=== PATIENT | female | born 1950 | race Caucasian/White ===

== ENCOUNTER → 2017-12-05 11:58 | Outpatient (REF) | payer MEDICARE, SELFPAY ==
[2017-12-05 14:14] LABS: Alanine Aminotransferase 30 U/L (12-78); Albumin Level 3.9 gm/dL (3.4-5.0); Albumin/Globulin Ratio 1.1 (1.1-1.8); Alkaline Phosphatase 100 U/L (46-116); Anion Gap 12.5 mEq/L (5-15); Aspartate Amino Transferase 14 U/L (15-37); Bilirubin,Total 0.4 mg/dL (0.2-1.0); Blood Urea Nitrogen 16 mg/dL (7-18); Calcium 9.3 mg/dL (8.5-10.1); Carbon Dioxide 31 mmol/L (21.0-32.0); Chloride 98 mmol/L (98-107); Chol/HDL Ratio 5.7 (1-3.5); Cholesterol 199 mg/dL (140-200); Creatinine,Serum 0.59 mg/dL (0.55-1.02); Estimated Glomerular Filt Rate 102 ml/min (>60); GFR (African American) 123 ML/MIN (>60); Globulin 3.6 gm/dl (1.3-3.2); Glucose 107 mg/dL (74-106); HDL Cholesterol 35 mg/dL (29-89); LDL Cholesterol 117 mg/dL (0-130); Potassium 3.5 mmoL/L (3.5-5.1); Sodium 138 mmol/L (136-145); T4 (Thyroxine) 9.9 ug/dl (4.7-13.3); Thyroid Stimulating Hormone 2.96 uIU/ml (0.358-3.740); Total Protein,Serum 7.5 gm/dL (6.4-8.2); Triglycerides 236 mg/dL (30-200); VLDL Cholesterol 47 mg/dL (0-40)
[2017-12-05 15:43] LABS: Hematocrit 45.9 % (37.0-47.0); Hemoglobin 15.2 g/dL (12.2-16.2); Lymphocytes % 15.6 K/mm3 (10-50); Mean Corpuscular HGB Conc 33.1 g/dL (31.8-35.4); Mean Corpuscular Hemoglobin 30.6 pg (27.0-31.2); Mean Corpuscular Volume 92.3 fl (81-99); Mean Platelet Volume 9.1 fl (7.4-10.4); Neutrophils % 73.6 % (37.0-80.0); Platelet Count 230 K/mm3 (142-424); Red Blood Count 4.97 M/mm3 (4.20-5.40); Red Cell Distribution Width 12.8 % (11.5-17.5); White Blood Count 6.3 K/mm3 (4.8-10.8)
[2017-12-05 15:44] LABS: Basophils # 0.1 K/mm3 (0-0.2); Basophils % 0.9 % (0.1-2.0); Eosinophils # 0.2 K/mm3 (0.0-0.4); Eosinophils % 2.4 % (0.1-12.0); Lymphocytes # 0.8 K/mm3 (0.7-4.5); Monocytes # 0.5 K/mm3 (0.1-1.0); Monocytes % 7.5 % (1.7-9.3); Neutrophils # 4.6 K/mm3 (1.8-7.8)
== END ==
LOC: LAB 11:58
PROVIDERS: Visit Provider Physician Assistant
DX: I25.10 Atherosclerotic heart disease of native coronary artery without angina pectoris (principal); E78.5 Hyperlipidemia, unspecified; M25.511 Pain in right shoulder; I10 Essential (primary) hypertension
CPT/HCPCS: 80053; 80061; 84436; 84443; 85025

== ENCOUNTER → 2017-12-24 08:27 | Outpatient (CLI) | payer MEDICARE, SELFPAY ==
--- NOTE | 2017-12-24 08:30 | XR_ITS ---
XR shoulder RT min 2V HISTORY: ITS.REASON: right shoulder pain ORDERING PHYSICIAN: PASCUAL Richardson PATIENT AGE: 67 years COMPARISON: None FINDINGS: No fracture or dislocation. No lytic or blastic change. There is normal mineralization. Osteoarthritic changes are present at the acromioclavicular joint with spurring along the inferior aspect of the AC joint. Is may result in impingement symptomatology upon the rotator cuff may be better evaluated with MRI clinically warranted. The glenohumeral joint has an unremarkable appearance. IMPRESSION: Acromioclavicular arthropathy with spurring along the acromioclavicular joint otherwise negative
--- NOTE | 2017-12-24 08:30 | MM_ITS ---
MM Dig screening mamm BI w/CAD CAD Screening ORDERING PHYSICIAN : PASCUAL Richardson PATIENT AGE: 67 years GENDER: Female INDICATION: Routine screening no hormones no new complaints Family history. Sister with breast cancer age 32 COMPARISON: Previous mammograms: March 2014 TECHNIQUE: Standard CC and MLO images were obtained. Additional nipple profile cc & MLO views performed today which are indicative helpful in this dense nodular breast. R2 CAD reviewed. FINDINGS: Somewhat Difficult to evaluate breast radiographically due to the dense fibroglandular most evident at at superior breast. Dense breast tissue limits mammography. Also Ductal prominence pattern most evident retroareolar region. Latter as well as other features yield somewhat nodular character pattern which is a again seen bilaterally.... Scattered areas of dense breast tissue with scattered areas of benign calcification. No suspicious dominant mass. No discrete architecture distortion but I would encourage annual follow-up in this difficult to image breast. The multiple images provided they are helpful RIGHT BREAST:When compared to previous studies right breast appears overall stable with no significant new findings Areas of slight asymmetric density appear stable since prior study. Scattered benign-appearing calcifications are similar to prior study as well. Areas Minimal nodularity appears similar overall views are reviewed No new areas of significant concern. Follow-up in one year would be recommended and should be encouraged. LEFT BREAST: Areas of dense fibroglandular tissue such as the superior left breast seem to dissipate between the 2 MLO & cc views. It would be encouraged close follow-up with annual mammography. Provider as well as self breast examination be encouraged if any palpable areas developing ultrasound would be useful compliment to mammography in these areas of dense appearing breasts. IMPRESSION: 1. No definitive new areas of concern. Encourage close follow-up & ongoing breast examination; & encourage annual breast exam . If Palpable area develops, ultrasound would be useful compliment to mammography in breast of this character 2. Areas of dense breast tissue bilaterally, particularly evident at superior right & left breast, along with ductal prominence retroareolar regions, decreased sensitivity mammography. However these areas of density on one view seem to dissipate on another view with today's multiple views particularly helpful. Overall findings appear similar to previous study from 2013. 3. Follow-up in in one year/ not over one year recommended and should be emphasized, encouraged BI-RADS Category: 2 Benign Finding(s) RECOMMENDED FOLLOW-UP: 1YR - 1 YEAR FOLLOW-UP (A letter has been sent to the patient regarding results of the study.)
== END ==
LOC: RAD 08:27
PROVIDERS: Family Provider Emergency Medicine; PCP Physician Assistant; Visit Provider Physician Assistant
DX: M25.511 Pain in right shoulder (principal); Z12.31 Encounter for screening mammogram for malignant neoplasm of breast; I10 Essential (primary) hypertension
CPT/HCPCS: 73030; 77067

== ENCOUNTER → 2018-06-04 10:32 | Outpatient (REF) | payer MEDICARE, SELFPAY ==
[2018-06-04 13:55] LABS: Basophils # 0.1 K/mm3 (0-0.2); Basophils % 0.7 % (0.1-2.0); Eosinophils # 0.2 K/mm3 (0.0-0.4); Eosinophils % 3.1 % (0.1-12.0); Hemoglobin 15.7 g/dL (12.2-16.2); Lymphocytes # 1.1 K/mm3 (0.7-4.5); Lymphocytes % 16.9 K/mm3 (10-50); Mean Corpuscular HGB Conc 34.2 g/dL (31.8-35.4); Mean Corpuscular Hemoglobin 30.7 pg (27.0-31.2); Mean Corpuscular Volume 89.8 fl (81-99); Mean Platelet Volume 7.6 fl (7.4-10.4); Monocytes # 0.4 K/mm3 (0.1-1.0); Neutrophils # 4.6 K/mm3 (1.8-7.8); Neutrophils % 72.4 % (37.0-80.0); Platelet Count 295 K/mm3 (142-424); Red Blood Count 5.12 M/mm3 (4.20-5.40); Red Cell Distribution Width 13.4 % (11.5-17.5); White Blood Count 6.3 K/mm3 (4.8-10.8)
[2018-06-04 16:24] LABS: Alanine Aminotransferase 25 U/L (12-78); Albumin/Globulin Ratio 1.1 (1.1-1.8); Alkaline Phosphatase 127 U/L (46-116); Anion Gap 15.3 mEq/L (5-15); Aspartate Amino Transferase 12 U/L (15-37); Bilirubin,Total 0.4 mg/dL (0.2-1.0); Blood Urea Nitrogen 18 mg/dL (7-18); Calcium 9.5 mg/dL (8.5-10.1); Carbon Dioxide 29 mmol/L (21.0-32.0); Chloride 98 mmol/L (98-107); Chol/HDL Ratio 3.7 (1-3.5); Cholesterol 130 mg/dL (140-200); Creatinine,Serum 0.65 mg/dL (0.55-1.02); Estimated Glomerular Filt Rate 91 ml/min (>60); GFR (African American) 110 ML/MIN (>60); Globulin 3.6 gm/dl (1.3-3.2); Glucose 94 mg/dL (74-106); HDL Cholesterol 35 mg/dL (29-89); LDL Cholesterol 58 mg/dL (0-130); Potassium 3.3 mmoL/L (3.5-5.1); Sodium 139 mmol/L (136-145); T4 (Thyroxine) 10.2 ug/dl (4.7-13.3); Thyroid Stimulating Hormone 3.85 uIU/ml (0.358-3.740); Total Protein,Serum 7.6 gm/dL (6.4-8.2); Triglycerides 186 mg/dL (30-200); VLDL Cholesterol 37 mg/dL (0-40)
[2018-06-05 10:14] LABS: Vitamin D 25 Hydroxy 31.6 ng/mL (30.0-100.0)
[2018-06-06 09:09] LABS: Vitamin B12 453 pg/mL (232-1245)
== END ==
LOC: LAB 10:32
PROVIDERS: Visit Provider Physician Assistant
DX: R53.83 Other fatigue (principal); I25.10 Atherosclerotic heart disease of native coronary artery without angina pectoris; E55.9 Vitamin D deficiency, unspecified
CPT/HCPCS: 80053; 80061; 82607; 82652; 84436; 84443; 85025

== ENCOUNTER → 2018-09-03 13:12 | Outpatient (CLI) | payer MEDICARE, SELFPAY ==
[2018-09-03 13:40] LABS: Basophils # 0.1 K/mm3 (0-0.2); Basophils % 0.9 % (0.1-2.0); Eosinophils # 0.2 K/mm3 (0.0-0.4); Eosinophils % 3.4 % (0.1-12.0); Hematocrit 44.4 % (37.0-47.0); Hemoglobin 14.5 g/dL (12.2-16.2); Lymphocytes # 1.3 K/mm3 (0.7-4.5); Lymphocytes % 21.3 % (10-50); Mean Corpuscular HGB Conc 32.6 g/dL (31.8-35.4); Mean Corpuscular Hemoglobin 30.3 pg (27.0-31.2); Mean Corpuscular Volume 93.2 fl (81-99); Mean Platelet Volume 7.9 fl (7.4-10.4); Monocytes # 0.4 K/mm3 (0.1-1.0); Monocytes % 7.1 % (1.7-9.3); Neutrophils % 67.3 % (37.0-80.0); Platelet Count 277 K/mm3 (142-424); Red Blood Count 4.77 M/mm3 (4.20-5.40); Red Cell Distribution Width 13.6 % (11.5-17.5); White Blood Count 5.9 K/mm3 (4.8-10.8)
[2018-09-03 13:57] LABS: Alanine Aminotransferase 21 U/L (12-78); Albumin Level 3.6 gm/dL (3.4-5.0); Albumin/Globulin Ratio 0.9 (1.1-1.8); Alkaline Phosphatase 108 U/L (46-116); Anion Gap -3.4 mEq/L (5-15); Aspartate Amino Transferase 10 U/L (15-37); Bilirubin,Total 0.4 mg/dL (0.2-1.0); Blood Urea Nitrogen 16 mg/dL (7-18); Calcium 9.3 mg/dL (8.5-10.1); Carbon Dioxide 33 mmol/L (21.0-32.0); Chloride 104 mmol/L (98-107); Cholesterol 179 mg/dL (140-200); Creatinine,Serum 0.49 mg/dL (0.55-1.02); Estimated Glomerular Filt Rate 126 ml/min (>60); GFR (African American) 152 ML/MIN (>60); Globulin 3.8 gm/dl (1.3-3.2); Glucose 90 mg/dL (74-106); HDL Cholesterol 36 mg/dL (29-89); LDL Cholesterol 115 mg/dL (0-130); Potassium 3.6 mmoL/L (3.5-5.1); Sodium 130 mmol/L (136-145); T4 (Thyroxine) 10.6 ug/dl (4.7-13.3); Thyroid Stimulating Hormone 4.06 uIU/ml (0.358-3.740); Total Protein,Serum 7.4 gm/dL (6.4-8.2); Triglycerides 138 mg/dL (30-200); VLDL Cholesterol 28 mg/dL (0-40)
[2018-09-05 07:05] LABS: Vitamin D 25 Hydroxy 29.2 ng/mL (30.0-100.0)
== END ==
PROVIDERS: PCP Physician Assistant; Visit Provider Physician Assistant
DX: E78.5 Hyperlipidemia, unspecified (principal); R53.83 Other fatigue; I25.10 Atherosclerotic heart disease of native coronary artery without angina pectoris
CPT/HCPCS: 80053; 80061; 82652; 84436; 84443; 85025

== ENCOUNTER → 2019-02-24 14:05 | Outpatient (CLI) | payer MEDICARE, SELFPAY ==
[2019-02-24 14:44] LABS: Alanine Aminotransferase 24 U/L (12-78); Albumin Level 3.9 gm/dL (3.4-5.0); Alkaline Phosphatase 122 U/L (46-116); Anion Gap 11.5 mEq/L (5-15); Aspartate Amino Transferase 11 U/L (15-37); Bilirubin,Total 0.4 mg/dL (0.2-1.0); Blood Urea Nitrogen 17 mg/dL (7-18); Calcium 9.2 mg/dL (8.5-10.1); Carbon Dioxide 30 mmol/L (21.0-32.0); Chloride 98 mmol/L (98-107); Chol/HDL Ratio 4.8 (1-3.5); Cholesterol 173 mg/dL (140-200); Creatinine,Serum 0.47 mg/dL (0.55-1.02); Estimated Glomerular Filt Rate 132 ml/min (>60); GFR (African American) 160 ML/MIN (>60); Globulin 3.9 gm/dl (1.3-3.2); Glucose 99 mg/dL (74-106); HDL Cholesterol 36 mg/dL (29-89); LDL Cholesterol 113 mg/dL (0-130); Potassium 3.5 mmoL/L (3.5-5.1); Sodium 136 mmol/L (136-145); T4 (Thyroxine) 9.9 ug/dl (4.7-13.3); Thyroid Stimulating Hormone 3.65 uIU/ml (0.358-3.740); Total Protein,Serum 7.8 gm/dL (6.4-8.2); Triglycerides 119 mg/dL (30-200); VLDL Cholesterol 24 mg/dL (0-40)
[2019-02-25 13:56] LABS: Vitamin D 25 Hydroxy 24.8 ng/mL (30.0-100.0)
== END ==
PROVIDERS: Visit Provider Physician Assistant
DX: E03.9 Hypothyroidism, unspecified (principal); E78.5 Hyperlipidemia, unspecified; E55.9 Vitamin D deficiency, unspecified
CPT/HCPCS: 80053; 80061; 82652; 84436; 84443

== ENCOUNTER → 2019-06-29 08:50 | Outpatient (POV) | payer MEDICARE, SELFPAY | LOC: SC 08:51 | PROVIDERS: Visit Provider Specialist | DX: R20.0 Anesthesia of skin (principal); G56.00 Carpal tunnel syndrome, unspecified upper limb | CPT/HCPCS: 95886; 95908 ==

== ENCOUNTER → 2019-07-30 08:34 | Outpatient (CLI) | payer MEDICARE, SELFPAY ==
--- NOTE | 2019-07-30 08:42 | XR_ITS ---
PROCEDURE: XR WRIST LT MIN 3V CLINICAL INDICATION: left wrist pain/ CTS COMPARISON: No exams were available for comparison FINDINGS: Minimal osteoarthritic change at the 1st metacarpal-carpal joint and scapho trapezium joint. No fracture, dislocation, lytic change or blastic change evident IMPRESSION: Mild osteoarthritis Dictated by: Brayan Hummel MD 07/30/2019 10:16 Electronically signed by Brayan Hummel MD in [place] 08/07/2019 12:12
== END ==
LOC: RAD 08:36
PROVIDERS: PCP Emergency Medicine; Visit Provider Orthopaedic Surgery
DX: M25.532 Pain in left wrist (principal)
CPT/HCPCS: 73110

== ENCOUNTER → 2019-07-31 08:56 | Outpatient (CLI) | payer MEDICARE, SELFPAY ==
--- NOTE | 2019-07-31 09:00 | XR_ITS ---
PROCEDURE: XR CHEST 2V CLINICAL HISTORY: HTN, SMOKER, PREOP COMPARISON: CXR CHEST(2 VIEWS-NOT PORTABLE) from 05/26/2014 FINDINGS: The cardiomediastinal silhouette and pulmonary vascularity are within normal limits. The lungs are clear without infiltrates, suspicious nodules, or pleural effusions. There is minimal blunting right costophrenic angle however there is was noted previously and this is stable and likely due to scarring. There minor multilevel degenerate changes of the thoracic spine. No acute bony abnormalities. IMPRESSION: No acute findings. Dictated by: Dr. Barron Lawrence MD 07/31/2019 09:[address] Barron Lawrence MD in [facility] 07/31/2019 09:32
--- NOTE | 2019-07-31 09:28 | ECG_ITS ---
APPROVED REPORT Exam: Resting ECG HR:74 bpm ECG Measurements Heart Rate 74 AXES WA 180 P 65 QRSd 90 QRS 40 QT 432 T 52 QTc 479 <Conclusion> Normal sinus rhythm with sinus arrhythmia Normal ECG Electronically signed by : Marcelino Ramos, 07/31/2019 18:14:50
[2019-07-31 10:14] LABS: Basophils % 0.5 % (0.1-2.0); Eosinophils # 0.2 K/mm3 (0.0-0.4); Eosinophils % 3.3 % (0.1-12.0); Hematocrit 47.1 % (37.0-47.0); Hemoglobin 13.9 g/dL (12.2-16.2); Lymphocytes # 0.9 K/mm3 (0.7-4.5); Lymphocytes % 15.6 % (10-50); Mean Corpuscular HGB Conc 29.6 g/dL (31.8-35.4); Mean Corpuscular Volume 94.6 fl (81-99); Mean Platelet Volume 7.6 fl (7.4-10.4); Monocytes # 0.5 K/mm3 (0.1-1.0); Monocytes % 7.6 % (1.7-9.3); Neutrophils # 4.4 K/mm3 (1.8-7.8); Platelet Count 320 K/mm3 (142-424); Red Blood Count 4.98 M/mm3 (4.20-5.40); Red Cell Distribution Width 14.4 % (11.5-17.5)
[2019-07-31 10:31] LABS: Anion Gap 12.2 mEq/L (5-15); Blood Urea Nitrogen 16 mg/dL (7-18); Calcium 9.1 mg/dL (8.5-10.1); Carbon Dioxide 31 mmol/L (21.0-32.0); Chloride 98 mmol/L (98-107); Estimated Glomerular Filt Rate 159 ml/min (>60); GFR (African American) 192 ML/MIN (>60); Glucose 107 mg/dL (74-106); Potassium 3.2 mmoL/L (3.5-5.1); Sodium 138 mmol/L (136-145)
== END ==
LOC: RT 08:57
PROVIDERS: PCP Physician Assistant; Visit Provider Orthopaedic Surgery
DX: Z01.818 Encounter for other preprocedural examination (principal); G56.02 Carpal tunnel syndrome, left upper limb
CPT/HCPCS: 36415; 71046; 80048; 85025; 93005

== ENCOUNTER → 2020-05-16 17:04 | Outpatient (CLI) | payer MEDICARE, SELFPAY | PROVIDERS: Visit Provider Physician Assistant | DX: R30.0 Dysuria (principal) | CPT/HCPCS: 87086; 87088; 87186 ==

== ENCOUNTER → 2020-08-15 15:24 | Outpatient (CLI) | payer MEDICARE, SELFPAY ==
[2020-08-15 16:45] LABS: Basophils # 0.1 K/mm3 (0-0.2); Eosinophils # 0.2 K/mm3 (0.0-0.4); Eosinophils % 2.9 % (0.1-12.0); Hematocrit 44.7 % (37.0-47.0); Hemoglobin 15.8 g/dL (12.2-16.2); Lymphocytes # 1.1 K/mm3 (0.7-4.5); Lymphocytes % 17.3 % (10-50); Mean Corpuscular HGB Conc 35.4 g/dL (31.8-35.4); Mean Corpuscular Hemoglobin 31.4 pg (27.0-31.2); Mean Corpuscular Volume 88.7 fl (81-99); Mean Platelet Volume 8.4 fl (7.4-10.4); Monocytes # 0.5 K/mm3 (0.1-1.0); Monocytes % 8.1 % (1.7-9.3); Neutrophils # 4.3 K/mm3 (1.8-7.8); Neutrophils % 70.7 % (37.0-80.0); Platelet Count 251 K/mm3 (142-424); Red Blood Count 5.04 M/mm3 (4.20-5.40); Red Cell Distribution Width 13.3 % (11.5-17.5); White Blood Count 6.1 K/mm3 (4.8-10.8)
[2020-08-15 17:02] LABS: Alanine Aminotransferase 18 U/L (12-78); Albumin Level 4.2 g/dl (3.5-5.0); Albumin/Globulin Ratio 1.3 (1.1-1.8); Alkaline Phosphatase 120 U/L (38-126); Anion Gap 12.1 mEq/L (5-15); Aspartate Amino Transferase 23 U/L (14-36); Bilirubin,Total 0.6 mg/dl (0.2-1.3); Blood Urea Nitrogen 22 mg/dl (7-17); Calcium 9.4 mg/dl (8.4-10.2); Carbon Dioxide 32 mmol/L (22.0-30.0); Chloride 96 mmol/L (98-107); Chol/HDL Ratio 6.1 (1-3.5); Cholesterol 214 mg/dl (140-200); Estimated Glomerular Filt Rate 122 ml/min (>60); GFR (African American) 148 ML/MIN (>60); Globulin 3.2 g/dL (1.3-3.2); Glucose 99 mg/dl (74-100); HDL Cholesterol 35 mg/dl (40-60); Potassium 3.1 mmoL/L (3.5-5.1); Sodium 137 mmol/L (136-145); Total Protein,Serum 7.4 g/dl (6.3-8.2); Triglycerides 235 mg/dl (30-150); VLDL Cholesterol 47 mg/dL (0-40)
[2020-08-15 17:20] LABS: 25-OH Vitamin D, Total 20.6 ng/mL (30-100)
[2020-08-15 17:33] LABS: Thyroid Stimulating Hormone 3.28 uIU/mL (0.465-4.68)
== END ==
PROVIDERS: Visit Provider Physician Assistant
DX: E03.9 Hypothyroidism, unspecified (principal); E55.9 Vitamin D deficiency, unspecified; M54.32 Sciatica, left side; R53.83 Other fatigue; R20.0 Anesthesia of skin
CPT/HCPCS: 80053; 80061; 82306; 84443; 85025

== ENCOUNTER → 2020-12-20 08:55 | Outpatient (CLI) | payer MEDICARE, SELFPAY ==
--- NOTE | 2020-12-20 09:00 | XR_ITS ---
PROCEDURE: XR HAND LT MIN 3V CLINICAL INDICATION: left hand pain/ trigger finger COMPARISON: No exams were available for comparison FINDINGS: No fracture or dislocation. No lytic or blastic change. There is normal mineralization. There are mild osteoarthritic changes at the 1st carpal metacarpal junction and 1st metacarpophalangeal junction. Other findings:None. IMPRESSION: No acute findings. Dictated by: Brayan Hummel MD 12/20/2020 17:22 Brayan Hummel MD in [place] 12/20/2020 17:22
== END ==
LOC: RAD 08:57
PROVIDERS: PCP Physician Assistant; Visit Provider Orthopaedic Surgery
DX: M65.30 Trigger finger, unspecified finger (principal)
CPT/HCPCS: 73130

== ENCOUNTER 2020-12-20 10:30 | Outpatient (RCR) | payer MEDICARE, SELFPAY | END 2020-12-20 11:20 | disposition home or self-care (01) | LOC: OT 10:30 | PROVIDERS: Visit Provider Orthopaedic Surgery | DX: G56.02 Carpal tunnel syndrome, left upper limb (principal) | CPT/HCPCS: 97763 ==

== ENCOUNTER → 2020-12-30 07:45 | Outpatient (CLI) | payer MEDICARE, SELFPAY ==
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
== END ==
LOC: RAD 07:46
PROVIDERS: PCP Physician Assistant; Visit Provider Physician Assistant
DX: M54.5 Low back pain (principal)
CPT/HCPCS: 72110

== ENCOUNTER 2021-01-17 11:00 | Outpatient (RCR) | payer MEDICARE, SELFPAY | END 2021-05-03 14:53 | disposition home or self-care (01) | LOC: PT 11:00 | PROVIDERS: Visit Provider Physician Assistant | DX: M54.5 Low back pain (principal) | CPT/HCPCS: 97163 ==

== ENCOUNTER → 2021-05-01 10:05 | Outpatient (CLI) | payer MEDICARE, SELFPAY | PROVIDERS: Visit Provider Ophthalmology | DX: Z20.822 Contact with and (suspected) exposure to COVID-19 (principal) | CPT/HCPCS: U0003 ==

== ENCOUNTER 2021-05-02 08:43 | Day surgery (SDC) | payer MEDICARE, SELFPAY ==
[2021-04-26 08:23] VITALS: BMI 63.6
[2021-05-02] VITALS (7 sets, daily range): BP systolic 122–163; BP diastolic 55–71; PULSE 65–81; RESP 18–20; TEMP 36.4–36.7; O2SAT 94–100
== END 2021-05-02 11:02 | disposition home or self-care (01) ==
LOC: OR 08:44
PROVIDERS: PCP Physician Assistant; Visit Provider Ophthalmology
DX: H25.812 Combined forms of age-related cataract, left eye (principal); H25.89 Other age-related cataract; Z79.899 Other long term (current) drug therapy
CPT/HCPCS: 66982; V2632

== ENCOUNTER → 2021-08-09 11:39 | Outpatient (CLI) | payer MEDICARE, SELFPAY ==
[2021-08-09 12:06] LABS: Chloride 101 mmol/L (98-107)
[2021-08-09 12:07] LABS: Potassium 4.1 mmoL/L (3.5-5.1); Sodium 139 mmol/L (136-145)
[2021-08-09 12:09] LABS: Blood Urea Nitrogen 25 mg/dl (7-17); Estimated Glomerular Filt Rate 158 ml/min (>60); GFR (African American) 191 ML/MIN (>60)
[2021-08-09 12:10] LABS: Anion Gap 12.1 mEq/L (5-15); Calcium 9.1 mg/dl (8.4-10.2); Carbon Dioxide 30 mmol/L (22.0-30.0); Glucose 98 mg/dl (74-100)
== END ==
PROVIDERS: Visit Provider Physician Assistant
DX: Z01.818 Encounter for other preprocedural examination (principal)
CPT/HCPCS: 36415; 80048

== ENCOUNTER → 2021-08-11 08:45 | Outpatient (CLI) | payer MEDICARE, SELFPAY ==
--- NOTE | 2021-08-11 08:46 | CA_ITS ---
APPROVED REPORT Mercerizing Range Controller: Michelle Sauceda RVT Laterality: Bilateral Study Quality: Good Indications: dizziness Risk Factors Hypertension: Smoking Doppler Spectral Velocity Analysis ECA (R) 117.60/9.60 cm/s ECA (L) 144.40/8.60 cm/s dICA (R) 133.70/34.20 cm/s dICA (L) 116.60/25.70 cm/s Yeyo (R) 96.20/24.60 cm/s Yeyo (L) 88.80/25.70 cm/s pICA (R) 88.80/24.60 cm/s pICA (L) 93.00/25.70 cm/s dCCA (R) 62.00/10.70 cm/s dCCA (L) 88.80/20.30 cm/s pCCA (R) 63.10/12.80 cm/s pCCA (L) 95.20/15.00 cm/s Vert (R) 118.70/33.10 cm/s Vert (L) 43.80/7.50 cm/s ICA/CCA 2.16 ICA/CCA 1.31 Findings Study suggests less than 20% stenosis of the right internal cartoid artery. Study suggests less than 20% stenosis of the left internal cartoid artery. Antegrade flow seen bilateral vertebral arteries. Conclusion Study suggests less than 20% stenosis of the right internal cartoid artery. Study suggests less than 20% stenosis of the left internal cartoid artery. Antegrade flow seen bilateral vertebral arteries. Non occluding plaque in right and left CCA and bulb Electronically signed by : Brayan Hummel MD 08/11/2021 15:43:05
--- NOTE | 2021-08-11 09:09 | CT_ITS ---
Procedure: CT ANGIO HEAD CLINICAL HISTORY: dizziness, off balance, Headache, dizziness, off balance COMPARISON: No exams were available for comparison TECHNIQUE: IV Contrast: 100ml Isovue 370 Axial images obtained with sagittal and coronal reformats. All CT scans at the facility use one or more dose reduction, viz: automated exposure control, ma/kV adjustment per patient size (including targeted exams where dose is matched to indication, i.e. head), or iterative reconstruction technique. FINDINGS: Calcific plaque is present involving the cavernous portions of the ICAs. There is 50 percent stenosis involving the suprasellar portion of the right ICA by calcific plaque. 40 percent stenosis involves the suprasellar portion of the left ICA by calcific plaque. No obvious aneurysm, AVM, or dissection. The vertebral basilar system has an unremarkable appearance. No enhancing lesions, midline shift, or mass effect.. No dural venous thrombosis. IMPRESSION: 1. Intracranial atherosclerotic changes of the internal carotid arteries with 50 percent right and 40 percent left ICA stenosis in the suprasellar region. 2. No aneurysm, AVM or major intracranial occlusive process. Dictated by: Brayan Hummel MD 08/12/2021 09:37 Brayan Hummel MD in [place] 08/12/2021 09:37
== END ==
LOC: RT 08:46
PROVIDERS: PCP Physician Assistant; Visit Provider Physician Assistant
DX: I25.10 Atherosclerotic heart disease of native coronary artery without angina pectoris (principal); R20.0 Anesthesia of skin; R26.89 Other abnormalities of gait and mobility; R42 Dizziness and giddiness
CPT/HCPCS: 70496; 93880; Q9967

== ENCOUNTER → 2021-08-21 10:09 | Outpatient (CLI) | payer MEDICARE, SELFPAY ==
--- NOTE | 2021-08-21 10:10 | MR_ITS ---
PROCEDURE: MR CERVICAL SPINE WO CON CLINICAL INDICATION: dizziness/ neck pain COMPARISON: CR CS5 CERVICAL SPINE 4 OR 5 VIEWS from 03/16/2014 TECHNIQUE: Standard multiplanar multiecho sequences are performed without contrast. 3-D MIP and myelographic images are also rendered and reviewed FINDINGS: There is normal alignment. Generalized motion artifact is present. This does obscure fine detail. C2-C3: Mild bilateral left-sided foraminal narrowing from facet hypertrophic change. C3-C4: Degenerative disc disease with mild bulging disc. Left-sided foraminal narrowing from facet hypertrophic change. C4-C5: Minimal central disc protrusion. Mild left-sided foraminal narrowing. C5-C6: Degenerative disc disease with bulging disc and small posterior endplate osteophytes. There is a small right paracentral disc protrusion versus disc osteophyte complex causing right-sided foraminal narrowing. There is bilateral foraminal narrowing and canal stenosis. There is bilateral foraminal narrowing. C6-C7: Degenerative disc disease with minimal bulging disc. C7-T1 mild degenerative disc disease. T1-T2 unremarkable. Spinal cord signal is markedly obscured from the C4 level to the T2 level secondary to motion artifact. IMPRESSION: 1. Considerable motion artifact obscuring fine detail. Spinal cord is obscured from C4-T2. 2. C3-C4: Degenerative disc disease with mild bulging disc. Left-sided foraminal narrowing from facet hypertrophic change. 3. C4-C5: Minimal central disc protrusion. Mild left-sided foraminal narrowing. 4. C5-C6: Degenerative disc disease with bulging disc and small posterior endplate osteophytes. There is a small right paracentral disc protrusion versus disc osteophyte complex causing right-sided foraminal narrowing. There is bilateral foraminal narrowing and canal stenosis. There is bilateral foraminal narrowing. 5. C6-C7: Degenerative disc disease with minimal bulging disc Dictated by: Brayan Hummel MD 08/22/2021 16:19 Brayan Hummel MD in [place] 08/22/2021 16:19
== END ==
LOC: RAD 10:10
PROVIDERS: PCP Physician Assistant; Visit Provider Physician Assistant
DX: M54.2 Cervicalgia (principal); R26.89 Other abnormalities of gait and mobility; R42 Dizziness and giddiness
CPT/HCPCS: 72141; 76376

== ENCOUNTER → 2021-09-19 09:23 | Outpatient (POV) | payer MEDICARE, SELFPAY ==
[2021-09-19 09:38] VITALS: BP 138/80; PULSE 93; RESP 20; TEMP 36.8; O2SAT 97; BMI 27.9
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
== END ==
PROVIDERS: Visit Provider Clinical Nurse Specialist Family Health
DX: M47.896 Other spondylosis, lumbar region (principal); M54.16 Radiculopathy, lumbar region
CPT/HCPCS: 99202; G0463

== ENCOUNTER → 2021-10-02 09:23 | Outpatient (CLI) | payer MEDICARE, SELFPAY ==
--- NOTE | 2021-10-02 09:26 | MR_ITS ---
PROCEDURE: MR LUMBAR SPINE WO CON CLINICAL INDICATION: BACK PAIN COMPARISON: MR HAIRSPRING STAKER/O MRI-L-SPINE W/O from 04/01/2015 MR MR CERVICAL SPINE WO CON from 08/21/2021 TECHNIQUE: Standard multiplanar multiecho sequences are performed without contrast. 3-D MIP and myelographic images are also rendered and reviewed FINDINGS: Normal alignment. Spinal cord ends at the L1-L2 level. T11-T12: Degenerative disc disease with minimal circumferential bulging disc slightly eccentric toward the right. Small anterior osteophytes T12-L1: Unremarkable. L1-L2: Unremarkable. L2-L3: Mild facet and ligamentum hypertrophic change. L3-L4: 2 mm anterolisthesis of L3. Circumferential bulging disc with moderate facet and ligamentum hypertrophy as well as moderate bilateral lateral recess narrowing slightly greater on the right compared to the left with canal stenosis. These findings have slightly progressed since the previous exam. There is moderate bilateral foraminal narrowing. Mild degenerative disc disease. L4-5: 3 mm anterolisthesis of L4 with bulging disc along with severe facet hypertrophic changes. An oval area of increased T2 signal is present in the right lateral recess measuring 1 cm cephalad caudad, 0.8 cm transverse, and 0.6 cm AP. This is isointense on T1 and hyperintense on T2. This is contiguous with the posterior aspect of the disc and is causing severe right lateral recess narrowing and compression the right L5 nerve root as well as compression of the thecal sac toward the left. There is severe canal stenosis at this level due to the facet and ligamentum hypertrophic changes. The canal measures approximately 7 mm. These findings have developed since the previous exam. There is a small amount of fluid within the facet joint. The abnormality in the right lateral recess could be related to a synovial cyst or an edematous disc herniation. There is moderate bilateral foraminal narrowing L5-S1: 3 mm anterolisthesis of L5 with bulging disc eccentric toward the left and moderate to severe facet hypertrophic changes with moderate right and severe left foraminal narrowing. These findings are not significantly changed. IMPRESSION: 1. T11-T12: Degenerative disc disease with minimal circumferential bulging disc slightly eccentric toward the right. Small anterior osteophytes 2. L3-L4: 2 mm anterolisthesis of L3. Circumferential bulging disc with moderate facet and ligamentum hypertrophy as well as moderate bilateral lateral recess narrowing slightly greater on the right compared to the left with canal stenosis. These findings have slightly progressed since the previous exam. There is moderate bilateral foraminal narrowing. Mild degenerative disc disease. 3. L4-5: 3 mm anterolisthesis of L4 with bulging disc along with severe facet hypertrophic changes. An oval area of increased T2 signal is present in the right lateral recess measuring 1 cm cephalad caudad, 0.8 cm transverse, and 0.6 cm AP. This is isointense on T1 and hyperintense on T2. This is contiguous with the posterior aspect of the disc and is causing severe right lateral recess narrowing and compression the right L5 nerve root as well as compression of the thecal sac toward the left. There is severe canal stenosis at this level due to the facet and ligamentum hypertrophic changes. The canal measures approximately 7 mm. These findings have developed since the previous exam. There is a small amount of fluid within the facet joints. The abnormality in the right lateral recess could be related to a synovial cyst or an edematous disc herniation. There is moderate bilateral foraminal narrowing 4. L5-S1: 3 mm anterolisthesis of L5 with bulging disc eccentric toward the left and moderate to se
== END ==
LOC: RAD 09:23
PROVIDERS: PCP Physician Assistant; Visit Provider Clinical Nurse Specialist Family Health
DX: M54.50 Low back pain, unspecified (principal)
CPT/HCPCS: 72148; 76376

== ENCOUNTER → 2021-10-09 09:20 | Outpatient (POV) | payer MEDICARE, SELFPAY ==
[2021-10-09 09:47] VITALS: BP 165/63; PULSE 80; RESP 18; O2SAT 99; BMI 27.4
--- NOTE | 2021-10-09 09:59 | HMH.PAINSOAP ---
[facility] Pain Management SOAP Note Subjective:: Patient is a pleasant 71-year-old female who comes in here today for follow-up after an MRI. Patient is currently being treated for worsening low back pain that radiates to bilateral lower extremities. When we last saw this patient, we gave her a course prednisone for one week. She says this helped her so much and disappointed that she can't get more of it. Patient says that her pain is worse with activity. She says that she would like some relief before she works. She currently works at [employer] 12 hour shifts at night. Patient denies any loss of bowel and bladder functions. Patient says that she takes about 6 tylenols a day that is not helping her at all. She has previously tried gabapentin 300mg TID which did not help her. Patient has tried and failed conservative therapy such as oral medication and at home exercises for greater than 6 weeks. She rates her pain today as 10 out of 10. She is currently not on any scheduled medications. Her Pratik is [phone] with an active morphine equivalent of 0. Drug screens have been appropriate. Review of Systems General: No recent weight changes, no fever, no sleep disturbances Respiratory: No cough, no shortness of air, no recurring pulmonary infections Cardiovascular/peripheral vascular: No chest pain, no palpitations, no edema, no shortness of breath Gastrointestinal: No new onset incontinence, normal bowel movements reported Genitourinary: No new onset incontinence Musculoskeletal: [low back pain] Psychiatric: [Normal mood/affect] Neurological: [Denies weakness in extremities], [denies balance issues] Objective:: Physical exam General: Alert and oriented x3, no acute distress, pleasant and cooperative Lungs: Respirations even and unlabored, symmetrical chest expansion Eyes: PERRL Musculoskeletal: Flexion and extension of lumbar [spine] somewhat guarded secondary to pain; positive lama's test Neurological: Speech clear, no gross sensory deficit Assessment:: Degenerative disc disease of the lumbar spine with lumbar radiculopathy Spondylosis Facet arthropathy Plan:: Ordering Physician: Cristin Camp APRN Date of Service: 10/02/21 Procedure(s): MR lumbar spine wo con Accession Number(s): [id number] cc: Brayan Hummel MD; Marianela Glaser~ PROCEDURE: MR LUMBAR SPINE WO CON CLINICAL INDICATION: BACK PAIN COMPARISON: MR HIP HOP DANCER/O MRI-L-SPINE W/O from 04/01/2015 MR MR CERVICAL SPINE WO CON from 08/21/2021 TECHNIQUE: Standard multiplanar multiecho sequences are performed without contrast. 3-D MIP and myelographic images are also rendered and reviewed FINDINGS: Normal alignment. Spinal cord ends at the L1-L2 level. T11-T12: Degenerative disc disease with minimal circumferential bulging disc slightly eccentric toward the right. Small anterior osteophytes T12-L1: Unremarkable. L1-L2: Unremarkable. L2-L3: Mild facet and ligamentum hypertrophic change. L3-L4: 2 mm anterolisthesis of L3. Circumferential bulging disc with moderate facet and ligamentum hypertrophy as well as moderate bilateral lateral recess narrowing slightly greater on the right compared to the left with canal stenosis. These findings have slightly progressed since the previous exam. There is moderate bilateral foraminal narrowing. Mild degenerative disc disease. L4-5: 3 mm anterolisthesis of L4 with bulging disc along with severe facet hypertrophic changes. An oval area of increased T2 signal is present in the right lateral recess measuring 1 cm cephalad caudad, 0.8 cm transverse, and 0.6 cm AP. This is isointense on T1 and hyperintense on T2. This is contiguous with the posterior aspect of the disc and is causing severe right lateral recess narrowing and compression the right L5 nerve root as well as compression of the thecal sac toward the left. There is severe canal stenosis at this level due to the facet and ligamentum h
== END ==
PROVIDERS: Visit Provider Clinical Nurse Specialist Family Health
DX: M54.59 Other low back pain (principal); M54.16 Radiculopathy, lumbar region
CPT/HCPCS: 99212; G0463

== ENCOUNTER → 2021-11-27 16:00 | Outpatient (CLI) | payer MEDICARE, SELFPAY ==
[2021-11-27 14:06] LABS: Basophils # 0.1 K/mm3 (0-0.2); Basophils % 1.9 % (0.1-2.0); Eosinophils # 0.1 K/mm3 (0.0-0.4); Eosinophils % 2.7 % (0.1-12.0); Hematocrit 48.4 % (37.0-47.0); Hemoglobin 15.7 g/dL (12.2-16.2); Lymphocytes % 20.4 % (10-50); Mean Corpuscular HGB Conc 32.5 g/dL (31.8-35.4); Mean Corpuscular Hemoglobin 30.2 pg (27.0-31.2); Mean Corpuscular Volume 92.9 fl (81-99); Mean Platelet Volume 8.6 fl (7.4-10.4); Monocytes # 0.5 K/mm3 (0.1-1.0); Monocytes % 9.3 % (1.7-9.3); Neutrophils # 3.3 K/mm3 (1.8-7.8); Neutrophils % 65.7 % (37.0-80.0); Platelet Count 310 K/mm3 (142-424); Red Blood Count 5.21 M/mm3 (4.20-5.40); Red Cell Distribution Width 14.1 % (11.5-17.5)
[2021-11-27 14:12] LABS: Alanine Aminotransferase 16 U/L (12-78); Albumin Level 4.3 g/dl (3.5-5.0); Albumin/Globulin Ratio 1.5 (1.1-1.8); Alkaline Phosphatase 107 U/L (38-126); Anion Gap 11.9 mEq/L (5-15); Aspartate Amino Transferase 23 U/L (14-36); Bilirubin,Total 0.7 mg/dl (0.2-1.3); Blood Urea Nitrogen 16 mg/dl (7-17); Calcium 9.7 mg/dl (8.4-10.2); Carbon Dioxide 29 mmol/L (22.0-30.0); Chloride 97 mmol/L (98-107); Chol/HDL Ratio 5.9 (1-3.5); Cholesterol 178 mg/dl (140-200); Estimated Glomerular Filt Rate 158 ml/min (>60); GFR (African American) 191 ML/MIN (>60); Globulin 2.9 g/dL (1.3-3.2); Glucose 107 mg/dl (74-100); HDL Cholesterol 30 mg/dl (40-60); Potassium 3.9 mmoL/L (3.5-5.1); Sodium 134 mmol/L (136-145); Total Protein,Serum 7.2 g/dl (6.3-8.2); Triglycerides 237 mg/dl (30-150); VLDL Cholesterol 47 mg/dL (0-40)
[2021-11-27 14:23] LABS: Direct LDL Cholesterol 95.35 mg/dL (100-129)
[2021-11-27 14:29] LABS: 25-OH Vitamin D, Total 28.8 ng/mL (30-100)
[2021-11-27 14:43] LABS: Thyroid Stimulating Hormone 4.33 uIU/mL (0.465-4.68)
== END ==
PROVIDERS: Visit Provider Physician Assistant
DX: E78.5 Hyperlipidemia, unspecified (principal); R20.0 Anesthesia of skin; M47.816 Spondylosis without myelopathy or radiculopathy, lumbar region; E55.9 Vitamin D deficiency, unspecified; E03.9 Hypothyroidism, unspecified
CPT/HCPCS: 80053; 80061; 82306; 84443; 85025

== ENCOUNTER → 2022-01-08 10:05 | Outpatient (POV) | payer MEDICARE, SELFPAY ==
[2022-01-08 11:31] VITALS: BP 133/64; PULSE 103; RESP 18; TEMP 37.2; O2SAT 92; BMI 28.1
--- NOTE | 2022-01-08 14:29 | P.CONS_ITS ---
[facility] Pain Management SOAP Note Subjective:: Patient is a pleasant 71-year-old female who presents today for follow-up. Patient is currently being treated for sacroiliitis. Patient states that she has been having worsening right SI/hip pain. Her primary care Beiter ordered some steroids for her that helped 4 weeks. She says that she has been having issues with any prolonged activity such as sitting, standing, walking. He has been having issues working at her [employer] job. She denies any loss of bowel and bladder functions. She rates her pain today as 5 out of 10. General: No recent weight changes, no fever, no sleep disturbances Respiratory: No cough, no shortness of air, no recurring pulmonary infections Cardiovascular/peripheral vascular: No chest pain, no palpitations, no edema, no shortness of breath Gastrointestinal: No new onset incontinence, normal bowel movements reported Genitourinary: No new onset incontinence Musculoskeletal: Right hip pain Psychiatric: [Normal mood/affect] Neurological: [Denies weakness in extremities], [denies balance issues] Objective:: General: Alert and oriented x3, no acute distress, pleasant and cooperative, [on room air] Lungs: Respirations even and unlabored, symmetrical chest expansion Eyes: PERRL Musculoskeletal: Flexion and extension of [lumbar] [spine] somewhat guarded secondary to pain, [antalgic gait noted]; right hip/SI is positive for RAMANA, Gavin's, compression, and distraction. 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 She has positive Ramana, Gavin's, compression, and distraction. Patient's presentation is most consistent with sacroiliitis. I will schedule the patient for a right SI in jection. Risks and benefits of the procedure have been explained to the patient. Patient would like to proceed with the procedure. Additionally, I will order the patient some compounding cream to help with some of the tenderness around her right SI. Patient has been instructed to contact the clinic with any concerns before the next appointment. Dr. Bautista has reviewed this note and agrees with this plan of care. This note was dictated using voice recognition software and make contain errors or omissions. [facility] History Medical History: Reports:: Anxiety, Chronic Obstructive Pulmonary Disease (COPD), Coronary Artery Disease, Cerebrovascular Accident, Depression, Hiatal Hernia, Hyperlipidemia, Hypertension, Myocardial Infarction, Renal Insufficiency Denies:: Cancer, Diabetes Mellitus Type 1, Diabetes Mellitus Type 2, Internal Pacemaker, Lung Disease, MRSA, Seizures *Have you ever received a pneumonia vaccine?: No *Have you received a flu vaccine this season?: Yes Other Medical History: Reports: Arthritis, Hypothyroidism Laterality Cases: Bilateral: Tonsillectomy Other Surgeries: Yes: Cardiac Catheterization, Cardiac Surgery, Cholecystectomy, Coronary Stent, , Other. No: Pacemaker Amputation: No Fractures: No - *Social History Smoking Status: Current every day smoker Tobacco Type: cigarettes # Packs/Day (cigarettes): 1 #Yrs smoked (if former smoker): 51 Alcohol Intake: never Substance Use Type: denies use *Occupational Status:: other Housing: house Household Members: family *Travel in the last 8 weeks: None - Psychiatric History Pschychiatric History:: Reports:: Anxiety, Depression Family Hx:: Heart Attack
== END ==
PROVIDERS: Visit Provider Student in an Organized Health Care Education/Training Program
DX: M51.16 Intervertebral disc disorders with radiculopathy, lumbar region (principal); M46.1 Sacroiliitis, not elsewhere classified
CPT/HCPCS: 99212; G0463

== ENCOUNTER 2022-01-19 10:37 | Day surgery (SDC) | payer MEDICARE, SELFPAY ==
[2022-01-19 11:31] VITALS: BP 157/67; BP 174/72; PULSE 78; PULSE 83; RESP 18; RESP 20; TEMP 36.8; O2SAT 94; O2SAT 96; BMI 27.8
[2022-01-19 12:06] VITALS: BP 181/76; PULSE 72; RESP 18; O2SAT 94
[2022-01-19 12:08] VITALS: BP 176/80; PULSE 72; RESP 18; O2SAT 94
--- NOTE | 2022-01-19 13:48 | P.PCN_ITS ---
- Procedure Date: 01/19/22 Time: 13:48 Anesthesiologist:: Elder Bautista MD Complications:: None Pre-procedure Diagnosis:: Sacroiliitis Post-procedure Diagnosis:: Same Indications for Procedure:: This patient is a pleasant 71-year-old white female who we are treating for right-sided hip pain. She is tender over the right SI joint. She has a positive Ramana's test on the right side. She has a positive Radha test on the right side. She has positive SI joint compression test on the right side. She presents for right SI joint injection under fluoroscopy today to help with pain symptoms. Procedure Details:: Right SI joint injection under fluoroscopy Informed consent was obtained and the risks and benefits of the procedure was going to the patient. Patient was taken to the procedure room. Patient was placed prone on the procedure table. The right hip was prepped using ChloraPrep. The skin and subcutaneous tissues were anesthetized using lidocaine . I placed a 22-gauge spinal needle into the inferior aspect of the right SI joint. Needle placement was confirmed with dye. After this we injected 5 mL bupivacaine 0.25% and Depo-Medrol 40 mg into the right SI joint. The patient tolerated the procedure well with no complication. Plan and Disposition:: We will follow-up with her in 2 weeks. Will reevaluate symptoms at that time.
== END 2022-01-19 12:20 | disposition home or self-care (01) ==
LOC: SC.PAINP 10:37
PROVIDERS: PCP Physician Assistant; Visit Provider Anesthesiology
DX: M46.1 Sacroiliitis, not elsewhere classified (principal); F41.9 Anxiety disorder, unspecified; J44.9 Chronic obstructive pulmonary disease, unspecified; I25.10 Atherosclerotic heart disease of native coronary artery without angina pectoris; F32.A Depression, unspecified; E78.5 Hyperlipidemia, unspecified; I10 Essential (primary) hypertension; I25.2 Old myocardial infarction; M19.90 Unspecified osteoarthritis, unspecified site; E03.9 Hypothyroidism, unspecified; Z86.73 Personal history of transient ischemic attack (TIA), and cerebral infarction without residual deficits; Z72.0 Tobacco use
CPT/HCPCS: 27096; G0260; J1040; Q9966

== ENCOUNTER → 2022-03-01 09:46 | Outpatient (POV) | payer MEDICARE, SELFPAY ==
[2022-03-01 10:01] VITALS: BP 141/87; PULSE 77; RESP 18; TEMP 37.2; O2SAT 95; BMI 28.1
--- NOTE | 2022-03-01 11:09 | HMH.PAINSOAP ---
[facility] Pain Management SOAP Note Subjective:: Patient is a pleasant 71-year-old female who presents today for follow-up. Patient is currently being treated for right-sided sacroiliitis. We have been managing this patient with injective therapy. When we last saw her, she had a right SI injection that provided 100% relief that lasted for 4 days. She says that she was able to increase her activity during that time period. However, when she went back to work on Saturday she started to have some pain again. She does work at [employer] where she is on her feet all day. She wants to know if she can get a repeat injection. Rates her pain today as 9 out of 10. She does takes care of her grandkids that is why she continues to work. Review of Systems: General: No recent weight changes, no fever, no sleep disturbances Respiratory: No cough, no shortness of air, no recurring pulmonary infections Cardiovascular/peripheral vascular: No chest pain, no palpitations, no edema, no shortness of breath Gastrointestinal: No new onset incontinence, normal bowel movements reported Genitourinary: No new onset incontinence Musculoskeletal: Right hip pain Psychiatric: [Normal mood/affect] Neurological: [Denies weakness in extremities], [denies balance issues] Objective:: Physical Exam: General: Alert and oriented x3, no acute distress, pleasant and cooperative Lungs: Respirations even and unlabored, symmetrical chest expansion Eyes: PERRL Musculoskeletal: Right SI is positive for AMBROSIO, Gavin's, [place]'s, Gaenslen's, compression, and distraction. Neurological: Speech clear, no gross sensory deficit Assessment:: Right-sided sacroiliitis Plan:: Patient had significant relief after the right SI injection that lasted for 4 days. Patient has tried and failed conservative therapy such as oral medication, physical therapy, and at home exercises for greater than 6 weeks. We will schedule the patient for a right SI injection. Risk and benefits of this procedure have been discussed with the patient. Patient would like to proceed with the procedure. If the patient gets significant but temporary relief after this injection, we will consider moving forward with a sacroiliac stabilization procedure. Patient has been instructed to contact the clinic with any concerns before the next appointment. Dr. Bautista has reviewed this note and agrees with this plan of care. This note was dictated using voice recognition software and make contain errors or omissions. [facility] History Medical History: Reports:: Anxiety, Chronic Obstructive Pulmonary Disease (COPD), Coronary Artery Disease, Cerebrovascular Accident, Depression, Hiatal Hernia, Hyperlipidemia, Hypertension, Myocardial Infarction, Renal Insufficiency Denies:: Cancer, Diabetes Mellitus Type 1, Diabetes Mellitus Type 2, Internal Pacemaker, Lung Disease, MRSA, Seizures *Have you ever received a pneumonia vaccine?: No *Have you received a flu vaccine this season?: Yes Other Medical History: Reports: Arthritis, Hypothyroidism Laterality Cases: Bilateral: Tonsillectomy Other Surgeries: Yes: Cardiac Catheterization, Cardiac Surgery, Cholecystectomy, Coronary Stent, , Other. No: Pacemaker Amputation: No Fractures: No - *Social History Smoking Status: Current every day smoker Tobacco Type: cigarettes # Packs/Day (cigarettes): 1 #Yrs smoked (if former smoker): 51 Alcohol Intake: never Substance Use Type: denies use *Occupational Status:: employed Housing: house Household Members: family *Travel in the last 8 weeks: None - Psychiatric History Pschychiatric History:: Reports:: Anxiety, Depression Family Hx:: No significant family history
== END ==
PROVIDERS: Visit Provider Student in an Organized Health Care Education/Training Program
DX: M46.1 Sacroiliitis, not elsewhere classified (principal)
CPT/HCPCS: 99212; G0463

== ENCOUNTER → 2022-03-06 07:47 | Outpatient (CLI) | payer MEDICARE, SELFPAY ==
[2022-03-06 08:25] VITALS: PULSE 83; PULSE 86
--- NOTE | 2022-03-06 09:05 | CT_ITS ---
FINAL REPORT CLINICAL HISTORY: . 1ppd x 51 years FINDINGS: Low-Dose Chest CT CTDI vol (mGy): 2.90 DLP (mGy-cm): 98.21 Axial images were obtained from the lung apex to the mid abdomen by computed tomography. Low-dose protocol was utilized. FINDINGS: CHEST: There is no axillary adenopathy. There is no hilar or mediastinal adenopathy. There is severe coronary artery calcification. The heart is proper size. There is no pericardial or pleural effusion. Limited images of the upper abdomen are unremarkable. Lung window images demonstrate no suspicious infiltrate or nodule. A calcified granuloma is seen in the left lower lobe. There is mild scarring. IMPRESSION: S-modifier: Severe coronary artery calcification. Lung RADS category 1S. Recommend 12 month follow-up low-dose chest CT. Reviewed, Interpreted and Dictated by Misael Rothman III, MD Transcribed by King Vidal Authenticated by Misael Rothman III, MD on 03/06/2022 12:33:04 PM [facility]
== END ==
LOC: RT 07:48
PROVIDERS: PCP Physician Assistant; Visit Provider Physician Assistant
DX: Z87.891 Personal history of nicotine dependence (principal); Z12.2 Encounter for screening for malignant neoplasm of respiratory organs
CPT/HCPCS: 71271; 94060; 94618; 94640; 94727; 94729

== ENCOUNTER 2022-03-09 08:34 | Day surgery (SDC) | payer MEDICARE, SELFPAY ==
[2022-03-09 08:47] VITALS: BP 133/55; PULSE 96; RESP 18; TEMP 37; O2SAT 93; BMI 28.1
[2022-03-09 09:22] VITALS: BP 139/56; PULSE 89; RESP 18; O2SAT 92
[2022-03-09 09:23] VITALS: BP 130/70; PULSE 82; RESP 18; O2SAT 92
--- NOTE | 2022-03-09 09:36 | HMH.PMPROC ---
- Procedure Date: 03/09/22 Time: 09:36 Anesthesiologist:: Viktor Chavez CRNA Complications:: None Pre-procedure Diagnosis:: Right sacroiliitis Post-procedure Diagnosis:: Same Indications for Procedure:: Very pleasant 71-year-old white female that comes to our clinic today for right SI joint injection. Patient has had this injection in the past with significant improvement terms of her right posterior hip pain. She has extreme point tenderness over the right SI joint area. She rates the pain 7/10. Procedure Details:: Procedure: Right sacroliliac joint injection under fluoroscopy Informed consent was obtained and the risk and benefits of the procedure were explained to the patient.~ The patient was taken to the procedure room and noninvasive monitors were placed including noninvasive blood pressure cuff and pulse oximeter.~ The patient was placed prone on the procedure table.~ The~ right hip was cleansed using Betadine as a cleansing solution.~ C-arm fluorosocpy was used to view the right SI joint.~ The skin and subcutaneous tissues were anesthetized using Lidocaine 1.5% and a 25-gauge needle.~ After this, a 22-gauge spinal needle was inserted under fluoroscopic guidance into the inferior aspect of the right SI joint.~ Omnipaque dye was injected and a good spread was seen throughout the joint.~ After this, approximately 5 mL of bupivacaine 0.25% and Depo-Medrol 40 mg was incrementally injected into the sacroiliac joint.~ The patient tolerated the procedure well with no complications.~ The patient was observed in the Pain Clinic, then discharged home neurologically intact.~ Plan and Disposition:: Patient was discharged without incident
[2022-03-09 09:46] VITALS: BP 134/64; PULSE 71; RESP 20; O2SAT 96
== END 2022-03-09 09:47 | disposition home or self-care (01) ==
LOC: SC.PAINP 08:36
PROVIDERS: PCP Physician Assistant; Visit Provider Nurse Anesthetist, Certified Registered
DX: M46.1 Sacroiliitis, not elsewhere classified (principal); F41.9 Anxiety disorder, unspecified; J44.9 Chronic obstructive pulmonary disease, unspecified; I25.10 Atherosclerotic heart disease of native coronary artery without angina pectoris; I10 Essential (primary) hypertension; F32.A Depression, unspecified; E78.5 Hyperlipidemia, unspecified; I25.2 Old myocardial infarction; N28.9 Disorder of kidney and ureter, unspecified; M19.90 Unspecified osteoarthritis, unspecified site; E03.9 Hypothyroidism, unspecified; Z72.0 Tobacco use
CPT/HCPCS: 27096; G0260; J1040

== ENCOUNTER → 2022-04-02 09:22 | Outpatient (POV) | payer MEDICARE, SELFPAY ==
[2022-04-02 11:19] VITALS: BP 132/58; PULSE 75; RESP 18; TEMP 36.6; O2SAT 92; BMI 28.8
--- NOTE | 2022-04-02 11:33 | HMH.PAINSOAP ---
[facility] Pain Management SOAP Note Subjective:: Patient is a pleasant 71-year-old female who presents today for follow-up after a right SI injection on March 09, 2022. Patient is currently being treated for right-sided sacroiliitis. After her procedure, she had significant relief of 80 to 90% that lasted for a few days. Her SI pain came back as soon as she started working. She states that the injections do help a lot. She has retired from working at [employer] and her pain has become more tolerable. Today, she feels like her right SI pain is back to baseline. She does take [id number] medication for pain. She rates her pain today as 4 out of 10. She is also prescribed Lyrica 75 mg twice a day. She is wanting refills on this medication. She also takes [place] 5 mg as needed that is prescribed by Dr. Souza. She states that the [place] helps her pain significantly. Pratik [id number] with an active morphine equivalent of 15. Review of Systems: General: No recent weight changes, no fever, no sleep disturbances Respiratory: No cough, no shortness of air, no recurring pulmonary infections Cardiovascular/peripheral vascular: No chest pain, no palpitations, no edema, no shortness of breath Gastrointestinal: No new onset incontinence, normal bowel movements reported Genitourinary: No new onset incontinence Musculoskeletal: Right hip pain Psychiatric: [Normal mood/affect] Neurological: [Denies weakness in extremities], [denies balance issues] Objective:: Physical Exam: General: Alert and oriented x3, no acute distress, pleasant and cooperative Lungs: Respirations even and unlabored, symmetrical chest expansion Eyes: PERRL Musculoskeletal: Right SI is positive for AMBROSIO, Gavin's, [place]'s, Gaenslen's, compression, and distraction. Neurological: Speech clear, no gross sensory deficit Assessment:: Right-sided sacroiliitis Plan:: Patient presents today with right SI pain. She has had SI injections in the past that provided significant relief of 80 to 90%. Her pain does come back as soon as she starts working. She states that she has retired from [employer]. She now takes care of her four grand babies. I discussed with her that she has three options in moving forward. She can proceed with SI Joint stabilization procedure but she will be down for at least 6 weeks. Or, she can try for a right SI ablation or she can try another injection. She states that since she is taking care of her 4 grand babies, she does not want to proceed with any surgical intervention. She wants to try the right SI RFA since it should provide longer term relief. If her insurance does not want to cover her right SI RFA, we can reschedule the pt for a right SI Injection. She tried physical therapy in September 2021 that aggravated her symptoms. She does continue her home exercises. We will schedule the patient for a right SI RFA. We will continue the patient's Lyrica 75 mg twice a day. We will provide the patient with 1 month worth of refill. Follow-up after her right SI RFA. Patient has been instructed to contact the clinic with any concerns before the next appointment. Dr. Bautista has reviewed this note and agrees with this plan of care. This note was dictated using voice recognition software and make contain errors or omissions. [facility] History Medical History: Reports:: Anxiety, Chronic Obstructive Pulmonary Disease (COPD), Coronary Artery Disease, Cerebrovascular Accident, Depression, Hiatal Hernia, Hyperlipidemia, Hypertension, Myocardial Infarction, Renal Insufficiency Denies:: Cancer, Diabetes Mellitus Type 1, Diabetes Mellitus Type 2, Internal Pacemaker, Lung Disease, MRSA, Seizures *Have you ever received a pneumonia vaccine?: No *Have you received a flu vaccine this season?: Yes Other Medical History: Reports: Arthritis, Hypothyroidism Laterality Cases: Bilateral: Tonsillectomy Other Surgeries: Yes: Cardiac Catheterization, Cardiac Surgery, Cholecystectomy, Coronary Stent, , Othe
== END ==
PROVIDERS: Visit Provider Student in an Organized Health Care Education/Training Program
DX: M46.1 Sacroiliitis, not elsewhere classified (principal)
CPT/HCPCS: 99212; G0463

== ENCOUNTER 2022-04-27 09:50 | Day surgery (SDC) | payer MEDICARE, SELFPAY ==
[2022-04-27 10:08] VITALS: BP 140/64; PULSE 64; RESP 18; TEMP 36.7; O2SAT 96; BMI 28.1
[2022-04-27 10:31] VITALS: BP 173/68; PULSE 75; RESP 20
--- NOTE | 2022-04-27 10:40 | HMH.PMPROC ---
- Procedure Date: 04/27/22 Time: 10:41 Anesthesiologist:: Viktor Chavez CRNA Complications:: None Pre-procedure Diagnosis:: Right sacroiliitis Post-procedure Diagnosis:: Same Indications for Procedure:: This patient very pleasant 71-year-old female who presents today for right SI joint radiofrequency ablation. Patient had significant improvement with right SI joint injection. However, not lasting. Procedure Details:: Details of the procedure were explained to the patient. The patient was taken to the procedure room placed in the prone position. The area on the right SI joint was cleansed using chlorhexidine as a cleansing solution. Using fluoroscopy guidance 2 markers were placed over the lower one third of the right SI joint 0.5 cm medial off the joint line. 22-gauge radiofrequency ablation needles were placed 2 cm apart in the lower one third of the SI joint. After negative sensory and motor stimulation. Each needle was injected with 3 cc of 1% lidocaine and 20 mg of Depo-Medrol. At this time both needles were stimulated at 80 ?C for 120 seconds. Patient tolerated the procedure without difficulty. [place] were removed. Band-Aid applied. Plan and Disposition:: Patient was discharged without incident.
[2022-04-27 10:47] VITALS: BP 156/75; PULSE 74; RESP 20; O2SAT 96
== END 2022-04-27 10:48 | disposition home or self-care (01) ==
LOC: SC.PAINP 09:52
PROVIDERS: PCP Physician Assistant; Visit Provider Nurse Anesthetist, Certified Registered
DX: M46.1 Sacroiliitis, not elsewhere classified (principal); M53.3 Sacrococcygeal disorders, not elsewhere classified
CPT/HCPCS: 64625; J1040

== ENCOUNTER → 2022-06-11 10:50 | Outpatient (POV) | payer MEDICARE, SELFPAY ==
[2022-06-11 11:06] VITALS: BP 128/75; PULSE 81; RESP 18; TEMP 36.8; O2SAT 95; BMI 30.5
--- NOTE | 2022-06-11 12:34 | HMH.PAINSOAP ---
[facility] Pain Management SOAP Note Subjective:: Patient is a pleasant 72-year-old female that presents today for follow-up. We are currently treating the patient for right-sided sacroiliitis. Patient previously had a right SI joint radiofrequency ablation on 04/27/2022. Patient states that she has had significant improvement of her symptoms on her right side. Today the patient rates her pain a 7 out of 10. She states her pain is on her left SI as well as low back pain. Patient denies any new trauma or injury to the site. She states this pain is a aching, throbbing sensation that is worse with increased activity. She says this pain has increased over the last month. Patient states she has tried Tylenol however it does not seem to help as well as topical rubs such as icy hot and Biofreeze. Patient states she was given a [place] prescription by her primary care doctor however stated that she got no improvement of her symptoms with this. We are currently managing the patient with Lyrica 75 mg twice a day. She is requesting a refill at today's visit. patient denies any side effects from this medication. She states this medication is adequately helping manage her pain. She is also prescribed a compounding cream however she states that she no longer has any additional refills on this medication. Patient has seen physical therapy in September 2021 however she states that this did not help her pain. Her Pratik is [id number]. Its been reviewed and appropriate. Review of Systems: General: No recent weight changes, no fever, no sleep disturbances Respiratory: No cough, no shortness of air, no recurring pulmonary infections Cardiovascular/peripheral vascular: No chest pain, no palpitations, no edema, no shortness of breath Gastrointestinal: No new onset incontinence, normal bowel movements reported Genitourinary: No new onset incontinence Musculoskeletal: Low back pain Psychiatric: [Normal mood/affect] Neurological: [Denies weakness in extremities], [denies balance issues] Objective:: Physical Exam: General: Alert and oriented x3, no acute distress, pleasant and cooperative Lungs: Respirations even and unlabored, symmetrical chest expansion Eyes: PERRL Musculoskeletal: Flexion and extension of lumbar [spine] somewhat guarded secondary to pain, [antalgic gait noted]. Extreme point tenderness along left SI and positive left Ramana's, Gavin's, Gaenslen's, compression and distraction exam Neurological: Speech clear, no gross sensory deficit Assessment:: Bilateral sacroiliitis Plan:: Patient is having significant worsening in her left SI area. She had extreme point tenderness along her left SI and a positive left Ramana's, Gavin's, Gaenslen's, compression and distraction test during today's exam. I have discussed with the patient regarding doing a left SI injection. Risk and benefits were discussed with the patient. She would like to proceed forward with this injection. I will also do a refill on her Lyrica 75 mg twice a day with a 1 month supply and compounding cream. We will schedule the patient for a left SI injection. Patient has been instructed to contact the clinic with any concerns before the next appointment. Dr. Bautista has reviewed this note and agrees with this plan of care. This note was dictated using voice recognition software and make contain errors or omissions. [facility] History I have reviewed the patient's past medical history: Yes Medical History: Reports:: Anxiety, Chronic Obstructive Pulmonary Disease (COPD), Coronary Artery Disease, Cerebrovascular Accident, Depression, Hiatal Hernia, Hyperlipidemia, Hypertension, Myocardial Infarction, Renal Insufficiency Denies:: Cancer, Diabetes Mellitus Type 1, Diabetes Mellitus Type 2, Internal Pacemaker, Lung Disease, MRSA, Seizures *Have you ever received a pneumonia vaccine?: No *Have you received a flu vaccine this season?: Yes Other Medical History: Reports: Arthritis, Hypothyroidism Laterality Cases:
== END ==
PROVIDERS: PCP Physician Assistant; Visit Provider Nurse Practitioner Family
DX: M46.1 Sacroiliitis, not elsewhere classified (principal)
CPT/HCPCS: 99212; G0463

== ENCOUNTER 2022-07-10 09:32 | Day surgery (SDC) | payer MEDICARE, SELFPAY ==
[2022-07-10 09:46] VITALS: BP 159/72; PULSE 89; RESP 18; TEMP 36.9; O2SAT 95; BMI 29.2
[2022-07-10 09:54] VITALS: BP 164/70; PULSE 85; RESP 18; O2SAT 94
[2022-07-10 09:55] VITALS: BP 164/70; PULSE 78; RESP 18; O2SAT 95
--- NOTE | 2022-07-10 09:58 | EXP.PAIN.PRO ---
Procedure Date: 07/10/22 Time: 09:58 Anesthesiologist:: Viktor Chavez CRNA Complications:: None Pre-procedure Diagnosis:: Bilateral sacroiliitis Post-procedure Diagnosis:: Same Indications for Procedure:: Patient is a pleasant 72-year-old female who presents today for left SI injection. We are currently treating the patient for bilateral sacroiliitis. Today the patient states she is still having left-sided pain that radiates into her left lower extremity. Patient denies any new trauma or injury. She describes this as an aching, throbbing sensation that is worse with increased activity. Patient does use [id number] Tylenol as needed and topical creams. She is currently managed with Lyrica 75 mg twice a day. Patient denies any side effects from this medication. She states this medication does adequately help manage her pain. She is also prescribed compounding cream. Physical exam: General: Alert and oriented x3, no acute distress, pleasant and cooperative Lungs: Respirations even and unlabored, symmetrical chest expansion Eyes: PERRL Musculoskeletal: Flexion and extension of lumbar spine somewhat guarded secondary to pain, antalgic gait noted Neurological: Speech clear, no gross sensory deficit Procedure Details:: Informed consent was obtained and the risk and benefits of the procedure were explained to the patient. The patient was taken to the procedure room where noninvasive monitors were placed including a noninvasive blood pressure cuff and pulse oximeter. The patient was placed on prone on the procedure table. The lower back/buttocks was cleansed using chlorhexidine as a cleansing solution. The C arm fluoroscopy was used to view the left SI joint. The skin and subcutaneous tissue were accessed using a 22-gauge needle under fluoroscopic guidance into the inferior aspect of the left SI joint approximately 5 mL of bupivacaine 0.25% and Depo-Medrol 40 mg were incrementally injected into the left SI joint. Patient tolerated the procedure well with no complications. Plan and Disposition:: The patient was observed in clinic for period of time and was then discharged home neurologically intact. Patient has been instructed to contact the clinic with any concerns before the next appointment. Dr. Bautista is reviewed this note and agrees with this plan of care. This note was dictated using voice recognition software and may contain errors or omissions.
[2022-07-10 10:01] VITALS: BP 163/85; PULSE 88; RESP 18; O2SAT 95
== END 2022-07-10 10:01 | disposition home or self-care (01) ==
LOC: SC.PAINP 09:33
PROVIDERS: PCP Physician Assistant; Visit Provider Nurse Anesthetist, Certified Registered
DX: M46.1 Sacroiliitis, not elsewhere classified (principal); M19.90 Unspecified osteoarthritis, unspecified site; Z72.0 Tobacco use
CPT/HCPCS: 27096; G0260; J1040

== ENCOUNTER → 2022-07-30 08:38 | Outpatient (POV) | payer MEDICARE, SELFPAY ==
[2022-07-30 08:52] VITALS: BP 134/65; PULSE 90; RESP 18; TEMP 36.8; O2SAT 94; BMI 27.8
--- NOTE | 2022-07-30 09:29 | EXP.PAIN.SOA ---
[facility] Pain Management SOAP Note Subjective:: Patient is a pleasant 72-year-old female who presents today for follow-up after a left SI injection on 07/10/2022. Patient is current being treated for chronic low back pain, bilateral sacroiliitis, bilateral trochanteric bursitis. After her injection, patient had significant relief of 80 to 90% for about a week. She states that she was able to increase her activity during that time and was able to sleep better. Today, she feels like she is back to baseline. She has had SI injections in the past that provided significant but temporary relief as well. She cannot tolerate any prolonged activity such as sitting, standing, and walking. 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 This has started to become taxing on her. For pain, she takes Maysel 5 mg 3 times a day as needed that is prescribed by Dr. Terrence Almendarez. We are also prescribing this patient pregabalin 75 mg twice a day. She denies any side effects from this medication. She is needing refills on this medication. [facility] [phone] with an active morphine equivalent of 0. Drug screens appropriate. Review of Systems: General: No recent weight changes, no fever, no sleep disturbances Respiratory: No cough, no shortness of air, no recurring pulmonary infections Cardiovascular/peripheral vascular: No chest pain, no palpitations, no edema, no shortness of breath Gastrointestinal: No new onset incontinence, normal bowel movements reported Genitourinary: No new onset incontinence Musculoskeletal: Low back pain, bilateral hip pain Psychiatric: [Normal mood/affect] Neurological: [Denies weakness in extremities], [denies balance issues] Objective:: Physical Exam: General: Alert and oriented x3, no acute distress, pleasant and cooperative Lungs: Respirations even and unlabored, symmetrical chest expansion Eyes: PERRL Musculoskeletal: Flexion and extension of lumbar [spine] somewhat guarded secondary to pain, [antalgic gait noted]; bilateral SI are positive for AMBROSIO, Gavin's, Hazleton's, Gaenslen's, compression, and distraction. Tender to palpation to bilateral greater trochanteric bursa Neurological: Speech clear, no gross sensory deficit Assessment:: Degenerative disc disease of the lumbar spine with lumbar radiculopathy symptoms, bilateral sacroiliitis, bilateral greater trochanter bursitis Plan:: Patient has had as injections in the past that provided significant but temporary relief. I discussed with the patient that she is a good candidate for sacroiliac joint stabilization procedure. Today, patient is noted to palpation to bilateral SI joints and bilateral greater trochanteric bursae. Her left side is worse on the right side. I will schedule this patient for a left SI injection and left greater trochanteric bursa injections with Dr. Bautista. At her injection appt, Dr. Bautista will evaluate to see if the patient is a better candidate for the Cornerloc system or the omnia system. Will cont patient's Lyrica 75mg BID and will provide 1 month of refill. Patient has been instructed to contact the clinic with any concerns before the next appointment. Dr. Bautista has reviewed this note and agrees with this plan of care. This note was dictated using voice recognition software and make contain errors or omissions. [facility] Medical History Anxiety CAD (coronary artery disease) Depression DJD (degenerative joint disease), lumbar Edema Gastroesophageal reflux disease HTN (hypertension) Hyperlipidemia Hypertension Left sided sciatica Leg cramps Numbness of right hand Shoulder pain, right Social History Smoking Status: Current every day smoker tobacco type: cigarettes packs per day: 1 second hand exposure: No alcohol intake: never substance use type: denies use current occupational status: retired Travel in the last 8 wee
== END | disposition home or self-care (01) ==
PROVIDERS: Visit Provider Nurse Practitioner Family
DX: M51.16 Intervertebral disc disorders with radiculopathy, lumbar region (principal); M46.1 Sacroiliitis, not elsewhere classified; M70.61 Trochanteric bursitis, right hip; M70.62 Trochanteric bursitis, left hip; Z72.0 Tobacco use
CPT/HCPCS: 99212; G0463

== ENCOUNTER → 2022-08-20 14:51 | Outpatient (CLI) | payer MEDICARE, SELFPAY ==
[2022-08-20 14:32] LABS: Basophils # 0.1 K/mm3 (0-0.2); Eosinophils # 0.1 K/mm3 (0.0-0.4); Eosinophils % 1.2 % (0.1-12.0); Lymphocytes # 1.4 K/mm3 (0.7-4.5); Lymphocytes % 14.9 % (10-50); Mean Corpuscular HGB Conc 33.3 g/dL (31.8-35.4); Mean Corpuscular Hemoglobin 29.1 pg (27.0-31.2); Mean Corpuscular Volume 87.5 fl (81-99); Mean Platelet Volume 8.7 fl (7.4-10.4); Monocytes # 0.8 K/mm3 (0.1-1.0); Monocytes % 7.8 % (1.7-9.3); Neutrophils # 7.2 K/mm3 (1.8-7.8); Neutrophils % 75.1 % (37.0-80.0); Platelet Count 548 K/mm3 (142-424); Red Blood Count 5.14 M/mm3 (4.20-5.40); Red Cell Distribution Width 13.6 % (11.5-17.5); White Blood Count 9.6 K/mm3 (4.8-10.8)
[2022-08-20 14:33] LABS: Alanine Aminotransferase 18 U/L (12-78); Albumin Level 3.7 g/dl (3.5-5.0); Albumin/Globulin Ratio 1.1 (1.1-1.8); Alkaline Phosphatase 179 U/L (38-126); Anion Gap 18.3 mEq/L (5-15); Aspartate Amino Transferase 22 U/L (14-36); Bilirubin,Total 0.4 mg/dl (0.2-1.3); Blood Urea Nitrogen 19 mg/dl (7-17); Calcium 9.2 mg/dl (8.4-10.2); Carbon Dioxide 31 mmol/L (22.0-30.0); Chloride 91 mmol/L (98-107); Chol/HDL Ratio 5.4 (1-3.5); Cholesterol 177 mg/dl (140-200); Estimated Glomerular Filt Rate 157 ml/min (>60); GFR (African American) 190 ML/MIN (>60); Globulin 3.3 g/dL (1.3-3.2); Glucose 103 mg/dl (74-100); HDL Cholesterol 33 mg/dl (40-60); Potassium 3.3 mmoL/L (3.5-5.1); Sodium 137 mmol/L (136-145); Triglycerides 154 mg/dl (30-150); VLDL Cholesterol 31 mg/dL (0-40)
[2022-08-20 14:50] LABS: Direct LDL Cholesterol 110.23 mg/dL (100-129)
[2022-08-20 14:51] LABS: 25-OH Vitamin D, Total 23.6 ng/mL (30-100)
[2022-08-20 15:36] LABS: Vitamin B12 > 1000 pg/mL (239-931)
== END ==
PROVIDERS: PCP Physician Assistant; Visit Provider Physician Assistant
DX: E03.9 Hypothyroidism, unspecified (principal); E55.9 Vitamin D deficiency, unspecified; R53.83 Other fatigue
CPT/HCPCS: 80053; 80061; 82306; 82607; 84443; 85025

== ENCOUNTER → 2022-08-23 11:50 | Outpatient (CLI) | payer MEDICARE, SELFPAY ==
[2022-08-29 14:46] LABS: Chloride 96 mmol/L (98-107); Potassium 4.3 mmoL/L (3.5-5.1); Sodium 138 mmol/L (136-145)
[2022-08-29 14:49] LABS: Anion Gap 18.3 mEq/L (5-15); Blood Urea Nitrogen 19 mg/dl (7-17); Calcium 9.5 mg/dl (8.4-10.2); Carbon Dioxide 28 mmol/L (22.0-30.0); Estimated Glomerular Filt Rate 122 ml/min (>60); GFR (African American) 147 ML/MIN (>60); Glucose 106 mg/dl (74-100)
== END ==
PROVIDERS: PCP Physician Assistant; Visit Provider Physician Assistant
DX: E87.6 Hypokalemia (principal)
CPT/HCPCS: 80048

== ENCOUNTER 2022-08-28 08:07 | Day surgery (SDC) | payer MEDICARE, SELFPAY ==
[2022-08-28 08:19] VITALS: BP 147/75; PULSE 97; RESP 18; TEMP 36.6; O2SAT 95; BMI 28.1
[2022-08-28 08:50] VITALS: BP 158/66; PULSE 81; RESP 18; O2SAT 95
[2022-08-28 08:51] VITALS: BP 163/65; PULSE 78; RESP 18; O2SAT 95
[2022-08-28 08:59] VITALS: BP 147/64; PULSE 83; RESP 18; O2SAT 95
--- NOTE | 2022-08-28 09:15 | P.PCN_ITS ---
Procedure Date: 08/28/22 Time: 09:00 Anesthesiologist:: Viktor Chavez CRNA Complications:: None Pre-procedure Diagnosis:: Chronic left sacroiliitis. Left trochanteric bursitis Post-procedure Diagnosis:: Same. Indications for Procedure:: Patient is a very pleasant 72-year female who comes our clinic today for left SI joint injection as well as left trochanteric bursa injection. Patient has responded well to these particular injections on the right side. Procedure Details:: Procedure: Left sacroiliac injection under fluoroscopy Informed consent was obtained and the risk and benefits of the procedure were explained to the patient.~ The patient was taken to the procedure room and noninvasive monitors were placed including noninvasive blood pressure cuff and pulse oximeter.~ The patient was placed prone on the procedure table.~ The~ left hip was cleansed using Betadine as a cleansing solution.~ C-arm fluorosocpy was used to view the left SI joint.~ The skin and subcutaneous tissues were anesthetized using Lidocaine 1.5% and a 25-gauge needle.~ After this, a 22-gauge spinal needle was inserted under fluoroscopic guidance into the inferior aspect of the left SI joint.~ Omnipaque dye was injected and a good spread was seen throughout the joint.~ After this, approximately 5 mL of bupivacaine 0.25% and Depo-Medrol 40 mg was incrementally injected into the sacroiliac joint.~ The patient tolerated the procedure well with no complications.~ The patient was observed in the Pain Clinic for a period of 30-45 minutes, then discharged home neurologically intact.~ Procedure:Left trochanteric bursa injection under fluoroscopy We then moved to the left trochanteric bursa.~ C-arm fluoroscopy was used to view the left greater trochanter.~ The skin and subcutaneous tissues overlying the left greater trochanter were anesthetized using lidocaine, 1.5% and a 25- gauge needle.~ After this, a 22-gauge spinal needle was inserted and advanced until it contacted the left greater trochanter.~ Dye was injected and good spread was seen throughout the left trochanteric bursa. After this, approximately 5 mL of bupivacaine, 0.25% and Depo-Medrol, 40 mg was incrementally injected into the left trochanteric bursa.~ The patient tolerated the procedure well with no complications. Plan and Disposition:: Patient was discharged without incident
== END 2022-08-28 08:59 | disposition home or self-care (01) ==
PROVIDERS: PCP Physician Assistant; Visit Provider Nurse Anesthetist, Certified Registered
DX: M46.1 Sacroiliitis, not elsewhere classified (principal); M70.62 Trochanteric bursitis, left hip; Z72.0 Tobacco use
CPT/HCPCS: 20610; 27096; 77002; G0260; J1030

== ENCOUNTER → 2022-09-11 10:00 | Outpatient (POV) | payer MEDICARE, SELFPAY ==
[2022-09-11 10:24] VITALS: BP 141/77; PULSE 86; RESP 18; O2SAT 97; BMI 29.0
--- NOTE | 2022-09-11 11:28 | EXP.PAIN.SOA ---
[facility] Pain Management SOAP Note Subjective:: Patient is a pleasant 72-year-old female who presents today for follow-up of left SI and left bursa injection on 08/28/2022. We are currently treating the patient for chronic low back pain, bilateral sacroiliitis, bilateral trochanteric bursitis. Patient states she had 100% relief following this injections and feels like they worked well however patient did have a fall on Saturday. Patient states she was sitting at her kitchen table drinking coffee and then the next thing she knew she had fell to the side and onto the floor. Patient states she is unsure exactly what happened but she did have a significant left forearm skin tear, facial tenderness from the fall and muscle strain along the left side of her neck. Today she rates her pain a 10 out of 10. Patient is complaining more of her pain along her neck that radiates into her left shoulder. Patient describes this as a achy, throbbing sensation that is worse with increased activity. Patient states she has limited range of motion due to the pain and it is significantly interfering with her activities of daily life including raising foster kids. Patient is prescribed V[place] 5 mg 3 times a day by Dr. Almendarez's office. Patient denies any side effects from this medication. She states this medication does seem to help with her pain symptoms. Patient is also prescribed pregabalin 75 mg twice a day from our office. Patient denies any side effects with this medication. She states it does provide additional relief. Patient states she does not take this all the time. She is also prescribed compounding cream that she states does provide some additional improvement. Her Pratik is [id number]. It is been reviewed and appropriate. Review of Systems: General: No recent weight changes, no fever, no sleep disturbances Respiratory: No cough, no shortness of air, no recurring pulmonary infections Cardiovascular/peripheral vascular: No chest pain, no palpitations, no edema, no shortness of breath Gastrointestinal: No new onset incontinence, normal bowel movements reported Genitourinary: No new onset incontinence Musculoskeletal: Left neck pain, left shoulder pain Psychiatric: [Normal mood/affect] Neurological: [Denies weakness in extremities], [denies balance issues] Objective:: Physical Exam: General: Alert and oriented x3, no acute distress, pleasant and cooperative Lungs: Respirations even and unlabored, symmetrical chest expansion Eyes: PERRL Musculoskeletal: Flexion and extension of cervical [spine] somewhat guarded secondary to pain, [antalgic gait noted] extreme point tenderness along left cervical paraspinous and left trapezius muscles Neurological: Speech clear, no gross sensory deficit Assessment:: Chronic low back pain, bilateral sacroiliitis, bilateral trochanteric bursitis, myofascial pain left cervical paraspinous and left trapezius Plan:: Patient is experiencing significant pain along her neck at the left side that radiates into her left shoulder. Patient did have limited range of motion of her cervical spine and extreme point tenderness at her left cervical paraspinous and left trapezius muscles. I have recommended to the patient that she may benefit from trigger point injections at the sites. Risk and benefits were discussed with the patient. She would like to proceed forward with this plan of care. We will schedule her for TPI left cervical paraspinous and left trapezius. Patient has been instructed to contact the clinic with any concerns before the next appointment. Dr. Bautista has reviewed this note and agrees with this plan of care. This note was dictated using voice recognition software and make contain errors or omissions. [facility] Medical History Anxiety CAD (coronary artery disease) Depression DJD (degenerative joint disease), lumbar Edema Gastroesophageal reflux disease HTN (hypertension) Hyperlipidemia H
== END | disposition home or self-care (01) ==
PROVIDERS: PCP Physician Assistant; Visit Provider Nurse Practitioner Family
DX: M46.1 Sacroiliitis, not elsewhere classified (principal); M70.61 Trochanteric bursitis, right hip; M70.62 Trochanteric bursitis, left hip; M54.50 Low back pain, unspecified; G89.29 Other chronic pain; M79.18 Myalgia, other site
CPT/HCPCS: 99212; G0463

== ENCOUNTER → 2022-09-19 15:01 | Outpatient (CLI) | payer MEDICARE, SELFPAY ==
[2022-09-19 16:32] LABS: Chloride 101 mmol/L (98-107); Sodium 137 mmol/L (136-145)
[2022-09-19 16:34] LABS: Basophils # 0.2 K/mm3 (0-0.2); Basophils % 3.2 % (0.1-2.0); Eosinophils # 0.2 K/mm3 (0.0-0.4); Eosinophils % 4.1 % (0.1-12.0); Hematocrit 50.2 % (37.0-47.0); Hemoglobin 15.6 g/dL (12.2-16.2); Lymphocytes # 1.3 K/mm3 (0.7-4.5); Lymphocytes % 21.9 % (10-50); Mean Corpuscular Volume 93.7 fl (81-99); Mean Platelet Volume 9.7 fl (7.4-10.4); Monocytes # 0.5 K/mm3 (0.1-1.0); Monocytes % 9.5 % (1.7-9.3); Neutrophils # 3.5 K/mm3 (1.8-7.8); Neutrophils % 61.3 % (37.0-80.0); Platelet Count 311 K/mm3 (142-424); Red Blood Count 5.36 M/mm3 (4.20-5.40); Red Cell Distribution Width 14.9 % (11.5-17.5); White Blood Count 5.8 K/mm3 (4.8-10.8)
[2022-09-19 16:35] LABS: Alanine Aminotransferase 19 U/L (12-78); Alkaline Phosphatase 137 U/L (38-126); Aspartate Amino Transferase 27 U/L (14-36); Bilirubin,Total 0.4 mg/dl (0.2-1.3); Blood Urea Nitrogen 17 mg/dl (7-17); Estimated Glomerular Filt Rate 157 ml/min (>60); GFR (African American) 190 ML/MIN (>60)
[2022-09-19 16:36] LABS: Albumin Level 4.1 g/dl (3.5-5.0); Albumin/Globulin Ratio 1.5 (1.1-1.8); Calcium 9.3 mg/dl (8.4-10.2); Carbon Dioxide 29 mmol/L (22.0-30.0); Globulin 2.8 g/dL (1.3-3.2); Glucose 81 mg/dl (74-100); Total Protein,Serum 6.9 g/dl (6.3-8.2)
== END ==
PROVIDERS: PCP Physician Assistant; Visit Provider Physician Assistant
DX: W19.XXXA Unspecified fall, initial encounter (principal); T22.112A Burn of first degree of left forearm, initial encounter; T23.072A Burn of unspecified degree of left wrist, initial encounter
CPT/HCPCS: 80053; 85025

== ENCOUNTER → 2022-09-26 08:10 | Outpatient (CLI) | payer MEDICARE, SELFPAY ==
[2022-09-26 10:23] LABS: Intact Parathyroid Hormone 57.7 pg/mL (7.5-53.5)
[2022-09-27 17:09] LABS: Calcium, Ionized 5.4 mg/dL (4.5-5.6)
== END ==
PROVIDERS: PCP Physician Assistant; Visit Provider Physician Assistant
DX: E21.3 Hyperparathyroidism, unspecified (principal)
CPT/HCPCS: 36415; 82330; 83970

== ENCOUNTER → 2022-10-05 08:44 | Outpatient (CLI) | payer MEDICARE, SELFPAY ==
--- NOTE | 2022-10-05 08:44 | XR_ITS ---
FINAL REPORT TECHNIQUE: Bone densitometry calculations of the lumbar spine and right hip were obtained. CLINICAL HISTORY: . post menopausa FINDINGS: DEXA BONE DENSITY AXIAL SKELETON Using L1-4, the bone mineral density of the spine is 0.984 g/cm2, corresponding to T-score of -0.6. No these values are likely falsely elevated secondary to hypertrophic change. Using the right hip, the bone mineral density of the femoral neck is 0.632 g/cm2, corresponding to a T-score of -2.0. NOTE: T-score: Standard deviation compared with peak bone mass of young adult mean. *Following the recommendations of the International Society of Bone densitometry, classification of hip BMD is based on the lower of two T-scores; total hip or femoral neck. IMPRESSION: Diminished bone mineral density of the lumbar spine and right hip consistent with osteopenia. Reviewed, Interpreted and Dictated by Misael Rothman III, MD Transcribed by Helen Dewitt Authenticated and [facility]
== END ==
PROVIDERS: PCP Physician Assistant; Visit Provider Physician Assistant
DX: Z78.0 Asymptomatic menopausal state (principal); M85.89 Other specified disorders of bone density and structure, multiple sites
CPT/HCPCS: 77080

== ENCOUNTER → 2022-11-20 11:50 | Outpatient (CLI) | payer MEDICARE, SELFPAY ==
[2022-11-20 11:57] LABS: Microscopic, Urine URINE MICROSCOPIC (MICROSCOPIC)
[2022-11-20 12:14] LABS: Basophils % 0.2 % (0.1-2.0); Eosinophils # 0.1 K/mm3 (0.0-0.4); Eosinophils % 0.6 % (0.1-12.0); Hematocrit 47.5 % (37.0-47.0); Hemoglobin 15.7 g/dL (12.2-16.2); Lymphocytes # 0.7 K/mm3 (0.7-4.5); Lymphocytes % 5.5 % (10-50); Mean Corpuscular Hemoglobin 29.4 pg (27.0-31.2); Mean Corpuscular Volume 89.2 fl (81-99); Mean Platelet Volume 7.6 fl (7.4-10.4); Monocytes # 0.4 K/mm3 (0.1-1.0); Monocytes % 3.1 % (1.7-9.3); Neutrophils # 11.4 K/mm3 (1.8-7.8); Neutrophils % 90.6 % (37.0-80.0); Platelet Count 393 K/mm3 (142-424); Red Blood Count 5.33 M/mm3 (4.20-5.40); Red Cell Distribution Width 14.9 % (11.5-17.5); White Blood Count 12.6 K/mm3 (4.8-10.8)
[2022-11-20 12:15] LABS: MANUAL DIFFERENTIAL MANUAL DIFFERENTIAL (MANUAL DIFF)
[2022-11-20 12:24] LABS: Appearance,Urine CLEAR (Clear); Bilirubin,Urine Negative (Negative); Blood, Urine Negative (Negative); Color,Urine YELLOW (Yellow); Glucose,Urine (UA) Negative (Negative); Ketones,Urine Negative (Negative); Leukocyte Esterase,Urine 1+ (Negative); Nitrate,Urine Negative (Negative); Protein,Urine Negative (Negative); Urobilinogen,Urine 0.2 EU/dl (0.2)
[2022-11-20 12:52] LABS: RBC,Urine Occasional #/hpf (0-3)
[2022-11-20 12:53] LABS: Bacteria,Urine Trace /lpf
[2022-11-20 12:58] LABS: Lymphocytes % 4 % (10-50); Monocytes % 4 % (2-9); Neutrophils % 92 % (42-76); Platelet Estimate Normal; RBC Morphology Normal; Total Cells Counted 100
[2022-11-20 15:11] LABS: Chloride 97 mmol/L (98-107); Sodium 135 mmol/L (136-145)
[2022-11-20 15:12] LABS: Potassium 4.9 mmoL/L (3.5-5.1)
[2022-11-20 15:15] LABS: Anion Gap 14.9 mEq/L (5-15); Calcium 9.4 mg/dl (8.4-10.2); Carbon Dioxide 28 mmol/L (22.0-30.0); Glucose 125 mg/dl (74-100)
[2022-11-20 15:20] LABS: Blood Urea Nitrogen 19 mg/dl (7-17); Estimated Glomerular Filt Rate 122 ml/min (>60); GFR (African American) 147 ML/MIN (>60)
== END ==
PROVIDERS: PCP Physician Assistant; Visit Provider Surgery
DX: F32.0 Major depressive disorder, single episode, mild (principal); K43.9 Ventral hernia without obstruction or gangrene; B96.29 Other Escherichia coli [E. coli] as the cause of diseases classified elsewhere; R82.90 Unspecified abnormal findings in urine
CPT/HCPCS: 36415; 80048; 81001; 85007; 85025; 87086; 87088; 87186

== ENCOUNTER → 2022-11-28 12:31 | Outpatient (CLI) | payer MEDICARE, SELFPAY ==
--- NOTE | 2022-11-28 12:31 | MR_ITS ---
FINAL REPORT CLINICAL HISTORY: neck pain COMPARISON: None FINDINGS: Multi planar MR imaging was obtained of the cervical spine. There is abnormal decreased signal throughout the cervical discs. Moderate disc space narrowing at C5-6 and C6-7. There is no malalignment. The cervical cord demonstrates normal signal and configuration. C2-C3: There is no evidence of significant disc bulge or protrusion. There is no significant facet hypertrophy. C3-C4: Mild broad-based midline disc protrusion. Mild spinal canal compromise. C4-C5: There is no evidence of significant disc bulge or protrusion. There is no significant facet hypertrophy. C5-C6: Moderate diffuse disc bulge. Endplate hypertrophy. Moderate bilateral neural foraminal narrowing. C6-C7: Moderate diffuse disc bulge. Endplate hypertrophy. Moderate bilateral neural foraminal narrowing. C7-T1: There is no evidence of significant disc bulge or protrusion. There is no significant facet hypertrophy. IMPRESSION: Disc bulges with endplate hypertrophy at C5-6 and C6-7 and bilateral neural foraminal narrowing. Reviewed, Interpreted and Dictated by Robb Gutierrez MD Transcribed by Laurie Rodriguez Authenticated and [facility]
--- NOTE | 2022-11-28 12:31 | MR_ITS ---
FINAL REPORT CLINICAL HISTORY: lumbar canal stenosis COMPARISON: 10/02/2021 FINDINGS: Multiplanar MR imaging of the lumbar spine was performed without contrast. On the sagittal T2-weighted images, there is abnormal decreased signal throughout the lumbar discs. The vertebrae are of normal height. The vertebral alignment is normal. L1-2: There is no significant canal stenosis or neural foraminal narrowing. L2-3: There is no significant canal stenosis or neural foraminal narrowing. L3-4: Moderate diffuse disc bulge. Mild broad-based midline disc protrusion. Moderate spinal and bilateral neural foraminal narrowing. L4-5: Moderate diffuse disc bulge. Bilateral facet hypertrophy, greater on the left. Moderate spinal and bilateral neural foraminal narrowing. L5-S1: Moderate diffuse disc bulge. Bilateral facet hypertrophy. High-grade left and moderate right neural foraminal narrowing. IMPRESSION: Disc bulges at L3-4, L4-5, and L5-S1 with bilateral neural foraminal narrowing most evident on the left at L5-S1. Reviewed, Interpreted and Dictated by Robb Gutierrez MD Transcribed by Laurie Rodriguez Authenticated and [facility]
== END ==
LOC: RAD 12:31
PROVIDERS: PCP Physician Assistant; Visit Provider Physician Assistant
DX: M99.53 Intervertebral disc stenosis of neural canal of lumbar region (principal); M25.78 Osteophyte, vertebrae; M54.2 Cervicalgia
CPT/HCPCS: 72141; 72148; 76376

== ENCOUNTER → 2022-11-29 10:00 | Outpatient (CLI) | payer MEDICARE, SELFPAY ==
--- NOTE | 2022-11-29 10:00 | CA_ITS ---
APPROVED REPORT EXAM: Comprehensive 2D, Doppler, and color-flow Echocardiogram Manager Quantitative: Carol Leonard CRT Ht: 5 ft 2 in Wt: 153lbs BSA: 1.71 BP: 000/00 mmHg Indications: Chest Pain, Shortness of Breath, Fatigue, Peripheral Edema, CAD, Hyperlipidemia, Hypertension/HDD, CAD, Stents, old MA, pre op 2D Dimensions LVOT 1.47 cm (M/F) 1.5-2.5 LA Volume 29.90 mL LA Volume Index 17.10 mL/m2 (M/F) 16-34 M-Mode Dimensions RVDd 2.72 cm (0.9-2.6) LA Diam 3.72 cm (1.9-4.0) LVDd 3.99 cm (3.5-5.7) Ao Diam 3.22 cm (2.0-3.7) LVDs 2.88 cm (3.5-5.7) IVSd 1.58 cm (0.6-1.1) PWd 0.77 cm (0.6-1.1) EF (Teich) 54.50% FS 27.80% EDV (Teich) 69.60 mL TAPSE 1.58 (<1.7) ESV (Teich) 31.70 mL LV Diastology E Decel Time 343.00 (160-240 msec) E/A Ratio 0.43 MED E' 5.20 (< 7 cm/sec) MED A' 11.40 cm/s E'/MED E' Ratio 12.79 (>14) LAT E' 5.40 (<10 cm/sec) LAT A' 15.80 cm/s E/LAT E' Ratio 12.31 (>14) Aortic Valve LVOT Max 152.00 (70-110 cm/s) LVOT VTI 34.20 cm AoV Peak Cisco. 168.00 (50-130 cm/s) AO Peak GR. 11.30 mmHg AO Mean GR. 5.00 (<5 mmHg) AO VTI 30.82 (18-25 cm) PASHA (VTI) 1.88 (2.5-4.5 cm2) Mitral Valve MV A Velocity 154.00 (40-130 cm/s) E/A Ratio 0.43 MV Decel. Time 343.00 (160-240 ms) Pulmonary Valve PV Peak Velocity 139.00 (50-150 cm/s) Tricuspid Valve TR P. Velocity 186.00 cm/s RAP Estimate 10.00 mmHg RVSP 23.90 mmHg Left Ventricle Left atrium is mildly enlarged, left ventricle is normal size mild concentric left ventricular hypertrophy, estimated ejection fraction of 55% with no regional wall motion abnormality, grade 1 diastolic dysfunction seen without tissue Doppler evidence of range left atrial pressure. Right Ventricle Right atrium and right ventricular normal size and contractility. Aortic Valve Aortic valve is thickened and calcified without Doppler evidence of aortic stenosis or aortic insufficiency. Mitral Valve Mitral valve has mitral annular calcification, there is no mitral stenosis, there is mild mitral regurgitation. Tricuspid Valve Tricuspid valve is grossly normal, there is mild tricuspid regurgitation, tricuspid regurgitation jet plasty is inadequate for calculation of the right ventricular systolic pressure. Pulmonic Valve Pulmonic valve is poorly visualized. Great Vessels Aortic root is normal size. Inferior vena cava is poorly visualized. Pericardium No significant pericardial effusion noted. Conclusion 1. Mildly enlarged left atrium, normal left ventricular size, mild concentric left ventricular hypertrophy, estimated ejection fraction 55% with no regional wall motion abnormality, grade 1 diastolic dysfunction seen without tissue Doppler evidence of increased left atrial pressure. 2. Thickened and calcified aortic valve without aortic stenosis aortic insufficiency. 3. Mild mitral and tricuspid regurgitation. 4. No significant pericardial effusion. 5. Inferior vena cava is poorly visualized. Electronically signed by : Dann King MD 11/30/2022 17:54:48
--- NOTE | 2022-11-29 10:00 | CA_ITS ---
FINAL REPORT TECHNIQUE: Color Doppler, duplex Doppler and lancaster scale sonography of the bilateral neck arterial vasculature was performed. Velocities were measured in the carotid arteries. Stenosis evaluation based on the validated velocity criteria. CLINICAL HISTORY: DIZZINESS,HTN,CAD,HLD FINDINGS: The peak systolic velocity of the right common carotid artery is 73 cm/s. The peak systolic velocity of the right internal carotid artery is 123 cm/s and end diastolic velocity 23 cm/s. The ICA/CCA ratio is 1.7. A [id number] amount of plaque is present. The right external carotid artery is patent. The right vertebral artery is patent with antegrade flow. The peak systolic velocity of the left common carotid artery is 116 cm/s. The peak systolic velocity of the left internal carotid artery is 129 cm/s and end diastolic velocity 27 cm/s. The ICA/CCA ratio is 1.1. A mild to moderate amount of plaque is present. The left external carotid artery is patent.The left vertebral artery is patent with antegrade flow. IMPRESSION: Less than 50% bilateral carotid stenosis. Bilateral patent vertebral arteries with antegrade flow. If indicated, CTA or MRA could further evaluate. Reviewed, Interpreted and Dictated by Robb Gutierrez MD Transcribed by Helen Dewitt Authenticated and [facility]
--- NOTE | 2022-11-29 10:52 | NM_ITS ---
APPROVED REPORT Exam: Nuclear Stress Test Indication: Chest pain, SOB, Syncope, Fatigue, Pre op, CAD, Hx of MA, HTN, High cholesterol, Tobacco use, Family history Patient Location: Outpatient Stress Tech: Nelly Blackmon [place] Tech:Tamera Larkin, ARRT, RT (R)(N) Ht: 5 ft 3 in Wt: 153 lbs Bra Size: 42B HR: 71 bpm BP: 142/50 mmHg BSA: 1.73 m2 TID: 1.34 BMI: 27.0 History: Chest pain, SOB, Syncope, Fatigue, Pre op, CAD, Hx of MA, HTN, High cholesterol, Tobacco use, Family history Procedure: Patient received 0.4 mg of intravenous Lexiscan, resting heart rate 71 bpm, resting blood pressure 142/50 mmHg, with Lexiscan maximum heart rate achieved was 111 bpm which is Less than 85 % of the maximum predicted heart rate and blood pressure was 149/47 mmHg. With Lexiscan, patient denied any complaint of chest pain. Electrocardiogram Resting electrocardiogram shows sinus rhythm, with Lexiscan there is less than 1.[address] segment depression noted from the baseline EKG. The EKG portion of the Lexiscan is nondiagnostic. Cardiac Stress and Resting SPECT Images: Cardiac Stress and Resting SPECT images were obtained using technetium 99m Myoview 29.6 mCi stress and 10.20 mCi at rest. Gated SPECT analysis of segmental wall motion and calculation of the ejection fraction also done. Prone images were also obtained. Cardiac prone images show uniform myocardial activity without segmental perfusion abnormality, computer derived ejection fraction is 61% with no regional wall motion abnormality, right ventricle is normal size and contractility. Conclusion: 1. The EKG portion of the Lexiscan is nondiagnostic. 2. No scintigraphic evidence of reversible ischemia seen, computer derived ejection fraction is 61% with no regional wall motion abnormality, right ventricle is normal size and contractility. 3. Normal Lexiscan Myoview study. Electronically signed by : Dann King MD 11/30/2022 10:07:16
--- NOTE | 2022-11-29 13:40 | CA_ITS ---
APPROVED REPORT Exam: Pharmacologic Technologist: Nelly Beckett, Ht: 5 ft 2 in Wt: 153 lbs BSA: 1.71 m2 HR: 77 bpm BP: 142/50 mmHg Medical History Medications: Amlodipine,,,,, Omeprazole,,,,, Aspirin,,,,, Buspirone,,,,, PERCOCET,,,,, Montelukast,,,,, Zanaflex,,,,, CloPIdogrel,,,,, Prednisone,,,,, Vitamin D2,,,,, Levocetirizine,,,,, Hydroxyzine,,,,, Stress Test Details Test: LEXISCAN Reason for pharmacologic stress test: physical limitation. HR Resting HR: 71 bpm Max Heart Rate (APMHR): 149.690207 bpm Max HR Achieved: 111 bpm Target HR (85% APMHR): 126.578999 bpm % of APMHR: 74.50 Recovery HR: 97 bpm BP Resting BP: 142.0/50.0 mmHg Max BP: 149.0/47.0 mmHg Recovery BP: 126.0/48.0 mmHg ECG Resting ECG: SR Clinical Exercise duration: 04:00 min Highest Stage Achieved: Exercise capacity: 1.0 METs Stress ECG Conclusion Symptoms: SOA with Lexiscan. No chest pain. ST-T Changes: <1.5mm ST segment depression Test Summary REST . . . . . . . Resting REST 08:44 . . 71 . 142/ 50 . . Stage 1 01:00 . . 80 . . . . Stage 2 01:00 . . 102 . . . . Stage 3 01:00 . . 96 . 146/ 44 . . Stage 4 01:00 . . 78 . 149/ 47 . Stop exercise at 04:00 RECOVERY 01:00 . . 85 . 116/ 49 . . RECOVERY 01:50 . . 96 . 126/ 48 . . Electronically signed by : Dann King MD 11/30/2022 10:04:19
== END ==
LOC: RT 10:00
PROVIDERS: PCP Physician Assistant; Visit Provider Nurse Practitioner
DX: E78.5 Hyperlipidemia, unspecified (principal); I10 Essential (primary) hypertension; I25.10 Atherosclerotic heart disease of native coronary artery without angina pectoris; R06.00 Dyspnea, unspecified; R07.9 Chest pain, unspecified; R42 Dizziness and giddiness; Z01.810 Encounter for preprocedural cardiovascular examination
CPT/HCPCS: 78452; 93017; 93306; 93880; A9502; J2785

== ENCOUNTER → 2022-12-13 08:21 | Outpatient (POV) | payer MEDICARE, SELFPAY ==
[2022-12-13 08:59] VITALS: BP 117/48; PULSE 88; RESP 18; O2SAT 97; BMI 27.1
--- NOTE | 2022-12-13 09:38 | EXP.PAIN.SOA ---
[facility] Pain Management SOAP Note Subjective:: Patient is a pleasant 72-year-old female who presents today for follow-up. We are currently treating the patient for degenerative disc disease of lumbar spine with lumbar radiculopathy symptoms, chronic low back and neck pain, bilateral sacroiliitis, bilateral trochanteric bursitis. today she rates her pain a 9 out of 10. Patient denies any new trauma or injury. Patient denies any change location or type of pain she experiences. Patient does states she has low back pain that is a achy, throbbing sensation that is worse with increased activity. Patient states that this is constant however when sitting it is more of a dull ache. Patient states she is unable to do simple activities such as mopping and sweeping without increased pain symptoms. Patient states she frequently has to sit down and take breaks. Patient also states that with increased range of motion she does have a catching, grabbing sensation that is worse. Patient does currently have a hernia that is being treated by Dr. Marcano. Patient states she is going to him later today to see about what day they will perform surgery for this. Patient states that she previously was scheduled however it had to be postponed due to colitis. Patient is currently prescribed [place] 5 mg 3 times a day by Dr. Almendarez's office. Patient is also on pregabalin 75 mg twice a day from our office. Patient denies any side effects from these medications. She is still using her compounding cream as needed. Patient did just have updated imaging of her cervical and lumbar spine done. Her Pratik is [id number]. Its been reviewed and appropriate. Review of Systems: General: No recent weight changes, no fever, no sleep disturbances Respiratory: No cough, no shortness of air, no recurring pulmonary infections Cardiovascular/peripheral vascular: No chest pain, no palpitations, no edema, no shortness of breath Gastrointestinal: No new onset incontinence, normal bowel movements reported Genitourinary: No new onset incontinence Musculoskeletal: Low back pain, bilateral leg pain Psychiatric: [Normal mood/affect] Neurological: [Denies weakness in extremities], [denies balance issues] Objective:: Physical Exam: General: Alert and oriented x3, no acute distress, pleasant and cooperative Lungs: Respirations even and unlabored, symmetrical chest expansion Eyes: PERRL Musculoskeletal: Flexion and extension of lumbar [spine] somewhat guarded secondary to pain, [antalgic gait noted] Neurological: Speech clear, no gross sensory deficit ORT score updated with low risk FINAL REPORT CLINICAL HISTORY: neck pain COMPARISON: None FINDINGS: Multi planar MR imaging was obtained of the cervical spine. There is abnormal decreased signal throughout the cervical discs.? Moderate disc space narrowing at C5-6 and C6-7.? There is no malalignment. The cervical cord demonstrates normal signal and configuration.? C2-C3: There is no evidence of significant disc bulge or protrusion.? There is no significant facet hypertrophy.? C3-C4:? Mild broad-based midline disc protrusion. Mild spinal canal compromise.? C4-C5: There is no evidence of significant disc bulge or protrusion.? There is no significant facet hypertrophy.? C5-C6:? Moderate diffuse disc bulge. Endplate hypertrophy.? Moderate bilateral neural foraminal narrowing.? C6-C7:? Moderate diffuse disc bulge.? Endplate hypertrophy.? Moderate bilateral neural foraminal narrowing. C7-T1: There is no evidence of significant disc bulge or protrusion.? There is no significant facet hypertrophy. IMPRESSION: Disc bulges with endplate hypertrophy at C5-6 and C6-7 and bilateral neural foraminal narrowing. Reviewed, Interpreted and Dictated by Robb Gutierrez MD Transcribed by Laurie Rodriguez Authenticated and [facility] FINAL REPORT CLINICAL HISTORY: lumbar canal stenosis COMPARISO
== END | disposition home or self-care (01) ==
PROVIDERS: PCP Physician Assistant; Visit Provider Nurse Practitioner Family
DX: M51.16 Intervertebral disc disorders with radiculopathy, lumbar region (principal); M70.61 Trochanteric bursitis, right hip; M70.62 Trochanteric bursitis, left hip; M46.1 Sacroiliitis, not elsewhere classified; G89.29 Other chronic pain; F17.210 Nicotine dependence, cigarettes, uncomplicated
CPT/HCPCS: 99212; G0463

== ENCOUNTER 2022-12-16 12:48 | Emergency (ER) | payer MEDICARE, SELFPAY ==
[2022-12-16 13:00] VITALS: BP 121/56; PULSE 89; RESP 20; TEMP 36.6; O2SAT 97; BMI 25.3
--- NOTE | 2022-12-16 13:42 | EXP.UTC ---
Discharge Plan Disposition Patient Disposition: Home, Self-Care Condition: Good Prescriptions Prescriptions: New ondansetron 4 mg tablet,disintegrating 4 mg PO Q8H PRN (Reason: nausea and vomiting) Qty: 10 0RF No Action aspirin 81 mg tablet,delayed release (DR/EC) 81 mg PO DAILY Qty: 90 3RF atorvastatin 80 mg tablet 80 mg PO HS Qty: 90 3RF clopidogrel 75 mg tablet 75 mg PO DAILY Qty: 90 3RF furosemide 20 mg tablet 20 mg PO DAILY Qty: 90 3RF omeprazole 40 mg capsule,delayed release(DR/EC) 40 mg PO DAILY Qty: 90 3RF Rx Instructions: TAKE ONE CAPSULE BY MOUTH ONCE A DAY ondansetron 8 mg tablet,disintegrating 8 mg PO Q8H PRN (Reason: nausea and vomiting) Qty: 20 0RF amlodipine 10 mg tablet 10 mg PO DAILY Qty: 90 3RF hydroxyzine pamoate 50 mg capsule See Rx Instructions .Route .COMPLEX 90 Days Qty: 270 0RF Rx Instructions: TAKE ONE CAPSULE BY MOUTH 3 TIMES A DAY NEEDED FOR ANXIETY potassium chloride 20 mEq tablet extended release 20 meq PO DAILY Qty: 90 0RF Rx Instructions: Take 1 tablet daily by mouth daily cyclobenzaprine 10 mg tablet 10 mg PO Q8H PRN (Reason: muscle spasms) Qty: 90 5RF hydrocodone-acetaminophen 5-325 mg tablet 1 tab PO Q8H PRN (Reason: pain) Qty: 30 0RF buspirone 5 mg tablet 5 mg PO BID Qty: 180 3RF montelukast 10 MG tablet 10 mg PO QDAY triamterene-hydrochlorothiazid 1 EACH tablet See Rx Instructions .Route .COMPLEX Rx Instructions: TAKE ONE TABLET BY MOUTH EVERY MORNING FOR FLUID RETENTION ergocalciferol (vitamin D2) 1,250 mcg (50,000 unit) capsule 1,250 mcg PO WEEKLY fluticasone furoate-vilanterol [Breo Ellipta] 200-25 mcg/dose blister with device See Rx Instructions .ROUTE .COMPLEX Rx Instructions: INHALE 1 PUFF BY MOUTH EVERY 24 HOURS, AFTER INHALATION RINSE MOUTH WITH WATER AND SPIT OUT tizanidine [Zanaflex] 4 mg tablet 4 mg PO TID alendronate [Fosamax] 70 mg tablet 70 mg PO WEEKLY calcium carbonate 600 mg calcium (1,500 mg) tablet 600 mg PO DAILY mupirocin 2 % ointment 1 applic topical BID albuterol sulfate 90 mcg/actuation HFA aerosol inhaler See Rx Instructions .ROUTE .COMPLEX Rx Instructions: INHALE 2 PUFFS BY MOUTH EVERY 6 HOURS NEEDED FOR SHORTNESS OF BREATH OR WHEEZING levocetirizine 5 mg tablet See Rx Instructions .ROUTE .COMPLEX Rx Instructions: TAKE ONE TABLET BY MOUTH ONCE A DAY diclofenac sodium [Voltaren Arthritis Pain] 1 % gel 2 g topical QID Rx Instructions: apply to single elbow, wrist or hand; for hand includes palm/fingers/back of hand pregabalin 75 MG capsule 75 mg PO BID Qty: 60 0RF Referrals Follow up/Referrals: Rex Souza MD [Primary Care Provider] - See instructions Activity Restrictions/Add. Instructions Additional Instructions/Restrictions: Drink extra fluids with and between meals. If you have difficulty drinking, try very small amounts of water or suck on ice chips. ? Avoid fruit juices, as these do not replace minerals and can actually increase diarrhea. ? Children and adults can use sports drinks to replenish electrolytes. you can also use oral rehydration solutions like Pedialyte to help rehydrate. ? Eat food in small amounts and let your stomach recover. ? Get lots of rest. You may feel tired or weak. ? No greasy or fried foods for the next 24-48 hours BRAT diet Bananas Rice Apples and [place] ? Make sure to drink plenty of liquids ? Return if needed ? Straight to ER if any life threatening symptoms ? Zofran as prescribed ? You was given an outpatient order for diarrhea panel, please collect specimen and bring back to outpatient lab then call back to the [facility] or follow up with family doctor for results ? Follow up with family doctor in the next 48-72 hours if no improve
[2022-12-16 14:45] VITALS: BP 121/56; PULSE 89; RESP 20; TEMP 36.6; O2SAT 97
== END 2022-12-16 14:45 | disposition home or self-care (01) ==
PROVIDERS: Emergency Provider Nurse Practitioner; PCP Emergency Medicine
DX: R11.2 Nausea with vomiting, unspecified (principal); R19.7 Diarrhea, unspecified
CPT/HCPCS: 99212; 99213; G0463

== ENCOUNTER 2022-12-19 11:49 | Observation (INO) | payer MEDICARE, SELFPAY ==
[2022-12-19] VITALS (11 sets, daily range): BP systolic 118–170; BP diastolic 56–145; PULSE 70–124; RESP 15–21; TEMP 36.4–37.2; O2SAT 89–99; BMI 21.2; BMI 24.8
--- NOTE | 2022-12-19 11:52 | ECG_ITS ---
APPROVED REPORT Exam: Resting ECG HR:97 bpm ECG Measurements Heart Rate [address] 185 P 61 QRSd 97 QRS 30 QT 361 T 61 QTc 415 Conclusion SINUS RHYTHM WITH OCCASIONAL VENTRICULAR PREMATURE COMPLEXES BORDERLINE ECG UNCONFIRMED REPORT Electronically signed by : Terrence Keane MD 12/20/2022 17:07:43
--- NOTE | 2022-12-19 11:54 | HMH.EDGENADL ---
Discharge Plan Disposition Patient Disposition: Admitted as Observation Condition: Fair Clinical Impressions Clinical Impression: Nausea vomiting and diarrhea, Pneumonia, Acute hypokalemia, Abdominal pain Discharge ED Provider: Amando Webber General Adult HPI General Chief complaint: Nausea/Vomiting/Diarrhea Stated complaint: Abd/Chest pain Time Seen by Provider: 12/19/22 12:00 History of Present Illness HPI narrative: History obtained from patient and [id number]. Patient complains of abdominal pain, vomiting, diarrhea. Unable to hold anything down since last Saturday. This has been an ongoing recurrent problem for years, this episode started last Saturday. She says that she has 13 abdominal hernias and is supposed to have them operated on by Dr. Bain. Hernia scheduled for 01/03/2023. She recently went to the urgent treatment center here and obtain a prescription for Zofran, but it is not helping. She has not had fever. No blood has been noted in the diarrhea. [id number] is concerned that the hernias have busted . Related Data Home Medications Medication Instructions Recorded Confirmed montelukast 10 mg tablet 10 mg PO QDAY ALLERGIES 03/01/22 12/16/22 triamterene 75 See Rx Instructions .Route 04/02/22 12/16/22 mg-hydrochlorothiazide 50 mg tablet .COMPLEX Fluid fluticasone furoate 200 See Rx Instructions .Route 08/28/22 12/16/22 mcg-vilanterol 25 mcg/dose .COMPLEX COPD inhalation powder (Breo Ellipta) albuterol sulfate 90 mcg/actuation See Rx Instructions .Route 12/13/22 12/16/22 aerosol inhaler .COMPLEX Breathing problems alendronate 70 mg tablet (Fosamax) 70 mg PO WEEKLY BLADDER 12/13/22 12/16/22 calcium carbonate 600 mg calcium 600 mg PO DAILY SUPPLIMENT 12/13/22 12/16/22 (1,500 mg) tablet diclofenac sodium 1 % topical gel 2 g topical QID Pain 12/13/22 12/16/22 (Voltaren Arthritis Pain) levocetirizine 5 mg tablet See Rx Instructions .Route 12/13/22 12/16/22 .COMPLEX ALLERGIES mupirocin 2 % topical ointment 1 applic topical BID Skin condition 12/13/22 12/13/22 tizanidine 4 mg tablet (Zanaflex) 4 mg PO TID MUSCLES 12/13/22 12/16/22 ergocalciferol (vitamin D2) 1,250 1,250 mcg PO WEEKLY . 12/16/22 12/16/22 mcg (50,000 unit) capsule Previous Rx's Medication Instructions Recorded aspirin 81 mg tablet,delayed 81 mg PO DAILY heart health #90 11/27/21 release tabs atorvastatin 80 mg tablet 80 mg PO HS Cholesterol #90 tabs 11/27/21 clopidogrel 75 mg tablet 75 mg PO DAILY Blood thinner #90 11/27/21 tabs furosemide 20 mg tablet 20 mg PO DAILY Edema #90 tabs 11/27/21 omeprazole 40 mg capsule,delayed 40 mg PO DAILY GERD #90 caps 11/27/21 release ondansetron 8 mg disintegrating 8 mg PO Q8H PRN nausea and 02/19/22 tablet vomiting #20 tabs hydroxyzine pamoate 50 mg capsule See Rx Instructions .Route 07/30/22 .COMPLEX Anxiety 90 days #270 caps potassium chloride 20 mEq 20 meq PO DAILY Supplement #90 tabs 08/30/22 tablet,extended release cyclobenzaprine 10 mg tablet 10 mg PO Q8H PRN muscle spasms #90 11/07/22 tabs hydrocodone 5 mg-acetaminophen 325 1 tab PO Q8H PRN pain #30 tabs 11/19/22 mg tablet buspirone 5 mg tablet 5 mg PO BID mood #180 tabs 11/20/22 amlodipine 10 mg tablet 10 mg PO DAILY High blood pressure 12/05/22 #90 tabs pregabalin 75 mg capsule 75 mg PO BID Pain #60 caps 12/13/22 ondansetron 4 mg disintegrating 4 mg PO Q8H PRN nausea and 12/16/22 tablet vomiting #10 tabs Allergies Allergy/AdvReac Type Severity Reaction Status Date / Time Sulfa (Sulfonamide Allergy Nausea Verified 12/19/22 12:09 Antibiotics) [facility] Disclaimer: The information contained in this section may have been updated after the patient was seen, as this information can be updated by other users. Medical History Anxiety CAD (coronary artery disease) Chest pain Depression Dizziness DJD (degenerative joint disease), lumbar D
--- NOTE | 2022-12-19 11:56 | PC.NURSE ---
Family at BS
--- NOTE | 2022-12-19 12:01 | PC.NURSE ---
ULYSSES PARTIDA at for pt raudelal
--- NOTE | 2022-12-19 12:01 | PC.NURSE ---
er at bedside
--- NOTE | 2022-12-19 12:05 | XR_ITS ---
FINAL REPORT CLINICAL HISTORY: vomiting COMPARISON: 07/31/2019 FINDINGS: A single PA view of the chest was obtained. There is no prior exam for comparison. The cardiac and mediastinal silhouettes are within normal limits. There are increased interstitial markings at the, right greater than left, lung bases which could represent mild edema or interstitial pneumonia. There is no effusion or pneumothorax. No acute osseous abnormality is identified. IMPRESSION: Increased interstitial markings at the lung bases could represent mild edema or interstitial pneumonia. Reviewed, Interpreted and Dictated by Marisabel Lopez MD Transcribed by Helen Dewitt Authenticated and [facility]
--- NOTE | 2022-12-19 12:05 | PC.NURSE ---
pt given pillow for back pain that was relieved with intervention. Family at bs
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
--- NOTE | 2022-12-19 12:09 | PC.NURSE ---
checked on pt she states no complaints i did give her another warm blanket family at bedside
[2022-12-19 12:14] LABS: Basophils # 0.1 K/mm3 (0-0.2); Basophils % 1.2 % (0.1-2.0); Eosinophils # 0.2 K/mm3 (0.0-0.4); Eosinophils % 1.6 % (0.1-12.0); Hematocrit 44.6 % (37.0-47.0); Hemoglobin 15.2 g/dL (12.2-16.2); Lymphocytes # 1.8 K/mm3 (0.7-4.5); Lymphocytes % 19.2 % (10-50); Mean Corpuscular Hemoglobin 29.9 pg (27.0-31.2); Mean Platelet Volume 7.9 fl (7.4-10.4); Monocytes # 0.7 K/mm3 (0.1-1.0); Monocytes % 7.5 % (1.7-9.3); Neutrophils # 6.7 K/mm3 (1.8-7.8); Neutrophils % 70.6 % (37.0-80.0); Platelet Count 625 K/mm3 (142-424); Red Blood Count 5.07 M/mm3 (4.20-5.40); Red Cell Distribution Width 13.2 % (11.5-17.5); White Blood Count 9.5 K/mm3 (4.8-10.8)
[2022-12-19 12:19] LABS: Alanine Aminotransferase 20 U/L (12-78); Albumin Level 4.1 g/dl (3.5-5.0); Albumin/Globulin Ratio 1.1 (1.1-1.8); Alkaline Phosphatase 143 U/L (38-126); Anion Gap 11.7 mEq/L (5-15); Aspartate Amino Transferase 24 U/L (14-36); Bilirubin,Total 0.4 mg/dl (0.2-1.3); Blood Urea Nitrogen 14 mg/dl (7-17); Carbon Dioxide 33 mmol/L (22.0-30.0); Chloride 93 mmol/L (98-107); Creatinine Clearance Estimated 52 mL/min (50-200); Estimated Glomerular Filt Rate 99 ml/min (>60); GFR (African American) 119 ML/MIN (>60); Globulin 3.7 g/dL (1.3-3.2); Glucose 140 mg/dl (74-100); Lipase 39 U/L (23-300); Sodium 135 mmol/L (136-145); Total Protein,Serum 7.8 g/dl (6.3-8.2)
[2022-12-19 12:24] LABS: Potassium 2.7 mmoL/L (3.5-5.1)
[2022-12-19 12:31] LABS: Microscopic, Urine URINE MICROSCOPIC (MICROSCOPIC)
[2022-12-19 12:32] LABS: Appearance,Urine CLEAR (Clear); Bilirubin,Urine Negative (Negative); Blood, Urine Negative (Negative); Color,Urine YELLOW (Yellow); Glucose,Urine (UA) Negative (Negative); Ketones,Urine Negative (Negative); Leukocyte Esterase,Urine 1+ (Negative); Nitrate,Urine Negative (Negative); Protein,Urine Negative (Negative); Urobilinogen,Urine 0.2 EU/dl (0.2)
[2022-12-19 12:33] LABS: Troponin I < 0.01 ng/ml (0.00-0.034)
--- NOTE | 2022-12-19 12:38 | PC.NURSE ---
placed 2L NC on pt, pt was asleep, O2 dropped to 86%
--- NOTE | 2022-12-19 12:41 | PC.NURSE ---
Provider informed of hypokalemia lab result 2.7
[2022-12-19 12:45] LABS: Bacteria,Urine Trace /lpf
--- NOTE | 2022-12-19 12:50 | PC.NURSE ---
pt going to ct via stretcher
--- NOTE | 2022-12-19 13:34 | PC.NURSE ---
rounded on pt no complaints at this time
--- NOTE | 2022-12-19 13:45 | PC.NURSE ---
er md spoke to pt about admitting to the floor
--- NOTE | 2022-12-19 13:48 | PC.NURSE ---
Dr. Bain paged for ER MD
--- NOTE | 2022-12-19 13:53 | PC.NURSE ---
ULYSSES PARTIDA speaking with Dr. Bain at this time
--- NOTE | 2022-12-19 14:00 | PC.NURSE ---
Dr Bain at BS
--- NOTE | 2022-12-19 14:02 | PC.NURSE ---
dr lazo at bedside
[2022-12-19 14:05] LABS: Coronavirus 19, PCR Not Detected (NotDetected); Influenza A, PCR Not Detected (NotDetected); Influenza B, PCR Not Detected (NotDetected)
--- NOTE | 2022-12-19 14:06 | PC.NURSE ---
er speaking to hospitalist dr paez about possible admission
--- NOTE | 2022-12-19 14:12 | PC.NURSE ---
RN calling care management for bed assignment
--- NOTE | 2022-12-19 14:12 | EXP.SURG.CON ---
History of Present Illness *Admission Date: 12/19/22 *Reason for visit:: Abdominal pain; diarrhea; nausea/vomiting *History of present illness: This is a 72-year-old female who presented to the emergency department with a 1 week history of increased nausea/vomiting/diarrhea. No fevers. No hematemesis or melena. Please see HPI forwarded for emergency department evaluation below. She has a known history of complex abdominal wall hernias and was scheduled to undergo laparoscopic intervention January 03. Forwarded from emergency department evaluation: General Chief complaint: Nausea/Vomiting/Diarrhea Stated complaint: Abd/Chest pain Time Seen by Provider: 12/19/22 12:00 History of Present Illness HPI narrative: History obtained from patient and [id number].? Patient complains of abdominal pain, vomiting, diarrhea.? Unable to hold anything down since last Saturday.? This has been an ongoing recurrent problem for years, this episode started last Saturday.? She says that she has 13 abdominal hernias and is supposed to have them operated on by Dr. Bain.? Hernia scheduled for 01/03/2023.? She recently went to the urgent treatment center here and obtain a prescription for Zofran, but it is not helping.? She has not had fever.? No blood has been noted in the diarrhea.? [id number] is concerned that the hernias have busted . Impression from CT scan performed earlier today: Mildly dilated small bowel loops with both proximal and distal decompressed loops. A closed loop ?partial? obstruction is not excluded.? Right middle lobe pneumonia.? Abdominal aortic aneurysm. PFSH PFSH Disclaimer: The information contained in this section may have been updated after the patient was seen, as this information can be updated by other users. Medical History Anxiety CAD (coronary artery disease) Chest pain Depression Dizziness DJD (degenerative joint disease), lumbar Dyspnea Edema Encounter for pre-operative cardiovascular clearance Gastroesophageal reflux disease HTN (hypertension) Hyperlipidemia Hypertension Left sided sciatica Leg cramps Numbness of right hand Shoulder pain, right Family History Other No significant family history Social History Smoking Status: Current every day smoker tobacco type: cigarettes packs per day: 1 second hand exposure: No alcohol intake: never substance use type: denies use current occupational status: retired Travel in the last 8 weeks: None household members: family housing: house current occupation: [employer] caffeine: Yes Review of Systems Constitutional Constitutional: Denies headache(s) and Denies weakness ENT Ears, Nose, Mouth, and Throat: Denies headache(s) *Musculoskeletal Musculoskeletal: Denies numbness *Neurologic Neurologic: Denies headache(s), Denies numbness and Denies weakness Meds Home Medications and Allergies Home Medications Medication Instructions Recorded Confirmed Type aspirin 81 mg tablet,delayed 81 mg PO DAILY heart health #90 11/27/21 12/13/22 Rx release tabs atorvastatin 80 mg tablet 80 mg PO HS Cholesterol #90 tabs 11/27/21 12/16/22 Rx clopidogrel 75 mg tablet 75 mg PO DAILY Blood thinner #90 11/27/21 12/16/22 Rx tabs furosemide 20 mg tablet 20 mg PO DAILY Edema #90 tabs 11/27/21 12/16/22 Rx omeprazole 40 mg capsule,delayed 40 mg PO DAILY GERD #90 caps 11/27/21 12/16/22 Rx release ondansetron 8 mg disintegrating 8 mg PO Q8H PRN nausea and 02/19/22 12/13/22 Rx tablet vomiting #20 tabs montelukast 10 mg tablet 10 mg PO QDAY ALLERGIES 03/01/22 12/16/22 History radha
--- NOTE | 2022-12-19 14:16 | PC.NURSE ---
bed assignment requested, room 214 all staff notified
[2022-12-19 14:19] LABS: Lactic Acid 0.8 mmol/L (0.7-2.1)
--- NOTE | 2022-12-19 14:31 | PC.NURSE ---
Charmaine will call back for report
--- NOTE | 2022-12-19 14:36 | PC.NURSE ---
Rounded on patient; patient was told what her room assignment was with family at BS. Call light within reach. no other needs at this time
--- NOTE | 2022-12-19 14:39 | PC.NURSE ---
2nd floor RN called down to confirm that Gen Surgeon Dr. Marcano has consulted for pt's care
--- NOTE | 2022-12-19 14:42 | PC.NURSE ---
report called to Shea HUMPHREY
--- NOTE | 2022-12-19 14:46 | PC.NURSE ---
olegario eli is taking pt to room 214 on [facility]
--- NOTE | 2022-12-19 14:51 | PC.NURSE ---
arrived by w/c from ED
--- NOTE | 2022-12-19 14:52 | PC.NURSE ---
pt to 2nd floor via WC with KAM Zamora
[2022-12-19 15:08] LABS: Magnesium 1.7 mg/dl (1.6-2.3)
--- NOTE | 2022-12-19 15:29 | EXP.HP ---
History of Present Illness *Admission Date: 12/19/22 *Reason for visit:: Chief complaint: Nausea vomiting diarrhea *History of present illness: This is a 72-year-old that presents to [facility] emergency department with concerns of nausea vomiting diarrhea since last Saturday with some abdominal pain today. She is accompanied by her granddaughter that assists with the history. Her past medical history significant for ventral hernias, coronary artery disease status post [place], COPD with ongoing tobacco dependence and no home O2, diverticulosis. She identifies no sick contacts and last Saturday she started experiencing nausea vomiting and diarrhea. She reports intermittent episodes with no ability to keep nutrition or fluids down. She denies associated fever, chills or jaundice. She reports no associated hematemesis, melena or hematochezia. On Saturday her symptomatology resolved. Yesterday she tried to eat and her symptomatology returned. She went to an urgent treatment center and they prescribed an antiemetic with no resolution of her symptomatology. She describes crampy abdominal pain that is associated with defecation. She denies crescendo abdominal pain, dysuria or confusion. She reports a cough that is nonproductive. In the ED she was evaluated with heart rate of 73, respiratory rate of 18 and no fever. She maintained appropriate oxygen saturations on room air. Her CBC identified no leukocytosis but did identify thrombocytosis. Her electrolytes identified a potassium of 2.7 and elevated bicarb. Her anion gap was normal. Her LFTs were normal. Her troponin was negative. Her lipase was normal. Her lactic acid was normal. A chest x-ray identified concerns with pulmonary edema. A CTA of the abdomen pelvis identified right middle lobe pneumonia with left nonobstructing renal stone, ventral hernias and partial small bowel obstruction. [facility] Disclaimer: The information contained in this section may have been updated after the patient was seen, as this information can be updated by other users. Medical History (Updated 12/19/22 @ 15:42 by Freddie Tinsley MD) Abdominal wall hernia Anxiety CAD (coronary artery disease) Depression Diverticulosis DJD (degenerative joint disease), lumbar Gastroesophageal reflux disease HTN (hypertension) Hyperlipidemia Lumbar radiculopathy Osteoarthritis Tobacco dependence Surgical History (Updated 12/19/22 @ 15:36 by Freddie Tinsley MD) Hx of cholecystectomy Family History (Updated 12/19/22 @ 15:37 by Freddie Tinsley MD) Mother No significant family history Father Heart attack Social History Smoking Status: Current every day smoker tobacco type: cigarettes packs per day: 1 second hand exposure: No alcohol intake: never substance use type: denies use current occupational status: retired Travel in the last 8 weeks: None household members: family housing: house current occupation: [employer] caffeine: Yes Review of Systems Review of Systems Review of systems:: pertinent systems reviewed and negative unless documented below Constitutional Constitutional: Denies headache(s) and Denies weakness ENT Ears, Nose, Mouth, and Throat: Denies headache(s) *Cardiovascular Cardiovascular: Denies chest pain, Denies chest pain at rest, Denies chest pain with activity, Denies dyspnea and Denies rapid heart rate *Respiratory Respiratory: Reports cough and Denies dyspnea *Gastrointestinal Gastrointestinal: Denies hematemesis, Denies hematochezia, Reports loose stools, Denies melena, Reports nausea and Reports vomiting *Musculoskeletal Musculoskeletal: Denies numbness *Neurologic Neurologic: Denies headache(s), Denies numbness and Denies weakness Meds Home Medications and Allergies Home Medications Medication Instructions Recorded Confirmed Type aspirin 81 mg tablet,delayed 81 mg PO DAILY heart health #9
--- NOTE | 2022-12-19 15:58 | HMH.PHAINT1 ---
Pharmacy Intervention Comments: Medication reconciliation completed using external fill history
[2022-12-20] VITALS (11 sets, daily range): BP systolic 134–154; BP diastolic 54–73; PULSE 59–87; RESP 16–18; TEMP 36.7–37; O2SAT 90–97; BMI 25.7
--- NOTE | 2022-12-20 02:54 | PC.NURSE ---
RESTING IN BED. NO COMPLAINTS OF PAIN VOICED. 02 AT 2LNC. PERFORMS 1000 ML ON INCENTIVE SPIROMETER. REMAINS NPO EXCEPT ICE CHIPS AND PO MEDS.
--- NOTE | 2022-12-20 06:00 | XR_ITS ---
PROCEDURE INFORMATION: Exam: XR Complete Acute Abdomen Series Including Chest Exam date and time: 12/20/2022 5:25 AM Age: 72 years old Clinical indication: Condition or disease; Other: Enteritis/ileus versus small bowel obstruction TECHNIQUE: Imaging protocol: Radiologic exam. Complete acute abdomen series, including 2 or more views of the abdomen and a single view chest. COMPARISON: CR XR CHEST PORTABLE 12/19/2022 1:12 PM FINDINGS: Lungs: No focal consolidation. Pleural spaces: There is blunting of the right costophrenic angle, which may represent scarring or a small pleural effusion, unchanged. No pneumothorax. Heart/Mediastinum: Normal. No cardiomegaly. Gastrointestinal tract: Normal. No bowel dilation. Intraperitoneal space: Postop changes cholecystectomy. Metallic fragments along the right L3 vertebral body. No free air. Vasculature: The aorta and branch vessels demonstrate atherosclerotic calcification. Bones/joints: Degenerative changes of the spine. Soft tissues: Normal. IMPRESSION: No acute findings.
[2022-12-20 06:58] LABS: Basophils # 0.1 K/mm3 (0-0.2); Eosinophils # 0.1 K/mm3 (0.0-0.4); Neutrophils % 71.2 % (37.0-80.0)
[2022-12-20 07:05] LABS: Anion Gap 8.8 mEq/L (5-15); Blood Urea Nitrogen 8 mg/dl (7-17); Calcium 8.5 mg/dl (8.4-10.2); Carbon Dioxide 31 mmol/L (22.0-30.0); Chloride 97 mmol/L (98-107); Creatinine Clearance Estimated 54 mL/min (50-200); Estimated Glomerular Filt Rate 122 ml/min (>60); GFR (African American) 147 ML/MIN (>60); Glucose 85 mg/dl (74-100); Magnesium 1.8 mg/dl (1.6-2.3); Sodium 134 mmol/L (136-145)
--- NOTE | 2022-12-20 07:05 | P.PN_ITS ---
Subjective Patient reports: feels better and bowel movement Narrative: She states that she feels much better . She desires to go home. She states that she did have a bowel movement this morning that was thicker . Exam Data for Last 24 hours Vital signs and Labs for Last 24 Hours: Temp Pulse Resp BP Pulse Ox 98.0 F 63 18 145/59 H 90 L 12/20/22 04:00 12/20/22 06:15 12/20/22 04:00 12/20/22 04:00 12/20/22 06:15 Laboratory Results - last 24 hr 12/19/22 11:50: WBC 9.5, RBC 5.07, Hgb 15.2, Hct 44.6, MCV 88.0, MCH 29.9, MCHC 34.0, RDW 13.2, Plt Count 625 H, MPV 7.9, Neut % (Auto) 70.6, Lymph % (Auto) 19.2, [place] % (Auto) 7.5, Eos % (Auto) 1.6, Baso % (Auto) 1.2, Neut # (Auto) 6.7, Lymph # (Auto) 1.8, [place] # (Auto) 0.7, Eos # (Auto) 0.2, Baso # (Auto) 0.1 12/19/22 11:50: Sodium 135 L, Potassium 2.7 L*, Chloride 93 L, Carbon Dioxide 33 H, Anion Gap 11.7, BUN 14, Creatinine 0.60, Estimated Creat Clear 52, Estimated GFR 99, Est GFR ( Amer) 119, Glucose 140 H, Calcium 9.0, Total Bilirubin 0.4, AST 24, ALT 20, Alkaline Phosphatase 143 H, Troponin I < 0.01, Total Protein 7.8, Albumin 4.1, Globulin 3.7 H, Albumin/Globulin Ratio 1.1, Lipase 39 12/19/22 11:50: Magnesium 1.7 12/19/22 12:26: Urine Color Yellow, Urine Appearance Clear, Urine pH 7.0, Ur Specific [place] 1.010, Urine Protein Negative, Urine Glucose (UA) Negative, Urine Ketones Negative, Urine Blood Negative, Urine Nitrate Negative, Urine Bilirubin Negative, Urine Urobilinogen 0.2, Ur Leukocyte Esterase 1+ A, Urine RBC None, Urine WBC 3-5, Ur Squamous Epith Cells 3-5, Urine Bacteria Trace 12/19/22 13:52: Lactate 0.8 12/19/22 13:59: SARS-CoV-2 (PCR) Not detected, Influenza A Untype (PCR) Not detected, Influenza Type B (PCR) Not detected I & O for Last 24 hours: Intake & Output 12/17/22 12/18/22 12/19/22 12/20/22 11:59 11:59 11:59 11:59 Intake Total 1460 / 1460 Output Total 0 / 0 Balance 1460 / 1460 Weight 145 lb 7.99 oz Constitutional Constitutional: no acute distress *Routine Respiratory Exam Respiratory: Absent respiratory distress *Routine Cardiovascular Exam Cardiovascular: Absent tachycardia *Routine Abdominal Exam Abdominal: Present soft Comments: Much less tenderness Progress Note: A&P Assessment and plan (1) Right middle lobe pneumonia: Status: Acute Assessment and plan: Management as per primary service (2) Partial small bowel obstruction: Status: Acute Assessment and plan: Radiographic findings more likely secondary to gastroenteritis/ileus. She continues to have bowel function. Clear liquid diet ordered Discharge with outpatient follow-up when deemed appropriate per primary service If she does remain hospitalized...she will be made NPO after midnight to undergo a small bowel follow-through tomorrow (this can be deferred to the outpatient setting) (3) Gastroenteritis: Status: Acute Assessment and plan: Management as per primary service (4) Coronary artery disease: Status: Acute (5) Tobacco dependence: Status: Acute
[2022-12-20 07:12] LABS: Basophils % 1.3 % (0.1-2.0); Eosinophils % 2.1 % (0.1-12.0); Lymphocytes % 18.3 % (10-50); Mean Corpuscular HGB Conc 32.2 g/dL (31.8-35.4); Mean Corpuscular Hemoglobin 29.2 pg (27.0-31.2); Mean Corpuscular Volume 90.7 fl (81-99); Mean Platelet Volume 8.4 fl (7.4-10.4); Monocytes # 0.4 K/mm3 (0.1-1.0); Monocytes % 7.1 % (1.7-9.3); Neutrophils # 4.1 K/mm3 (1.8-7.8); Platelet Count 497 K/mm3 (142-424); Red Blood Count 4.63 M/mm3 (4.20-5.40); Red Cell Distribution Width 13.2 % (11.5-17.5); White Blood Count 5.7 K/mm3 (4.8-10.8)
[2022-12-20 07:24] LABS: Potassium 2.8 mmoL/L (3.5-5.1)
[2022-12-20 08:09] LABS: Hemoglobin 13.5 g/dL (12.2-16.2)
--- NOTE | 2022-12-20 17:39 | EXP.PN ---
Subjective *Date: 12/20/22 *Time: 17:39 Interval history: Date of service December 20, 2022 The patient reports no further nausea, vomiting or diarrhea. She had a bowel movement that is characterized as soft. She reports improved abdominal discomfort. Nursing staff report that she remains afebrile with stable heart rates and blood pressures and saturating appropriately on 2 L of oxygen via nasal cannula. We have reviewed and discussed her morning laboratory results and I have personally interpreted her laboratory results as follows: CBC with a normal white blood cell count 5.7, hemoglobin stable at 13.5, hematocrit 42 and platelet count 497. Her chemistry panel identifies sodium 134, potassium 2.8 which is being replaced, chloride 97 and bicarb 31. Her BUN is 8 and her creatinine 0.5. Her magnesium level is 1.8. Exam Data for Last 24 hours Vital signs and Labs for Last 24 Hours: Temp Pulse Resp BP Pulse Ox 98.6 F 75 17 146/58 H 95 12/20/22 15:01 12/20/22 15:01 12/20/22 15:01 12/20/22 15:01 12/20/22 15:01 Laboratory Results - last 24 hr 12/20/22 05:55: WBC 5.7 D, RBC 4.63, Hgb 13.5 D, Hct 42.0, MCV 90.7, MCH 29.2, MCHC 32.2, RDW 13.2, Plt Count 497 H, MPV 8.4, Neut % (Auto) 71.2, Lymph % (Auto) 18.3, [place] % (Auto) 7.1, Eos % (Auto) 2.1, Baso % (Auto) 1.3, Neut # (Auto) 4.1, Lymph # (Auto) 1.0, [place] # (Auto) 0.4, Eos # (Auto) 0.1, Baso # (Auto) 0.1 12/20/22 05:55: Sodium 134 L, Potassium 2.8 L*, Chloride 97 L, Carbon Dioxide 31 H, Anion Gap 8.8, BUN 8 D, Creatinine 0.50 L, Estimated Creat Clear 54, Estimated GFR 122, Est GFR ( Amer) 147 D, Glucose 85 D, Calcium 8.5, Magnesium 1.8 I & O for Last 24 hours: Intake & Output 02/27/12/18/22 12/19/22 12/20/22 23:59 23:59 23:59 23:59 Intake Total 0 / 0 3080 / 3080 Output Total 0 / 0 0 / 0 Balance 0 / 0 3080 / 3080 Weight 63.73 kg 65.997 kg Microbiology Reports for the Last 24 Hours: Microbiology 12/19/22 12:26 Urine,Clean Catch Urine Culture - Preliminary Constitutional Constitutional: no acute distress, average body habitus and cooperative *Routine HEENT Exam Head: Present normocephalic Eye: Present EOMI and PERRL ENT: Present mucous membranes moist *Routine Neck Exam Neck: Present supple; Absent full ROM or lymphadenopathy *Routine Respiratory Exam Respiratory: Present rhonchi, normal respiratory effort and symmetric chest movement *Routine Cardiovascular Exam Cardiovascular: Present RRR; Absent murmur *Routine Abdominal Exam Abdominal: Present soft and normoactive bowel sounds; Absent tenderness *Routine Extremities Exam Extremities: Present full ROM, pulses intact and normal capillary refill; Absent cyanosis, clubbing or edema *Routine Skin Exam Skin: Present warm; Absent rash *Routine Neurological Exam Neurological: Present alert, oriented X3, moving all extremities, vision grossly intact, hearing grossly intact and normal speech; Absent sensory deficit or motor deficit Routine Psychiatric Exam Psychiatric: Present normal affect, normal thought process, cooperative, good insight and good judgment Assessment and Plan *Assessment and plan (1) Right middle lobe pneumonia: Status: Acute Category: Medical Code(s): J18.9 - Pneumonia, unspecified organism (2) Partial small bowel obstruction: Status: Acute Category: Medical Code(s): K56.600 - Partial intestinal obstruction, unspecified as to cause (3) Gastroenteritis: Status: Acute Category: Medical Code(s): K52.9 - Noninfective gastroenteritis and colitis, unspecified (4) Coronary artery disease: Status: Acute Category: Medical Code(s): I25.10 - Atherosclerotic heart disease of [place] coronary artery without angina pectoris (5) Tobacco dependence: Status: Acute Category: Medical Code(s): F17.200 - Nicotine dependence, unspecified, uncomplicated Plan Patient is a 72-year-old fem
--- NOTE | 2022-12-20 18:22 | PC.NURSE ---
No c/o pain stated. No n/v. Is tolerating diet. She is currently on full liquids. Pt is passing gas. Has had multiple stools today. Ambulates to BR with standby assist. Call light within reach. Family at bedside.
[2022-12-21] VITALS: BP 138/57; PULSE 70; RESP 18; TEMP 37; O2SAT 94
--- NOTE | 2022-12-21 03:02 | PC.NURSE ---
PATIENT USES INCENTIVE SPIROMETER DIRECTED AND INDEPENDENTLY. PERFORMS 2000 ML. LUNGS SOUND CLEAR. HAS BEEN NPO SINCE [place]. SMALL BOWEL FOLLOW THROUGH POSSIBLY THIS AM. PATIENT REPORTS LOOSE STOOLS. DENIES PAIN, NAUSEA OR VOMITING. 94% 02 SAT ON ROOM AIR. PATIENT IS INDEPENDENT. REQUIRES SBA WITH IV POLE.
[2022-12-21 04:00] VITALS: BP 147/57; PULSE 68; RESP 18; TEMP 36.9; O2SAT 95; BMI 26.4
[2022-12-21 06:17] VITALS: PULSE 67; PULSE 71
[2022-12-21 06:22] LABS: Blood Urea Nitrogen 3 mg/dl (7-17); Carbon Dioxide 27 mmol/L (22.0-30.0); Chloride 104 mmol/L (98-107); Creatinine Clearance Estimated 55 mL/min (50-200); Estimated Glomerular Filt Rate 157 ml/min (>60); GFR (African American) 190 ML/MIN (>60); Glucose 88 mg/dl (74-100); Sodium 137 mmol/L (136-145)
--- NOTE | 2022-12-21 06:44 | PC.NURSE ---
CRITICAL LAB CALLED TO Francisco CHAUDHARY N.P. POTASSIUM 3.0
--- NOTE | 2022-12-21 07:00 | FL_ITS ---
FINAL REPORT CLINICAL HISTORY: obstruction..pt drank thin and gastro .44 fluoro time FINDINGS: SMALL BOWEL FOLLOW THROUGH HISTORY: . Acute generalized abdominal pain. Abnormal CT. PROCEDURE: The patient ingested Gastrografin and thin barium. Spot and overhead films were obtained. FINDINGS: The loading machine tool setter film is unremarkable. The transit time to the colon is normal. The mucosal fold pattern is normal. Spot images of the terminal ileum are unremarkable. FLUOROSCOPY TIME: 0.44 minutes. 8 radiographs were obtained. IMPRESSION: Normal small bowel follow-through. Films reviewed , interpreted and dictated by Dr. Marisabel Lopez. Transcribed by Kyle Webber PA-C. Reviewed, Interpreted and Dictated by Marisabel Lopez MD Transcribed by PASCUAL Duran Authenticated and [facility]
[2022-12-21 07:20] LABS: Phosphorous 3.4 mg/dl (2.5-4.5)
[2022-12-21 08:00] VITALS: BP 152/62; PULSE 69; RESP 16; TEMP 36.7; O2SAT 96
--- NOTE | 2022-12-21 09:52 | EXP.SURG.PN ---
Subjective Patient reports: no new complaints, feels better and bowel movement Exam Data for Last 24 hours Vital signs and Labs for Last 24 Hours: Temp Pulse Resp BP Pulse Ox 98.0 F 69 16 152/62 H 96 12/21/22 08:00 12/21/22 08:00 12/21/22 08:00 12/21/22 08:00 12/21/22 08:00 Laboratory Results - last 24 hr 12/19/22 12:26: Urine Color Yellow, Urine Appearance Clear, Urine pH 7.0, Ur Specific [place] 1.010, Urine Protein Negative, Urine Glucose (UA) Negative, Urine Ketones Negative, Urine Blood Negative, Urine Nitrate Negative, Urine Bilirubin Negative, Urine Urobilinogen 0.2, Ur Leukocyte Esterase 1+ A, Urine RBC None, Urine WBC 3-5, Ur Squamous Epith Cells 3-5, Urine Bacteria Trace 12/21/22 05:48: Sodium 137, Potassium 3.0 L, Chloride 104, Carbon Dioxide 27, Anion Gap 9.0, BUN 3 L D, Creatinine 0.40 L, Estimated Creat Clear 55, Estimated GFR 157, Est GFR ( Amer) 190 D, Glucose 88, Calcium 8.0 L 12/21/22 05:48: Phosphorus 3.4 I & O for Last 24 hours: Intake & Output 12/18/22 12/19/22 12/20/22 12/21/22 11:59 11:59 11:59 11:59 Intake Total 1999 3747 / 3747 Output Total 0 / 0 0 / 0 Balance 1999 3747 / 3747 Weight 145 lb 7.99 oz 149 lb 7 oz Microbiology Reports for the Last 24 Hours: Microbiology 12/19/22 12:26 Urine,Clean Catch Urine Culture - Preliminary Gram Negative Rods Constitutional Constitutional: no acute distress *Routine Respiratory Exam Respiratory: Absent respiratory distress *Routine Cardiovascular Exam Cardiovascular: Absent tachycardia *Routine Abdominal Exam Abdominal: Present soft Progress Note: A&P Assessment and plan (1) Right middle lobe pneumonia: Status: Acute (2) Partial small bowel obstruction: Status: Acute Assessment and plan: The patient continues to have bowel function and does not have a complete obstruction; however, a partial/intermittent obstruction remains a possibility. She has symptomatically improved and will likely be discharged later today. A small bowel follow-through will be completed prior to discharge to better evaluate her small bowel (specifically in light of her planned hernia repair). (3) Gastroenteritis: Status: Acute (4) Coronary artery disease: Status: Acute (5) Tobacco dependence: Status: Acute
--- NOTE | 2022-12-21 10:44 | EXP.DC.SUM ---
General Admission date:: 12/19/22 Discharge date: 12/21/22 HPI HPI HPI: This is a 72-year-old that presents to [facility] emergency department with concerns of nausea vomiting diarrhea since last Saturday with some abdominal pain today. She is accompanied by her granddaughter that assists with the history. Her past medical history significant for ventral hernias, coronary artery disease status post [place], COPD with ongoing tobacco dependence and no home O2, diverticulosis. She identifies no sick contacts and last Saturday she started experiencing nausea vomiting and diarrhea. She reports intermittent episodes with no ability to keep nutrition or fluids down. She denies associated fever, chills or jaundice. She reports no associated hematemesis, melena or hematochezia. On Saturday her symptomatology resolved. Yesterday she tried to eat and her symptomatology returned. She went to an urgent treatment center and they prescribed an antiemetic with no resolution of her symptomatology. She describes crampy abdominal pain that is associated with defecation. She denies crescendo abdominal pain, dysuria or confusion. She reports a cough that is nonproductive. In the ED she was evaluated with heart rate of 73, respiratory rate of 18 and no fever. She maintained appropriate oxygen saturations on room air. Her CBC identified no leukocytosis but did identify thrombocytosis. Her electrolytes identified a potassium of 2.7 and elevated bicarb. Her anion gap was normal. Her LFTs were normal. Her troponin was negative. Her lipase was normal. Her lactic acid was normal. A chest x-ray identified concerns with pulmonary edema. A CTA of the abdomen pelvis identified right middle lobe pneumonia with left nonobstructing renal stone, ventral hernias and partial small bowel obstruction. Hospital Course Hospital Course Hospital Course: The patient was admitted to the medical unit with routine pulse oximetry monitoring. General surgery evaluated the patient. She tolerated her IV fluid resuscitation and her abdominal pain improved. She identified no further nausea vomiting or diarrhea. She tolerated her IV antibiotic therapy. Her blood cultures identify no growth to date. Her urine culture identified gram-negative rods with colony count less than 20,000. Her stool studies are pending. Her laboratory studies and inflammatory markers were trended and identified improvement. She tolerated p.o. intake and her diet was advanced with good tolerance. She identified effective flatus and bowel elimination. Her oxygen requirements diminished and she saturated appropriately on room air. She was able to ambulate with no difficulty. She identified improvement and inquired about discharge home. Tobacco cessation was discussed and the patient understands the importance of complete cigarette smoking cessation. General surgery recommended a small bowel follow-through in anticipation for future surgical needs with her chronic ventral hernias. She plans to follow-up with her general surgeon as scheduled and I have recommended her to see her PCP next week. I spent 35 minutes in [id number] time with the patient and nursing staff concerning the discharge process. We discussed the admitting diagnoses and hospital course. We discussed identified improvement and the patient's desire to be discharged. We reviewed inpatient studies and imaging. The patient voiced understanding on the importance of follow-up with her primary care provider and specialist(s). The patient plans to be compliant with the medication regimen prescribed and follow-up appointments. She understands that she can return to the emergency department with any sudden changes or concerns. Exam Data for Last 24 hours Vital signs and Labs for Last 24 Hours: Temp Pulse Resp BP Pulse Ox 98.0 F 69 16 152/62 H 96 12/21/22 08:00 12/21/22 08:00 12/21/22 08:00 12/21/22 08:00 12/21/22 08:00 Fani
--- NOTE | 2022-12-21 11:14 | HMH.PHAINT1 ---
Pharmacy Intervention Comments: DISCHARGE MEDICATION COUNSELING PROVIDED. DISCUSSED SHORT-COURSE DOXYCYCLINE (ANTIBIOTIC, TWICE DAILY, TAKE WITH FOOD, N/V/D POSSIBLE, RASH RARE, INCREASED RISK OF VULVOVAGINAL CANDIDIASIS). PATIENT VERBALIZED NO QUESTIONS AT THIS TIME.
[2022-12-21 12:30] LABS: Anion Gap 6.5 mEq/L (5-15); Blood Urea Nitrogen 2 mg/dl (7-17); Calcium 8.6 mg/dl (8.4-10.2); Carbon Dioxide 32 mmol/L (22.0-30.0); Chloride 103 mmol/L (98-107); Creatinine Clearance Estimated 55 mL/min (50-200); Estimated Glomerular Filt Rate 157 ml/min (>60); GFR (African American) 190 ML/MIN (>60); Glucose 106 mg/dl (74-100); Potassium 3.5 mmoL/L (3.5-5.1); Sodium 138 mmol/L (136-145)
--- NOTE | 2022-12-24 14:00 | CARE MANAGER ---
Contacted patient's son related to hospital discharge. Left message on patient's phone. Son states she is doing better and picked up medication. They are aware of follow up appointment and deny any questions or concerns. KAM Mtz
== END 2022-12-21 12:26 | disposition home or self-care (01) ==
LOC: ER 14:13 → 2ND 14:21
PROVIDERS: Nurse Practitioner Acute Care; Admitting Provider Family Medicine; Emergency Provider Emergency Medicine; PCP Emergency Medicine; Visit Provider Family Medicine
DX: R11.2 Nausea with vomiting, unspecified (principal); F17.210 Nicotine dependence, cigarettes, uncomplicated; I25.10 Atherosclerotic heart disease of native coronary artery without angina pectoris; Z79.01 Long term (current) use of anticoagulants; K52.9 Noninfective gastroenteritis and colitis, unspecified; I10 Essential (primary) hypertension; E78.5 Hyperlipidemia, unspecified; Z79.899 Other long term (current) drug therapy; K56.600 Partial intestinal obstruction, unspecified as to cause; Z20.822 Contact with and (suspected) exposure to COVID-19
CPT/HCPCS: G0378; 36415; 71045; 74021; 74177; 74250; 80048; 80053; 81001; 83605; 83690; 83735; 84100; 84484; 85025; 87040; 87045; 87086; 87088; 87186; 93005; 94640; 99285; C9803; J0456; J0696; J1956; J2405; Q9967; U0003; U0005

== ENCOUNTER 2022-12-25 09:22 | Day surgery (SDC) | payer MEDICARE, SELFPAY ==
[2022-12-25 09:44] VITALS: BP 132/63; PULSE 79; RESP 18; TEMP 36.5; O2SAT 95; BMI 26.2
[2022-12-25 09:58] VITALS: BP 144/58; PULSE 81; RESP 18; O2SAT 96
[2022-12-25 09:59] VITALS: BP 144/58; PULSE 81; RESP 18; O2SAT 96
[2022-12-25 10:04] VITALS: BP 115/54; PULSE 83; RESP 18; O2SAT 95
--- NOTE | 2022-12-25 10:04 | EXP.PAIN.PRO ---
Procedure Date: 12/25/22 Time: 10:04 Anesthesiologist:: Viktor Chavez CRNA Complications:: None Pre-procedure Diagnosis:: Degenerative disc disease lumbar spine multilevels. Lumbar radiculopathy. Multilevel lumbar spondylosis. Post-procedure Diagnosis:: Same. Indications for Procedure:: Very pleasant 72-year-old female who presents to our clinic today for L3-4 lumbar epidural steroid injection. She complains of low back pain as well as bilateral hip and leg pain. However, her main complaint is low lumbar pain that spreads bilaterally into the hip area. She rates her pain 7 Procedure Details:: Procedure: Lumbar epidural steroid injection under fluoroscopy Informed consent was obtained and the risks and benefits of the procedure were explained to the patient. The patient was taken to the procedure room and noninvasive monitors placed, including noninvasive blood pressure cuff and pulse oximeter. The back was viewed using C-arm Fluoroscopy and prepped using Chloraprep as a cleansing solution and the L4-L5 interspace was palpated. Skin and subcutaneous tissues were anesthetized using lidocaine 1.5% and a 25-gauge needle. After this, an 18-gauge Touhy epidural needle was placed into the L4-L5 interspace and advanced using fluoroscopic guidance and loss of resistance to air until the epidural space was encountered. After confirmation of needle placement in the epidural space, with dye, a solution containing normal saline, 3 mL and Depo-Medrol 80 mg were incrementally injected into the lumbar epidural space. The patient tolerated the procedure well with no complications. The patient was observed in the Pain Clinic and then discharged home neurologically intact. Plan and Disposition:: Patient was discharged without incident.
== END 2022-12-25 10:04 | disposition home or self-care (01) ==
PROVIDERS: PCP Emergency Medicine; Visit Provider Nurse Anesthetist, Certified Registered
DX: M51.16 Intervertebral disc disorders with radiculopathy, lumbar region (principal); M47.26 Other spondylosis with radiculopathy, lumbar region
CPT/HCPCS: 62323; J1040

== ENCOUNTER → 2023-01-02 21:19 | Outpatient (CLI) | payer MEDICARE, SELFPAY ==
[2023-01-02 15:18] LABS: Chloride 101 mmol/L (98-107); Potassium 4.3 mmoL/L (3.5-5.1); Sodium 136 mmol/L (136-145)
[2023-01-02 15:21] LABS: Anion Gap 12.3 mEq/L (5-15); Blood Urea Nitrogen 20 mg/dl (7-17); Carbon Dioxide 27 mmol/L (22.0-30.0); Estimated Glomerular Filt Rate 157 ml/min (>60); GFR (African American) 190 ML/MIN (>60)
[2023-01-02 15:22] LABS: Calcium 8.5 mg/dl (8.4-10.2); Glucose 68 mg/dl (74-100)
== END ==
PROVIDERS: PCP Physician Assistant; Visit Provider Physician Assistant
DX: E78.5 Hyperlipidemia, unspecified (principal)
CPT/HCPCS: 80048

== ENCOUNTER → 2023-02-11 11:00 | Outpatient (CLI) | payer MEDICARE, SELFPAY ==
[2023-02-11 16:26] LABS: Intact Parathyroid Hormone 65.7 pg/mL (7.5-53.5)
== END ==
PROVIDERS: PCP Physician Assistant; Visit Provider Physician Assistant
DX: Z00.00 Encounter for general adult medical examination without abnormal findings (principal)
CPT/HCPCS: 83970

== ENCOUNTER → 2023-02-11 14:09 | Outpatient (CLI) | payer MEDICARE, SELFPAY ==
[2023-02-11 14:20] LABS: Basophils # 0.1 K/mm3 (0-0.2); Basophils % 1.2 % (0.1-2.0); Eosinophils # 0.1 K/mm3 (0.0-0.4); Hematocrit 47.7 % (37.0-47.0); Hemoglobin 15.6 g/dL (12.2-16.2); Lymphocytes # 1.4 K/mm3 (0.7-4.5); Lymphocytes % 23.4 % (10-50); Mean Corpuscular HGB Conc 32.6 g/dL (31.8-35.4); Mean Corpuscular Hemoglobin 30.1 pg (27.0-31.2); Mean Corpuscular Volume 92.2 fl (81-99); Mean Platelet Volume 9.1 fl (7.4-10.4); Monocytes # 0.5 K/mm3 (0.1-1.0); Monocytes % 8.6 % (1.7-9.3); Neutrophils # 3.8 K/mm3 (1.8-7.8); Neutrophils % 64.8 % (37.0-80.0); Platelet Count 304 K/mm3 (142-424); Red Blood Count 5.18 M/mm3 (4.20-5.40); Red Cell Distribution Width 15.2 % (11.5-17.5); White Blood Count 5.9 K/mm3 (4.8-10.8)
[2023-02-11 14:26] LABS: Alanine Aminotransferase 21 U/L (12-78); Albumin Level 4.3 g/dl (3.5-5.0); Albumin/Globulin Ratio 1.4 (1.1-1.8); Alkaline Phosphatase 141 U/L (38-126); Anion Gap 11.3 mEq/L (5-15); Aspartate Amino Transferase 28 U/L (14-36); Bilirubin,Total 0.4 mg/dl (0.2-1.3); Blood Urea Nitrogen 16 mg/dl (7-17); Carbon Dioxide 30 mmol/L (22.0-30.0); Chloride 101 mmol/L (98-107); Chol/HDL Ratio 6.1 (1-3.5); Cholesterol 182 mg/dl (140-200); Estimated Glomerular Filt Rate 157 ml/min (>60); GFR (African American) 190 ML/MIN (>60); Glucose 84 mg/dl (74-100); HDL Cholesterol 30 mg/dl (40-60); Potassium 4.3 mmoL/L (3.5-5.1); Sodium 138 mmol/L (136-145); Total Protein,Serum 7.3 g/dl (6.3-8.2); Triglycerides 251 mg/dl (30-150); VLDL Cholesterol 50 mg/dL (0-40)
[2023-02-11 14:38] LABS: Direct LDL Cholesterol 99.38 mg/dL (100-129)
[2023-02-11 14:43] LABS: 25-OH Vitamin D, Total 33.5 ng/mL (30-100)
[2023-02-11 14:57] LABS: Thyroid Stimulating Hormone 2.67 uIU/mL (0.465-4.68)
== END ==
PROVIDERS: PCP Physician Assistant; Visit Provider Physician Assistant
DX: E03.9 Hypothyroidism, unspecified (principal); Z00.00 Encounter for general adult medical examination without abnormal findings; E55.9 Vitamin D deficiency, unspecified
CPT/HCPCS: 80053; 80061; 82306; 84443; 85025

== ENCOUNTER → 2023-03-14 09:50 | Outpatient (CLI) | payer MEDICARE, SELFPAY ==
--- NOTE | 2023-03-14 09:50 | NM_ITS ---
FINAL REPORT CLINICAL HISTORY: PARATHYROIDISM COMPARISON: None FINDINGS: 20.9 mCi Technetium Sestamibi was administered. Planar imaging was performed early and two-hour delayed of the neck and upper thorax. Early imaging shows physiologic uptake within the upper neck involving the salivary glands and lower neck involving the thyroid gland. On delayed imaging there is no abnormal retained activity in the lower neck or mediastinum to localize parathyroid adenoma. IMPRESSION: No scintigraphic evidence of parathyroid adenoma. Reviewed, Interpreted and Dictated by Misael Rothman III, MD Transcribed by Laurie Rodriguez Authenticated and [facility]
== END ==
LOC: RAD 09:50
PROVIDERS: PCP Physician Assistant; Visit Provider Emergency Medicine
DX: E05.90 Thyrotoxicosis, unspecified without thyrotoxic crisis or storm (principal)
CPT/HCPCS: 78070; A9500

== ENCOUNTER → 2023-06-13 09:17 | Outpatient (CLI) | payer MEDICARE, SELFPAY ==
--- NOTE | 2023-06-13 10:02 | XR_ITS ---
FINAL REPORT CLINICAL HISTORY: right shoulder pain felt pop last night COMPARISON: 12/24/2017 FINDINGS: RIGHT SHOULDER Three views demonstrate no acute fracture or dislocation. There are minimal hypertrophic changes of the AC joint. The visualized joint spaces are normally aligned. The soft tissues are unremarkable. IMPRESSION: Minimal degenerative changes without acute process Reviewed, Interpreted and Dictated by Robb Gutierrez MD Transcribed by Laurie Rodriguez Authenticated and [facility]
[2023-06-13 10:24] LABS: Basophils # 0.1 K/mm3 (0-0.2); Basophils % 0.9 % (0.1-2.0); Eosinophils # 0.1 K/mm3 (0.0-0.4); Hematocrit 48.9 % (37.0-47.0); Hemoglobin 15.8 g/dL (12.2-16.2); Lymphocytes # 1.5 K/mm3 (0.7-4.5); Lymphocytes % 23.1 % (10-50); Mean Corpuscular HGB Conc 32.2 g/dL (31.8-35.4); Mean Corpuscular Hemoglobin 29.3 pg (27.0-31.2); Mean Corpuscular Volume 91.1 fl (81-99); Mean Platelet Volume 8.1 fl (7.4-10.4); Monocytes # 0.6 K/mm3 (0.1-1.0); Neutrophils # 4.1 K/mm3 (1.8-7.8); Platelet Count 354 K/mm3 (142-424); Red Blood Count 5.38 M/mm3 (4.20-5.40); White Blood Count 6.3 K/mm3 (4.8-10.8)
[2023-06-13 10:49] LABS: Alanine Aminotransferase 23 U/L (12-78); Albumin Level 4.4 g/dl (3.5-5.0); Albumin/Globulin Ratio 1.5 (1.1-1.8); Alkaline Phosphatase 126 U/L (38-126); Amylase 38 U/L (30-110); Anion Gap 13.3 mEq/L (5-15); Aspartate Amino Transferase 26 U/L (14-36); Bilirubin,Total 0.4 mg/dl (0.2-1.3); Blood Urea Nitrogen 17 mg/dl (7-17); Calcium 9.2 mg/dl (8.4-10.2); Carbon Dioxide 33 mmol/L (22.0-30.0); Chloride 96 mmol/L (98-107); Chol/HDL Ratio 5.7 (1-3.5); Cholesterol 206 mg/dl (140-200); Estimated Glomerular Filt Rate 121 ml/min (>60); GFR (African American) 147 ML/MIN (>60); Globulin 2.9 g/dL (1.3-3.2); Glucose 96 mg/dl (74-100); HDL Cholesterol 36 mg/dl (40-60); Lipase 33 U/L (23-300); Potassium 3.3 mmoL/L (3.5-5.1); Sodium 139 mmol/L (136-145); Total Protein,Serum 7.3 g/dl (6.3-8.2); Triglycerides 273 mg/dl (30-150); VLDL Cholesterol 55 mg/dL (0-40)
[2023-06-13 11:00] LABS: Direct LDL Cholesterol 114.75 mg/dL (100-129)
[2023-06-13 11:13] LABS: 25-OH Vitamin D, Total 35.2 ng/mL (30-100)
[2023-06-13 12:27] LABS: Thyroid Stimulating Hormone 2.72 uIU/mL (0.465-4.68)
[2023-06-14 20:38] LABS: H. pylori Breath Test Negative (Negative)
== END ==
LOC: LAB 09:18
PROVIDERS: PCP Physician Assistant; Visit Provider Physician Assistant
DX: M25.511 Pain in right shoulder (principal); R10.13 Epigastric pain; F32.0 Major depressive disorder, single episode, mild; E55.9 Vitamin D deficiency, unspecified; E03.9 Hypothyroidism, unspecified
CPT/HCPCS: 36415; 73030; 80053; 80061; 82150; 82306; 83013; 83690; 84443; 85025

== ENCOUNTER → 2023-07-17 07:26 | Outpatient (CLI) | payer MEDICARE, SELFPAY ==
--- NOTE | 2023-07-17 07:26 | CT_ITS ---
FINAL REPORT TECHNIQUE: Thin section axial images were obtained from the lung bases to the pubic symphysis without IV contrast. Coronal reconstruction images were obtained from the axial data. Exam was performed using dose reduction technique. CLINICAL HISTORY: epigastric pain, weight loss COMPARISON: December 19, 2022 FINDINGS: There is a nonobstructing right renal stone. There is renal vascular calcification on the left. There is no hydronephrosis. There is no perinephric stranding. The gallbladder is present. The remaining unenhanced solid abdominal organs are unremarkable. There is no evidence of small bowel obstruction. The appendix is normal. GI tract is without acute abnormality. There is colonic diverticulosis. There is no lymphadenopathy or ascites. The uterus is present. No acute osseous abnormality is identified. A 3.5 cm abdominal aortic aneurysm is unchanged. There is atherosclerotic disease. There is a right periumbilical hernia containing fat only. IMPRESSION: Nonobstructing right renal stone. Stable abdominal aortic aneurysm. Reviewed, Interpreted and Dictated by Marisabel Lopez MD Transcribed by King Vidal Authenticated and [facility]
== END ==
LOC: RAD 07:26
PROVIDERS: PCP Physician Assistant; Visit Provider Physician Assistant
DX: R10.13 Epigastric pain (principal); R63.4 Abnormal weight loss
CPT/HCPCS: 74176

== ENCOUNTER 2023-07-17 08:00 | Outpatient (RCR) | payer MEDICARE, SELFPAY ==
--- NOTE | 2023-07-05 09:04 | HMH.OTOPEV ---
OT Inpatient Evaluation Rehab OT Outpatient Eval Start: 07/05/23 08:47 Freq: Status: Active Protocol: Document 07/05/23 08:47 CATHERINE (Rec: 07/05/23 09:02 CATHERINE [id number]) E-signed By Doreen Gutierrez, OT Outpatient Therapy Subjective History Subjective History 73 year old female referred to skilled OP OT services for R shld pain. Patient stated that she has had pain for the past year with no relief. She stated that the pain got worse when she attempted to lift up a grandchild and felt a 'pop' in the right shoulder. Patient is unable to lift any weights such as pots and pans to prepare meals. New diagnosis of cancer in past 12 No months? Chief Complaint Pain,Weakness Symptom Type Ache Symptoms Relieved By Nothing,Elevation Prior Functional Limitations None Current Functional Limitations Reaching,Lifting,Recreation Activity Symptom Description Constant and Continuous Level of pain today (0-10) 8 Pain scale - at its best (0-10) 8 Pain scale - at its worst (0-10) 9 Shoulder/Elbow Eval Shoulder Objective Measurements Shoulder ROM Right Shoulder Abduction Active Range of 30 Motion (degrees) Shoulder Abduction Passive Range of 90 Motion (degrees) Shoulder Flexion Active Range of Motion 30 (degrees) Query Text: Shoulder Flexion Passive Range of Motion 100 (degrees) Shoulder External Rotation Active Range 0 of Motion (degrees) Shoulder Internal Rotation Active Range 0 of Motion (degrees) pain with active ROM shoulder exam right standard Shoulder MMT Shoulder Abduction Strength Grade 3- Fair- Shoulder Extension Strength Grade 3- Fair- Shoulder Flexion Strength Grade 3- Fair- Shoulder Horizontal Abduction Strength 3- Fair- Grade Shoulder Horizontal Adduction Strength 3- Fair- Grade Infraspinatus/Teres Minor Strength Grade 3- Fair- Shoulder External Rotation Strength 3- Fair- Grade Shoulder Internal Rotation Strength 3- Fair- Grade Elbow Objective Measurements QuickDASH Activities Please rate your ability to do the following activities in the last week by selecting the number below the appropriate response. 1. Open a tight or new jar. Unable 2. Do heavy personnel adviser (e.g., wash Se
== END 2023-07-17 08:05 | disposition home or self-care (01) ==
LOC: OT 08:00
PROVIDERS: PCP Physician Assistant; Visit Provider Physician Assistant
DX: M25.511 Pain in right shoulder (principal)
CPT/HCPCS: 97010; 97014; 97110; 97140; 97165; G0283

== ENCOUNTER → 2023-07-22 09:53 | Outpatient (CLI) | payer MEDICARE, SELFPAY ==
--- NOTE | 2023-07-22 09:53 | CT_ITS ---
FINAL REPORT CLINICAL HISTORY: lung cancer screening 1 ppd x 68 years copd, CAD COMPARISON: 03/06/2022 FINDINGS: CT CHEST LOW DOSE SCREENING HISTORY: Screening exam for lung cancer. Current smoker, 67 pack year smoking history DOSE: CTDIvol: 2.9 mGy, DLP: 103.16 mGy*cm COMPARISON: 03/06/2022. TECHNIQUE: Axial CT without IV contrast administration using low dose protocol FINDINGS: No acute lung disease is present . There are multiple bilateral small mediastinal nodes, stable since the prior CT examination. Dense coronary calcifications are once again identified. There is mild scarring and mild changes of emphysema are present. There is a 2 mm right upper lobe lateral nodule, which is stable since the prior exam. A calcified granuloma is present in the left lower lobe. The patient has undergone a prior cholecystectomy. No pleural or pericardial effusion is seen . IMPRESSION: Stable exam when compared to the prior CT of 03/06/2022. The S categorization is given for the severe coronary artery calcifications. LUNG RADS CATEGORY 2S RECOMMENDATION: 12 month LDCT follow up Reviewed, Interpreted and Dictated by Misael Rothman III, MD Transcribed by Alondra Haider Authenticated and . [facility]
== END ==
PROVIDERS: PCP Physician Assistant; Visit Provider Physician Assistant
DX: Z87.891 Personal history of nicotine dependence (principal)
CPT/HCPCS: 71271

== ENCOUNTER 2024-06-25 08:28 | Outpatient (CLI) | payer MEDICARE, SELFPAY ==
--- NOTE | 2024-06-25 08:33 | MM_ITS ---
PROCEDURE INFORMATION: Exam: MG Bilateral Screening 3D Mammography Exam date and time: 06/25/2024 8:20 AM Age: 74 years old Clinical indication: Screening mammogram TECHNIQUE: Imaging protocol: Bilateral Screening tomosynthesis and 2D mammography including computer-aided detection (CAD) when performed. COMPARISON: 1. MG SCBI MM Dig screening mamm BI w/CAD 12/24/2017 8:36 AM 2. MG DMSB DIG MAMM-SCREEN OMARI 03/30/2014 9:01 AM FINDINGS: MAMMOGRAPHY: Breast composition: The breast is heterogeneously dense, which may obscure small masses. Mass: None. Architectural distortion: No new or suspicious architectural distortion. Calcifications: Stable benign-appearing calcifications are present. No new or suspicious cluster of microcalcifications have developed. Asymmetric density: No new or suspicious asymmetric density is present Skin thickening: None. Axillary adenopathy: None. IMPRESSION: No mammographic evidence of malignancy. Recommend annual screening mammography unless otherwise clinically indicated. ASSESSMENT: BI-RADS category 2: Benign.
== END 2024-06-25 23:59 | disposition home or self-care (01) ==
LOC: RAD 08:28
PROVIDERS: PCP Nurse Practitioner; Visit Provider Nurse Practitioner
DX: Z12.31 Encounter for screening mammogram for malignant neoplasm of breast (principal)
CPT/HCPCS: 77063; 77067

== ENCOUNTER 2024-08-10 12:15 | Outpatient (CLI) | payer MEDICARE, SELFPAY ==
--- NOTE | 2024-08-10 12:22 | XR_ITS ---
PROCEDURE INFORMATION: Exam: XR Left Wrist Exam date and time: 08/10/2024 12:25 PM Age: 74 years old Clinical indication: Pain; Wrist; Left TECHNIQUE: Imaging protocol: Radiologic exam of the left wrist. Views: 3 or more views. COMPARISON: CR XR WRIST LT MIN 3V 07/30/2019 8:44 AM FINDINGS: Bones/joints: Osteopenia is present. No acute fracture or malalignment. Minimally increased prominence of mild widening of the scapholunate interval with advanced collapse of the capitate and hamate bones, with moderate intercarpal degenerative change. Minimal dorsal rotation of the lunate. Moderate degenerative change at the 1st CMC joint, and scattered mild-moderate in the remainder of carpus. No cortical erosion or periosteal reaction. Soft tissues: Mild soft tissue swelling of the wrist. IMPRESSION: 1. No acute fracture or malalignment. 2. Mild widening of the scapholunate interval, suggestive of (chronic) ligamentous injury, with associated advanced collapse of the capitate and hamate bones. 3. Possible mild dorsal intercalated segment instability, related to SLAC wrist. 4. Moderate intercarpal degenerative change. Scattered mild-moderate degenerative change in the remainder wrist.
== END 2024-08-10 23:59 | disposition home or self-care (01) ==
LOC: RAD 12:17
PROVIDERS: PCP Nurse Practitioner; Visit Provider Nurse Practitioner
DX: M25.532 Pain in left wrist (principal); G62.9 Polyneuropathy, unspecified
CPT/HCPCS: 73110

== ENCOUNTER 2024-08-25 09:21 | Outpatient (CLI) | payer MEDICARE, SELFPAY ==
--- NOTE | 2024-08-25 09:24 | MR_ITS ---
PROCEDURE INFORMATION: Exam: MR Left Upper Extremity Joint Without Contrast; Wrist Exam date and time: 08/25/2024 9:34 AM Age: 74 years old Clinical indication: Pain; Wrist; Left; Additional info: Left wrist pain. Radial sided wrist pain. Pain when bending TECHNIQUE: Imaging protocol: Magnetic resonance imaging of the left upper extremity without contrast. Exam focused on the wrist. COMPARISON: CR XR WRIST LT MIN 3V 08/10/2024 12:25 PM FINDINGS: Bones/joints: Severe degenerative change 1st carpometacarpal articulation and mild degenerative change elsewhere. Limited subchondral cystic change in the carpus and probable degenerative edema in the trapezium without linear fracture. Scapholunate ligament: Torn scapholunate ligament with mild diastasis. Lunotriquetral ligament: Unremarkable. No tear. Triangular fibrocartilage complex: Unremarkable. No tear. Flexor compartment tendons: Unremarkable. No tear. Extensor compartment tendons: Unremarkable. No tear. Soft tissues: Small multiloculated ganglion cysts adjacent to volar aspect of the distal radius extending for a 1.5 cm length. IMPRESSION: 1. Torn scapholunate ligament with mild diastasis. 2. Severe degenerative change 1st carpometacarpal articulation and mild degenerative change elsewhere. Limited subchondral cystic change in the carpus and probable degenerative edema in the trapezium without linear fracture. 3. Small multiloculated ganglion cysts adjacent to volar aspect of the distal radius extending for a 1.5 cm length.
== END 2024-08-25 23:59 | disposition home or self-care (01) ==
LOC: RAD 09:22
PROVIDERS: PCP Family Medicine; Visit Provider Nurse Practitioner
DX: M25.532 Pain in left wrist (principal)
CPT/HCPCS: 73221

== ENCOUNTER 2025-03-16 07:12 | Outpatient (CLI) | payer MEDICARE, SELFPAY ==
--- NOTE | 2025-03-16 07:18 | MR_ITS ---
FINAL REPORT CLINICAL HISTORY: HEADACHE AROUND EYES. constant headache [id number]. dizziness COMPARISON: None FINDINGS: Multiplanar MR imaging of the brain was performed without and with contrast. There are mild to moderate foci of increased T2 signal in the deep white matter, not involving the subcortical region. There is no evidence of intracranial hemorrhage or mass. No abnormal extra-axial fluid collection is seen. The ventricular size is within normal limits. There is no evidence of shift of the midline structures. The posterior fossa and brainstem have an unremarkable appearance. No area of abnormal restricted diffusion is identified. No abnormal contrast enhancement is seen. Normal major vessel vascular flow voids are noted. There is mild left maxillary sinus mucoperiosteal thickening. There is a fluid signal focus in the posterior nasopharynx, slightly paracentral and to the right, that may represent a small mucous cyst. IMPRESSION: No acute intracranial abnormality identified. Small foci of nonenhancing increased signal in the deep white matter, in this age group most likely mild to moderate change of ischemic microvascular disease. Reviewed, Interpreted and Dictated by Robb Gutierrez MD Transcribed by Alondra Haider Authenticated and [facility]
[2025-03-16 07:44] LABS: Blood Urea Nitrogen 18 mg/dl (7-17); Estimated Glomerular Filt Rate 121 ml/min (>60); GFR (African American) 146 ML/MIN (>60)
[2025-03-16] MEDS: GADOTERIDOL INJ 20ML SYRINGE 15 ML IV (08:19)
[2025-03-16] MEDS: SODIUM CHLORIDE 0.9% 10ML SYR (RAD ONLY) 10 ML IV (08:19)
== END 2025-03-16 23:59 | disposition home or self-care (01) ==
LOC: RAD 07:13
PROVIDERS: PCP Family Medicine; Visit Provider Nurse Practitioner
DX: R90.82 White matter disease, unspecified (principal); R51.9 Headache, unspecified
CPT/HCPCS: 36415; 70553; 82565; 84520; A9576

== ENCOUNTER 2025-04-28 10:57 | Observation (INO) | payer MEDICARE, SELFPAY ==
[2025-04-28] VITALS (15 sets, daily range): BP systolic 156–220; BP diastolic 74–159; PULSE 69–95; RESP 14–20; TEMP 36.6–36.9; O2SAT 89–100; BMI 30.9; BMI 27.4
--- OUTSIDE RECORDS SUMMARY | 2025-04-28 11:09 | XMS_ITS | Encounter Summary ---
Author Organization Healthcare Address [address] [place] [address] Care Team Providers Care Lead Software Developer Name Role Phone Rex Souza MD Primary Care Provider [phone] Encounter Details Date Type Department Care Team (Late st Contact Info) Description 05/06/2015 Orders Only External Location [address] [place] [address] Provider, External Social History Tobacco Use Types Packs/Day Years Used Date Smoking Tobacco: Never Assessed Comments Unknown Sex and Gender Information Value Date Recorded Sex Assigned at Not on file Legal Sex Female 7:34 PM EDT Gender Identity Not on file Sexual Orientation Not on file documented as of this encounter Plan of Treatment Not on file documented as of this encounter Procedures Procedure Name Priority Date/Time Associated Diagnosis Comments CT OUTSIDE IMAGES 05/06/2015 2:20 PM EDT documented in this encounter Results * CT OUTSIDE IMAGES (05/06/2015 2:20 PM EDT) Anatomical Region Laterality Modality Computed Tomogra phy 05/06/2015 2:20 PM EDT us External Provider IMG CT PROCEDURES Final Result documented in this encounter Visit Diagnoses Not on filedocumented in this encounter Care Teams Lead Software Developer Relationship Specialty Start Date End Date Rex Souza MD [address] [place] [address] PCP - General 03/03/21 documented as of this encounter
--- OUTSIDE RECORDS SUMMARY | 2025-04-28 11:09 | XMS_ITS | Referral Summary ---
Author Organization [employer] ([place], [place], [place], [place]) Address [address] [place] [address] Care Team Providers Care Resort Keeper Name Role Phone Gabino Myrick MD Primary Care Provider [phone] Bruce Shepherd MD Unavailable [phone] Teresa Grigsby DO Unavailable Allergies Active Allergy Reactions Criticality Noted Date Comments Sulfa (Sulfonamide Antibiotics) Nausea Only Medications cyclobenzaprine (FLEXERIL) 10 MG tablet Take 1 tablet (10 mg total) by mouth 3 (three) times daily as needed for Muscle spasms. 3 Active clopidogreL (PLAVIX) 75 mg tablet Take 1 tablet (75 mg total) by mouth daily. 3 Active busPIRone (BUSPAR) 5 MG tablet Take 2 tablets (10 mg total) by mouth 2 (two) times daily. 3 Active aspirin 81 MG EC tablet Take 1 tablet (81 mg total) by mouth daily. 3 Active alendronate (FOSAMAX) 70 MG tablet Take 1 tablet (70 mg total) by mouth once a week. 3 Active ergocalciferol (ERGOCALCIFEROL) 1,250 mcg (50,000 unit) capsule Take 1 capsule (50,000 Units total) by mouth once a week Take on Saturday. 3 Active albuterol HFA (VENTOLIN HFA) 90 mcg/actuation inhaler Inhale 1 puff by mouth via inhaler 6 (six) times daily. Active amLODIPine (NORVASC) 10 MG tablet Take 1 tablet (10 mg total) by mouth daily. 3 Active famotidine (PEPCID) 40 MG tablet Take 1 tablet (40 mg total) by mouth daily. 3 Active furosemide (LASIX) 20 MG tablet Take 1 tablet (20 mg total) by mouth daily. 3 Active levocetirizine (XYZAL) 5 MG tablet Take 1 tablet (5 mg total) by mouth daily. 3 Active montelukast (SINGULAIR) 10 mg tablet Take 1 tablet (10 mg total) by mouth daily. 3 Active ondansetron (ZOFRAN-ODT) 8 MG disintegrating tablet Take 1 tablet (8 mg total) by mouth 3 (three) times daily as needed. 3 Active pantoprazole (PROTONIX) 40 MG tablet Take 1 tablet (40 mg total) by mouth 2 (two) times daily. 3 Active potassium chloride SA (K-DUR,KLOR-CON-M) 20 MEQ tablet Take 1 tablet (20 mEq total) by mouth 2 (two) times daily. 3 Active atorvastatin (LIPITOR) 80 MG tablet Take 1 tablet (80 mg total) by mouth nightly. 3 Active Breo Ellipta 200-25 mcg/dose DsDv 3 Active Active Problems Problem Noted Date Diagnosed Date Abdominal wall hernia 12/13/2023 12/13/2023 Lumbar radiculopathy 12/13/2023 12/13/[address] of the abdomen 12/13/202312/13 Acute hypokalemia 12/13/2023 12/13/2023 Anxiety 12/13/2023 12/13/2023 Burn 12/13/2023 12/13/2023 Sprain 12/13/2023 12/13/2023 Cervical osteophyte 12/13/2023 12/13/2023 Abdominal pain 12/13/2023 12/13/2023 Chest pain 12/13/2023 12/13/2023 Degenerative joint disease (DJD) of lumbar spine 12/13/2023 12/13/2023 Depression 12/13/2023 12/13/2023 Dizziness 12/13/2023 12/13/2023 Dyspnea 12/13/2023 12/13/2023 Edema 12/13/2023 12/13/2023 Encounter for pre-operative cardiovascular clear ance 12/13/2023 12/13/2023 Encounter for general adult medical examination without abnormal findings 12/13/2023 12/13/2023 Fatigue 12/13/2023 12/13/2023 Gastroenteritis 12/13/2023 12/13/2023 Gastroesophageal reflux disease 12/13/2023 12/13/2023 History of nicotine dependence 12/13/2023 0 12/13/2023 Hypothyroidism 12/13/2023 12/13/2023 Left sided sciatica 12/13/2023 12/13/2023 Leg cramps 12/13/2023 12/13/2023 Low back pain of over 3 months duration 12/13/1912/13/2023 Nausea vomiting and diarrhea 12/13/2023 Numbness of right hand 12/13/2023 Osteoarthritis 12/13/2023 12/13/2023 Partial small bowel obstruction 12/13/2023 12/13/2023 Pneumonia 12/13/2023 12/13/2023 Right middle lobe pneumonia 12/13/202311/22 Right shoulder pain 12/13/2023 12/13/2023 Vitamin D deficiency 12/13/2023 12/13/2023 Tobacco dependence 12/13/2023 12/13/2023 Arteriosclerosis of coronary artery 12/13/2023 12/13/2023 Hyperlipidemia 12/13/2023 12/13/2023 Primary hypertension 12/13/2023 12/13/2023 Hypertension 12/13/2023 12/13/2023 Primary hypertension 09/19/2023 Mixed hyperlipidemia 09/19/2023 Coronary artery disease invo lving [place] coronary artery of [place] heart without angina pectoris 09/19/2023 Cigarette nicotine dependenc e with nicotine-induced disorder 09/19/2023 Chronic obstructive pulmonar y disease, unspecified COPD type 09/19/2023 Chronic mesenteric ischemia 08/21/2023 Abdominal aortic aneurysm (A AA), unspecified part, unspecified whether ruptured 08/14/2023 Epigastric pain 08/14/2023 Weight loss 08/14/2023 Social History Tobacco Use Types Packs/Day Years Used Date Smoking Tobacco: Every Day Cigarettes 1 60 Smokeless Tobacco: Never Tobacco Cessation:Ready to Q uit: Not Asked; Counseling Given: Not Answered Alcohol Use Standard Drinks/Week Comments Never 0 (1 standard drink = 0.6 oz pur e alcohol) PRAPARE - Transportation Answer Date Re corded In the past 12 months, has l ack of transportation kept you from medical appointments or from getting medications? No 08/22/2023 Lack of Transportation (Non-Medical) Not on file 08/22/2023 Food Insecurity Answer Date Recorded Food run out past 12 months Not on file 10/21 Food did not last past 12 months Not on file 11/01/2023 Employment Answer Date Recorded Help finding and keeping a job Not on file 0 11/01/2023 Family and Community Support Answer Robert e Recorded Help with Day to Day Activities Not on file 11/01/2023 Feeling Lonely or Isolated Not on file 11/01 Educational Attainment Answer Date Gordy rded Speak language other than [place] at home Not on file 11/01/2023 Want help with school or training Not on file 11/01/2023 Substance Use Answer Date Recorded Used prescription meds for non-medical reasons N ot on file 11/01/2023 Used illegal drugs past 12 months Not on file 11/01/2023 Comments Unknown Sex and Gender Information Value Date Recorded Sex Assigned at Not on file Legal Sex Female 4:40 PM CDT Gender Identity Not on file Sexual Orientation Not on file Last Filed Vital Signs Vital Sign Reading Time Taken Comments Blood Pressure 148/50 02/05/2024 9:30 AM EDT Pulse 70 02/05/2024 9:30 AM EDT Temperature 36.6 C (97.9 F) 09/02/2023 7:07 AM EST Respiratory Rate 24 09/02/2023 1:10 PM EST Oxygen Saturation 99% 02/05/2024 9:30 AM EDT Inhaled Oxygen Concentration - - Weight 62.7 kg (138 lb 3.2 oz) 02/05/2024 9:30 A M EDT Height 162.6 cm (5' 4 ) 02/05/2024 9:30 AM EDT Body Mass Index 23.72 02/05/2024 9:30 AM EDT Plan of Treatment Not on file Insurance [employer] MEDICARE HMO Advance Directives For more information, please contact: [phone] * Full Code (Latest Code Status on File) Date Activated Date Inactivated Comments 09/02/2023 5:26 AM 09/03/2023 4:27 AM * Full Code Date Activated Date Inactivated Comments 08/21/2023 1:50 PM 08/23/2023 6:38 PM Care Teams Resort Keeper Relationship Specialty Start Date End Date Gabino Myrick MD [address] [place] [place] [address] PCP - General Family Medicine 08/08/23 Bruce Shepherd MD [address] [place] [address] Surgeon Cardiothoracic Surgery 08/21/23 Teresa Grigsby DO [address] [place] [address] Interventional Cardiology 02/05/24
--- OUTSIDE RECORDS SUMMARY | 2025-04-28 11:09 | XMS_ITS | Encounter Summary ---
Author Organization Healthcare Address [address] [place] [address] Care Team Providers Care Data Warehouse Administrator Name Role Phone Rex Souza MD Primary Care Provider [phone] Encounter Details Date Type Department Care Team (Late st Contact Info) Description 07/17/2023 Orders Only External Location [address] [place] [address] Provider, External Social History Tobacco Use Types Packs/Day Years Used Date Smoking Tobacco: Every Day Comments Unknown Sex and Gender Information Value Date Recorded Sex Assigned at Not on file Legal Sex Female 7:34 PM EDT Gender Identity Not on file Sexual Orientation Not on file documented as of this encounter Plan of Treatment Not on file documented as of this encounter Procedures Procedure Name Priority Date/Time Associated Diagnosis Comments CT OUTSIDE IMAGES 07/17/2023 7:28 AM EDT documented in this encounter Results * CT OUTSIDE IMAGES (07/17/2023 7:28 AM EDT) Anatomical Region Laterality Modality Computed Tomogra phy 07/17/2023 7:28 AM EDT us External Provider IMG CT PROCEDURES Final Result documented in this encounter Visit Diagnoses Not on filedocumented in this encounter Care Teams Data Warehouse Administrator Relationship Specialty Start Date End Date Rex Souza MD [address] [place] [address] PCP - General 03/03/21 documented as of this encounter
--- OUTSIDE RECORDS SUMMARY | 2025-04-28 11:09 | XMS_ITS | Clinical Summary ---
Author Organization [employer] ([place], [place], [place], [place]) Address [address] [place] [address] Care Team Providers Care Turn Supervisor Name Role Phone Gabino Myrick MD Primary Care Provider [phone] Bruce Shepherd MD Unavailable [phone] Teresa Grigsby DO Unavailable Allergies Active Allergy [...] hyperlipidemia 09/19/2023 Coronary artery disease invo lving lime coronary artery of lime heart without angina pectoris 09/19/2023 Cigarette nicotine dependenc e with nicotine-induced disorder 09/19/2023 Chronic obstructive pulmonar y disease, unspecified COPD type 09/19/2023 Chronic mesenteric ischemia 08/21/2023 Abdominal aortic aneurysm (A AA), unspecified part, unspecified whether ruptured 08/14/2023 Epigastric pain 08/14/2023 Weight loss 08/14/2023 Family History Medical History Relation Name Comments Heart attack Father Relation Name Status Comments Father Mother Social History Tobacco Use Types Packs/Day Years [...] Date Gordy rded Speak language other than [place]ian at home Not on file 11/01/2023 Want [...] 02/05/2024 9:30 AM EDT Plan of Treatment Health Maintenance Due Date Last Done Comments CT Colonography 1951 Colonoscopy 1950 Colorectal Cancer Screening 1950 DXA SCAN 1950 FOBT/FIT 1951 Fit-DNA (Cologuard) 1950 Sigmoidoscopy 1950 Hepatitis C Screening 1969 DTAP/TDAP/TD VACCINES (1 - Tdap) 1970 Breast Cancer Screening 1991 Shingles Vaccine (Zoster) (1 of 2) 2001 Respiratory Syncytial Virus (RSV) Adult or (1 - Risk 60-74 years 1-dose series) 2011 Pneumococcal 50+ years (2 of 2 - PPSV23) 01/30/2018 12/05/2017 Medicare Initial AWV [id number] 12/21/2023 COVID-19 VACCINE (3 - season) 06/21/202407/2021, 08/09/2021 Tobacco Cessation Counseling and Screening (12+) 09/19/2024 09/19/2023 Falls Risk Screening 10/21/2024 Influenza Vaccine (#1) 2025 08/15/2020 Insurance [employer] MEDICARE HMO Advance Directives For more information, please contact: [phone] * Full Code (Latest Code Status on File) Date Activated Date Inactivated Comments 09/02/2023 5:26 AM 09/03/2023 4:27 AM * Full Code Date Activated Date Inactivated Comments 08/21/2023 1:50 PM 08/23/2023 6:38 PM Care Teams Turn Supervisor Relationship Specialty Start Date End Date Gabino Myrick MD [address] [place] [address] PCP - General Family Medicine 08/08/23 Bruce Shepherd MD [address] [facility] [address] [place] [id number] Surgeon Cardiothoracic Surgery 08/21/23 Teresa Grigsby DO [address] [place] [id number] Interventional Cardiology 02/05/24
--- OUTSIDE RECORDS SUMMARY | 2025-04-28 11:09 | XMS_ITS | Encounter Summary ---
Author Organization Healthcare Address [address] [place] [address] Care Team Providers Care Energy Crop Farmer Name Role Phone Rex Souza MD Primary Care Provider + [phone] Encounter Details Date Type Department Care Team (Late st Contact Info) Description 08/22/2023 Orders Only External Location [address] [place] [address] Provider, External Social History Tobacco Use Types Packs/Day Years Used Date Smoking Tobacco: Every Day Cigarettes 1 65 Passive Smoke Exposure: Current Smokeless Tobacco: Never Alcohol Use Standard Drinks/Week Comments Never 0 (1 standard drink = 0.6 oz pur e alcohol) Comments Unknown Sex and Gender Information Value Date Recorded Sex Assigned at Not on file Legal Sex Female 7:34 PM EDT Gender Identity Not on file Sexual Orientation Not on file documented as of this encounter Plan of Treatment Not on file documented as of this encounter Procedures Procedure Name Priority Date/Time Associated Diagnosis Comments CT OUTSIDE IMAGES 08/22/2023 10:40 AM EDT documented in this encounter Results * CT OUTSIDE IMAGES (08/22/2023 10:40 AM EDT) Anatomical Region Laterality Modality Computed Tomogra phy 08/22/2023 10:4 0 AM EDT us External Provider IMG CT PROCEDURES Final Result documented in this encounter Visit Diagnoses Not on filedocumented in this encounter Additional Health Concerns Assessment Noted Time A fall risk assessment has been complete d for the patient 08/08/2023 9:16 AM EDT documented as of this encounter Care Teams Energy Crop Farmer Relationship Specialty Start Date End Date Rex Souza MD [address] [place] [id number] PCP - General 03/03/21 documented as of this encounter
--- OUTSIDE RECORDS SUMMARY | 2025-04-28 11:09 | XMS_ITS | Clinical Summary ---
Author Organization Healthcare Address [address] [place] [address] Care Team Providers Care Rn On Site Name Role Phone Rex Suoza MD Primary Care Provider + [phone] Allergies Active Allergy Reactions Criticality Noted Date Comments Sulfa Drugs Nausea Low 07/23/2023 Medications busPIRone (Buspar) 10 MG tablet Take 1 tablet (10 mg) by mouth 2 (two) times a day. 3 Active cyclobenzaprine (Flexeril) 10 MG tablet Take 1 tablet (10 mg) by mouth every 8 (eight) hours if needed for muscle spasms. 3 Active famotidine (Pepcid) 40 MG tablet Take 1 tablet (40 mg) by mouth 1 (one) time each day. 3 Active pantoprazole (Protonix) 40 MG EC tablet Take 1 tablet (40 mg) by mouth 2 (two) times a day. 3 Active pregabalin (Lyrica) 75 MG capsule Take 1 capsule (75 mg) by mouth 2 (two) times a day. 3 Active atorvastatin (Lipitor) 40 MG tablet Take 1 tablet (40 mg) by mouth 1 (one) time each day. 30 tablet 11 3 Active amLODIPine (Norvasc) 10 MG tablet Take 1 tablet (10 mg) by mouth 1 (one) time each day. 3 Active clopidogrel (Plavix) 75 MG tablet Take 1 tablet (75 mg) by mouth 1 (one) time each day. Ok to hold per cardiology for 5 days 04/18/201 6 Active ergocalciferol 1.25 MG (47563 UT) capsule Take 1 capsule (50,000 Units) by mouth 1 (one) time per week. Saturday 4 Active Fluticasone Furoate-Vilante rol 200-25 MCG/ACT aerosol powder Inhale 1 puff 1 (one) time each day at the same time. 3 Active furosemide (Lasix) 20 MG tablet Take 1 tablet (20 mg) by mouth 1 (one) time each day. 3 Active potassium chloride CR (Klor-Con M20) 20 MEQ ER tablet Take 1 tablet (20 mEq) by mouth 1 (one) time each day. 3 Active levocetirizine (Xyzal) 5 MG tablet Take 1 tablet (5 mg) by mouth 1 (one) time each day in the evening. Active omeprazole (PriLOSEC) [address] capsule 4 Active triamterene-hyd rochlorothiazid e (Maxzide) 75-50 MG tablet 4 Active Active Problems Problem Noted Date Diagnosed Date Occlusive mesenteric ischemia 04/14/2024 Mesenteric ischemia, chronic 02/12/2024 PAD (peripheral artery disease) 02/12/2024 Family History Medical History Relation Name Comments Cardiac disorder Other 1 COPD Other 2 Anesthesia problems Neg Hx Malig Hyperthermia Neg Hx Relation Name Status Comments Other 1 Other 2 Social History Tobacco Use Types Packs/Day Years Used Date Smoking Tobacco: Every Day Cigarettes 1 66 Passive Smoke Exposure: Current Smokeless Tobacco: Never Tobacco Cessation:Ready to Q uit: Not Asked; Counseling Given: Not Answered Alcohol Use Standard Drinks/Week Comments Never 0 (1 standard drink = 0.6 oz pur e alcohol) PHQ-2 Answer Date Recorded Patient Health Questionnaire-2 Score 0 02/12/2024 Comments No Sex and Gender Information Value Date Recorded Sex Assigned at Not on file Legal Sex Female 7:34 PM EDT Gender Identity Not on file Sexual Orientation Not on file Last Filed Vital Signs Vital Sign Reading Time Taken Comments Blood Pressure 160/77 06/10/2024 11:01 AM EDT Pulse 80 06/10/2024 11:01 AM EDT Temperature 36.2 C (97.1 F) 06/10/2024 10:59 AM EDT Respiratory Rate 18 04/14/2024 3:30 PM EDT Oxygen Saturation 93% 04/14/2024 3:30 PM EDT Inhaled Oxygen Concentration - - Weight 67.3 kg (148 lb 5.9 oz) 06/10/2024 10:59 AM EDT Height 162.6 cm (5' 4.02 ) 05/21/2024 1:53 PM ED T Body Mass Index 25.45 05/21/2024 1:53 PM EDT Plan of Treatment Health Maintenance Due Date Last Done Comments [facility]-Bone Density Scan 1950 [facility]-Hepatitis C Screening 1950 [facility]-Medicare Annual Wellness (AWV) 1950 [facility]-/Child/Adol SDOH Screenings 1950 [facility]- SDOH Screenings 1969 [facility]-Adult SDOH Screenings 1969 [facility]-DTaP,Tdap,and Td Vaccine s (1 - Tdap) 1970 CT Colonography 1996 Colonoscopy 1996 FIT-DNA 1996 FIT 1996 FOBT 1996 Sigmoidoscopy 1996 [facility]-Colorectal Cancer Screening 1996 [facility]-Breast Cancer Screening 2001 [facility]-Lung Cancer Screening 2001 [facility]-Zoster Vaccines (1 of 2) 2001 [facility]-Pneumococcal Vaccine: 50 + Years (2 of 2 - PPSV23) 01/30/2018 12/05/2017 [id number] Vaccine (3 - 2023- season) 2024 08/30/2021, 08/09/2021 [facility]-Depression Screening 02/11/2025 02/12/2024 [facility]-Influenza Vaccine (#1) 06/21/202508/13, 08/15/2020 [facility]-RSV Vaccine: 60+ Years o r (1 - 1-dose 75+ series) 2026 [facility]-Obesity Intervention Completed 024, 05/21/2024, 02/12/2024 HPV Vaccines Aged Out No longer eligi ble based on patient's age to complete this topic [facility]-HIB Vaccines Aged Out No longer e ligible based on patient's age to complete this topic [facility]-Hepatitis A Vaccines Aged Out No longer eligible based on patient's age to complete this topic [facility]-IPV Vaccines Aged Out No longer e ligible based on patient's age to complete this topic [facility]-Rotavirus Vaccines Aged Out No lo nger eligible based on patient's age to complete this topic Medical Devices Implanted Type Area Stapler Coil Unit Device Identifier Shelf Expiration Date Model / Serial / Lot Stent Self-Expanding Innova 8mm X 20mm X 130cm - [id number] Implanted:Qty: 1 on 04/14/2024 by Reynaldo Sanchez MD at [facility] [id number] 08/04/2028 [id number] / / [id number] Stent Atrium Icast Covered 7mm X 22mm X 80cm - [id number] Implanted:Qty: 1 on 04/14/2024 by Reynaldo Sanchez MD at [facility] [id number] 09/04/2026 [id number] / [id number] Closure Device Vip Angioseal 8 Fr - [id number] Implanted:Qty: 1 on 04/14/2024 by Reynaldo Sanchez MD at [facility] [employer]-[id number] 11/12/2024 [id number] / / [id number] Stent Graft Iliac [id number] - [id number] - [id number] Implanted:Qty: 1 on 04/14/2024 by Reynaldo Sanchez MD at [facility] [employer]-[id number] 12/03/2026 [id number] / [id number] / Insurance [facility] MEDICARE Care Teams Rn On Site Relationship Specialty Start Date End Date Rex Souza MD [address] [place] [address] PCP - General 03/03/21
--- NOTE | 2025-04-28 11:17 | ED_ITS ---
Discharge Plan Disposition Patient Disposition: Admitted Condition: Fair Clinical Impressions Clinical Impression: Acute encephalopathy, Acute hyponatremia, Acute hypokalemia, Hypomagnesemia, Elevated brain natriuretic peptide (BNP) level, Malignant hypertension Discharge ED Provider: William Casas General Adult HPI <PASCUAL Love - Last Filed: 04/28/25 14:45> General Chief complaint: Nausea/Vomiting/Diarrhea Stated complaint: vomiting, confusion Time Seen by Provider: 04/28/25 11:17 History of Present Illness HPI narrative: Patient presents with family members for altered mental status. Patient last known well was approximately 9 to 10 PM last night. Patient's grandson gives the history as patient is currently confused. He states that she has been having vomiting for the last 3 days. She has had no diarrhea however. Today she was making nonsensical statements and had significant confusion so he brought her to the emergency department for evaluation. There is no report that she had complaints of chest pain fever chills hemoptysis hematochezia melena. She was camping over the weekend with family members and appeared normal and normal on Saturday as well. Related Data Home Medications ?Medication ?Instructions ?Recorded ?Confirmed albuterol sulfate 90 mcg/actuation See Rx Instructions .Route 12/13/22 03/02/24 aerosol inhaler .COMPLEX Breathing problems mupirocin 2 % topical ointment 1 applic topical BID Sk in condition 12/13/22 03/02/24 tizanidine 4 mg tablet (Zanaflex) 4 mg PO TID MUSCLES 12/13/22 03/02/24 Previous Rx's ?Medication ?Instructions ?Recorded aspirin 81 mg tablet,delayed 81 mg PO DAILY heart heal th #90 11/27/21 release tabs atorvastatin 80 mg tablet 80 mg PO HS Cholesterol #90 tabs 01/01/23 diclofenac sodium 1 % topical gel See Rx Instructions .Route 06/11/23 .COMPLEX #100 grams montelukast 10 mg tablet See Rx Instructions .Route 0 06/11/23 .COMPLEX #30 tabs potassium chloride 20 mEq 20 meq PO BID Supplement 90 days 06/13/23 tablet,extended release #180 tabs pregabalin 75 mg capsule 75 mg PO BID Pain #60 caps 0 06/13/23 calcium carbonate See Rx Instructions .Route 0 07/05/23 .COMPLEX #90 tabs furosemide 20 mg tablet See Rx Instructions .Route 1 .COMPLEX #90 tabs triamterene 75 See Rx Instructions .Route 1 mg-hydrochlorothiazide 50 mg tablet .COMPLEX #90 tabs cyclobenzaprine 10 mg tablet 10 mg PO Q8H PRN muscle s pasms #90 11/11/23 tabs buspirone 5 mg tablet See Rx Instructions .Route 0 12/20/23 .COMPLEX #60 tabs amlodipine 10 mg tablet See Rx Instructions .Route 0 02/27/24 .COMPLEX #90 tabs famotidine 40 mg tablet See Rx Instructions .Route 0 04/09/24 .COMPLEX #30 tabs fluticasone furoate 200 See Rx Instructions .Route 0 04/09/24 mcg-vilanterol 25 mcg/dose .COMPLEX #60 blisters inhalation powder (Breo Ellipta) levocetirizine 5 mg tablet See Rx Instructions .Route 04/09/24 .COMPLEX #30 tabs pantoprazole 40 mg tablet,delayed See Rx Instructions .Route 04/09/24 release .COMPLEX #60 tabs clopidogrel 75 mg tablet See Rx Instructions .Route 0 07/16/24 .COMPLEX #30 tabs ergocalciferol (vitamin D2) 1,250 See Rx Instructions .Route 07/16/24 mcg (50,000 unit) capsule .COMPLEX #4 caps Allergies Allergy/AdvReac Type Severity Reaction Status Date / Time Sulfa (Sulfonamide Allergy Nausea Verified 03/02/24 10:41 Antibiotics) [facility] <PASCUAL Love - Last Filed: 04/28/25 14:45> [facility] Disclaimer: The information contained in this section may have been updated after the patient was seen, as this information can be updated by other users. Medical History (Updated 04/28/25 @ 13:29 by PASCUAL Love) At risk for cardiac dysfunction during anesthesia Tobacco dependence Diverticulosis Osteoarthritis Abdominal wall hernia DJD (degenerative joint disease), lumbar Lumbar radiculopathy HTN (hypertension) Gastroesophageal reflux disease Anxiety CAD (coronary artery disease) Hyperlipidemia Depression Surgical History Hx of cholecystectomy Family History Mother No significant family history Father Heart attack Social History Smoking Status: Unknown if ever smoked second hand exposure: No alcohol intake: never substance use type: denies use current occupational status: retired Travel in the last 8 weeks?: None household members: family housing: house current occupation: [employer] caffeine: Yes Have you lived/traveled outside [place] in past 30 days?: No Contact w/someone who lives/traveled outside US past 30 days?: No Exposure to someone with infectious disease in past 14 days?: No Do you have a fever (greater than 100.4 F or 38 C)?: No Have you tested positive for COVID-19?: No Exposed to someone with COVID-19 in past 14 days?: No Do you have a sore throat?: No Do you have a cough?: No Do you have any weakness?: No Do you have any diarrhea?: No Are you experiencing any unusual bleeding?: No Do you have any muscle aches/pain?: No Do you have any abdominal pain?: No Are you experiencing loss of taste or smell?: No Other Medical History Have you received the Flu Vaccine for this season: No Have you received the Pneumonia Vaccine: Yes <PASCUAL Love - Last Filed: 04/28/25 14:45> ROS Obtained: Yes Systems reviewed as appropriate & no additional complaints except as documented Physical Exam <PASCUAL Love - Last Filed: 04/28/25 14:45> General General appearance: alert and in no apparent distress Respiratory Respiratory exam: Present normal lung sounds bilaterally Cardiovascular Cardiovascular exam: Present regular rate Neurological Exam Neurological exam: Present alert and oriented X3 Medical Decision Making <PASCUAL Love - Last Filed: 04/28/25 14:45> Medical Records Medical records reviewed: Yes I reviewed the patient's medical records. Screening: Per USPSTF and CDC recommendations, given the prevalence of disease in our region, it is our hospital?s policy to screen for HIV and viral Hepatitis for all patients aged 18 and over and those with ongoing risk factors. Pratik Inquiry Pt receiving controlled substance: No Vital Signs: 04/28/25 11:05 04/28/25 11:21 04/28/25 11:21 Temperature 98.4 F Temperature Source Oral Pulse Rate 85 91 H Pulse Rate [Right Brachial] 83 Respiratory Rate 17 Blood Pressure 220/115 H 170/86 H Blood Pressure [Right Arm] 220/115 H Blood Pressure Mean 129 114 Blood Pressure Mean [Right Arm] 150 Blood Pressure Source [Right Arm] Automatic Cuff Blood Pressure Position [Right Arm] Supine 02 Sat by Pulse Oximetry 95 95 93 L Oxygen Delivery Method Room Air 04/28/25 11:42 04/28/25 12:01 04/28/25 12:45 Temperature Temperature Source Pulse Rate 84 95 H 89 Pulse Rate [Right Brachial] Respiratory Rate 18 Blood Pressure 165/109 H 188/93 H 184/79 H Blood Pressure [Right Arm] Blood Pressure Mean 127 124 114 Blood Pressure Mean [Right Arm] Blood Pressure Source [Right Arm] Blood Pressure Position [Right Arm] 02 Sat by Pulse Oximetry 93 L 95 98 Oxygen Delivery Method 04/28/25 13:16 04/28/25 13:41 04/28/25 14:00 Temperature Temperature Source Pulse Rate 87 81 Pulse Rate [Right Brachial] Respiratory Rate 20 15 Blood Pressure 187/106 H 196/93 H 196/159 H Blood Pressure [Right Arm] Blood Pressure Mean 139 139 169 Blood Pressure Mean [Right Arm] Blood Pressure Source [Right Arm] Blood Pressure Position [Right Arm] 02 Sat by Pulse Oximetry 99 Oxygen Delivery Method 04/28/25 14:15 04/28/25 14:46 Temperature Temperature Source Pulse Rate 85 82 Pulse Rate [Right Brachial] Respiratory Rate 16 16 Blood Pressure 178/86 H 193/87 H Blood Pressure [Right Arm] Blood Pressure Mean 123 122 Blood Pressure Mean [Right Arm] Blood Pressure Source [Right Arm] Blood Pressure Position [Right Arm] 02 Sat by Pulse Oximetry 98 89 L Oxygen Delivery Method Lab Data Lab results reviewed: Yes I reviewed the patient's lab results. Lab Results 04/28/25 11:20: WBC 6.8, RBC 5.44 H, Hgb 15.9, Hct 45.6, MCV 83.8, MCH 29.2, MCHC 34.9, RDW 13.7, Plt Count 395, MPV 9.4, Neut % (Auto) 76.3, Lymph % (Auto) 12.2, Loving % (Auto) 10.1 H, Eos % (Auto) 0.3, Baso % (Auto) 0.7, Neut # (Auto) 5.2, Lymph # (Auto) 0.8, Loving # (Auto) 0.7, Eos # (Auto) 0.0, Baso # (Auto) 0.1, PT 11.2, INR 1.01, APTT 28.8, Sodium 130 L, Potassium 2.3 L*, Chloride 80 L, C arbon Dioxide 40 H, Anion Gap 12.3, BUN 15, Creatinine 0.80, Estimated Creat Clear 65, Estimated GFR 70, Est GFR ( Amer) 85, Glucose 127 H, Calcium 8.9, Magnesium 1.2 L, Total Bilirubin 0.8, AST 41 H, ALT 21, Alkaline Phosphatase 107, Troponin I 0.03, C-Reactive Protein 0.6, NT-Pro-B Natriuret Pep 2080 H, Total Protein 7.6, Albumin 4.0, Globulin 3.6 H, Albumin/Globulin Ratio 1.1, Triglycerides 322 H, Cholesterol 245 H, LDL Cholesterol Direct 127.92, VLDL Cholesterol 64 H, HDL Cholesterol 33 L, Cholesterol/HDL Ratio 7.4 H, Lipase 55, Procalcitonin 0.042, TSH 5.67 H, Free T4 Index 3.9 L, Thyroxine (T4) 11.9 H, T3 Uptake 33, Plasma/Serum Alcohol < 10, HCV Ab JERSON w/Rflx PCR Qn Negative, HIV Ag/Ab Combo Qual Negative 04/28/25 11:33: VBG pH 7.46 H, VBG pCO2 50.5, VBG pO2 39.1, VBG HCO3 35.3 H, VBG Total CO2 36.8 H, VBG O2 Saturation 75.4 H, VBG Base Excess 11.5 H, VBG Lactic Acid 1.7 04/28/25 11:55: Ammonia < 9 L 04/28/25 12:41: Urine Color Yellow, Urine Appearance Clear, Urine pH 7.0, Ur Specific [place] 1.010, Urine Protein 3+ A, Urine Glucose (UA) Negative, Urine Ketones Negative, Urine Blood Trace-i, Urine Nitrate Negative, Urine Bilirubin Negative, Urine Urobilinogen 0.2, Ur Leukocyte Esterase Negative, Urine RBC Occasional, Urine WBC Occasional, Ur Squamous Epith Cells Occasional, Urine Bacteria None, Urine Opiates Screen Negative, Urine Methadone Screen Negative, Ur Barbituates Screen Negative, Ur Phencyclidine Scrn Negative, Ur Amphetamines Screen Negative, U Benzodiazepines Scrn Negative, Urine Cocaine Screen Negative, U Marijuana (THC) Screen Negative 04/28/25 11:20 04/28/25 11:20 Orders (Tests/Meds): ED MEDICATIONS Generic Name Dose Route Start Last Admin Trade Name Freq PRN Reason Stop Dose Admin Potassium Chloride/Water 100 mls @ 50 mls/hr 04/28/25 11:54 04/28/25 12:14 Potassium Chloride 20meq/100ml Ivpb IV 04/28/25 17:53 50 mls/hr Q2H JULIANO Administration Sodium Chloride 10 ml 04/28/25 11:29 Sodium Chloride 0.9% 10ml Flush Syringe IV 05/28/25 11:28 NEEDED PRN Maintain IV Site Sodium Chloride 8 ml 04/28/25 12:00 Sodium Chloride 0.9% 10ml Vial IV 05/28/25 11:59 NEEDED PRN dilute pepcid Discontinued Medications Generic Name Dose Route Start Last Admin Trade Name Freq PRN Reason Stop Dose Admin Famotidine 20 mg 04/28/25 12:00 04/28/25 12:14 Famotidine 20mg/2ml Vial IV 04/28/25 12:01 20 mg ONCE ONE Administration Magnesium Sulfate 2 gm in 50 mls @ 50 mls/hr 04/28/25 11:52 04/28/25 12:14 Magnesium Sulfate 2gm/50ml Premix IV 04/28/25 12:51 50 mls/hr ONCE ONE Administration Lactated Ringer's 1,000 mls @ 999 mls/hr 04/28/25 12:01 04/28/25 12:15 Lactated Ringer's 1000 Ml Bag IV 04/28/25 13:01 999 mls/hr .Q1H1M ONE Administration Iopamidol 150 ml 04/28/25 12:19 04/28/25 12:20 Iopamidol-370 (76%);100ml Bottle IV 04/28/25 12:20 150 ml ONCE ONE Administration Ondansetron HCl 4 mg 04/28/25 11:29 04/28/25 11:47 Ondansetron 4mg/2ml Vial IV 04/28/25 11:30 4 mg ONCE ONE Administration Promethazine HCl 12.5 mg 04/28/25 12:00 04/28/25 12:14 Promethazine Hcl 25mg/Ml 1ml Vial IV 04/28/25 12:01 12.5 mg ONCE ONE Administration Sodium Chloride 25 ml 04/28/25 12:00 04/28/25 12:15 Sodium Chloride 0.9% 25ml Bag IV 04/28/25 12:01 25 ml ONCE ONE Administration Sodium Chloride 100 ml 04/28/25 12:19 04/28/25 12:20 0.9 % Sodium Chloride 50 Ml Vial IV 04/28/25 12:20 100 ml ONCE ONE Administration Sodium Chloride 10 ml 04/28/25 12:19 04/28/25 12:20 Sodium Chloride 0.9% 10ml Syr (Rad Only) IV 04/28/25 12:20 10 ml ONCE ONE Administration ORDERS Category Date Time Status CT abdomen pelvis w con Stat Cat Scan 04/28/25 11:[address] angio chest PE protocol Stat Cat Scan 04/28/25 11:[address] angio head Stat Cat Scan 04/28/25 11:[address] angio neck Stat Cat Scan 04/28/25 11:[address] head/brain wo con Stat Cat Scan 04/28/25 11:29 Completed Activated Partial Thrombo Time Stat Lab 04/28/25 11:20 Completed Ammonia Stat Lab 04/28/25 11:55 Completed BNP [NT Pro Brain Natriuretic Pep.] Stat Lab 04/28/25 11:20 Completed CRP [C-Reactive Protein] Stat Lab 04/28/25 11:20 Completed Complete Blood Count Auto Diff Stat Lab 04/28/25 11:20 Completed Comprehensive Metabolic Panel Stat Lab 04/28/25 11:20 Completed Diarrhea 23 Panel, PCR Stat Lab 04/28/25 11:32 Ordered Drug Screen,Urine Stat Lab 04/28/25 12:41 Completed Ethyl Alcohol Stat Lab 04/28/25 11:20 Completed Full Resp Panel w/COVID ([facility]) Routine Lab 04/28/25 11:53 Received HIV Combo Stat Lab 04/28/25 11:20 Completed Hepatitis C Ab Qual. W/ RFX Stat Lab 04/28/25 11:20 Completed Lipase Stat Lab 04/28/25 11:20 Completed Lipid Panel Stat Lab 04/28/25 11:20 Completed Magnesium Stat Lab 04/28/25 11:20 Completed Procalcitonin Stat Lab 04/28/25 11:20 Completed Prothrombin Time INR Stat Lab 04/28/25 11:20 Completed Thyroid Panel Stat Lab 04/28/25 11:20 Completed Troponin I Q3H Lab 04/28/25 14:49 Completed Troponin I Q3H Lab 04/28/25 17:30 Ordered Troponin I Stat Lab 04/28/25 11:20 Completed Urinalysis and Microscopic Stat Lab 04/28/25 12:41 Completed Blood Culture Stat Micro 04/28/25 14:25 Received VBG [Venous Blood Gas] Stat RT 04/28/25 11:33 Completed HEART Score History (anamnesis): Slightly suspicious ECG: Non-specific disturbance Age: >65 years Risk factors: Atherosclerosis history Troponin: </= normal limit HEART Score: 5 Medical Decision Narrative: In summary patient is a 74-year-old female who presents to the emergency department for evaluation of vomiting and acute confusion. Patient is initially significantly hypertensive on arrival to blood pressure 220/115 pulse of 85 sinus rhythm on the bedside monitor breathing 17 times minute satting at 95% on room air upon arrival, afebrile at 98.4. Physical exam is remarkable for a 74-year-old female who does not appear to be in acute distress. Patient is awake and following commands however she is only answering me in one-word sentences. She does seem to comprehend but cannot have an interactive conversation. She does not know why she is here she denies any significant complaints. She is able to tell me that she is in [place]. Patient moves all 4 extremities has no focal neurologic deficits has no nuchal rigidity pupils equal round reactive to light cranial nerves II through XII are intact grossly to exam. GCS is 13.. Differential diagnosis includes malignant hypertension versus stroke versus PRES versus toxic metabolic encephalopathy etc. Initial workup will be conducted with hematologic labs ED stroke workup CT scan chest abdomen pelvis urinalysis VBG. Initial interventions include crystalloid bolus for now and will allow permissive hypertension until diagnosis is more clear. Initial workup reviewed by me and her hematologic labs significant for a white count of 6.8 normal H&H no neutrophilic shift, VBG shows a pH of 7.46 with a pCO2 of 50.5, sodium is 130 potassium is 2.3 chlorides 80 CO2 is 40 gap is 12 glucose is 127 magnesium is 1.2 ammonia is less than 9 troponin is 0.03 CRP is 0.6 NT proBNP is 2080 lipids are elevated lipase is 55 procalcitonin is 0.042 TSH is 5.67 urinalysis is bland urine drug screen is negative alcohol levels undetectable in my informal interpretation of her imaging shows no stroke or intracranial abnormality large vessel occlusion pneumonia or under thoracic abnormality and no acute abnormalities in her abdomen all prior to radiology read. Please see final read for formal interpretation.. Upon repeat evaluation patient is still disoriented/encephalopathic and still hypertensive. Patient given a fluid bolus potassium repletion was initiated along with magnesium repletion both IV. Given this I had an interactive discussion with hospital medicine regarding patient ALMANZAR presentation and management and she will be admitted for further evaluation and care <William Casas MD - Last Filed: 04/28/25 15:29> Vital Signs: 04/28/25 11:05 04/28/25 11:21 04/28/25 11:21 Temperature 98.4 F Temperature Source Oral Pulse Rate 85 91 H Pulse Rate [Right Brachial] 83 Respiratory Rate 17 Blood Pressure 220/115 H 170/86 H Blood Pressure [Right Arm] 220/115 H Blood Pressure Mean 129 114 Blood Pressure Mean [Right Arm] 150 Blood Pressure Source [Right Arm] Automatic Cuff Blood Pressure Position [Right Arm] Supine 02 Sat by Pulse Oximetry 95 95 93 L Oxygen Delivery Method Room Air 04/28/25 11:42 04/28/25 12:01 04/28/25 12:45 Temperature Temperature Source Pulse Rate 84 95 H 89 Pulse Rate [Right Brachial] Respiratory Rate 18 Blood Pressure 165/109 H 188/93 H 184/79 H Blood Pressure [Right Arm] Blood Pressure Mean 127 124 114 Blood Pressure Mean [Right Arm] Blood Pressure Source [Right Arm] Blood Pressure Position [Right Arm] 02 Sat by Pulse Oximetry 93 L 95 98 Oxygen Delivery Method 04/28/25 13:16 04/28/25 13:41 04/28/25 14:00 Temperature Temperature Source Pulse Rate 87 81 Pulse Rate [Right Brachial] Respiratory Rate 20 15 Blood Pressure 187/106 H 196/93 H 196/159 H Blood Pressure [Right Arm] Blood Pressure Mean 139 139 169 Blood Pressure Mean [Right Arm] Blood Pressure Source [Right Arm] Blood Pressure Position [Right Arm] 02 Sat by Pulse Oximetry 99 Oxygen Delivery Method 04/28/25 14:15 04/28/25 14:46 Temperature Temperature Source Pulse Rate 85 82 Pulse Rate [Right Brachial] Respiratory Rate 16 16 Blood Pressure 178/86 H 193/87 H Blood Pressure [Right Arm] Blood Pressure Mean 123 122 Blood Pressure Mean [Right Arm] Blood Pressure Source [Right Arm] Blood Pressure Position [Right Arm] 02 Sat by Pulse Oximetry 98 89 L Oxygen Delivery Method Lab Data Lab Results 04/28/25 11:20: WBC 6.8, RBC 5.44 H, Hgb 15.9, Hct 45.6, MCV 83.8, MCH 29.2, MCHC 34.9, RDW 13.7, Plt Count 395, MPV 9.4, Neut % (Auto) 76.3, Lymph % (Auto) 12.2, Loving % (Auto) 10.1 H, Eos % (Auto) 0.3, Baso % (Auto) 0.7, Neut # (Auto) 5.2, Lymph # (Auto) 0.8, Loving # (Auto) 0.7, Eos # (Auto) 0.0, Baso # (Auto) 0.1, PT 11.2, INR 1.01, APTT 28.8, Sodium 130 L, Potassium 2.3 L*, Chloride 80 L, C arbon Dioxide 40 H, Anion Gap 12.3, BUN 15, Creatinine 0.80, Estimated Creat Clear 65, Estimated GFR 70, Est GFR ( Amer) 85, Glucose 127 H, Calcium 8.9, Magnesium 1.2 L, Total Bilirubin 0.8, AST 41 H, ALT 21, Alkaline Phosphatase 107, Troponin I 0.03, C-Reactive Protein 0.6, NT-Pro-B Natriuret Pep 2080 H, Total Protein 7.6, Albumin 4.0, Globulin 3.6 H, Albumin/Globulin Ratio 1.1, Triglycerides 322 H, Cholesterol 245 H, LDL Cholesterol Direct 127.92, VLDL Cholesterol 64 H, HDL Cholesterol 33 L, Cholesterol/HDL Ratio 7.4 H, Lipase 55, Procalcitonin 0.042, TSH 5.67 H, Free T4 Index 3.9 L, Thyroxine (T4) 11.9 H, T3 Uptake 33, Plasma/Serum Alcohol < 10, HCV Ab JERSON w/Rflx PCR Qn Negative, HIV Ag/Ab Combo Qual Negative 04/28/25 11:33: VBG pH 7.46 H, VBG pCO2 50.5, VBG pO2 39.1, VBG HCO3 35.3 H, VBG Total CO2 36.8 H, VBG O2 Saturation 75.4 H, VBG Base Excess 11.5 H, VBG Lactic Acid 1.7 04/28/25 11:55: Ammonia < 9 L 04/28/25 12:41: Urine Color Yellow, Urine Appearance Clear, Urine pH 7.0, Ur Specific [place] 1.010, Urine Protein 3+ A, Urine Glucose (UA) Negative, Urine Ketones Negative, Urine Blood Trace-i, Urine Nitrate Negative, Urine Bilirubin Negative, Urine Urobilinogen 0.2, Ur Leukocyte Esterase Negative, Urine RBC Occasional, Urine WBC Occasional, Ur Squamous Epith Cells Occasional, Urine Bacteria None, Urine Opiates Screen Negative, Urine Methadone Screen Negative, Ur Barbituates Screen Negative, Ur Phencyclidine Scrn Negative, Ur Amphetamines Screen Negative, U Benzodiazepines Scrn Negative, Urine Cocaine Screen Negative, U Marijuana (THC) Screen Negative Orders (Tests/Meds): ED MEDICATIONS Generic Name Dose Route Start Last Admin Trade Name Freq PRN Reason Stop Dose Admin Potassium Chloride/Water 100 mls @ 50 mls/hr 04/28/25 11:54 04/28/25 12:14 Potassium Chloride 20meq/100ml Ivpb IV 04/28/25 17:53 50 mls/hr Q2H JULIANO Administration Sodium Chloride 10 ml 04/28/25 11:29 Sodium Chloride 0.9% 10ml Flush Syringe IV 05/28/25 11:28 NEEDED PRN Maintain IV Site Sodium Chloride 8 ml 04/28/25 12:00 Sodium Chloride 0.9% 10ml Vial IV 05/28/25 11:59 NEEDED PRN dilute pepcid Discontinued Medications Generic Name Dose Route Start Last Admin Trade Name Freq PRN Reason Stop Dose Admin Famotidine 20 mg 04/28/25 12:00 04/28/25 12:14 Famotidine 20mg/2ml Vial IV 04/28/25 12:01 20 mg ONCE ONE Administration Magnesium Sulfate 2 gm in 50 mls @ 50 mls/hr 04/28/25 11:52 04/28/25 12:14 Magnesium Sulfate 2gm/50ml Premix IV 04/28/25 12:51 50 mls/hr ONCE ONE Administration Lactated Ringer's 1,000 mls @ 999 mls/hr 04/28/25 12:01 04/28/25 12:15 Lactated Ringer's 1000 Ml Bag IV 04/28/25 13:01 999 mls/hr .Q1H1M ONE Administration Iopamidol 150 ml 04/28/25 12:19 04/28/25 12:20 Iopamidol-370 (76%);100ml Bottle IV 04/28/25 12:20 150 ml ONCE ONE Administration Ondansetron HCl 4 mg 04/28/25 11:29 04/28/25 11:47 Ondansetron 4mg/2ml Vial IV 04/28/25 11:30 4 mg ONCE ONE Administration Promethazine HCl 12.5 mg 04/28/25 12:00 04/28/25 12:14 Promethazine Hcl 25mg/Ml 1ml Vial IV 04/28/25 12:01 12.5 mg ONCE ONE Administration Sodium Chloride 25 ml 04/28/25 12:00 04/28/25 12:15 Sodium Chloride 0.9% 25ml Bag IV 04/28/25 12:01 25 ml ONCE ONE Administration Sodium Chloride 100 ml 04/28/25 12:19 04/28/25 12:20 0.9 % Sodium Chloride 50 Ml Vial IV 04/28/25 12:20 100 ml ONCE ONE Administration Sodium Chloride 10 ml 04/28/25 12:19 04/28/25 12:20 Sodium Chloride 0.9% 10ml Syr (Rad Only) IV 04/28/25 12:20 10 ml ONCE ONE Administration ORDERS Category Date Time Status CT abdomen pelvis w con Stat Cat Scan 04/28/25 11:[address] angio chest PE protocol Stat Cat Scan 04/28/25 11:[address] angio head Stat Cat Scan 04/28/25 11:[address] angio neck Stat Cat Scan 04/28/25 11:[address] head/brain wo con Stat Cat Scan 04/28/25 11:29 Completed Activated Partial Thrombo Time Stat Lab 04/28/25 11:20 Completed Ammonia Stat Lab 04/28/25 11:55 Completed BNP [NT Pro Brain Natriuretic Pep.] Stat Lab 04/28/25 11:20 Completed CRP [C-Reactive Protein] Stat Lab 04/28/25 11:20 Completed Complete Blood Count Auto Diff Stat Lab 04/28/25 11:20 Completed Comprehensive Metabolic Panel Stat Lab 04/28/25 11:20 Completed Diarrhea 23 Panel, PCR Stat Lab 04/28/25 11:32 Ordered Drug Screen,Urine Stat Lab 04/28/25 12:41 Completed Ethyl Alcohol Stat Lab 04/28/25 11:20 Completed Full Resp Panel w/COVID ([facility]) Routine Lab 04/28/25 11:53 Received HIV Combo Stat Lab 04/28/25 11:20 Completed Hepatitis C Ab Qual. W/ RFX Stat Lab 04/28/25 11:20 Completed Lipase Stat Lab 04/28/25 11:20 Completed Lipid Panel Stat Lab 04/28/25 11:20 Completed Magnesium Stat Lab 04/28/25 11:20 Completed Procalcitonin Stat Lab 04/28/25 11:20 Completed Prothrombin Time INR Stat Lab 04/28/25 11:20 Completed Thyroid Panel Stat Lab 04/28/25 11:20 Completed Troponin I Q3H Lab 04/28/25 14:49 Completed Troponin I Q3H Lab 04/28/25 17:30 Ordered Troponin I Stat Lab 04/28/25 11:20 Completed Urinalysis and Microscopic Stat Lab 04/28/25 12:41 Completed Blood Culture Stat Micro 04/28/25 14:25 Received VBG [Venous Blood Gas] Stat RT 04/28/25 11:33 Completed ECG Data Tracing #1: Independently interpreted by me rate is 83, rhythm is regular, axis is normal, no ST elevation in anatomical contiguous leads, QTc 480 HEART Score HEART Score: 5 Medical Decision Narrative: In summary patient is a 74-year-old female who presents to the emergency department for evaluation of vomiting and acute confusion. Patient is initially significantly hypertensive on arrival to blood pressure 220/115 pulse of 85 sinus rhythm on the bedside monitor breathing 17 times minute satting at 95% on room air upon arrival, afebrile at 98.4. Physical exam is remarkable for a 74-year-old female who does not appear to be in acute distress. Patient is awake and following commands however she is only answering me in one-word sentences. She does seem to comprehend but cannot have an interactive conversation. She does not know why she is here she denies any significant complaints. She is able to tell me that she is in [place]. Patient moves all 4 extremities has no focal neurologic deficits has no nuchal rigidity pupils equal round reactive to light cranial nerves II through XII are intact grossly to exam. GCS is 13.. Differential diagnosis includes malignant hypertension versus stroke versus PRES versus toxic metabolic encephalopathy etc. Initial workup will be conducted with hematologic labs ED stroke workup CT scan chest abdomen pelvis urinalysis VBG. Initial interventions include crystalloid bolus for now and will allow permissive hypertension until diagnosis is more clear. Initial workup reviewed by me and her hematologic labs significant for a white count of 6.8 normal H&H no neutrophilic shift, VBG shows a pH of 7.46 with a pCO2 of 50.5, sodium is 130 potassium is 2.3 chlorides 80 CO2 is 40 gap is 12 glucose is 127 magnesium is 1.2 ammonia is less than 9 troponin is 0.03 CRP is 0.6 NT proBNP is 2080 lipids are elevated lipase is 55 procalcitonin is 0.042 TSH is 5.67 urinalysis is bland urine drug screen is negative alcohol levels undetectable in my informal interpretation of her imaging shows no stroke or intracranial abnormality large vessel occlusion pneumonia or under thoracic abnormality and no acute abnormalities in her abdomen all prior to radiology read. Please see final read for formal interpretation.. Upon repeat evaluation patient is still disoriented/encephalopathic and still hypertensive. Patient given a fluid bolus potassium repletion was initiated along with magnesium repletion both IV. Given this I had an interactive discussion with hospital medicine regarding patient ALMANZAR presentation and management and she will be admitted for further evaluation and care I was consulted by the TERA, and we discussed the complexity of the problems being addressed. I approved the treatment and management plan for this patient's care in the emergency department, thus performing a substantive portion of the medical decision making. William Casas MD Critical Care <PASCUAL oLve - Last Filed: 04/28/25 14:45> Critical Care Time Critical Care Time: Yes Attestation: On 04/28/25, the high probability of a clinically significant, sudden or life threatening deterioration of the following system(s) required my full and direct attention, intervention and personal management. The time I documented below is in addition to time spent performing reported procedures but includes the following listed in this critical care notation. Total Time Total Critical Care Time: 30
--- NOTE | 2025-04-28 11:29 | CT_ITS ---
FINAL REPORT TECHNIQUE: thin section axial CT with and without IV contrast supplemented with multiplanar 3-D reconstruction of the head. This study was performed with techniques to keep radiation doses as low as reasonably achievable, (ALARA)individualized dose reduction techniques using automated exposure control or adjustment of mA and/or kV according to the patient's size were employed. CLINICAL HISTORY: possible stroke COMPARISON: 08/11/2021 FINDINGS: Intracranial images are off axis. The cranial circulation is unremarkable. There is no significant segmental stenosis, aneurysm, or occlusion. IMPRESSION: No acute process. Reviewed, Interpreted and Dictated by Robb Gutierrez MD Transcribed by Laurie Rodriguez Authenticated and [facility]
--- NOTE | 2025-04-28 11:29 | CT_ITS ---
FINAL REPORT TECHNIQUE: Axial CT images were performed through the head. Coronal reformatted images were submitted. This study was performed with techniques to keep radiation doses as low as reasonably achievable (ALARA). Individualized dose reduction techniques using automated exposure control or adjustment of mA and/or kV according to the patient's size were employed. CLINICAL HISTORY: possible stroke COMPARISON: None FINDINGS: The head is asymmetrically positioned in the gantry. There is [id number] atrophy. Confluent decreased attenuation is noted in the deep white matter. There is no evidence of hemorrhage. There is no mass or edema identified. There is no abnormal extra-axial fluid seen. There is a lobular mucoperiosteal thickening in the left maxillary sinus. Mastoid air cells are well aerated. IMPRESSION: No acute intracranial process. Reviewed, Interpreted and Dictated by Robb Gutierrez MD Transcribed by Laurie Rodriguez Authenticated and [facility]
--- NOTE | 2025-04-28 11:29 | CT_ITS ---
FINAL REPORT TECHNIQUE: NASCET technique utilized for stenosis evaluation. CLINICAL HISTORY: possible stroke, AMS, patient unable to stay still COMPARISON: None FINDINGS: There are dense vascular calcifications in the aortic arch. Small cysts or adenomas are seen in the thyroid measuring 5 mm or less. RIGHT CAROTID: Moderate vascular calcification without significant stenosis. LEFT CAROTID: Moderate vascular calcification greater than on the right with no significant stenosis. VERTEBRALS: The vertebrals are patent. No significant stenosis is present. IMPRESSION: Significant calcification of the carotid bifurcations, [id number], without underlying significant stenosis. Reviewed, Interpreted and Dictated by Robb Gutierrez MD Transcribed by Laurie Rodriguez Authenticated and [facility]
--- NOTE | 2025-04-28 11:32 | CT_ITS ---
FINAL REPORT TECHNIQUE: After the administration of intravenous contrast, axial images were obtained through the abdomen and pelvis by computed tomography. The study was performed with techniques to keep radiation dose as low as reasonably achievable, (ALARA). Individual dose reduction techniques using automated exposure control or adjustment of mA and/or kV according to the patient's size were employed. CLINICAL HISTORY: Vomiting, acute confusion, AMS, patient unable to stay still COMPARISON: 07/17/2023 FINDINGS: Abdomen: The liver is homogeneous. The gallbladder is absent. The spleen, pancreas, and adrenal glands are unremarkable. The left kidney is asymmetrically larger than the right. There is excretion from the left kidney but no excretion seen on the right. A fat containing anterior abdominal wall hernia is present with the defect measuring 1.6 cm and well seen on image 60 of series 4. Abdominal aortic aneurysm resides immediately infrarenal segment measuring 3.8 cm in diameter. There are dense vascular calcifications involving the origins of the renal arteries. Previously noted vascular stents are seen in the proximal celiac axis and SMA. Pelvis: The appendix is not identified. There is moderate sigmoid diverticulosis. The urinary bladder is decompressed. Uterus is present. There is no free fluid or adenopathy. IMPRESSION: 3.8 cm infrarenal abdominal aortic aneurysm. Extensive vascular calcifications. Small fat containing abdominal wall hernia. Relatively atrophic right kidney with asymmetric diminished contrast excretion. Reviewed, Interpreted and Dictated by Robb Gutierrez MD Transcribed by Laurie Rodriguez Authenticated and [facility]
--- NOTE | 2025-04-28 11:32 | CT_ITS ---
FINAL REPORT TECHNIQUE: The patient was injected with IV contrast. Axial images were obtained through the chest in a PE protocol. 3-D reconstruction images were also performed. Individualized dose reduction techniques using automated exposure control or adjustment of the MA and/or KV according to patient's size were employed. CLINICAL HISTORY: Vomiting, acute confusion COMPARISON: CT low-dose 07/22/2023 FINDINGS: Mediastinal vasculature is adequately opacified. No pulmonary artery filling defects are identified to suggest PE. There is no aortic dissection. There is no axillary adenopathy. There is no hilar or mediastinal adenopathy. The heart size is normal. There is moderate mural thrombus throughout the descending thoracic aorta. There is no pericardial or pleural effusion. Scarring is noted at the lung apices. No suspicious infiltrate or nodule is identified. IMPRESSION: No pulmonary embolus or dissection. Reviewed, Interpreted and Dictated by Robb Gutierrez MD Transcribed by Laurie Rodriguez Authenticated and [facility]
--- NOTE | 2025-04-28 11:38 | PC.NURSE ---
respiratory notified of VBG
[2025-04-28 11:41] LABS: Hematocrit 45.6 % (37.0-47.0); Hemoglobin 15.9 g/dL (12.2-16.2); Immature Granulocytes % 0.4 %; Mean Corpuscular HGB Conc 34.9 g/dL (31.8-35.4); Mean Corpuscular Hemoglobin 29.2 pg (27.0-31.2); Mean Corpuscular Volume 83.8 fl (81-99); Nucleated Red Blood Cells % 0 %; Platelet Count 395 K/mm3 (142-424); Red Blood Count 5.44 M/mm3 (4.20-5.40); Red Cell Distribution Width-SD 42.2 fL; White Blood Count 6.8 K/mm3 (4.8-10.8)
--- NOTE | 2025-04-28 11:42 | ECG_ITS ---
APPROVED REPORT Exam: Resting ECG HR:83 bpm ECG Measurements Heart Rate 83 AXES MA 159 P 6 QRSd 99 QRS 36 QT 440 T 60 QTc 480 Conclusion SINUS RHYTHM POSSIBLE LEFT ATRIAL ENLARGEMENT [-0.1mV P-WAVE IN V1/V2] MODERATE ST DEPRESSION [0.05+ mV ST DEPRESSION] PROLONGED QT INTERVAL ABNORMAL ECG Electronically signed by : YESICA DE LEON, 04/28/2025 15:57:44
[2025-04-28 11:46] LABS: Lactate Venous 1.7 mmol/L (0.4-2.0); VBG HCO3 35.3 mmol/L (23-30); VBG PH 7.46 mmol/L (7.31-7.41); VBG PO2 39.1 mmol/L (28-40)
[2025-04-28] MEDS: ONDANSETRON 4MG/2ML VIAL 4 MG IV (11:47)
[2025-04-28 11:49] LABS: Alanine Aminotransferase 21 U/L (12-78); Albumin Level 4.0 g/dl (3.5-5.0); Albumin/Globulin Ratio 1.1 (1.1-1.8); Alkaline Phosphatase 107 U/L (38-126); Anion Gap 12.3 mEq/L (5-15); Aspartate Amino Transferase 41 U/L (14-36); Bilirubin,Total 0.8 mg/dl (0.2-1.3); Blood Urea Nitrogen 15 mg/dl (7-17); Calcium 8.9 mg/dl (8.4-10.2); Carbon Dioxide 40 mmol/L (22.0-30.0); Chloride 80 mmol/L (98-107); Cholesterol 245 mg/dl (140-200); Creatinine Clearance Estimated 65 mL/min (50-200); Creatinine,Serum 0.80 mg/dl (0.52-1.04); Estimated Glomerular Filt Rate 70 ml/min (>60); GFR (African American) 85 ML/MIN (>60); Globulin 3.6 g/dL (1.3-3.2); Glucose 127 mg/dl (74-100); HDL Cholesterol 33 mg/dl (40-60); Sodium 130 mmol/L (136-145); Total Protein,Serum 7.6 g/dl (6.3-8.2); Triglycerides 322 mg/dl (30-150)
[2025-04-28 11:49] LABS: VBG PCO2 50.5 mmol/L (35-51)
[2025-04-28 11:50] LABS: Activated Partial Thrombo Time 28.8 seconds (22.8-30.6); INR 1.01 (0.9-1.1); Magnesium 1.2 mg/dl (1.6-2.3); Prothrombin Time 11.2 seconds (10.1-12.5)
[2025-04-28 11:53] LABS: Potassium 2.3 mmoL/L (3.5-5.1)
[2025-04-28 11:57] LABS: Chlamydophila Pneumoniae, PCR Not Detected (NotDetected); Coronavirus 19, PCR Not Detected (NotDetected); Influenza A, PCR Not Detected (NotDetected); Influenza AH1, 2009 Not Detected (NotDetected); Influenza AH1, PCR Not Detected (NotDetected); Influenza AH3,PCR Not Detected (NotDetected); Influenza B, PCR Not Detected (NotDetected); Mycoplasma Pneumoniae, PCR Not Detected (NotDetected); Parainfluenza 1, PCR Not Detected (NotDetected); Parainfluenza 2, PCR Not Detected (NotDetected); Parainfluenza 3, PCR Not Detected (NotDetected); Parainfluenza 4, PCR Not Detected (NotDetected)
[2025-04-28 11:59] LABS: Adenovirus,PCR Not Detected (NotDetected); Coronovirus HKU1,PCR Not Detected (NotDetected)
[2025-04-28 12:03] LABS: Troponin I 0.03 ng/ml (0.00-0.034)
[2025-04-28 12:09] LABS: NT Pro Brain Natriuretic Pep. 2080 pg/mL (0-125)
--- NOTE | 2025-04-28 12:10 | PC.NURSE ---
Patient was lying supine in bed when she began coughing and produced a yellow bile substance. Patient was assisted by Dr. Casas and PASCUAL Shultz back up into the bed. RAD then came and took the patient for CT.
[2025-04-28] MEDS: MAGNESIUM SULFATE IN WATER 2 GM/50 ML PIGGYBACK IV (12:14)
[2025-04-28] MEDS: FAMOTIDINE 20MG/2ML VIAL 20 MG IV (12:14)
[2025-04-28] MEDS: PROMETHAZINE HCL 25MG/ML 1ML VIAL 12.5 MG IV (12:14)
[2025-04-28] MEDS: LACTATED RINGERS 1000ML 1,000 ML 999 ML IV (12:15)
[2025-04-28] MEDS: SODIUM CHLORIDE 0.9% 25ML BAG 25 ML IV (12:15)
[2025-04-28 12:16] LABS: Procalcitonin 0.042 ng/mL (0.0-2.0)
[2025-04-28] MEDS: SODIUM CHLORIDE 0.9% 10ML SYR (RAD ONLY) 10 ML IV (12:20)
[2025-04-28] MEDS: IOPAMIDOL-370 (76%);100ML BOTTLE 150 ML IV (12:20)
[2025-04-28] MEDS: 0.9 % SODIUM CHLORIDE 50 ML VIAL 100 ML IV (12:20)
[2025-04-28 12:36] LABS: Lipase 55 U/L (23-300)
[2025-04-28 12:37] LABS: Ammonia < 9 umol/L (9-30)
--- NOTE | 2025-04-28 12:37 | PC.NURSE ---
1235hrs- Patient returned from CT, all medications administered at bedside with verification via bracelet, allergies verified as well. patient place on ECG monitoring.
[2025-04-28 12:47] LABS: Microscopic, Urine URINE MICROSCOPIC (MICROSCOPIC)
--- NOTE | 2025-04-28 12:48 | PC.NURSE ---
Per PASCUAL Shultz pt was put on 2 liters via Nasal Cannula
--- NOTE | 2025-04-28 12:49 | PC.NURSE ---
straight cath for urine
[2025-04-28 12:55] LABS: Bilirubin,Urine Negative (Negative); Color,Urine YELLOW (Yellow); Glucose,Urine (UA) Negative (Negative); Ketones,Urine Negative (Negative); Leukocyte Esterase,Urine Negative (Negative); PH,Urine 7.0 (5.0-8.5); Protein,Urine 3+ (Negative); Specific Gravity, Urine 1.010 (1.005-1.030); Urobilinogen,Urine 0.2 EU/dl (0.2)
[2025-04-28 12:56] LABS: Free Thyroxine Index 3.9 ug/dL (5.93-13.13); T4 (Thyroxine) 11.9 ug/dl (5.53-11.0); Triiodothryronine (T3) Uptake 33 % (23.5-40.5)
[2025-04-28 13:06] LABS: RBC,Urine Occasional #/hpf (0-3); Squamous Epithelial Cell,Urine Occasional #/hpf (0-5); WBC,Urine Occasional #/hpf (0-3)
[2025-04-28 13:08] LABS: Amphetamine/Metha Screen,Urine Negative ng/ml (<1000); Barbiturates Screen,Urine Negative ng/ml (<200)
[2025-04-28 13:09] LABS: Benzodiazepines Screen,Urine Negative ng/ml (<200)
[2025-04-28 13:09] LABS: Thyroid Stimulating Hormone 5.67 uIU/mL (0.465-4.68)
[2025-04-28 13:11] LABS: Methadone Screen,Urine Negative ng/ml (<300)
[2025-04-28 13:12] LABS: Opiate Screen,Urine Negative ng/ml (<300); Phencyclidine Screen,Urine Negative ng/ml (<25)
[2025-04-28 13:22] LABS: C-Reactive Protein 0.6 mg/L (0-4)
[2025-04-28 13:26] LABS: Hepatitis C Ab Qual. W/ RFX NEGATIVE (Negative)
--- NOTE | 2025-04-28 13:54 | PC.NURSE ---
One person assisted this patient to the restroom.
[2025-04-28 15:21] LABS: Troponin I 0.02 ng/ml (0.00-0.034)
--- NOTE | 2025-04-28 15:21 | PC.NURSE ---
assisted pt to the restroom
--- NOTE | 2025-04-28 15:34 | HMH.PHAINT1 ---
Pharmacy Intervention Comments: MEDICATION RECONCILIATION COMPLETED ON PATIENT USING EXTERNAL FILL HISTORY FROM PHARMACY AND PRICE REPORT. -NINA TREJO, ASHLEYD
--- NOTE | 2025-04-28 18:07 | PC.NURSE ---
Pt was admitted from ED for vomiting and confusion. Pt came up by WC, she is on room air. Pt's potassium, magnesium, and sodium levels were low. Electrolyte protocol was ordered and initiated. She is currently on her 3rd and final bag of potassium, she does complain of burning, reduced the rate to 50mL per hour. Pt has an 18g in her right AC Pt is laying in bed with family at bedside. She is pleasant and cooperative. Call light is within reach. Will continue to monitor.
--- NOTE | 2025-04-28 19:34 | EXP.HP ---
History of Present Illness *Admission Date: 04/28/25 *Reason for visit:: Nausea/vomiting *History of present illness: Pricilla Tubbs is a 74-year-old female with a medical history significant for celiac/SMA stenosis s/p stents, PUD, PAD, CAD, CT, hypertension, anxiety/depression, GERD who presents with acute on chronic intermittent nausea/vomiting. Patient is not the best historian, family at bedside provides more history. They state patient has been having on and off nausea/vomiting for the past several months. Patient does not always tell her family when she has these episodes. This morning, patient was confused and subsequently had intractable nausea/vomiting which prompted family to bring patient to the ED. Patient endorses occasional abdominal pains, though cannot describe quality or location. Family states she has had multiple stents for mesenteric stenosis but cannot give a clear idea when these were placed. They also state patient has multiple ulcers for which he takes pantoprazole 40 mg twice daily. Workup in the ED significant for potassium 2.3, bicarb 40, magnesium 1.2. Due to interstitial confusion, head CT was obtained without acute findings. CT abdomen/pelvis without acute findings. Did show 3.8 cm AAA, extensive vascular calcifications, small abdominal wall hernia, and atrophic right kidney. Case discussed with ED provider and decision was made to admit patient for altered mental status, electrolyte abnormalities, intractable nausea/vomiting. [facility] Disclaimer: The information contained in this section may have been updated after the patient was seen, as this information can be updated by other users. Medical History At risk for cardiac dysfunction during anesthesia Tobacco dependence Diverticulosis Osteoarthritis Abdominal wall hernia DJD (degenerative joint disease), lumbar Lumbar radiculopathy HTN (hypertension) Gastroesophageal reflux disease Anxiety CAD (coronary artery disease) Hyperlipidemia Depression Surgical History Hx of cholecystectomy Family History Mother No significant family history Father Heart attack Social History Smoking Status: Unknown if ever smoked second hand exposure: No alcohol intake: never substance use type: denies use current occupational status: retired Travel in the last 8 weeks?: None household members: family housing: house current occupation: [employer] caffeine: Yes Have you lived/traveled outside [place] in past 30 days?: No Contact w/someone who lives/traveled outside [place] past 30 days?: No Exposure to someone with infectious disease in past 14 days?: No Do you have a fever (greater than 100.4 F or 38 C)?: No Have you tested positive for COVID-19?: No Exposed to someone with COVID-19 in past 14 days?: No Do you have a sore throat?: No Do you have a cough?: No Do you have any weakness?: No Do you have any diarrhea?: No Are you experiencing any unusual bleeding?: No Do you have any muscle aches/pain?: No Do you have any abdominal pain?: No Are you experiencing loss of taste or smell?: No Other Medical History Have you received the Flu Vaccine for this season: Yes Have you received the Pneumonia Vaccine: Yes Meds Home Medications and Allergies Home Medications ?Medication ?Instructions ?Recorded ?Confirmed ?Type amlodipine 10 mg tablet 10 mg PO DAILY 04/28/25 04/28/25 History aspirin 81 mg tablet,delayed 81 mg PO DAILY 04/28/25 04/28/25 History release atorvastatin 80 mg tablet 80 mg PO HS 04/28/25 04/28/25 History buspirone 10 mg tablet 10 mg PO TID 04/28/25 04/28/25 History clopidogrel 75 mg tablet 75 mg PO DAILY 04/28/25 04/28/25 History cyclobenzaprine 10 mg tablet 10 mg PO BID 04/28/25 04/28/25 History ergocalciferol (vitamin D2) 1,250 1,250 mcg PO WEEKLY 04/28/25 04/28/25 History mcg (50,000 unit) capsule furosemide 20 mg tablet 20 mg PO DAILY 04/28/25 04/28/25 History pantoprazole 40 mg tablet,delayed 40 mg PO BID 04/28/25 04/28/25 History release pregabalin 75 mg capsule 75 mg PO BID 04/28/25 04/28/25 History New Prescriptions to Start Prescriptions: Allergies Allergy/AdvReac Type Severity Reaction Status Date / Time Sulfa (Sulfonamide Allergy Nausea Verified 03/02/24 10:41 Antibiotics) Exam Data for Last 24 hours Vital signs and Labs for Last 24 Hours: Temp Pulse Resp BP Pulse Ox O2 Del Method 97.9 F 69 20 156/83 H 96 Room Air 04/28/25 16:00 04/28/25 16:00 04/28/25 16:00 04/28/25 16:00 04/28/25 16:00 04/28/25 18:39 Laboratory Results - last 24 hr 04/28/25 11:20: WBC 6.8, RBC 5.44 H, Hgb 15.9, Hct 45.6, MCV 83.8, MCH 29.2, MCHC 34.9, RDW 13.7, Plt Count 395, MPV 9.4, Neut % (Auto) 76.3, Lymph % (Auto) 12.2, Lanier % (Auto) 10.1 H, Eos % (Auto) 0.3, Baso % (Auto) 0.7, Neut # (Auto) 5.2, Lymph # (Auto) 0.8, Lanier # (Auto) 0.7, Eos # (Auto) 0.0, Baso # (Auto) 0.1, PT 11.2, INR 1.01, APTT 28.8, Sodium 130 L, Potassium 2.3 L*, Chloride 80 L, Carbon Dioxide 40 H, Anion Gap 12.3, BUN 15, Creatinine 0.80, Estimated Creat Clear 65, Estimated GFR 70, Est GFR ( Amer) 85, Glucose 127 H, Calcium 8.9, Magnesium 1.2 L, Total Bilirubin 0.8, AST 41 H, ALT 21, Alkaline Phosphatase 107, Troponin I 0.03, C-Reactive Protein 0.6, NT-Pro-B Natriuret Pep 2080 H, Total Protein 7.6, Albumin 4.0, Globulin 3.6 H, Albumin/Globulin Ratio 1.1, Triglycerides 322 H, Cholesterol 245 H, LDL Cholesterol Direct 127.92, VLDL Cholesterol 64 H, HDL Cholesterol 33 L, Cholesterol/HDL Ratio 7.4 H, Lipase 55, Procalcitonin 0.042, TSH 5.67 H, Free T4 Index 3.9 L, Thyroxine (T4) 11.9 H, T3 Uptake 33, Plasma/Serum Alcohol < 10, HCV Ab JERSON w/Rflx PCR Qn Negative, HIV Ag/Ab Combo Qual Negative 04/28/25 11:33: VBG pH 7.46 H, VBG pCO2 50.5, VBG pO2 39.1, VBG HCO3 35.3 H, VBG Total CO2 36.8 H, VBG O2 Saturation 75.4 H, VBG Base Excess 11.5 H, VBG Lactic Acid 1.7 04/28/25 11:53: Chlamy pneumoniae PCR Not detected, Adenovirus (PCR) Not detected, B. pertussis DNA (PCR) Not detected, Coronavirus OC43 (PCR) Not detected, Coronavirus HKU1 (PCR) Not detected, Coronavirus 229E (PCR) Not detected, SARS-CoV-2 (PCR) Not detected, Coronavirus NL63 (PCR) Not detected, Human Metapneumovir PCR Not detected, Influenza A (H1) PCR Not detected, Influ A (H1N1/) PCR Not detected, Influenza A (H3) PCR Not detected, Influenza Type A (PCR) Not detected, Influenza Type B (PCR) Not detected, M. pneumoniae (PCR) Not detected, Parainfluenza 1 (PCR) Not detected, Parainfluenza 2 (PCR) Not detected, Parainfluenza 3 (PCR) Not detected, Parainfluenza 4 (PCR) Not detected, RSV (PCR) Not detected, Entero/Rhino (PCR) Not detected 04/28/25 11:55: Ammonia < 9 L 04/28/25 12:41: Urine Color Yellow, Urine Appearance Clear, Urine pH 7.0, Ur Specific Mosier 1.010, Urine Protein 3+ A, Urine Glucose (UA) Negative, Urine Ketones Negative, Urine Blood Trace-i, Urine Nitrate Negative, Urine Bilirubin Negative, Urine Urobilinogen 0.2, Ur Leukocyte Esterase Negative, Urine RBC Occasional, Urine WBC Occasional, Ur Squamous Epith Cells Occasional, Urine Bacteria None, Urine Opiates Screen Negative, Urine Methadone Screen Negative, Ur Barbituates Screen Negative, Ur Phencyclidine Scrn Negative, Ur Amphetamines Screen Negative, U Benzodiazepines Scrn Negative, Urine Cocaine Screen Negative, U Marijuana (THC) Screen Negative 04/28/25 14:49: Troponin I 0.02 I & O for Last 24 hours: Intake & Output 04/25/25 04/26/25 04/27/25 04/28/25 23:59 23:59 23:59 23:59 Intake Total 520 / 520 Output Total 0 / 0 Balance 520 / 520 Weight 68.124 kg Constitutional Constitutional: no acute distress *Routine HEENT Exam Head: Present normocephalic Eye: Present EOMI and PERRL ENT: Present mucous membranes moist *Routine Neck Exam Neck: Present supple; Absent lymphadenopathy *Routine Respiratory Exam Respiratory: Present CTA bilaterally *Routine Cardiovascular Exam Cardiovascular: Present RRR *Routine Abdominal Exam Abdominal: Present soft and normoactive bowel sounds; Absent tenderness *Routine Rectal Exam Rectal:: deferred *Routine Genitalia Exam Genitalia:: deferred *Routine Extremities Exam Extremities: Absent cyanosis, clubbing or edema *Routine Skin Exam Skin: Present warm; Absent rash *Routine Neurological Exam Neurological: Present alert Assessment and Plan *Assessment and plan (1) Acute hypokalemia: Status: Acute Category: Medical Code(s): E87.6 - Hypokalemia (2) Acute hyponatremia: Status: Acute Category: Medical Code(s): E87.1 - Hypo-osmolality and hyponatremia Plan Pricilla Tubbs is a 74-year-old female with a medical history significant for celiac/SMA stenosis s/p stents, PUD, PAD, CAD, CT, hypertension, anxiety/depression, GERD who presents with acute on chronic intermittent nausea/vomiting. Patient is not the best historian, family at bedside provides more history. They state patient has been having on and off nausea/vomiting for the past several months. Patient does not always tell her family when she has these episodes. This morning, patient was confused and subsequently had intractable nausea/vomiting which prompted family to bring patient to the ED. Patient endorses occasional abdominal pains, though cannot describe quality or location. Family states she has had multiple stents for mesenteric stenosis but cannot give a clear idea when these were placed. They also state patient has multiple ulcers for which he takes pantoprazole 40 mg twice daily. Workup in the ED significant for potassium 2.3, bicarb 40, magnesium 1.2. Due to interstitial confusion, head CT was obtained without acute findings. CT abdomen/pelvis without acute findings. Did show 3.8 cm AAA, extensive vascular calcifications, small abdominal wall hernia, and atrophic right kidney. She was given potassium, magnesium repletion and antiemetics with 1 Liter LR bolus. Case discussed with ED provider and decision was made to admit patient for altered mental status, electrolyte abnormalities, intractable nausea/vomiting. #Acute metabolic encephalopathy #Hypokalemia #Hypomagnesemia ? Presented with confusion, nausea/vomiting. On arrival to the floor, patient was alert and oriented and back to baseline after electrolyte, fluid repletion in the ED. No longer having nausea. ? Initial potassium 2.3, magnesium 1.2. Repleted in the ED. Follow-up morning CMP. ? Continuous cardiac telemetry. ? May have contributed to confusion, nausea/vomiting. No focal neurological deficits. Low suspicion for CVA. #Acute on chronic nausea/vomiting ? Family states patient has been having episodes of nausea/vomiting for many months. Patient endorses occasional abdominal pain, but cannot provide further details as she is a poor historian. ? Complex history with multiple metastatic stenosis requiring stents, history of PUD (daughter says 14 ulcers). ? Patient takes Protonix 40 mg twice daily. Will continue this. ? Patient takes both aspirin, Plavix. Will start misoprostol 200 mcg 3 times daily. ? Sequelae may be secondary to PUD, gastroparesis, mesentery stenosis, versus other. ? GI consulted, pending further recommendations. N.p.o. at midnight. #CAD, PAD, CT #Hypertension ? Continue home aspirin, Plavix, statin. ? Continue home amlodipine 10 mg. #Anxiety/depression ? Continue home buspirone. The patient has nausea/vomiting, will consider weaning off this. Hold home cyclobenzaprine, unclear why patient takes this. DNR/DNI DVT prophylaxis: Lovenox 40 mg
[2025-04-28 19:42] LABS: Troponin I 0.03 ng/ml (0.00-0.034)
[2025-04-28] MEDS: ATORVASTATIN 40MG TABLET 80 MG PO (20:41)
[2025-04-28] MEDS: PANTOPRAZOLE 40 MG PO (20:41)
[2025-04-28] MEDS: BUSPIRONE HCL 10 MG PO (20:41)
[2025-04-28] MEDS: PATIENT'S OWN HOME MEDICATION (Pregabalin 75 mg capsule) 75 EACH PO (20:45)
--- NOTE | 2025-04-28 22:23 | PC.NURSE ---
malik states he will contact [facility] to bring meds in tomorrow for pharmacy labeling - educated no narcs and must be in rx bottle
[2025-04-29] VITALS: BP 152/75; PULSE 70; PULSE 83; RESP 16; TEMP 36.9; O2SAT 93
[2025-04-29 04:00] VITALS: BP 155/71; PULSE 80; PULSE 81; RESP 14; TEMP 37.1; O2SAT 93; BMI 27.5
--- NOTE | 2025-04-29 04:49 | PC.NURSE ---
Patient is NPO- no ice water was given, trash and linens emptied, bedside table cleaned.
--- NOTE | 2025-04-29 06:29 | PC.NURSE ---
no acute changes tonight - patient slept well - a/ox4
[2025-04-29 07:35] LABS: Hematocrit 40.3 % (37.0-47.0); Immature Granulocytes % 0.6 %; Mean Corpuscular HGB Conc 34.2 g/dL (31.8-35.4); Mean Corpuscular Hemoglobin 29.0 pg (27.0-31.2); Mean Corpuscular Volume 84.7 fl (81-99); Nucleated Red Blood Cells % 0 %; Platelet Count 336 K/mm3 (142-424); Red Blood Count 4.76 M/mm3 (4.20-5.40); Red Cell Distribution Width-SD 42.9 fL; White Blood Count 6.4 K/mm3 (4.8-10.8)
[2025-04-29 07:45] LABS: Hemoglobin 13.8 g/dL (12.2-16.2)
[2025-04-29 08:00] VITALS: BP 171/107; PULSE 70; PULSE 85; RESP 18; TEMP 36.4; O2SAT 92
[2025-04-29 08:00] LABS: Alanine Aminotransferase 17 U/L (12-78); Albumin Level 3.3 g/dl (3.5-5.0); Albumin/Globulin Ratio 1.2 (1.1-1.8); Alkaline Phosphatase 100 U/L (38-126); Anion Gap 8.0 mEq/L (5-15); Aspartate Amino Transferase 30 U/L (14-36); Bilirubin,Total 0.4 mg/dl (0.2-1.3); Blood Urea Nitrogen 18 mg/dl (7-17); Calcium 8.4 mg/dl (8.4-10.2); Carbon Dioxide 40 mmol/L (22.0-30.0); Chloride 87 mmol/L (98-107); Creatinine Clearance Estimated 54 mL/min (50-200); Creatinine,Serum 0.70 mg/dl (0.52-1.04); Estimated Glomerular Filt Rate 82 ml/min (>60); GFR (African American) 99 ML/MIN (>60); Globulin 2.8 g/dL (1.3-3.2); Glucose 101 mg/dl (74-100); Magnesium 1.8 mg/dl (1.6-2.3); Sodium 133 mmol/L (136-145); Total Protein,Serum 6.1 g/dl (6.3-8.2)
[2025-04-29 08:04] LABS: Potassium 2.0 mmoL/L (3.5-5.1)
--- NOTE | 2025-04-29 08:21 | HMH.PTEV ---
Physical Therapy Evaluation Rehab PT IP Evaluation Start: 04/28/25 16:05 Freq: .once Status: Active Protocol: Document 04/29/25 08:10 PIPE (Rec: 04/29/25 08:20 PIPE [id number]) Subjective/History History History Per H&P: Pricilla Tubbs is a 74-year-old female with a medical history significant for celiac/SMA stenosis s/p stents, PUD, PAD, CAD, [place], hypertension, anxiety/ depression, GERD who presents with acute on chronic intermittent nausea/vomiting. Patient is not the best historian, family at bedside provides more history. They state patient has been having on and off nausea/ vomiting for the past several months. Patient does not always tell her family when she has these episodes. This morning, patient was confused and subsequently had intractable nausea/vomiting which prompted family to bring patient to the ED. Patient endorses occasional abdominal pains, though cannot describe quality or location. Family states she has had multiple stents for mesenteric stenosis but cannot give a clear idea when these were placed. They also state patient has multiple ulcers for which he takes pantoprazole 40 mg twice daily. Workup in the ED significant for potassium 2.3, bicarb 40, magnesium 1.2. Due to interstitial confusion, head CT was obtained without acute findings. CT abdomen/pelvis without acute findings. Did show 3.8 cm AAA, extensive vascular calcifications, small abdominal wall hernia, and atrophic right kidney. Case discussed with ED provider and decision was made to admit patient for altered mental status, electrolyte abnormalities, intractable nausea/vomiting. Subjective Subjective PLOF: Pt reports she is IND with mobility using a SPC. HOME: Pt lives with her grandchildren who she reports she cares for. Pt lives in a single-story home with no PREMA. Pt still driving. ASSISTANCE: Lives with young grandchildren. Pt is the only adult in the house per her report. *Questionable historian. Confirm hx with CM* New diagnosis of No cancer in past 12 months? [facility] How much help from another person do you currently need... Turning from your None back to your side while in a flat bed without using bedrails? Moving from lying on None back to sitting on the side of a flat bed without using bedrails? Moving to and from a None bed to a chair ( including a wheelchair)? Standing up from a None chair using your arms? (e.g., wheelchair, bedside chair) Walking in hospital A little room? Climbing 3-5 steps A little with a railing? Mobility Score 22 Mobility Level [facility] Mobility 7 Walk 25 feet or more Mobility Calculator Rehab PT IP Eval Objective Appearance Patient Behavior Appropriate,Cooperative Patient Orientation Person,Situation Difficulty following none instructions Speech Pattern Clear Ambulation Patient Able to Yes Ambulate Ambulation Observation IP General Gait No Deviations/Normal Pattern Observation Ambulation Distance 25 (feet) Ambulation Assistive None Device Ambulation Ability Supervision/Stand by Balance Ability to Arise Able, uses arms to help Sitting Balance Steady, safe Standing Balance Steady, wide stance Dynamic Sitting Good Balance Ability Dynamic Standing Fair Balance Ability Transfers Bed Transfer Ability Independent Sit to Stand Bed Independent Transfer Ability Rehab PT IP prob,goals,plan Problems Date of Evaluation: 04/29/25 Rehab Potential Rehab Potential Innapropriate for Skilled Therapy Discharge Plan PT Discharge Plan Pt most appropriate to d/c home when deemed medically necessary d/t current level of mobility, home set-up, and family support. Pt not appropriate for skilled acute care PT at this time d/t pt?s mobility being at baseline. Eval Complexity Eval Charge Codes 81453 - Moderate Complexity PHYSICIAN CERTIFICATION: I certify the specified therapy services for Pricilla Tubbs are required, authorized, and reviewed every 30 days.
[2025-04-29] MEDS: ASPIRIN EC 81MG TABLET 81 MG PO (08:53)
[2025-04-29] MEDS: AMLODIPINE 10 MG PO (08:53)
[2025-04-29] MEDS: BUSPIRONE HCL 10 MG PO ×2 (08:53→12:24)
[2025-04-29] MEDS: POTASSIUM CHLORIDE 20MEQ TAB 40 MEQ PO ×3 (08:53→15:41)
[2025-04-29] MEDS: PREGABALIN 25MG CAPSULE 75 MG PO (08:53)
[2025-04-29] MEDS: CLOPIDOGREL 75 MG PO (08:53)
[2025-04-29] MEDS: SPIRONOLACTONE 25MG TABLET 25 MG PO (08:54)
[2025-04-29] MEDS: PANTOPRAZOLE 40 MG PO (08:54)
--- NOTE | 2025-04-29 09:56 | HMH.OTEV ---
OT Inpatient Evaluation Rehab OT IP Evaluation Start: 04/28/25 16:05 Freq: ONCE Status: Active Protocol: Document 04/29/25 09:51 LUZ (Rec: 04/29/25 09:56 LUZ [id number]) Rehab OT IP Assessment Subjective History Per H&P: Pricilla Tubbs is a 74-year-old female with a medical history significant for celiac/SMA stenosis s/p stents, PUD, PAD, CAD, [place], hypertension, anxiety/ depression, GERD who presents with acute on chronic intermittent nausea/vomiting. Patient is not the best historian, family at bedside provides more history. They state patient has been having on and off nausea/ vomiting for the past several months. Patient does not always tell her family when she has these episodes. This morning, patient was confused and subsequently had intractable nausea/vomiting which prompted family to bring patient to the ED. Patient endorses occasional abdominal pains, though cannot describe quality or location. Family states she has had multiple stents for mesenteric stenosis but cannot give a clear idea when these were placed. They also state patient has multiple ulcers for which he takes pantoprazole 40 mg twice daily. Workup in the ED significant for potassium 2.3, bicarb 40, magnesium 1.2. Due to interstitial confusion, head CT was obtained without acute findings. CT abdomen/pelvis without acute findings. Did show 3.8 cm AAA, extensive vascular calcifications, small abdominal wall hernia, and atrophic right kidney. Case discussed with ED provider and decision was made to admit patient for altered mental status, electrolyte abnormalities, intractable nausea/vomiting. Subjective I do good I think. Pt sitting in bed when therapy arrived. Pt was orient x3. Pt reported they live in home with grandchildren and have 2 steps with no HR. Pt still drives. Pt uses a cane for FM. Pt reports ind in ADLs and IADLs. Pt reports no falls in past 30 days. Pt reports they have shower chair and grab bars. Pt agreed to FM task. Pt went to EOB with SBA. Pt then completed STS with SBA and completed functional mobility task of aprox 10 ft with SBA. Pt demo good activity tolerance and good endurance. Pt sat back on EOB. Pt left with call light and all other needs within reach and bed alarm on. Objective Patient Orientation Person,Place,Birthday Right Upper WFL Extremity Gross ROM Left Upper Extremity WFL Gross ROM Bed Mobility bed mobility-scooting Assist Level Supervision/Stand by Transfer Training Sit/Stand Transfer Assist Level Supervision/Stand by Chair Transfer Sit to/from Ambulatory Technique Chair Transfer None Assistive Devices Decrease in No Endurance Rehab OT IP prob,goals,plan Problems Date of Evaluation: 04/29/25 Rehab Potential Rehab Potential Innapropriate for Skilled Therapy Discharge Plan OT Discharge Plan At this time, pt would not benefit from skilled acute OT while at [facility] due to being at baseline. Pt could benefit from skilled OT services to help further improve performance in occupational tasks. Eval Complexity Eval Charge Codes 92793 - Moderate Complexity PHYSICIAN CERTIFICATION: I certify the specified therapy services for Pricilla Tubbs are required, authorized, and reviewed every 30 days.
--- NOTE | 2025-04-29 09:58 | SW/DCPLANNER ---
Spoke with patient regarding home health services once she is medically stable and ready for discharge if she would be interested in home health services. Patient stated that she is not interested in home health. Eusebia Canela
[2025-04-29 12:00] VITALS: BP 157/67; PULSE 79; RESP 16; TEMP 36.4; O2SAT 92
--- NOTE | 2025-04-29 14:30 | EXP.GE.CONS ---
History of Present Illness *Admission Date: 04/28/25 *History of present illness: Mrs. 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 She does have some acute on chronic nausea and vomiting. Today I attempted to take a history but she is a poor historian. Notably, she continues to smoke tobacco. Her CT in the emergency department showed no acute findings. She has had some altered mental status. The patient reports no abdominal pain or bowel troubles. She has lost some weight. She reports no hematochezia, melena or bright red blood per rectum. She is on Plavix and aspirin. [facility] Disclaimer: The information contained in this section may have been updated after the patient was seen, as this information can be updated by other users. Medical History (Updated 04/29/25 @ 14:34 by Adrián Garrison II, MD) At risk for cardiac dysfunction during anesthesia Tobacco dependence Diverticulosis Osteoarthritis Abdominal wall hernia DJD (degenerative joint disease), lumbar Lumbar radiculopathy HTN (hypertension) Gastroesophageal reflux disease Anxiety CAD (coronary artery disease) Hyperlipidemia Depression Surgical History Hx of cholecystectomy Family History Mother No significant family history Father Heart attack Social History Smoking Status: Unknown if ever smoked second hand exposure: No alcohol intake: never substance use type: denies use current occupational status: retired Travel in the last 8 weeks?: None household members: family housing: house current occupation: [employer] caffeine: Yes Have you lived/traveled outside [place] in past 30 days?: No Contact w/someone who lives/traveled outside [place] past 30 days?: No Exposure to someone with infectious disease in past 14 days?: No Do you have a fever (greater than 100.4 F or 38 C)?: No Have you tested positive for COVID-19?: No Exposed to someone with COVID-19 in past 14 days?: No Do you have a sore throat?: No Do you have a cough?: No Do you have any weakness?: No Do you have any diarrhea?: No Are you experiencing any unusual bleeding?: No Do you have any muscle aches/pain?: No Do you have any abdominal pain?: No Are you experiencing loss of taste or smell?: No Meds Home Medications and Allergies Home Medications ?Medication ?Instructions ?Recorded ?Confirmed ?Type amlodipine 10 mg tablet 10 mg PO DAILY 04/28/25 04/28/25 History aspirin 81 mg tablet,delayed 81 mg PO DAILY 04/28/25 04/28/25 History release atorvastatin 80 mg tablet 80 mg PO HS 04/28/25 04/28/25 History buspirone 10 mg tablet 10 mg PO TID 04/28/25 04/28/25 History clopidogrel 75 mg tablet 75 mg PO DAILY 04/28/25 04/28/25 History cyclobenzaprine 10 mg tablet 10 mg PO BID 04/28/25 04/28/25 History ergocalciferol (vitamin D2) 1,250 1,250 mcg PO WEEKLY 04/28/25 04/28/25 History mcg (50,000 unit) capsule furosemide 20 mg tablet 20 mg PO DAILY 04/28/25 04/28/25 History pantoprazole 40 mg tablet,delayed 40 mg PO BID 04/28/25 04/28/25 History release pregabalin 75 mg capsule 75 mg PO BID 04/28/25 04/28/25 History New Prescriptions to Start Prescriptions: Allergies Allergy/AdvReac Type Severity Reaction Status Date / Time Sulfa (Sulfonamide Allergy Nausea Verified 03/02/24 10:41 Antibiotics) Exam (Inpt) Vital signs and Labs for Last 24 Hours: Temp Pulse Resp BP Pulse Ox O2 Del Method 97.6 F 79 16 157/67 H 92 L Room Air 04/29/25 12:00 04/29/25 12:00 04/29/25 12:00 04/29/25 12:00 04/29/25 12:00 04/29/25 13:00 Laboratory Results - last 24 hr 04/28/25 11:53: Chlamy pneumoniae PCR Not detected, Adenovirus (PCR) Not detected, B. pertussis DNA (PCR) Not detected, Coronavirus OC43 (PCR) Not detected, Coronavirus HKU1 (PCR) Not detected, Coronavirus 229E (PCR) Not detected, SARS-CoV-2 (PCR) Not detected, Coronavirus NL63 (PCR) Not detected, Human Metapneumovir PCR Not detected, Influenza A (H1) PCR Not detected, Influ A (H1N1/09) PCR Not detected, Influenza A (H3) PCR Not detected, Influenza Type A (PCR) Not detected, Influenza Type B (PCR) Not detected, M. pneumoniae (PCR) Not detected, Parainfluenza 1 (PCR) Not detected, Parainfluenza 2 (PCR) Not detected, Parainfluenza 3 (PCR) Not detected, Parainfluenza 4 (PCR) Not detected, RSV (PCR) Not detected, Entero/Rhino (PCR) Not detected 04/28/25 14:49: Troponin I 0.02 04/28/25 19:09: Troponin I 0.03 04/29/25 06:43: WBC 6.4, RBC 4.76, Hgb 13.8 D, Hct 40.3, MCV 84.7, MCH 29.0, MCHC 34.2, RDW 13.7, Plt Count 336, MPV 9.2, Neut % (Auto) 67.5, Lymph % (Auto) 17.4, [place] % (Auto) 11.2 H, Eos % (Auto) 2.5, Baso % (Auto) 0.8, Neut # (Auto) 4.3, Lymph # (Auto) 1.1, [place] # (Auto) 0.7, Eos # (Auto) 0.2, Baso # (Auto) 0.1, Sodium 133 L, Potassium 2.0 L*, Chloride 87 L, Carbon Dioxide 40 H, Anion Gap 8.0, BUN 18 H, Creatinine 0.70, Estimated Creat Clear 54, Estimated GFR 82, Est GFR ( Amer) 99, Glucose 101 H D, Calcium 8.4, Magnesium 1.8 D, Total Bilirubin 0.4, AST 30 D, ALT 17, Alkaline Phosphatase 100, Total Protein 6.1 L, Albumin 3.3 L D, Globulin 2.8, Albumin/Globulin Ratio 1.2 I & O for Labs for Last 24 Hours: Intake & Output 04/26/25 04/27/25 04/28/25 04/29/25 23:59 23:59 23:59 23:59 Intake Total 860 / 860 420 / 420 Output Total 0 / 0 Balance 860 / 860 420 / 420 Weight 150 lb 3 oz 149 lb 8 oz Microbiology Reports for the Last 24 Hours: Microbiology 04/28/25 14:08 Blood Blood Culture - Preliminary NO GROWTH AFTER 24 HOURS Comments:: Normoactive bowel sounds, soft, benign abdomen, no masses, hernias, rebound or guarding Results Labs 04/29/25 06:43 04/29/25 06:43 Labs: Laboratory Results - last 24 hr 04/28/25 11:53: Chlamy pneumoniae PCR Not detected, Adenovirus (PCR) Not detected, B. pertussis DNA (PCR) Not detected, Coronavirus OC43 (PCR) Not detected, Coronavirus HKU1 (PCR) Not detected, Coronavirus 229E (PCR) Not detected, SARS-CoV-2 (PCR) Not detected, Coronavirus NL63 (PCR) Not detected, Human Metapneumovir PCR Not detected, Influenza A (H1) PCR Not detected, Influ A (H1N1/09) PCR Not detected, Influenza A (H3) PCR Not detected, Influenza Type A (PCR) Not detected, Influenza Type B (PCR) Not detected, M. pneumoniae (PCR) Not detected, Parainfluenza 1 (PCR) Not detected, Parainfluenza 2 (PCR) Not detected, Parainfluenza 3 (PCR) Not detected, Parainfluenza 4 (PCR) Not detected, RSV (PCR) Not detected, Entero/Rhino (PCR) Not detected 04/28/25 14:49: Troponin I 0.02 04/28/25 19:09: Troponin I 0.03 04/29/25 06:43: WBC 6.4, RBC 4.76, Hgb 13.8 D, Hct 40.3, MCV 84.7, MCH 29.0, MCHC 34.2, RDW 13.7, Plt Count 336, MPV 9.2, Neut % (Auto) 67.5, Lymph % (Auto) 17.4, [place] % (Auto) 11.2 H, Eos % (Auto) 2.5, Baso % (Auto) 0.8, Neut # (Auto) 4.3, Lymph # (Auto) 1.1, [place] # (Auto) 0.7, Eos # (Auto) 0.2, Baso # (Auto) 0.1, Sodium 133 L, Potassium 2.0 L*, Chloride 87 L, Carbon Dioxide 40 H, Anion Gap 8.0, BUN 18 H, Creatinine 0.70, Estimated Creat Clear 54, Estimated GFR 82, Est GFR ( Amer) 99, Glucose 101 H D, Calcium 8.4, Magnesium 1.8 D, Total Bilirubin 0.4, AST 30 D, ALT 17, Alkaline Phosphatase 100, Total Protein 6.1 L, Albumin 3.3 L D, Globulin 2.8, Albumin/Globulin Ratio 1.2 Assessment and Plan *Assessment and plan (1) Nausea and vomiting: Status: Acute Category: Medical Code(s): R11.2 - Nausea with vomiting, unspecified (2) Tobacco dependence: Status: Acute Category: Medical Code(s): F17.200 - Nicotine dependence, unspecified, uncomplicated Plan 1. Nausea and vomiting. This is acute on chronic. On my discussion with patient this morning, she was not complaining of any vomiting. She continues to smoke in the setting of significant mesenteric arterial disease. I would recommend focusing on tobacco cessation for this patient. I would also recommend upper GI with small bowel follow-through and if normal possibly gastric emptying study.
[2025-04-29 14:32] LABS: Anion Gap 9.8 mEq/L (5-15); Blood Urea Nitrogen 18 mg/dl (7-17); Calcium 8.9 mg/dl (8.4-10.2); Carbon Dioxide 40 mmol/L (22.0-30.0); Chloride 85 mmol/L (98-107); Creatinine Clearance Estimated 54 mL/min (50-200); Creatinine,Serum 0.90 mg/dl (0.52-1.04); Estimated Glomerular Filt Rate 61 ml/min (>60); GFR (African American) 74 ML/MIN (>60); Glucose 111 mg/dl (74-100); Sodium 132 mmol/L (136-145)
[2025-04-29 14:46] LABS: Potassium 2.8 mmoL/L (3.5-5.1)
--- NOTE | 2025-04-29 15:58 | EXP.DC.SUM ---
General Admission date:: 04/28/25 HPI HPI HPI: Pricilla Tubbs is a 74-year-old female with a medical history significant for celiac/SMA stenosis s/p stents, PUD, PAD, CAD, [place], hypertension, anxiety/depression, GERD who presents with acute on chronic intermittent nausea/vomiting. Patient is not the best historian, family at bedside provides more history. They state patient has been having on and off nausea/vomiting for the past several months. Patient does not always tell her family when she has these episodes. This morning, patient was confused and subsequently had intractable nausea/vomiting which prompted family to bring patient to the ED. Patient endorses occasional abdominal pains, though cannot describe quality or location. Family states she has had multiple stents for mesenteric stenosis but cannot give a clear idea when these were placed. They also state patient has multiple ulcers for which he takes pantoprazole 40 mg twice daily. Workup in the ED significant for potassium 2.3, bicarb 40, magnesium 1.2. Due to interstitial confusion, head CT was obtained without acute findings. CT abdomen/pelvis without acute findings. Did show 3.8 cm AAA, extensive vascular calcifications, small abdominal wall hernia, and atrophic right kidney. Case discussed with ED provider and decision was made to admit patient for altered mental status, electrolyte abnormalities, intractable nausea/vomiting. Hospital Course Hospital Course Hospital Course: Pricilla Tubbs is a 74-year-old female with a medical history significant for celiac/SMA stenosis s/p stents, PUD, PAD, CAD, [place], hypertension, anxiety/depression, GERD who presents with acute on chronic intermittent nausea/vomiting. Patient is not the best historian, family at bedside provides more history. They state patient has been having on and off nausea/vomiting for the past several months. Patient does not always tell her family when she has these episodes. This morning, patient was confused and subsequently had intractable nausea/vomiting which prompted family to bring patient to the ED. Patient endorses occasional abdominal pains, though cannot describe quality or location. Family states she has had multiple stents for mesenteric stenosis but cannot give a clear idea when these were placed. They also state patient has multiple ulcers for which he takes pantoprazole 40 mg twice daily. Workup in the ED significant for potassium 2.3, bicarb 40, magnesium 1.2. Due to interstitial confusion, head CT was obtained without acute findings. CT abdomen/pelvis without acute findings. Did show 3.8 cm AAA, extensive vascular calcifications, small abdominal wall hernia, and atrophic right kidney. She was given potassium, magnesium repletion and antiemetics with 1 Liter LR bolus. Case discussed with ED provider and decision was made to admit patient for altered mental status, electrolyte abnormalities, intractable nausea/vomiting. #Acute metabolic encephalopathy #Hypokalemia #Hypomagnesemia ? Presented with confusion, nausea/vomiting. On arrival to the floor, patient was alert and oriented and back to baseline after electrolyte, fluid repletion in the ED. No longer having nausea. ? Initial potassium 2.3, magnesium 1.2. Repleted in the ED. ? Continuous cardiac telemetry. ? May have contributed to confusion, nausea/vomiting. No focal neurological deficits. Low suspicion for CVA. ? Changed Lasix to as needed. #Acute on chronic nausea/vomiting ? Family states patient has been having episodes of nausea/vomiting for many months. Patient endorses occasional abdominal pain, but cannot provide further details as she is a poor historian. ? Complex history with multiple metastatic stenosis requiring stents, history of PUD (daughter says 14 ulcers). ? Patient takes Protonix 40 mg twice daily. Will continue this. ? Patient takes both aspirin, Plavix. Will start misoprostol 200 mcg 3 times daily. ? Sequelae may be secondary to PUD, gastroparesis, mesentery stenosis, versus other. ? GI consulted, recommend outpatient follow-up given stability of patient. Also recommended upper GI and small bowel follow-through, and if normal will proceed with gastric emptying study. Hemoglobin also stable, 13.8. ? Upper GI series will be set up within the next week. #CAD, PAD, [place] #Hypertension ? Continue home aspirin, Plavix, statin. ? Continue home amlodipine 10 mg. ? Changed Lasix to as needed. No evidence of previous heart failure. #Anxiety/depression ? Continue home buspirone. Hold home cyclobenzaprine, unclear why patient takes this. Exam Data for Last 24 hours Vital signs and Labs for Last 24 Hours: Temp Pulse Resp BP Pulse Ox O2 Del Method 97.6 F 79 16 157/67 H 92 L Room Air 04/29/25 12:04/29/25 12:04/29/25 12:04/29/25 12:04/29/25 12:04/29/25 13:00 Laboratory Results - last 24 hr 04/28/25 11:53: Chlamy pneumoniae PCR Not detected, Adenovirus (PCR) Not detected, B. pertussis DNA (PCR) Not detected, Coronavirus OC43 (PCR) Not detected, Coronavirus HKU1 (PCR) Not detected, Coronavirus 229E (PCR) Not detected, SARS-CoV-2 (PCR) Not detected, Coronavirus NL63 (PCR) Not detected, Human Metapneumovir PCR Not detected, Influenza A (H1) PCR Not detected, Influ A (H1N1/09) PCR Not detected, Influenza A (H3) PCR Not detected, Influenza Type A (PCR) Not detected, Influenza Type B (PCR) Not detected, M. pneumoniae (PCR) Not detected, Parainfluenza 1 (PCR) Not detected, Parainfluenza 2 (PCR) Not detected, Parainfluenza 3 (PCR) Not detected, Parainfluenza 4 (PCR) Not detected, RSV (PCR) Not detected, Entero/Rhino (PCR) Not detected 04/28/25 19:09: Troponin I 0.03 04/29/25 06:43: WBC 6.4, RBC 4.76, Hgb 13.8 D, Hct 40.3, MCV 84.7, MCH 29.0, MCHC 34.2, RDW 13.7, Plt Count 336, MPV 9.2, Neut % (Auto) 67.5, Lymph % (Auto) 17.4, [place]ster % (Auto) 11.2 H, Eos % (Auto) 2.5, Baso % (Auto) 0.8, Neut # (Auto) 4.3, Lymph # (Auto) 1.1, [place] # (Auto) 0.7, Eos # (Auto) 0.2, Baso # (Auto) 0.1, Sodium 133 L, Potassium 2.0 L*, Chloride 87 L, Carbon Dioxide 40 H, Anion Gap 8.0, BUN 18 H, Creatinine 0.70, Estimated Creat Clear 54, Estimated GFR 82, Est GFR ( Amer) 99, Glucose 101 H D, Calcium 8.4, Magnesium 1.8 D, Total Bilirubin 0.4, AST 30 D, ALT 17, Alkaline Phosphatase 100, Total Protein 6.1 L, Albumin 3.3 L D, Globulin 2.8, Albumin/Globulin Ratio 1.2 04/29/25 14:14: Sodium 132 L, Potassium 2.8 L* D, Chloride 85 L, Carbon Dioxide 40 H, Anion Gap 9.8, BUN 18 H, Creatinine 0.90 D, Estimated Creat Clear 54, Estimated GFR 61, Est GFR ( Amer) 74 D, Glucose 111 H, Calcium 8.9 I & O for Last 24 hours: Intake & Output 04/26/25 04/27/25 04/28/25 04/29/25 23:59 23:59 23:59 23:59 Intake Total 860 / 860 420 / 420 Output Total 0 / 0 Balance 860 / 860 420 / 420 Weight 68.124 kg 67.812 kg Microbiology Reports for the Last 24 Hours: Microbiology 04/28/25 14:25 Blood Blood Culture - Preliminary NO GROWTH AFTER 24 HOURS 04/28/25 14:08 Blood Blood Culture - Preliminary NO GROWTH AFTER 24 HOURS Constitutional Constitutional: no acute distress *Routine HEENT Exam Head: Present normocephalic Eye: Present EOMI and PERRL ENT: Present mucous membranes moist *Routine Neck Exam Neck: Present supple; Absent lymphadenopathy *Routine Respiratory Exam Respiratory: Present CTA bilaterally *Routine Cardiovascular Exam Cardiovascular: Present RRR *Routine Abdominal Exam Abdominal: Present soft and normoactive bowel sounds; Absent tenderness *Routine Extremities Exam Extremities: Absent cyanosis, clubbing or edema *Routine Skin Exam Skin: Present warm; Absent rash *Routine Neurological Exam Neurological: Present alert and oriented X3 Results Data Completed and Pending Labs on day of discharge: Labs from last 24 hours 04/29/25 04/29/25 04/28/25 14:14 06:43 19:09 WBC 6.4 RBC 4.76 Hgb 13.8 D Hct 40.3 MCV 84.7 MCH 29.0 MCHC 34.2 RDW 13.7 Plt Count 336 MPV 9.2 Neut % (Auto) 67.5 Lymph % (Auto) 17.4 Ulster % (Auto) 11.2 H Eos % (Auto) 2.5 Baso % (Auto) 0.8 Neut # (Auto) 4.3 Lymph # (Auto) 1.1 Ulster # (Auto) 0.7 Eos # (Auto) 0.2 Baso # (Auto) 0.1 Sodium 132 L 133 L Potassium 2.8 L* D 2.0 L* Chloride 85 L 87 L Carbon Dioxide 40 H 40 H Anion Gap 9.8 8.0 BUN 18 H 18 H Creatinine 0.90 D 0.70 Estimated Creat Clear 54 54 Estimated GFR 61 82 Est GFR ( Amer) 74 D 99 Glucose 111 H 101 H D Calcium 8.9 8.4 Magnesium 1.8 D Total Bilirubin 0.4 AST 30 D ALT 17 Alkaline Phosphatase 100 Troponin I 0.03 Total Protein 6.1 L Albumin 3.3 L D Globulin 2.8 Albumin/Globulin Ratio 1.2 Chlamy pneumoniae PCR Adenovirus (PCR) B. pertussis DNA (PCR) Coronavirus OC43 (PCR) Coronavirus HKU1 (PCR) Coronavirus 229E (PCR) SARS-CoV-2 (PCR) Coronavirus NL63 (PCR) Human Metapneumovir PCR Influenza A (H1) PCR Influ A (H1N1) PCR Influenza A (H3) PCR Influenza Type A (PCR) Influenza Type B (PCR) M. pneumoniae (PCR) Parainfluenza 1 (PCR) Parainfluenza 2 (PCR) Parainfluenza 3 (PCR) Parainfluenza 4 (PCR) RSV (PCR) Entero/Rhino (PCR) 04/28/25 11:53 WBC RBC Hgb Hct MCV MCH MCHC RDW Plt Count MPV Neut % (Auto) Lymph % (Auto) [place] % (Auto) Eos % (Auto) Baso % (Auto) Neut # (Auto) Lymph # (Auto) [place] # (Auto) Eos # (Auto) Baso # (Auto) Sodium Potassium Chloride Carbon Dioxide Anion Gap BUN Creatinine Estimated Creat Clear Estimated GFR Est GFR ( Amer) Glucose Calcium Magnesium Total Bilirubin AST ALT Alkaline Phosphatase Troponin I Total Protein Albumin Globulin Albumin/Globulin Ratio Chlamy pneumoniae PCR Not detected Adenovirus (PCR) Not detected B. pertussis DNA (PCR) Not detected Coronavirus OC43 (PCR) Not detected Coronavirus HKU1 (PCR) Not detected Coronavirus 229E (PCR) Not detected SARS-CoV-2 (PCR) Not detected Coronavirus NL63 (PCR) Not detected Human Metapneumovir PCR Not detected Influenza A (H1) PCR Not detected Influ A (H1N1) PCR Not detected Influenza A (H3) PCR Not detected Influenza Type A (PCR) Not detected Influenza Type B (PCR) Not detected M. pneumoniae (PCR) Not detected Parainfluenza 1 (PCR) Not detected Parainfluenza 2 (PCR) Not detected Parainfluenza 3 (PCR) Not detected Parainfluenza 4 (PCR) Not detected RSV (PCR) Not detected Entero/Rhino (PCR) Not detected Preliminary micro results at discharge 04/28/25 14:25 Blood Culture - Preliminary Blood NO GROWTH AFTER 24 HOURS 04/28/25 14:08 Blood Culture - Preliminary Blood NO GROWTH AFTER 24 HOURS DS: Diagnosis Discharge Diagnosis (1) Nausea and vomiting: Status: Acute Code(s): R11.2 - Nausea with vomiting, unspecified (2) Tobacco dependence: Status: Acute Code(s): F17.200 - Nicotine dependence, unspecified, uncomplicated Meds Home Medications and Allergies Home Medications ?Medication ?Instructions ?Recorded ?Confirmed ?Type amlodipine 10 mg tablet 10 mg PO DAILY 04/28/25 04/28/25 History aspirin 81 mg tablet,delayed 81 mg PO DAILY 04/28/25 04/28/25 History release atorvastatin 80 mg tablet 80 mg PO HS 04/28/25 04/28/25 History buspirone 10 mg tablet 10 mg PO TID 04/28/25 04/28/25 History clopidogrel 75 mg tablet 75 mg PO DAILY 04/28/25 04/28/25 History ergocalciferol (vitamin D2) 1,250 1,250 mcg PO WEEKLY 04/28/25 04/28/25 History mcg (50,000 unit) capsule pantoprazole 40 mg tablet,delayed 40 mg PO BID 04/28/25 04/28/25 History release pregabalin 75 mg capsule 75 mg PO BID 04/28/25 04/28/25 History furosemide 20 mg tablet 20 mg PO DAILY PRN Leg swelling 30 04/29/25 04/28/25 Rx days #0 tabs misoprostol 200 mcg tablet 200 mcg PO TID 30 days #90 tabs 04/29/25 Rx New Prescriptions to Start Prescriptions: misoprostol Raymond Suero Allergies Allergy/AdvReac Type Severity Reaction Status Date / Time Sulfa (Sulfonamide Allergy Nausea Verified 03/02/24 10:41 Antibiotics) Discharge Plan Disposition Patient Disposition: Home, Self-Care Condition: Fair Follow up Plan Follow up with: Jenna Kinney APRN [Nurse Practitioner, Gastroenterology] - Enter time for follow up Referral Note: Office will call for follow up appointment Prescriptions/Medication Reconciliation: New misoprostol 200 mcg Tablet 200 mcg PO TID 30 Days Qty: 90 0RF Continued buspirone 10 mg tablet 10 mg PO TID Patient Comments: TAKE 1 TABLET BY MOUTH 3 TIMES A DAY atorvastatin 80 mg tablet 80 mg PO HS clopidogrel 75 mg tablet 75 mg PO DAILY aspirin 81 mg tablet,delayed release (DR/EC) 81 mg PO DAILY amlodipine 10 mg tablet 10 mg PO DAILY pantoprazole 40 mg tablet,delayed release (DR/EC) 40 mg PO BID ergocalciferol (vitamin D2) 1,250 mcg (50,000 unit) capsule 1,250 mcg PO WEEKLY pregabalin 75 mg capsule 75 mg PO BID Changed furosemide 20 mg tablet 20 mg PO DAILY PRN (Reason: Leg swelling) 30 Days Qty: 0 0RF Discontinued cyclobenzaprine 10 mg tablet 10 mg PO BID Other Ambulatory Orders: [place] upper GI small bowel (Routine) Timeframe: 1 Week Facility: [facility] - Location: Radiology Ordered By: Raymond Suero Problem Reconciliation Problems Reviewed?: Yes Patient Discharge Instructions Patient Instructions: Magnesium, DI for High Blood Pressure, DI for Hypokalemia, DI for Hyponatremia, DI for Encephalopathy Print Language: Tongan Providers Primary Care Provider: Le Myrick Admit Provider: Raymond Suero Attending Provider: Raymond Suero
--- NOTE | 2025-05-03 11:10 | SW/DCPLANNER ---
Phoned [facility]. Left message with call back number and name. Eusebia Canela
== END 2025-04-29 17:46 | disposition home or self-care (01) ==
LOC: ER 14:14 → 2ND 14:14
PROVIDERS: Physician Assistant; Admitting Provider Student in an Organized Health Care Education/Training Program; Emergency Provider Emergency Medicine; PCP Family Medicine; Visit Provider Student in an Organized Health Care Education/Training Program
DX: G93.41 Metabolic encephalopathy (principal); R11.2 Nausea with vomiting, unspecified; E87.1 Hypo-osmolality and hyponatremia; E78.5 Hyperlipidemia, unspecified; E83.42 Hypomagnesemia; I25.10 Atherosclerotic heart disease of native coronary artery without angina pectoris; F41.9 Anxiety disorder, unspecified; F32.A Depression, unspecified; I73.9 Peripheral vascular disease, unspecified; K21.9 Gastro-esophageal reflux disease without esophagitis; I25.2 Old myocardial infarction; I10 Essential (primary) hypertension; I71.40 Abdominal aortic aneurysm, without rupture, unspecified; Z88.2 Allergy status to sulfonamides; Z95.828 Presence of other vascular implants and grafts; F17.200 Nicotine dependence, unspecified, uncomplicated; Z79.82 Long term (current) use of aspirin; Z79.02 Long term (current) use of antithrombotics/antiplatelets; Z79.899 Other long term (current) drug therapy; Z86.73 Personal history of transient ischemic attack (TIA), and cerebral infarction without residual deficits
CPT/HCPCS: 96365; 96375; 96376; 0223U; 36415; 70450; 70496; 70498; 71275; 74177; 80048; 80053; 80061; 80307; 80320; 81001; 82140; 82803; 83690; 83735; 83880; 84145; 84436; 84443; 84479; 84484; 85025; 85610; 85730; 86140; 86803; 87040; 87389; 87633; 93005; 97162; 97166; G0378; J1650; J2405; J2550; J3475; J3480; J7120; Q9967

== ENCOUNTER 2025-05-21 09:58 | Inpatient (IN) | payer MEDICARE, SELFPAY ==
[2025-05-21] VITALS (20 sets, daily range): BP systolic 111–203; BP diastolic 51–127; PULSE 83–109; RESP 11–24; TEMP 36.6–37.1; O2SAT 89–97; BMI 27.1
--- NOTE | 2025-05-21 09:54 | ECG_ITS ---
APPROVED REPORT Exam: Resting ECG HR:88 bpm ECG Measurements Heart Rate 88 AXES AL 177 P 7 QRSd 101 QRS 18 QT 426 T 43 QTc 472 Conclusion SINUS RHYTHM MINIMAL ST DEPRESSION [0.025+ mV ST DEPRESSION] PROLONGED QT INTERVAL ABNORMAL ECG UNCONFIRMED REPORT Normal sinus rhythm. No ST elevation or depression. QTc 472 Electronically signed by : GABI ZIMMERMAN, 05/24/2025 14:33:27
--- OUTSIDE RECORDS SUMMARY | 2025-05-21 10:08 | XMS_ITS | Encounter Summary ---
Author Organization Healthcare Address [address] [place] [address] Care Team Providers Care Document Control Coordinator Name Role Phone Rex Souza MD Primary Care Provider + [phone] Encounter Details Date Type Department Care Team (Late st Contact Info) Description 05/06/2015 Orders Only External Location [address] [place] [address] Provider, External Social History Tobacco Use Types [...] on filedocumented in this encounter Care Teams Document Control Coordinator Relationship Specialty Start Date End Date Rex Souza MD [address] [place] [address] PCP - General 03/03/21 documented as of this encounter
--- OUTSIDE RECORDS SUMMARY | 2025-05-21 10:08 | XMS_ITS | Clinical Summary ---
Author Organization Healthcare Address [address] [place] [address] Care Team Providers Care Bombsight Specialist Name Role Phone Rex Souza MD Primary Care Provider + [phone] Allergies Active Allergy Reactions Criticality Noted Date [...] days 04/18/201 6 Active ergocalciferol 1.25 MG (36292 UT) capsule Take 1 capsule (50,000 Units) [...] Screening 1950 [facility]-Medicare Annual Wellness (AWV) 1950 [facility]-Infant/Child/Adol SDOH Screenings 1950 [facility]- SDOH Screenings 1969 [facility]-Adult SDOH Screenings 1969 [facility]-DTaP,Tdap,and Td Vaccine s (1 - Tdap) 1970 CT Colonography 1996 Colonoscopy 1996 FIT-DNA 1996 FIT 1996 FOBT 1996 Sigmoidoscopy 1996 [facility]-Colorectal Cancer Screening 1996 [facility]-Breast Cancer Screening 2001 [facility]-Lung Cancer Screening 2001 [facility]-Zoster Vaccines (1 of 2) 2001 [facility]-Pneumococcal Vaccine: 50 + Years (2 of 2 - PPSV23) 01/30/2018 12/05/2017 [id number] Vaccine (3 - 2023- season) 2024 08/30/2021, [...] this topic Medical Devices Implanted Type Area Newspaper Vendor Device Identifier Shelf Expiration Date Model / Serial / Lot Stent Self-Expanding Innova 8mm X 20mm X 130cm - [id number] Implanted:Qty: 1 on 04/14/2024 by Reynaldo Sanchez MD at [facility] [id number] 08/04/2028 [id number] / / [id number] Stent Atrium Icast Covered 7mm X 22mm X 80cm - [id number] Implanted:Qty: 1 on 04/14/2024 by Renyaldo Sanchez MD at [facility] [employer]-[id number] 09/04/2026 [id number] / [id number] / [id number] Closure Device Vip Angioseal 8 Fr - [id number] Implanted:Qty: 1 on 04/14/2024 by Reynaldo Sanchez MD at [facility] [id number] 11/12/2024 [id number] / / [id number] Stent Graft Iliac [id number] - [id number] - [id number] Implanted:Qty: 1 on 04/14/2024 by Reynaldo Sanchez MD at [facility] [id number] 12/03/2026 [id number] / [id number] / Insurance [facility] MEDICARE Care Teams Bombsight Specialist Relationship Specialty Start Date End Date Rex Souza MD [address] [place] [address] PCP - General 03/03/21
--- OUTSIDE RECORDS SUMMARY | 2025-05-21 10:08 | XMS_ITS | Clinical Summary ---
Author Organization [employer] ([place], [place], [place], [place]) Address [address] [place] [address] Care Team Providers Care Sanding Machine Tender Automatic Name Role Phone Gabino Myrick MD Primary Care Provider [phone] Bruce Shepherd MD Unavailable [phone] Teresa Grigsby DO Unavailable Allergies Active Allergy [...] hyperlipidemia 09/19/2023 Coronary artery disease invo lving [place] coronary artery of [place] heart without angina pectoris 09/19/2023 Cigarette nicotine [...] Date Gordy rded Speak language other than Guamanian at home Not on file 11/01/2023 Want [...] Advance Directives For more information, please contact: [phone] * Full Code (Latest Code Status on File) Date Activated Date Inactivated Comments 09/02/2023 5:26 AM 09/03/2023 4:27 AM * Full Code Date Activated Date Inactivated Comments 08/21/2023 1:50 PM 08/23/2023 6:38 PM Care Teams Sanding Machine Tender Automatic Relationship Specialty Start Date End Date Gabino Myrick MD [address] [place] [address] PCP - General Family Medicine 08/08/23 Bruce Shepherd MD [address] [facility] [address] [place] [id number] Surgeon Cardiothoracic Surgery 08/21/23 Teresa Grigsby DO [address] [place] [id number] Interventional Cardiology 02/05/24
--- OUTSIDE RECORDS SUMMARY | 2025-05-21 10:08 | XMS_ITS | Encounter Summary ---
Author Organization Healthcare Address [address] [place] [address] Care Team Providers Care Planer Chain Offbearer Name Role Phone Rex Souza MD Primary Care Provider + [phone] Encounter Details Date Type Department Care Team (Late st Contact Info) Description 08/22/2023 Orders Only External Location [address] [place] [address] Provider, External Social History Tobacco Use Types [...] documented as of this encounter Care Teams Planer Chain Offbearer Relationship Specialty Start Date End Date Rex Souza MD [address] [place] [id number] PCP - General 03/03/21 documented as of this encounter
--- OUTSIDE RECORDS SUMMARY | 2025-05-21 10:08 | XMS_ITS | Referral Summary ---
Author Organization [employer] ([place], [place], [place], [place]) Address [address] [place] [address] Care Team Providers Care Tufting Machine Operator Single Needle Name Role Phone Gabino Myrick MD Primary Care Provider [phone] Bruce Shepherd MD Unavailable [phone] Teresa Grigsby DO Unavailable Allergies Active Allergy [...] hyperlipidemia 09/19/2023 Coronary artery disease invo lving [place] coronary artery of [place] heart without angina pectoris 09/19/2023 Cigarette nicotine [...] Date Gordy rded Speak language other than Finnish at home Not on file 11/01/2023 Want [...] Advance Directives For more information, please contact: [phone] * Full Code (Latest Code Status on File) Date Activated Date Inactivated Comments 09/02/2023 5:26 AM 09/03/2023 4:27 AM * Full Code Date Activated Date Inactivated Comments 08/21/2023 1:50 PM 08/23/2023 6:38 PM Care Teams Tufting Machine Operator Single Needle Relationship Specialty Start Date End Date Gabino Myrick MD [address] [place] [address] PCP - General Family Medicine 08/08/23 Bruce Shepherd MD [address] [facility] [address] [place] [address] Surgeon Cardiothoracic Surgery 08/21/23 Teresa Grigsby DO [address] [place] [address] Interventional Cardiology 02/05/24
--- OUTSIDE RECORDS SUMMARY | 2025-05-21 10:08 | XMS_ITS | Encounter Summary ---
Author Organization Healthcare Address [address] [place] [address] Care Team Providers Care Guidance Services Coordinator Name Role Phone Rex Souza MD Primary Care Provider + [phone] Encounter Details Date Type Department Care Team (Late st Contact Info) Description 07/17/2023 Orders Only External Location [address] [place] [address] Provider, External Social History Tobacco Use Types [...] on filedocumented in this encounter Care Teams Guidance Services Coordinator Relationship Specialty Start Date End Date Rex Souza MD [address] [place] [address] PCP - General 03/03/21 documented as of this encounter
--- NOTE | 2025-05-21 10:37 | HMH.EDGENADL ---
Discharge Plan Disposition Patient Disposition: Admitted Condition: Fair Clinical Impressions Clinical Impression: Hypokalemia, Hyponatremia Discharge ED Provider: Kenny Velasquez Adult HPI General Chief complaint: Syncope Stated complaint: Syncopy Time Seen by Provider: 05/21/25 10:17 Mode of Arrival: Ambulatory Source of Information: Patient and EMS Description of Symptoms (Recalled from ER Triage Doc. by RN): Patient arrival to ED from home via EMS, reports patient was cooking this AM when she started to feel dizzy, grandson reported to EMS patient had a syncopal episode. Denies patient hit her head, patient states she is on Eliquis. EMS reports patient was alert with some mild confusion upon arrival. Patient denies pain, c/o mild SOA, notes she has COPD. Patient 88% on RA, placed on 2L NC upon arrival, SAT 95%. Patient is alert and oriented at this time, reports dizziness has resolved. History of Present Illness HPI narrative: Pricilla Tubbs is a 74-year-old female with past medical history of hypokalemia, tobacco use, COPD, hypertension, hyperlipidemia, coronary artery disease who presents to the emergency department via EMS from home for complaints of dizziness. Patient states that she got up this morning and felt like the room was spinning. She made coffee and got family breakfast and states that the dizziness continued. She denies any shortness of breath or chest pain. She states that the dizziness has since resolved since she has been here. She denies any abdominal pain or fever. She states that she had 1 episode of vomiting yesterday. Related Data Home Medications ?Medication ?Instructions ?Recorded ?Confirmed amlodipine 10 mg tablet 10 mg PO DAILY 04/28/25 05/21/25 aspirin 81 mg tablet,delayed 81 mg PO DAILY 04/28/25 05/21/25 release atorvastatin 80 mg tablet 80 mg PO HS 04/28/25 05/21/25 buspirone 10 mg tablet 10 mg PO TID 04/28/25 05/21/25 clopidogrel 75 mg tablet 75 mg PO DAILY 04/28/25 05/21/25 ergocalciferol (vitamin D2) 1,250 1,250 mcg PO WEEKLY 04/28/25 05/21/25 mcg (50,000 unit) capsule pantoprazole 40 mg tablet,delayed 40 mg PO DAILY 04/28/25 05/21/25 release pregabalin 75 mg capsule 75 mg PO BID 04/28/25 05/21/25 cyclobenzaprine 10 mg tablet 10 mg PO BID 05/21/25 05/21/25 furosemide 20 mg tablet 20 mg PO DAILYP PRN Leg swelling 05/21/25 05/21/25 Previous Rx's ?Medication ?Instructions ?Recorded misoprostol 200 mcg tablet 200 mcg PO TID 30 days #90 tabs 04/29/25 Allergies Allergy/AdvReac Type Severity Reaction Status Date / Time Sulfa (Sulfonamide Allergy Nausea Verified 03/02/24 10:41 Antibiotics) [facility] Disclaimer: The information contained in this section may have been updated after the patient was seen, as this information can be updated by other users. Medical History (Updated 05/22/25 @ 07:14 by Kenny Velasquez MD) CVA (cerebral vascular accident) At risk for cardiac dysfunction during anesthesia Tobacco dependence Diverticulosis Osteoarthritis Abdominal wall hernia DJD (degenerative joint disease), lumbar Lumbar radiculopathy HTN (hypertension) Gastroesophageal reflux disease Anxiety CAD (coronary artery disease) Hyperlipidemia Depression Surgical History (Updated 05/21/25 @ 14:57 by Maine Ryan RN) H/O heart artery stent Hx of cardiac cath S/P peripheral artery angioplasty with stent placement Hx of cholecystectomy Family History Mother No significant family history Father Heart attack Social History (Updated 05/21/25 @ 14:57 by Maine Ryan RN) Smoking Status: Current every day smoker tobacco type: cigarettes packs per day: 1 second hand exposure: No alcohol intake: never substance use type: denies use current occupational status: retired Travel in the last 8 weeks?: None household members: family housing: house marital status: current occupation: [employer] caffeine: Yes Have you lived/traveled outside [place] in past 30 days?: No Contact w/someone who lives/traveled outside US past 30 days?: No Exposure to someone with infectious disease in past 14 days?: No Do you have a fever (greater than 100.4 F or 38 C)?: No Have you tested positive for COVID-19?: No Exposed to someone with COVID-19 in past 14 days?: No Do you have a sore throat?: No Do you have a cough?: No Do you have any weakness?: No Do you have any diarrhea?: No Are you experiencing any unusual bleeding?: No Do you have any muscle aches/pain?: No Do you have any abdominal pain?: No Are you experiencing loss of taste or smell?: No Other Medical History Have you received the Flu Vaccine for this season: No Have you received the Pneumonia Vaccine: No ROS Obtained: Yes Systems reviewed as appropriate & no additional complaints except as documented Physical Exam General General appearance: alert and in no apparent distress Head Head exam: atraumatic Eye Eye exam: Present normal appearance ENT ENT exam: Present normal external ear exam Neck Neck exam: Present full ROM Chest Chest inspection: Present symmetric chest wall rise Respiratory Respiratory exam: Present normal lung sounds bilaterally; Absent respiratory distress, wheezes or stridor Cardiovascular Cardiovascular exam: Present regular rate and normal rhythm Abdominal Exam Abdominal exam: Present soft; Absent distention, tenderness, guarding or rebound Extremities Exam Extremities exam: Present normal inspection Back Exam Back exam: Present normal inspection Neurological Exam Neurological exam: Present alert and oriented X3 Psychiatric Psychiatric exam: Present normal affect Skin Skin exam: Present warm, dry and other (Mild swelling to distal LLE that is non-pitting. No significant erythema. 2+DP and PT pulses) Medical Decision Making Medical Records Screening: Per USPSTF and CDC recommendations, given the prevalence of disease in our region, it is our hospital?s policy to screen for HIV and viral Hepatitis for all patients aged 18 and over and those with ongoing risk factors. Pratik Inquiry Pt receiving controlled substance: No Vital Signs: 05/21/25 10:06 05/21/25 10:11 05/21/25 10:30 Temperature 98.7 F Temperature Source Oral Pulse Rate 85 87 Pulse Rate [Left] 86 Respiratory Rate 19 19 19 Blood Pressure 168/80 H Blood Pressure [Right Arm] 155/80 H Blood Pressure Mean 109 Blood Pressure Mean [Right Arm] 105 Blood Pressure Source Blood Pressure Source [Right Arm] Automatic Cuff Blood Pressure Position Blood Pressure Position [Right Arm] Supine 02 Sat by Pulse Oximetry 95 95 95 Oxygen Delivery Method Nasal Cannula Nasal Cannula Nasal Cannula Oxygen Flow Rate (LPM) 2 2 2 05/21/25 11:30 05/21/25 12:02 05/21/25 12:31 Temperature Temperature Source Pulse Rate 109 H 87 Pulse Rate [Left] Respiratory Rate 11 L 24 17 Blood Pressure 159/127 H 186/90 H 167/84 H Blood Pressure [Right Arm] Blood Pressure Mean 137 Blood Pressure Mean [Right Arm] Blood Pressure Source Blood Pressure Source [Right Arm] Blood Pressure Position Blood Pressure Position [Right Arm] 02 Sat by Pulse Oximetry 92 L 93 L 93 L Oxygen Delivery Method Room Air Room Air Oxygen Flow Rate (LPM) 05/21/25 13:00 05/21/25 13:58 05/21/25 14:18 Temperature 98.7 F Temperature Source Oral Pulse Rate 85 83 87 Pulse Rate [Left] Respiratory Rate 17 17 19 Blood Pressure 182/91 H 161/51 H 154/93 H Blood Pressure [Right Arm] Blood Pressure Mean 87 Blood Pressure Mean [Right Arm] Blood Pressure Source Automatic Cuff Blood Pressure Source [Right Arm] Blood Pressure Position Supine Blood Pressure Position [Right Arm] 02 Sat by Pulse Oximetry 93 L 92 L Oxygen Delivery Method Room Air Room Air Room Air Oxygen Flow Rate (LPM) Lab Data Lab Results 05/21/25 09:55: WBC 7.9, RBC 4.95, Hgb 14.6, Hct 42.4, MCV 85.7, MCH 29.5, MCHC 34.4, RDW 13.7, Plt Count 355, MPV 10.1, Neut % (Auto) 76.6, Lymph % (Auto) 10.1, [place] % (Auto) 11.2 H, Eos % (Auto) 1.1, Baso % (Auto) 0.5, Neut # (Auto) 6.1, Lymph # (Auto) 0.8, [place] # (Auto) 0.9, Eos # (Auto) 0.1, Baso # (Auto) 0.0, Sodium 128 L, Potassium 2.1 L*, Chloride 81 L, Carbon Dioxide 41 H*, Anion Gap 8.1, BUN 13, Creatinine 0.90, Estimated Creat Clear 53, Estimated GFR 61, Est GFR ( Amer) 74, Glucose 138 H, Calcium 9.4, Magnesium 1.6, Total Bilirubin 0.4, AST 30, ALT 22, Alkaline Phosphatase 136 H, Troponin I 0.02, NT-Pro-B Natriuret Pep 1480 H, Total Protein 7.1, Albumin 3.9, Globulin 3.2, Albumin/Globulin Ratio 1.2, TSH 8.36 H, Free T4 1.50 05/21/25 12:23: Urine Color Yellow, Urine Appearance Clear, Urine pH 7.0, Ur Specific [place] 1.010, Urine Protein 2+ A, Urine Glucose (UA) Negative, Urine Ketones Negative, Urine Blood Trace-l, Urine Nitrate Negative, Urine Bilirubin Negative, Urine Urobilinogen 0.2, Ur Leukocyte Esterase Negative, Urine RBC Occasional, Urine WBC None, Ur Squamous Epith Cells Occasional, Urine Bacteria Trace 05/21/25 13:04: Troponin I 0.03 05/22/25 04:55 05/22/25 05:30 Orders (Tests/Meds): ED MEDICATIONS Generic Name Dose Route Start Last Admin Trade Name Freq PRN Reason Stop Dose Admin Acetaminophen 650 mg 05/21/25 13:02 Acetaminophen 325mg Tab PO 06/20/25 13:01 Q4HP PRN Fever or Mild Pain (1-3) Amlodipine Besylate 10 mg 05/21/25 18:45 05/21/25 20:28 Amlodipine 10mg Tablet PO 06/20/25 18:44 10 mg DAILY JULIANO Administration Aspirin 81 mg 05/21/25 18:45 05/21/25 20:36 Aspirin Ec 81mg Tablet PO 06/20/25 18:44 81 mg DAILY JULIANO Administration Atorvastatin Calcium 80 mg 05/21/25 21:00 05/21/25 20:32 Atorvastatin 40mg Tablet PO 06/20/25 20:59 80 mg HS JULIANO Administration Buspirone HCl 10 mg 05/21/25 21:00 05/21/25 21:09 Buspirone Hcl 10 Mg Tablet PO 06/20/25 20:59 10 mg TID JULIANO Administration Clopidogrel Bisulfate 75 mg 05/21/25 18:45 05/21/25 20:27 Clopidogrel 75mg Tab PO 06/20/25 18:44 75 mg DAILY JULIANO Administration Cyclobenzaprine HCl 10 mg 05/21/25 21:00 05/21/25 21:09 Cyclobenzaprine 10mg Tablet PO 06/20/25 20:59 10 mg BID JULIANO Administration Heparin Sodium (Porcine) 5,000 unit 05/21/25 21:00 05/21/25 20:27 Heparin Sodium 5,000 Unit/Ml Vial SUBCUT 06/20/25 20:59 5,000 unit TID JULIANO Administration Potassium Chloride/Water 100 mls @ 100 mls/hr 05/22/25 06:30 05/22/25 06:29 Potassium Chloride 10meq/100ml Ivpb IV 05/22/25 09:29 100 mls/hr Q1H JULIANO Administration Misoprostol 200 mcg 05/21/25 21:00 05/21/25 21:09 Misoprostol 200 Mcg Tablet PO 06/20/25 20:59 200 mcg TID JULIANO Administration Pantoprazole Sodium 40 mg 05/21/25 21:00 05/21/25 20:27 Pantoprazole 40mg Tablet PO 06/20/25 20:59 40 mg HS JULIANO Administration Potassium Chloride 40 meq 05/22/25 06:30 05/22/25 06:29 Potassium Chloride 20meq Tab PO 05/22/25 14:31 40 meq Q4H JULIANO Administration Pregabalin 75 mg 05/22/25 09:00 Pregabalin 25mg Capsule PO 06/21/25 08:59 BID JULIANO Sodium Chloride 10 ml 05/21/25 13:24 Sodium Chloride 0.9% 10ml Flush Syringe IV 06/20/25 13:23 NEEDED PRN Maintain IV Site Discontinued Medications Generic Name Dose Route Start Last Admin Trade Name Freq PRN Reason Stop Dose Admin Sodium Chloride 1,000 mls @ 250 mls/hr 05/21/25 11:00 05/21/25 11:17 Sod Chlor 0.9% 1000ml Bag IV 06/20/25 10:59 250 mls/hr .Q4H JULIANO Administration Potassium Chloride/Water 100 mls @ 100 mls/hr 05/21/25 11:00 05/21/25 15:04 Potassium Chloride 10meq/100ml Ivpb IV 05/21/25 13:59 100 mls/hr Q1H JULIANO Administration Lactated Ringer's 1,000 mls @ 50 mls/hr 05/21/25 13:15 05/21/25 15:26 Lactated Ringer's 1000 Ml Bag IV 06/20/25 13:14 Not Given .Q20H JULIANO Magnesium Sulfate 2 gm in 50 mls @ 50 mls/hr 05/21/25 15:15 05/21/25 17:27 Magnesium Sulfate 2gm/50ml Premix IV 05/21/25 17:14 50 mls/hr Q1H JULIANO Administration Non-Formulary Medication 75 mg 05/21/25 21:00 05/21/25 21:09 Pregabalin PO 06/20/25 20:59 75 mg BID JULIANO Administration Potassium Chloride 80 meq 05/21/25 11:00 05/21/25 11:17 Potassium Chloride 20meq Tab PO 05/21/25 11:01 80 meq ONCE ONE Administration Potassium Chloride 40 meq 05/22/25 06:09 05/22/25 06:18 Potassium Chloride 20meq Tab PO 05/22/25 06:10 40 meq ONCE ONE Administration ORDERS Category Date Time Status CXR 2 view (NOT portable) [XR chest 2V] Stat Exams 05/21/25 10:38 Completed BNP [NT Pro Brain Natriuretic Pep.] Stat Lab 05/21/25 09:55 Completed Basic Metabolic Panel AMLAB Lab 05/23/25 06:00 Ordered Basic Metabolic Panel AMLAB Lab 05/24/25 06:00 Ordered CBC w/Auto Diff [Complete Blood Count Auto Diff] Stat Lab 05/21/25 09:55 Completed CMP [Comprehensive Metabolic Panel] Stat Lab 05/21/25 09:55 Completed Complete Blood Count Auto Diff AMLAB Lab 05/22/25 04:55 Completed Complete Blood Count Auto Diff AMLAB Lab 05/23/25 06:00 Ordered Complete Blood Count Auto Diff AMLAB Lab 05/24/25 06:00 Ordered Free T4 (Free Thyroxine) Stat Lab 05/21/25 09:55 Completed Magnesium Stat Lab 05/21/25 09:55 Completed TSH [Thyroid Stimulating Hormone] Stat Lab 05/21/25 09:55 Completed Troponin I Q3H Lab 05/21/25 13:04 Completed Troponin I Q3H Lab 05/21/25 16:43 Completed Troponin I Stat Lab 05/21/25 09:55 Completed UA [Urinalysis and Microscopic] Stat Lab 05/21/25 12:23 Completed CA venous doppler LE LT Stat Y 05/21/25 11:04 Completed ECG Data Tracing #1: I reviewed this ECG and interpreted as documented below: Normal sinus rhythm. No ST elevation or depression. QTc normal at 472 Medical Decision Narrative: Pricilla Tubbs is a 74-year-old female with past medical history of hypokalemia, tobacco use, COPD, hypertension, hyperlipidemia, coronary artery disease who presents to the emergency department via EMS from home for complaints of dizziness. Patient states that she got up this morning and felt like the room was spinning. She made coffee and got family breakfast and states that the dizziness continued. She denies any shortness of breath or chest pain. She states that the dizziness has since resolved since she has been here. She denies any abdominal pain or fever. She states that she had 1 episode of vomiting yesterday. Patient was borderline tachycardic and hypertensive. Afebrile. On 1 L nasal cannula with appropriate oxygen saturation. Physical exam, as stated above, revealed female who is alert, GCS 15 and oriented to person self and date. She has no complaints at this time. Abdomen soft, nontender nondistended. She has no wheezing, rales or rhonchi. No cardiac murmurs. She does have some mild swelling to the distal left lower extremity but no significant erythema. Pulses are present. Sensation is grossly intact. Previous records were reviewed. Patient does have a recent admission for hypokalemia and appears to have been hypokalemic in the past. Most recently, she was confused when she was hypokalemic. Differential diagnosis includes, but is not limited to: ACS, cardiac arrhythmia, electrolyte derangement, metabolic derangement, pneumonia, DVT, UTI, vertigo, BPPV, among others. The most morbid conditions were considered and workup was based on these. Workup in the emergency department included: Left lower extremity DVT ultrasound, two-view chest x-ray, EKG, CBC with differential, CMP, troponin, urinalysis, troponin, BNP, TSH and free T4 EKG without evidence of ischemia. See interpretation above Chest x-ray interpreted by me personally. No focal consolidation, no pneumothorax, no widening of the mediastinum. Grossly unremarkable chest x-ray. See radiology report for details. No leukocytosis, no anemia, platelets within normal limits, patient is hyponatremic with sodium 128, hypokalemic with potassium of 2.1 (will replace with oral and IV potassium), carbon dioxide is elevated at 39 but likely related to her COPD and is chronically elevated. Initial prodrome 0.02, repeat troponin 0.03. BNP only mildly elevated at 1480. Thyroid studies show elevated TSH of 8.36 but free T4 is normal at 1.5. Urinalysis with 2+ protein but no evidence of infection or blood. CT imaging of the head as well as CTAs of the head and neck were considered due to patient's dizziness, however she states that this is a chronic issue and is more consistent with vertigo and symptoms have resolved at this time. Given patient's severe hypokalemia and hyponatremia, is felt that she would benefit from admission for continued replacement of these electrolytes. I discussed this with patient she was amenable to admission at this time. I then discussed patient's case with Dr. Harding who agreed to admit the patient for further management. Critical Care Critical Care Time Critical Care Time: Yes Attestation: On 05/21/25, the high probability of a clinically significant, sudden or life threatening deterioration of the following system(s) required my full and direct attention, intervention and personal management. The time I documented below is in addition to time spent performing reported procedures but includes the following listed in this critical care notation. Total Time Total Critical Care Time: 35
--- NOTE | 2025-05-21 10:38 | XR_ITS ---
FINAL REPORT CLINICAL HISTORY: shortness of breath, fainted this morning (05/21/2025) but grandson caught her so no blunt injuries COMPARISON: 12/19/2022 FINDINGS: PA and lateral views of the chest were obtained. The cardiac and mediastinal silhouettes are within normal limits. The lungs are clear. There is no pleural effusion or pneumothorax. No acute osseous abnormality is identified. IMPRESSION: No radiographic evidence of acute cardiac or pulmonary disease. Reviewed, Interpreted and Dictated by Marisabel Lopez MD Transcribed by Laurie Rodriguez Authenticated and [facility]
[2025-05-21 10:44] LABS: Hematocrit 42.4 % (37.0-47.0); Hemoglobin 14.6 g/dL (12.2-16.2); Immature Granulocytes % 0.5 %; Mean Corpuscular HGB Conc 34.4 g/dL (31.8-35.4); Mean Corpuscular Hemoglobin 29.5 pg (27.0-31.2); Mean Corpuscular Volume 85.7 fl (81-99); Nucleated Red Blood Cells % 0 %; Platelet Count 355 K/mm3 (142-424); Red Blood Count 4.95 M/mm3 (4.20-5.40); Red Cell Distribution Width-SD 42.8 fL; White Blood Count 7.9 K/mm3 (4.8-10.8)
[2025-05-21 10:51] LABS: Alanine Aminotransferase 22 U/L (12-78); Albumin Level 3.9 g/dl (3.5-5.0); Albumin/Globulin Ratio 1.2 (1.1-1.8); Alkaline Phosphatase 136 U/L (38-126); Aspartate Amino Transferase 30 U/L (14-36); Bilirubin,Total 0.4 mg/dl (0.2-1.3); Blood Urea Nitrogen 13 mg/dl (7-17); Calcium 9.4 mg/dl (8.4-10.2); Chloride 81 mmol/L (98-107); Creatinine Clearance Estimated 53 mL/min (50-200); Creatinine,Serum 0.90 mg/dl (0.52-1.04); Estimated Glomerular Filt Rate 61 ml/min (>60); GFR (African American) 74 ML/MIN (>60); Globulin 3.2 g/dL (1.3-3.2); Glucose 138 mg/dl (74-100); Magnesium 1.6 mg/dl (1.6-2.3); Sodium 128 mmol/L (136-145); Total Protein,Serum 7.1 g/dl (6.3-8.2)
[2025-05-21 10:58] LABS: Anion Gap 8.1 mEq/L (5-15); Carbon Dioxide 41 mmol/L (22.0-30.0); Potassium 2.1 mmoL/L (3.5-5.1)
--- NOTE | 2025-05-21 10:59 | PC.NURSE ---
CRITICAL K+ 2.1 RECEIVED FROM AMANDA IN LAB. PT NAME AND R/V. DR ZIMMERMAN NOTIFIED
[2025-05-21 11:03] LABS: NT Pro Brain Natriuretic Pep. 1480 pg/mL (0-125); Troponin I 0.02 ng/ml (0.00-0.034)
--- NOTE | 2025-05-21 11:04 | CA_ITS ---
FINAL REPORT CLINICAL HISTORY: LLE pain x couple of months. Patient states it will hurt in calf for 2 weeks and then get better before it starts to hurt again. Denies trauma. Patient currently taking Plavix for CAD. COMPARISON: None FINDINGS: DUPLEX VENOUS SONOGRAPHY OF THE LEFT LOWER EXTREMITY Multiple transverse and longitudinal scans were performed of the femoropopliteal deep venous system, with augmentation and compression maneuvers. HISTORY: Pain FINDINGS: Normal phasic flow was noted in the visualized deep venous system. No intraluminal increased echogenicity is noted to suggest thrombus. There is normal compression and augmentation of the venous structures. No abnormal venous collaterals are seen. IMPRESSION: No evidence of deep venous thrombosis of the left lower extremity. Reviewed, Interpreted and Dictated by Marisabel Lopez MD Transcribed by Alondra Haider Authenticated and [facility]
[2025-05-21] MEDS: 0.9 % SODIUM CHLORIDE 1000ML 1,000 ML 250 ML IV (11:17)
[2025-05-21] MEDS: POTASSIUM CHLORIDE 20MEQ TAB 80 MEQ PO (11:17)
[2025-05-21 11:21] LABS: Thyroid Stimulating Hormone 8.36 uIU/mL (0.465-4.68)
[2025-05-21 12:19] LABS: Free T4 (Free Thyroxine) 1.50 ng/dl (0.78-2.19)
[2025-05-21 12:30] LABS: Microscopic, Urine URINE MICROSCOPIC (MICROSCOPIC)
[2025-05-21 12:37] LABS: Bilirubin,Urine Negative (Negative); Color,Urine YELLOW (Yellow); Glucose,Urine (UA) Negative (Negative); Ketones,Urine Negative (Negative); Leukocyte Esterase,Urine Negative (Negative); PH,Urine 7.0 (5.0-8.5); Protein,Urine 2+ (Negative); Specific Gravity, Urine 1.010 (1.005-1.030); Urobilinogen,Urine 0.2 EU/dl (0.2)
[2025-05-21 12:51] LABS: Bacteria,Urine Trace /lpf; RBC,Urine Occasional #/hpf (0-3); Squamous Epithelial Cell,Urine Occasional #/hpf (0-5)
--- NOTE | 2025-05-21 13:06 | PC.NURSE ---
HOUSE SUPERVISOT NOTIFIED OF ADMISSION
--- NOTE | 2025-05-21 13:10 | HMH.PHAINT1 ---
Pharmacy Intervention Comments: MEDICATION RECONCILIATION COMPLETED ON PATIENT USING EXTERNAL FILL HISTORY FROM PHARMACY AND DISCHARGE SUMMARY FROM PREVIOUS ADMISSION. -NINA TREJO, ASHLEYD
[2025-05-21 13:33] LABS: Troponin I 0.03 ng/ml (0.00-0.034)
--- NOTE | 2025-05-21 13:48 | PC.NURSE ---
Patient report called to [facility]
--- NOTE | 2025-05-21 14:08 | PC.NURSE ---
Pt arrived to the floor by stretcher with ER staff
[2025-05-21] MEDS: MAGNESIUM SULFATE IN WATER 2 GM/50 ML PIGGYBACK IV ×2 (16:13→17:27)
[2025-05-21 17:27] LABS: Troponin I 0.02 ng/ml (0.00-0.034)
--- NOTE | 2025-05-21 18:41 | EXP.HP ---
History of Present Illness *Admission Date: 05/21/25 *Reason for visit:: Syncope *History of present illness: Patient is a 74-year-old female with past medical history of malignant hypertension hypothyroidism hypertension who presents to the hospital due to dizziness and syncopal event, she felt like room was spinning.. Patient was found to have hypokalemia and hypomagnesemia, patient denied chest pain shortness of breath nausea vomiting diarrhea constipation dysuria fevers and chills. On further evaluation. [facility] Disclaimer: The information contained in this section may have been updated after the patient was seen, as this information can be updated by other users. Medical History (Updated 05/21/25 @ 14:57 by Maine Ryan RN) CVA (cerebral vascular accident) At risk for cardiac dysfunction during anesthesia Tobacco dependence Diverticulosis Osteoarthritis Abdominal wall hernia DJD (degenerative joint disease), lumbar Lumbar radiculopathy HTN (hypertension) Gastroesophageal reflux disease Anxiety CAD (coronary artery disease) Hyperlipidemia Depression Surgical History (Updated 05/21/25 @ 14:57 by Maine Ryan RN) H/O heart artery stent Hx of cardiac cath S/P peripheral artery angioplasty with stent placement Hx of cholecystectomy Family History Mother No significant family history Father Heart attack Social History (Updated 05/21/25 @ 14:57 by Maine Ryan RN) Smoking Status: Current every day smoker tobacco type: cigarettes packs per day: 1 second hand exposure: No alcohol intake: never substance use type: denies use current occupational status: retired Travel in the last 8 weeks?: None household members: family housing: house marital status: current occupation: [employer] caffeine: Yes Have you lived/traveled outside US in past 30 days?: No Contact w/someone who lives/traveled outside US past 30 days?: No Exposure to someone with infectious disease in past 14 days?: No Do you have a fever (greater than 100.4 F or 38 C)?: No Have you tested positive for COVID-19?: No Exposed to someone with COVID-19 in past 14 days?: No Do you have a sore throat?: No Do you have a cough?: No Do you have any weakness?: No Do you have any diarrhea?: No Are you experiencing any unusual bleeding?: No Do you have any muscle aches/pain?: No Do you have any abdominal pain?: No Are you experiencing loss of taste or smell?: No Other Medical History Have you received the Flu Vaccine for this season: Yes Have you received the Pneumonia Vaccine: Yes Review of Systems Review of Systems Review of systems:: pertinent systems reviewed and negative unless documented below Meds Home Medications and Allergies Home Medications ?Medication ?Instructions ?Recorded ?Confirmed ?Type amlodipine 10 mg tablet 10 mg PO DAILY 04/28/25 05/21/25 History aspirin 81 mg tablet,delayed 81 mg PO DAILY 04/28/25 05/21/25 History release atorvastatin 80 mg tablet 80 mg PO HS 04/28/25 05/21/25 History buspirone 10 mg tablet 10 mg PO TID 04/28/25 05/21/25 History clopidogrel 75 mg tablet 75 mg PO DAILY 04/28/25 05/21/25 History ergocalciferol (vitamin D2) 1,250 1,250 mcg PO WEEKLY 04/28/25 05/21/25 History mcg (50,000 unit) capsule pantoprazole 40 mg tablet,delayed 40 mg PO DAILY 04/28/25 05/21/25 History release pregabalin 75 mg capsule 75 mg PO BID 04/28/25 05/21/25 History misoprostol 200 mcg tablet 200 mcg PO TID 30 days #90 tabs 04/29/25 05/21/25 Rx cyclobenzaprine 10 mg tablet 10 mg PO BID 05/21/25 05/21/25 History furosemide 20 mg tablet 20 mg PO DAILYP PRN Leg swelling 05/21/25 05/21/25 History New Prescriptions to Start Prescriptions: Allergies Allergy/AdvReac Type Severity Reaction Status Date / Time Sulfa (Sulfonamide Allergy Nausea Verified 03/02/24 10:41 Antibiotics) Exam Data for Last 24 hours Vital signs and Labs for Last 24 Hours: Temp Pulse Resp BP Pulse Ox O2 Del Method O2 Flow Rate 98.7 F 91 H 19 135/112 H 93 L Nasal Cannula 1 05/21/25 14:18 05/21/25 18:03 05/21/25 18:03 05/21/25 18:03 05/21/25 18:03 05/21/25 18:03 05/21/25 18:03 Laboratory Results - last 24 hr 05/21/25 09:55: WBC 7.9, RBC 4.95, Hgb 14.6, Hct 42.4, MCV 85.7, MCH 29.5, MCHC 34.4, RDW 13.7, Plt Count 355, MPV 10.1, Neut % (Auto) 76.6, Lymph % (Auto) 10.1, [place] % (Auto) 11.2 H, Eos % (Auto) 1.1, Baso % (Auto) 0.5, Neut # (Auto) 6.1, Lymph # (Auto) 0.8, [place] # (Auto) 0.9, Eos # (Auto) 0.1, Baso # (Auto) 0.0, Sodium 128 L, Potassium 2.1 L*, Chloride 81 L, Carbon Dioxide 41 H*, Anion Gap 8.1, BUN 13, Creatinine 0.90, Estimated Creat Clear 53, Estimated GFR 61, Est GFR ( Amer) 74, Glucose 138 H, Calcium 9.4, Magnesium 1.6, Total Bilirubin 0.4, AST 30, ALT 22, Alkaline Phosphatase 136 H, Troponin I 0.02, NT-Pro-B Natriuret Pep 1480 H, Total Protein 7.1, Albumin 3.9, Globulin 3.2, Albumin/Globulin Ratio 1.2, TSH 8.36 H, Free T4 1.50 05/21/25 12:23: Urine Color Yellow, Urine Appearance Clear, Urine pH 7.0, Ur Specific [place] 1.010, Urine Protein 2+ A, Urine Glucose (UA) Negative, Urine Ketones Negative, Urine Blood Trace-l, Urine Nitrate Negative, Urine Bilirubin Negative, Urine Urobilinogen 0.2, Ur Leukocyte Esterase Negative, Urine RBC Occasional, Urine WBC None, Ur Squamous Epith Cells Occasional, Urine Bacteria Trace 05/21/25 13:04: Troponin I 0.03 05/21/25 16:43: Troponin I 0.02 I & O for Last 24 hours: Intake & Output 05/18/25 05/19/25 05/20/25 05/21/25 23:59 23:59 23:59 23:59 Intake Total 1800 / 1800 Output Total 200 / 200 Balance 1600 / 1600 Weight 67.132 kg Constitutional Constitutional: no acute distress *Routine HEENT Exam Head: Present normocephalic Eye: Present EOMI and PERRL ENT: Present mucous membranes moist *Routine Neck Exam Neck: Present supple; Absent lymphadenopathy *Routine Respiratory Exam Respiratory: Present CTA bilaterally *Routine Cardiovascular Exam Cardiovascular: Present RRR *Routine Abdominal Exam Abdominal: Present soft and normoactive bowel sounds; Absent tenderness *Routine Rectal Exam Rectal:: deferred *Routine Genitalia Exam Genitalia:: deferred *Routine Extremities Exam Extremities: Absent cyanosis, clubbing or edema *Routine Skin Exam Skin: Present warm; Absent rash *Routine Neurological Exam Neurological: Present alert and oriented X3 Assessment and Plan *Assessment and plan (1) Hypokalemia: Status: Acute Category: Medical Code(s): E87.6 - Hypokalemia (2) Nausea and vomiting: Status: Acute Category: Medical Code(s): R11.2 - Nausea with vomiting, unspecified (3) Hypomagnesemia: Status: Acute Category: Medical Code(s): E83.42 - Hypomagnesemia (4) Gastroesophageal reflux disease: Status: Chronic Category: Medical Code(s): K21.9 - Gastro-esophageal reflux disease without esophagitis (5) Anxiety: Status: Chronic Category: Medical Code(s): F41.9 - Anxiety disorder, unspecified (6) CAD (coronary artery disease): Status: Chronic Qualifiers: Associated angina: without angina Coronary Disease-Associated Artery/Lesion type: [place] artery [place] vs. transplanted heart: [place] heart Qualified Code(s): I25.10 - Atherosclerotic heart disease of [place] coronary artery without angina pectoris Category: Medical Code(s): I25.10 - Atherosclerotic heart disease of [place] coronary artery without angina pectoris (7) Hyperlipidemia: Status: Chronic Qualifiers: Hyperlipidemia type: unspecified Qualified Code(s): E78.5 - Hyperlipidemia, unspecified Category: Medical Code(s): E78.5 - Hyperlipidemia, unspecified (8) Depression: Status: Chronic Qualifiers: Active/Remission status: currently active Depression Type: major depressive disorder Major depression episode severity: mild Major depression recurrence: single episode Qualified Code(s): F32.0 - Major depressive disorder, single episode, mild Category: Medical Code(s): F32.A - Depression, unspecified Plan Patient is a 74-year-old female with past medical history of malignant hypertension hypothyroidism hypertension who presents to the hospital due to dizziness and syncopal event, she felt like room was spinning.. Patient was found to have hypokalemia and hypomagnesemia, patient denied chest pain shortness of breath nausea vomiting diarrhea constipation dysuria fevers and chills. On further evaluation. Assessment and plan Syncope Hypokalemia Hypocalcemia Hyponatremia Monitor on cardiac fitness club manager and replace electrolytes Check orthostatic vitals Start gentle IV fluid therapy with normal saline Hold home diuretics check echo cardiogram if not done recently Chronic medical conditions Depression Hyperlipidemia CAD Anxiety GERD Hypertension - Resume home medications except home lasix DVT PPx - SQH heparin
[2025-05-21] MEDS: PANTOPRAZOLE 40MG TABLET 40 MG PO (20:27)
[2025-05-21] MEDS: HEPARIN SODIUM 5,000 UNIT/ML VIAL 5000 UNIT SUBCUT (20:27)
[2025-05-21] MEDS: CLOPIDOGREL 75MG TAB 75 MG PO (20:27)
[2025-05-21] MEDS: AMLODIPINE 10MG TABLET 10 MG PO (20:28)
[2025-05-21] MEDS: ATORVASTATIN 40MG TABLET 80 MG PO (20:32)
[2025-05-21] MEDS: ASPIRIN EC 81MG TABLET 81 MG PO (20:36)
[2025-05-21] MEDS: PATIENT'S OWN HOME MEDICATION (Pregabalin 75 mg capsule) 75 EACH PO (21:09)
[2025-05-21] MEDS: CYCLOBENZAPRINE 10MG TABLET 10 MG PO (21:09)
[2025-05-21] MEDS: BUSPIRONE HCL 10 MG TABLET PO (21:09)
[2025-05-22] VITALS (22 sets, daily range): BP systolic 104–176; BP diastolic 54–100; PULSE 77–102; RESP 12–22; TEMP 36.4–36.9; O2SAT 91–98; BMI 28.6
--- NOTE | 2025-05-22 02:41 | PC.NURSE ---
VBG results improving; MD aware Ph 7.31 CO2 57.1 Bicarb 27.8
--- NOTE | 2025-05-22 04:26 | PC.NURSE ---
Called lab to notify them of need for stat BMP
[2025-05-22 05:12] LABS: Chloride 85 mmol/L (98-107); Sodium 124 mmol/L (136-145)
[2025-05-22 05:14] LABS: Potassium 2.1 mmoL/L (3.5-5.1)
[2025-05-22 05:15] LABS: Anion Gap 2.1 mEq/L (5-15); Blood Urea Nitrogen 13 mg/dl (7-17); Calcium 8.2 mg/dl (8.4-10.2); Carbon Dioxide 39 mmol/L (22.0-30.0); Creatinine Clearance Estimated 56 mL/min (50-200); Creatinine,Serum 0.60 mg/dl (0.52-1.04); Estimated Glomerular Filt Rate 98 ml/min (>60); GFR (African American) 119 ML/MIN (>60); Glucose 119 mg/dl (74-100)
--- NOTE | 2025-05-22 05:15 | PC.NURSE ---
Received critical potassium result of 2.1: Told lab we will need to re draw blood to have the test ran again to confirm if lab result is accurate
[2025-05-22 05:16] LABS: Magnesium 2.2 mg/dl (1.6-2.3)
[2025-05-22 05:42] LABS: Hematocrit 35.2 % (37.0-47.0); Immature Granulocytes % 0.6 %; Mean Corpuscular HGB Conc 34.4 g/dL (31.8-35.4); Mean Corpuscular Hemoglobin 29.6 pg (27.0-31.2); Mean Corpuscular Volume 86.1 fl (81-99); Nucleated Red Blood Cells % 0 %; Platelet Count 289 K/mm3 (142-424); Red Blood Count 4.09 M/mm3 (4.20-5.40); Red Cell Distribution Width-SD 43.2 fL; White Blood Count 6.8 K/mm3 (4.8-10.8)
[2025-05-22 05:46] LABS: Hemoglobin 12.2 g/dL (12.2-16.2)
[2025-05-22 06:06] LABS: Chloride 85 mmol/L (98-107); Sodium 125 mmol/L (136-145)
[2025-05-22 06:08] LABS: Potassium 2.1 mmoL/L (3.5-5.1)
[2025-05-22 06:09] LABS: Anion Gap 3.1 mEq/L (5-15); Blood Urea Nitrogen 12 mg/dl (7-17); Carbon Dioxide 39 mmol/L (22.0-30.0); Creatinine Clearance Estimated 56 mL/min (50-200); Creatinine,Serum 0.60 mg/dl (0.52-1.04); Estimated Glomerular Filt Rate 98 ml/min (>60); GFR (African American) 119 ML/MIN (>60)
[2025-05-22 06:10] LABS: Calcium 8.5 mg/dl (8.4-10.2); Glucose 113 mg/dl (74-100)
[2025-05-22] MEDS: POTASSIUM CHLORIDE 20MEQ TAB 40 MEQ PO ×4 (06:18→14:15)
--- NOTE | 2025-05-22 06:18 | PC.NURSE ---
Electrolyte replacement form faxed to pharmacy
--- NOTE | 2025-05-22 06:27 | PC.NURSE ---
OK per Dr. Cisneros to give second dose of 40 meq of potassium along with IV potassium after rec. 40 meq of dose per MAR for total dose of 80 meq potassium oral and 10 meq of potassium IV
[2025-05-22 06:35] LABS: Magnesium 2.3 mg/dl (1.6-2.3)
[2025-05-22] MEDS: BUSPIRONE HCL 10 MG TABLET PO ×2 (08:54→09:42)
[2025-05-22] MEDS: CLOPIDOGREL 75MG TAB 75 MG PO (08:54)
[2025-05-22] MEDS: CYCLOBENZAPRINE 10MG TABLET 10 MG PO (08:54)
[2025-05-22] MEDS: ASPIRIN EC 81MG TABLET 81 MG PO (08:54)
[2025-05-22] MEDS: AMLODIPINE 10MG TABLET 10 MG PO (08:54)
[2025-05-22] MEDS: HEPARIN SODIUM 5,000 UNIT/ML VIAL 5000 UNIT SUBCUT ×3 (08:57→20:22)
[2025-05-22] MEDS: PREGABALIN 25MG CAPSULE 75 MG PO ×2 (08:58→20:31)
[2025-05-22 09:22] LABS: Sodium,Urine Random 23.0 mmol/L (30-90)
[2025-05-22 10:41] LABS: Chloride 85 mmol/L (98-107); Potassium 3.2 mmoL/L (3.5-5.1); Sodium 126 mmol/L (136-145)
[2025-05-22 10:43] LABS: Blood Urea Nitrogen 11 mg/dl (7-17); Creatinine Clearance Estimated 56 mL/min (50-200); Creatinine,Serum 0.80 mg/dl (0.52-1.04); Estimated Glomerular Filt Rate 70 ml/min (>60); GFR (African American) 85 ML/MIN (>60)
[2025-05-22 10:44] LABS: Anion Gap 5.2 mEq/L (5-15); Calcium 8.5 mg/dl (8.4-10.2); Carbon Dioxide 39 mmol/L (22.0-30.0); Glucose 107 mg/dl (74-100)
[2025-05-22] MEDS: BUSPIRONE HCL 10 MG TABLET 20 MG PO ×2 (13:55→20:31)
[2025-05-22 16:34] LABS: Chloride 88 mmol/L (98-107); Potassium 3.6 mmoL/L (3.5-5.1); Sodium 125 mmol/L (136-145)
[2025-05-22 16:37] LABS: Anion Gap 6.6 mEq/L (5-15); Blood Urea Nitrogen 11 mg/dl (7-17); Carbon Dioxide 34 mmol/L (22.0-30.0); Creatinine Clearance Estimated 56 mL/min (50-200); Creatinine,Serum 0.60 mg/dl (0.52-1.04); Estimated Glomerular Filt Rate 98 ml/min (>60); GFR (African American) 119 ML/MIN (>60)
[2025-05-22 16:38] LABS: Calcium 8.5 mg/dl (8.4-10.2); Glucose 109 mg/dl (74-100)
--- NOTE | 2025-05-22 16:42 | EXP.PN ---
Subjective *Date: 05/22/25 *Time: 16:42 Interval history: seen at bedside, denied CP, SOB, N/V, no new complains today Exam Data for Last 24 hours Vital signs and Labs for Last 24 Hours: Temp Pulse Resp BP Pulse Ox O2 Del Method O2 Flow Rate 97.6 F 89 20 166/82 H 93 L Room Air 0 05/22/25 16:03 05/22/25 16:06 05/22/25 16:03 05/22/25 16:03 05/22/25 16:03 05/22/25 16:03 05/22/25 06:47 Laboratory Results - last 24 hr 05/21/25 16:43: Troponin I 0.02 05/22/25 04:55: WBC 6.8, RBC 4.09 L, Hgb 12.2 D, Hct 35.2 L, MCV 86.1, MCH 29.6, MCHC 34.4, RDW 13.6, Plt Count 289, MPV 9.7, Neut % (Auto) 72.1, Lymph % (Auto) 14.0, [place] % (Auto) 10.2 H, Eos % (Auto) 2.5, Baso % (Auto) 0.6, Neut # (Auto) 4.9, Lymph # (Auto) 1.0, [place] # (Auto) 0.7, Eos # (Auto) 0.2, Baso # (Auto) 0.0, Sodium 124 L, Potassium 2.1 L*, Chloride 85 L, Carbon Dioxide 39 H, Anion Gap 2.1 L, BUN 13, Creatinine 0.60 D, Estimated Creat Clear 56, Estimated GFR 98, Est GFR ( Amer) 119 D, Glucose 119 H, Calcium 8.2 L, Magnesium 2.2 D 05/22/25 05:30: Sodium 125 L, Potassium 2.1 L*, Chloride 85 L, Carbon Dioxide 39 H, Anion Gap 3.1 L, BUN 12, Creatinine 0.60, Estimated Creat Clear 56, Estimated GFR 98, Est GFR ( Amer) 119, Glucose 113 H, Calcium 8.5, Magnesium 2.3 05/22/25 08:37: Urine Sodium 23.0 L 05/22/25 10:10: Sodium 126 L, Potassium 3.2 L D, Chloride 85 L, Carbon Dioxide 39 H, Anion Gap 5.2, BUN 11, Creatinine 0.80 D, Estimated Creat Clear 56, Estimated GFR 70, Est GFR ( Amer) 85 D, Glucose 107 H, Calcium 8.5 I & O for Last 24 hours: Intake & Output 05/19/25 05/20/25 05/21/25 05/22/25 23:59 23:59 23:59 23:59 Intake Total 1900 / 1900 1920 / 1920 Output Total 500 / 500 2800 / 2800 Balance 1400 / 1400 -880 / -880 Weight 67.132 kg 70.579 kg Constitutional Constitutional: no acute distress *Routine HEENT Exam Head: Present normocephalic Eye: Present EOMI and PERRL ENT: Present mucous membranes moist *Routine Neck Exam Neck: Present supple; Absent lymphadenopathy *Routine Respiratory Exam Respiratory: Present CTA bilaterally *Routine Cardiovascular Exam Cardiovascular: Present RRR *Routine Abdominal Exam Abdominal: Present soft and normoactive bowel sounds; Absent tenderness *Routine Extremities Exam Extremities: Absent cyanosis, clubbing or edema *Routine Skin Exam Skin: Present warm; Absent rash *Routine Neurological Exam Neurological: Present alert and oriented X3 Assessment and Plan *Assessment and plan (1) Hypokalemia: Status: Acute Category: Medical Code(s): E87.6 - Hypokalemia (2) Nausea and vomiting: Status: Acute Category: Medical Code(s): R11.2 - Nausea with vomiting, unspecified (3) Hypomagnesemia: Status: Acute Category: Medical Code(s): E83.42 - Hypomagnesemia (4) Gastroesophageal reflux disease: Status: Chronic Category: Medical Code(s): K21.9 - Gastro-esophageal reflux disease without esophagitis (5) Anxiety: Status: Chronic Category: Medical Code(s): F41.9 - Anxiety disorder, unspecified (6) CAD (coronary artery disease): Status: Chronic Qualifiers: Coronary Disease-Associated Artery/Lesion type: [place] artery [place] vs. transplanted heart: [place] heart Associated angina: without angina Qualified Code(s): I25.10 - Atherosclerotic heart disease of [place] coronary artery without angina pectoris Category: Medical Code(s): I25.10 - Atherosclerotic heart disease of [place] coronary artery without angina pectoris (7) Hyperlipidemia: Status: Chronic Qualifiers: Hyperlipidemia type: unspecified Qualified Code(s): E78.5 - Hyperlipidemia, unspecified Category: Medical Code(s): E78.5 - Hyperlipidemia, unspecified (8) Depression: Status: Chronic Qualifiers: Depression Type: major depressive disorder Major depression recurrence: single episode Active/Remission status: currently active Major depression episode severity: mild Qualified Code(s): F32.0 - Major depressive disorder, single episode, mild Category: Medical Code(s): F32.A - Depression, unspecified Plan Patient is a 74-year-old female with past medical history of malignant hypertension hypothyroidism hypertension who presents to the hospital due to dizziness and syncopal event, she felt like room was spinning.. Patient was found to have hypokalemia and hypomagnesemia, patient denied chest pain shortness of breath nausea vomiting diarrhea constipation dysuria fevers and chills. On further evaluation. Assessment and plan Syncope Hypokalemia Hypocalcemia Hyponatremia Monitor on cardiac teacher early childhood development and replace electrolytes Check orthostatic vitals Start gentle IV fluid therapy with normal saline Hold home diuretics check echo cardiogram if not done recently Chronic medical conditions Depression Hyperlipidemia CAD Anxiety GERD Hypertension - Resume home medications except home lasix DVT PPx - SQH heparin
[2025-05-22] MEDS: PT OWN MED *PANTOPRAZOLE 40 MG TAB 1 EACH PO (20:23)
[2025-05-22] MEDS: CYCLOBENZAPRINE 10 MG 1 EACH PO (20:23)
[2025-05-22] MEDS: ATORVASTATIN 40MG TABLET 80 MG PO (20:23)
--- NOTE | 2025-05-22 20:39 | PC.NURSE ---
patient D/C off ICU unit via wheelchair with Misael SRNA to [facility] @20:39
--- NOTE | 2025-05-22 20:56 | PC.NURSE ---
Patient arrived to floor via wheelchair from ICU at 20:45.
--- OUTSIDE RECORDS SUMMARY | 2025-05-22 22:38 | XMS_ITS | Referral Summary ---
Author Organization [employer] ([place], [place], [place], [place]) Address [address] [place] [address] Care Team Providers Care Sea Air Land Officer Name Role Phone Gabino Myrick MD Primary Care Provider [phone] Bruce Shepherd MD Unavailable [phone] Teresa Grigsby DO Unavailable Allergies Active Allergy [...] hyperlipidemia 09/19/2023 Coronary artery disease invo lving [place] coronary artery of [place] heart without angina pectoris 09/19/2023 Cigarette nicotine [...] Date Gordy rded Speak language other than Kazakh at home Not on file 11/01/2023 Want [...] Advance Directives For more information, please contact: [phone] * Full Code (Latest Code Status on File) Date Activated Date Inactivated Comments 09/02/2023 5:26 AM 09/03/2023 4:27 AM * Full Code Date Activated Date Inactivated Comments 08/21/2023 1:50 PM 08/23/2023 6:38 PM Care Teams Sea Air Land Officer Relationship Specialty Start Date End Date Gabino Myrick MD [address] [place] [place] [address] PCP - General Family Medicine 08/08/23 Bruce Shepherd MD [address] [facility] [address] [place] [address] Surgeon Cardiothoracic Surgery 08/21/23 Teresa Grigsby DO [address] [place] [address] Interventional Cardiology 02/05/24
--- OUTSIDE RECORDS SUMMARY | 2025-05-22 22:38 | XMS_ITS | Clinical Summary ---
Author Organization [employer] [facility] ([place], [place], [place], [place]) Address [address] [place] [address] Care Team Providers Care Assembler Chassis Name Role Phone Gabino Myrick MD Primary Care Provider [phone] Bruce Shepherd MD Unavailable [phone] Teresa Grigsby DO Unavailable Allergies Active Allergy [...] hyperlipidemia 09/19/2023 Coronary artery disease invo lving [place] coronary artery of [place] heart without angina pectoris 09/19/2023 Cigarette nicotine [...] Date Gordy rded Speak language other than Guatem[place] at home Not on file 11/01/2023 Want [...] Advance Directives For more information, please contact: [phone] * Full Code (Latest Code Status on File) Date Activated Date Inactivated Comments 09/02/2023 5:26 AM 09/03/2023 4:27 AM * Full Code Date Activated Date Inactivated Comments 08/21/2023 1:50 PM 08/23/2023 6:38 PM Care Teams Assembler Chassis Relationship Specialty Start Date End Date Gabino Myrick MD [address] [place] [address] PCP - General Family Medicine 08/08/23 Bruce Shepherd MD [address] [facility] [address] [place] [id number] Surgeon Cardiothoracic Surgery 08/21/23 Teresa Grigsby DO [address] [place] [id number] Interventional Cardiology 02/05/24
--- OUTSIDE RECORDS SUMMARY | 2025-05-22 22:38 | XMS_ITS | Clinical Summary ---
Author Organization Healthcare Address [address] [place] [address] Care Team Providers Care Senior Compensation Consultant Name Role Phone Rex Souza MD Primary Care Provider + [phone] Allergies Active Allergy Reactions Criticality Noted Date [...] days 04/18/201 6 Active ergocalciferol 1.25 MG (19993 UT) capsule Take 1 capsule (50,000 Units) [...] (2 of 2 - PPSV23) 01/30/2018 12/05/2017 [id number] Vaccine (3 - 2023- season) 2024 08/30/2021, [...] this topic Medical Devices Implanted Type Area Pleating Supervisor Device Identifier Shelf Expiration Date Model / Serial / Lot Stent Self-Expanding Innova 8mm X 20mm X 130cm - [id number] Implanted:Qty: 1 on 04/14/2024 by Reynaldo Sanchez MD at [facility] [id number] 08/04/2028 [id number] / / [id number] Stent Atrium Icast Covered 7mm X 22mm X 80cm - [id number] Implanted:Qty: 1 on 04/14/2024 by Reynaldo Sanchez MD at [facility] [id number] 09/04/2026 [id number] / [id number] / [id number] Closure Device Vip Angioseal 8 Fr - [id number] Implanted:Qty: 1 on 04/14/2024 by Reynaldo Sanchez MD at [facility] [id number] 11/12/2024 [id number] / / [id number] Stent Graft Iliac [id number] - [id number] - [id number] Implanted:Qty: 1 on 04/14/2024 by Reynaldo Sanchez MD at [facility] [employer]-[id number] 12/03/2026 [id number] / [id number] / Insurance [facility] Care Teams Senior Compensation Consultant Relationship Specialty Start Date End Date Rex Souza MD [address] [place] [address] PCP - General 03/03/21
--- OUTSIDE RECORDS SUMMARY | 2025-05-22 22:38 | XMS_ITS | Encounter Summary ---
Author Organization Healthcare Address [address] [place] [address] Care Team Providers Care Collator Hand Name Role Phone Rex Souza MD Primary Care Provider + [phone] Encounter Details Date Type Department Care Team (Late st Contact Info) Description 08/22/2023 Orders Only External Location [address] [place] [address] Provider, External Social History Tobacco Use Types [...] documented as of this encounter Care Teams Collator Hand Relationship Specialty Start Date End Date Rex Souza MD [address] [place] [id number] PCP - General 03/03/21 documented as of this encounter
--- OUTSIDE RECORDS SUMMARY | 2025-05-22 22:38 | XMS_ITS | Encounter Summary ---
Author Organization Healthcare Address [address] [place] [address] Care Team Providers Care Blow Mold Operator Name Role Phone Rex Souza MD Primary Care Provider + [phone] Encounter Details Date Type Department Care Team (Late st Contact Info) Description 07/17/2023 Orders Only External Location [address] [place] [address] Provider, External Social History Tobacco Use Types [...] on filedocumented in this encounter Care Teams Blow Mold Operator Relationship Specialty Start Date End Date Rex Souza MD [address] [place] [address] PCP - General 03/03/21 documented as of this encounter
--- OUTSIDE RECORDS SUMMARY | 2025-05-22 22:38 | XMS_ITS | Encounter Summary ---
Author Organization Healthcare Address [address] [place] [address] Care Team Providers Care Verification Engineer Name Role Phone Rex Souza MD Primary Care Provider + [phone] Encounter Details Date Type Department Care Team (Late st Contact Info) Description 05/06/2015 Orders Only External Location [address] [place] [address] Provider, External Social History Tobacco Use Types [...] on filedocumented in this encounter Care Teams Verification Engineer Relationship Specialty Start Date End Date Rex Souza MD [address] [place] [address] PCP - General 03/03/21 documented as of this encounter
[2025-05-23] VITALS (8 sets, daily range): BP systolic 138–179; BP diastolic 74–83; PULSE 91–111; RESP 14–20; TEMP 36.8–38.2; O2SAT 89–94; BMI 29.6
--- NOTE | 2025-05-23 06:29 | PC.NURSE ---
v/s, ox4, RA. Pt was transferred from ICU to the floor during shift. No acute events to report. Plan of care ongoing.
[2025-05-23 07:33] LABS: Hematocrit 36.7 % (37.0-47.0); Hemoglobin 12.5 g/dL (12.2-16.2); Immature Granulocytes % 0.6 %; Mean Corpuscular HGB Conc 34.1 g/dL (31.8-35.4); Mean Corpuscular Hemoglobin 29.8 pg (27.0-31.2); Mean Corpuscular Volume 87.4 fl (81-99); Nucleated Red Blood Cells % 0 %; Platelet Count 310 K/mm3 (142-424); Red Blood Count 4.20 M/mm3 (4.20-5.40); Red Cell Distribution Width-SD 44.7 fL; White Blood Count 7.9 K/mm3 (4.8-10.8)
[2025-05-23 07:43] LABS: Chloride 91 mmol/L (98-107); Potassium 3.1 mmoL/L (3.5-5.1); Sodium 127 mmol/L (136-145)
[2025-05-23 07:46] LABS: Anion Gap 5.1 mEq/L (5-15); Blood Urea Nitrogen 11 mg/dl (7-17); Calcium 8.5 mg/dl (8.4-10.2); Carbon Dioxide 34 mmol/L (22.0-30.0); Creatinine Clearance Estimated 58 mL/min (50-200); Creatinine,Serum 0.60 mg/dl (0.52-1.04); Estimated Glomerular Filt Rate 98 ml/min (>60); GFR (African American) 119 ML/MIN (>60); Glucose 96 mg/dl (74-100)
[2025-05-23 08:13] LABS: Magnesium 1.7 mg/dl (1.6-2.3)
[2025-05-23] MEDS: HEPARIN SODIUM 5,000 UNIT/ML VIAL 5000 UNIT SUBCUT ×3 (08:53→21:19)
[2025-05-23] MEDS: PREGABALIN 25MG CAPSULE 75 MG PO ×2 (08:53→21:29)
[2025-05-23] MEDS: BUSPIRONE HCL 10 MG TABLET 20 MG PO ×3 (08:53→21:19)
[2025-05-23] MEDS: CYCLOBENZAPRINE 10 MG 1 EACH PO ×2 (08:54→21:19)
[2025-05-23] MEDS: POTASSIUM CHLORIDE 20MEQ TAB 40 MEQ PO ×3 (08:54→15:16)
[2025-05-23] MEDS: PT OWN MED *CLOPIDOGREL 75 MG TAB 1 EACH PO (08:54)
[2025-05-23] MEDS: ASPIRIN EC 81MG TABLET 81 MG PO (08:54)
[2025-05-23] MEDS: AMLODIPINE 10MG TABLET 10 MG PO (08:54)
--- NOTE | 2025-05-23 09:57 | PC.NURSE ---
pt complained of intense pain in L AC area. redness and swelling noted. 18G placed by EMS removed. drainage noted. area cleaned and warm compress placed. attempted to placed another line by this RN and charge nurse multiple times for infusion of KCL with no success. house contacted for ultrasound guided IV. KCL administration will be significantly delayed for this reason.
--- NOTE | 2025-05-23 16:16 | EXP.PN ---
Subjective *Date: 05/23/25 *Time: 16:16 Interval history: Patient is seen and evaluated at the bedside, patient denies chest pain shortness of breath nausea vomiting today. No new complaints. Exam Data for Last 24 hours Vital signs and Labs for Last 24 Hours: Temp Pulse Resp BP Pulse Ox O2 Del Method O2 Flow Rate 98.5 F 104 H 18 176/74 H 94 L Room Air 0 05/23/25 08:00 05/23/25 08:00 05/23/25 08:00 05/23/25 08:00 05/23/25 08:00 05/23/25 15:00 05/22/25 06:47 Laboratory Results - last 24 hr 05/22/25 16:05: Sodium 125 L, Potassium 3.6, Chloride 88 L, Carbon Dioxide 34 H, Anion Gap 6.6, BUN 11, Creatinine 0.60 D, Estimated Creat Clear 56, Estimated GFR 98, Est GFR ( Amer) 119 D, Glucose 109 H, Calcium 8.5 05/23/25 06:50: WBC 7.9, RBC 4.20, Hgb 12.5, Hct 36.7 L, MCV 87.4, MCH 29.8, MCHC 34.1, RDW 13.9, Plt Count 310, MPV 9.8, Neut % (Auto) 77.3, Lymph % (Auto) 10.7, [place] % (Auto) 9.1, Eos % (Auto) 1.9, Baso % (Auto) 0.4, Neut # (Auto) 6.1, Lymph # (Auto) 0.8, [place] # (Auto) 0.7, Eos # (Auto) 0.2, Baso # (Auto) 0.0, Sodium 127 L, Potassium 3.1 L, Chloride 91 L, Carbon Dioxide 34 H, Anion Gap 5.1, BUN 11, Creatinine 0.60, Estimated Creat Clear 58, Estimated GFR 98, Est GFR ( Amer) 119, Glucose 96, Calcium 8.5, Magnesium 1.7 D I & O for Last 24 hours: Intake & Output 05/20/25 05/21/25 05/22/25 05/23/25 23:59 23:59 23:59 23:59 Intake Total 1900 / 1900 2130 / 2230 1200 / 1200 Output Total 500 / 500 3375 / 3375 Balance 1400 / 1400 -1245 / -1145 1200 / 1200 Weight 67.132 kg 70.579 kg 73.119 kg Constitutional Constitutional: no acute distress *Routine HEENT Exam Head: Present normocephalic Eye: Present EOMI and PERRL ENT: Present mucous membranes moist *Routine Neck Exam Neck: Present supple; Absent lymphadenopathy *Routine Respiratory Exam Respiratory: Present CTA bilaterally *Routine Cardiovascular Exam Cardiovascular: Present RRR *Routine Abdominal Exam Abdominal: Present soft and normoactive bowel sounds; Absent tenderness *Routine Extremities Exam Extremities: Absent cyanosis, clubbing or edema *Routine Skin Exam Skin: Present warm; Absent rash *Routine Neurological Exam Neurological: Present alert and oriented X3 Assessment and Plan *Assessment and plan (1) Hypokalemia: Status: Acute Category: Medical Code(s): E87.6 - Hypokalemia (2) Nausea and vomiting: Status: Acute Category: Medical Code(s): R11.2 - Nausea with vomiting, unspecified (3) Hypomagnesemia: Status: Acute Category: Medical Code(s): E83.42 - Hypomagnesemia (4) Gastroesophageal reflux disease: Status: Chronic Category: Medical Code(s): K21.9 - Gastro-esophageal reflux disease without esophagitis (5) Anxiety: Status: Chronic Category: Medical Code(s): F41.9 - Anxiety disorder, unspecified (6) CAD (coronary artery disease): Status: Chronic Qualifiers: Coronary Disease-Associated Artery/Lesion type: [place] artery [place] vs. transplanted heart: [place] heart Associated angina: without angina Qualified Code(s): I25.10 - Atherosclerotic heart disease of [place] coronary artery without angina pectoris Category: Medical Code(s): I25.10 - Atherosclerotic heart disease of [place] coronary artery without angina pectoris (7) Hyperlipidemia: Status: Chronic Qualifiers: Hyperlipidemia type: unspecified Qualified Code(s): E78.5 - Hyperlipidemia, unspecified Category: Medical Code(s): E78.5 - Hyperlipidemia, unspecified (8) Depression: Status: Chronic Qualifiers: Depression Type: major depressive disorder Major depression recurrence: single episode Active/Remission status: currently active Major depression episode severity: mild Qualified Code(s): F32.0 - Major depressive disorder, single episode, mild Category: Medical Code(s): F32.A - Depression, unspecified Plan Patient is a 74-year-old female with past medical history of malignant hypertension hypothyroidism hypertension who presents to the hospital due to dizziness and syncopal event, she felt like room was spinning.. Patient was found to have hypokalemia and hypomagnesemia, patient denied chest pain shortness of breath nausea vomiting diarrhea constipation dysuria fevers and chills. On further evaluation. Assessment and plan Syncope Hypokalemia Hypocalcemia Hyponatremia Monitor on cardiac traffic controller cable and replace electrolytes Check orthostatic vitals-unremarkable Discontinue IV fluid therapy with normal saline Hold home diuretics check echo cardiogram if not done recently, consult cardiology for syncope Chronic medical conditions Depression Hyperlipidemia CAD Anxiety GERD Hypertension - Resume home medications except home lasix Likely discharge tomorrow after cardiology evaluation and echocardiogram DVT PPx - SQH heparin
--- NOTE | 2025-05-23 18:05 | PC.NURSE ---
pt a&ox4. family currently at bedside. potassium replaced orally and IV this shift. no complaints of pain. redness noted to L AC area. no needs at this time. call light within reach.
[2025-05-23] MEDS: CARVEDILOL 12.5MG TABLET 12.5 MG PO (21:19)
[2025-05-23] MEDS: ATORVASTATIN 40MG TABLET 80 MG PO (21:19)
[2025-05-23] MEDS: PT OWN MED *PANTOPRAZOLE 40 MG TAB 1 EACH PO (21:19)
[2025-05-23] MEDS: ACETAMINOPHEN 325MG TAB 650 MG PO (21:20)
[2025-05-23] MEDS: MAGNESIUM SULFATE IN WATER 2 GM/50 ML PIGGYBACK IV ×2 (21:49→22:54)
--- NOTE | 2025-05-23 22:10 | PC.NURSE ---
Addendum entered by Areli Garcia RN 05/23/25 22:55: Patient's oral temperature decreased to 98.[address] measures [address] (see documentation for 22:50). Original Note: Patient had an elevated oral temperature this shift (reading was 99.8); Tylenol was administered at 21:20 per MAR. After following-up, post-Tylenol administration, the patient's oral temperature remained elevated at 100.7. Cooling techniques were implemented; the patient's room temperature was decreased to 68 degrees, blankets were removed from the patient, cold washrag compresses were applied, and an oscillating fan was provided. She verbalized an understanding of the importance of these measures to aid in decreasing her temperature. Patient's oral temperature will be reevaluated and documented accordingly.
[2025-05-23 22:18] LABS: Anion Gap 6.0 mEq/L (5-15); Blood Urea Nitrogen 13 mg/dl (7-17); Calcium 8.3 mg/dl (8.4-10.2); Carbon Dioxide 30 mmol/L (22.0-30.0); Chloride 99 mmol/L (98-107); Creatinine Clearance Estimated 58 mL/min (50-200); Creatinine,Serum 0.80 mg/dl (0.52-1.04); Estimated Glomerular Filt Rate 70 ml/min (>60); GFR (African American) 85 ML/MIN (>60); Glucose 133 mg/dl (74-100); Potassium 4.0 mmoL/L (3.5-5.1); Sodium 131 mmol/L (136-145)
[2025-05-24] VITALS: BP 152/72; PULSE 98; RESP 18; TEMP 37; O2SAT 93
--- NOTE | 2025-05-24 03:45 | PC.NURSE ---
Patient is alert and oriented x4. She was observed to be resting in bed with eyes closed, respirations even and unlabored on 1 L of oxygen via nasal cannula (placed for resting periods due to decreasing oxygen saturations - 88% to 89%), and no apparent distress throughout the majority of the night. She has not had any complaints of chest pain, dizziness/lightheadedness, or further episodes of syncope. Scheduled medications were administered per DEC; a new order for carvedilol was obtained by Francisco Minor MD this shift due to elevated blood pressure readings. Heart rate (previously elevated as well) and blood pressure improved overnight (see documentation for 04:00). Intravenous magnesium was given this shift per electrolyte replacement protocol. Patient remains afebrile; cooling techniques' outcomes were satisfactory. Left upper extremity remains slightly red, tender to the touch, and swollen. Patient ambulated independently with supervision in her room/to the bathroom without any difficulties; no unsteadiness was observed. At this time, the patient is resting in bed without any further complaints. No acute changes noted thus far. Call light within reach.
[2025-05-24 04:00] VITALS: BP 147/79; PULSE 83; RESP 18; TEMP 36.6; O2SAT 93; BMI 30.6
[2025-05-24 06:32] LABS: Hematocrit 39.2 % (37.0-47.0); Hemoglobin 12.6 g/dL (12.2-16.2); Immature Granulocytes % 1.2 %; Mean Corpuscular HGB Conc 32.1 g/dL (31.8-35.4); Mean Corpuscular Hemoglobin 28.7 pg (27.0-31.2); Mean Corpuscular Volume 89.3 fl (81-99); Nucleated Red Blood Cells % 0 %; Platelet Count 267 K/mm3 (142-424); Red Blood Count 4.39 M/mm3 (4.20-5.40); Red Cell Distribution Width-SD 45.8 fL; White Blood Count 6.7 K/mm3 (4.8-10.8)
[2025-05-24 06:53] LABS: Chloride 96 mmol/L (98-107); Potassium 3.4 mmoL/L (3.5-5.1); Sodium 130 mmol/L (136-145)
[2025-05-24 06:56] LABS: Anion Gap 6.4 mEq/L (5-15); Blood Urea Nitrogen 14 mg/dl (7-17); Calcium 8.5 mg/dl (8.4-10.2); Carbon Dioxide 31 mmol/L (22.0-30.0); Creatinine Clearance Estimated 60 mL/min (50-200); Creatinine,Serum 0.60 mg/dl (0.52-1.04); Estimated Glomerular Filt Rate 98 ml/min (>60); GFR (African American) 119 ML/MIN (>60); Glucose 102 mg/dl (74-100)
[2025-05-24 07:01] LABS: Magnesium 2.4 mg/dl (1.6-2.3)
[2025-05-24 07:23] LABS: Total Cells Counted 100
[2025-05-24 07:24] LABS: RBC Morphology Normal
[2025-05-24 07:54] VITALS: BP 158/72; PULSE 89; RESP 16; TEMP 36.7; O2SAT 92
[2025-05-24] MEDS: BUSPIRONE HCL 10 MG TABLET 20 MG PO ×3 (08:49→21:40)
[2025-05-24] MEDS: PREGABALIN 25MG CAPSULE 75 MG PO ×2 (08:50→21:40)
[2025-05-24] MEDS: AMLODIPINE 10MG TABLET 10 MG PO (08:50)
[2025-05-24] MEDS: CARVEDILOL 12.5MG TABLET 12.5 MG PO ×2 (08:50→21:40)
[2025-05-24] MEDS: ASPIRIN EC 81MG TABLET 81 MG PO (08:50)
[2025-05-24] MEDS: SPIRONOLACTONE 25MG TABLET 50 MG PO (08:50)
[2025-05-24] MEDS: CYCLOBENZAPRINE 10 MG 1 EACH PO ×2 (08:51→21:41)
[2025-05-24] MEDS: POTASSIUM CHLORIDE 20MEQ TAB 40 MEQ PO ×2 (08:51→12:41)
[2025-05-24] MEDS: PT OWN MED *CLOPIDOGREL 75 MG TAB 1 EACH PO (08:51)
--- NOTE | 2025-05-24 09:31 | US_ITS ---
FINAL REPORT CLINICAL HISTORY: left AC hot with palpable cord FINDINGS: Limited sonographic images were obtained of the left antecubital region at the area of concern. The cephalic vein is noncompressible with visible thrombus. IMPRESSION: Cephalic vein thrombus at the site of clinical abnormality. Reviewed, Interpreted and Dictated by Robb Gutierrez MD Transcribed by Laurie Rodriguez Authenticated and [facility]
[2025-05-24] MEDS: ACETAMINOPHEN 325MG TAB 650 MG PO ×2 (09:39→21:40)
[2025-05-24] MEDS: HEPARIN SODIUM 5,000 UNIT/ML VIAL 5000 UNIT SUBCUT (09:39)
--- NOTE | 2025-05-24 09:46 | EXP.PHA.CONS ---
Pharmacy Consult Date: 05/24/25 Time: 09:47 Referring provider: DR ARTHUR Reason for Consult:: VANCOMYCIN DOSING CONSULT Allergies Allergy/AdvReac Type Severity Reaction Status Date / Time Sulfa (Sulfonamide Allergy Nausea Verified 03/02/24 10:41 Antibiotics) Home Medications ?Medication ?Instructions ?Recorded ?Confirmed ?Type amlodipine 10 mg tablet 10 mg PO DAILY 04/28/25 05/21/25 History aspirin 81 mg tablet,delayed 81 mg PO DAILY 04/28/25 05/21/25 History release atorvastatin 80 mg tablet 80 mg PO HS 04/28/25 05/21/25 History buspirone 10 mg tablet 20 mg PO TID 04/28/25 05/22/25 History clopidogrel 75 mg tablet 75 mg PO DAILY 04/28/25 05/21/25 History ergocalciferol (vitamin D2) 1,250 1,250 mcg PO WEEKLY 04/28/25 05/21/25 History mcg (50,000 unit) capsule pantoprazole 40 mg tablet,delayed 40 mg PO DAILY 04/28/25 05/21/25 History release pregabalin 75 mg capsule 75 mg PO BID 04/28/25 05/21/25 History cyclobenzaprine 10 mg tablet 10 mg PO BID 05/21/25 05/21/25 History furosemide 20 mg tablet 20 mg PO DAILYP PRN Leg swelling 05/21/25 05/21/25 History New Prescriptions to Start Prescriptions: Height: 1.57 m Weight: 75.523 kg Laboratory Results:: Laboratory Results - last 24 hr 05/23/25 21:48: Sodium 131 L, Potassium 4.0 D, Chloride 99, Carbon Dioxide 30, Anion Gap 6.0, BUN 13, Creatinine 0.80 D, Estimated Creat Clear 58, Estimated GFR 70, Est GFR ( Amer) 85 D, Glucose 133 H D, Calcium 8.3 L 05/24/25 06:10: WBC 6.7, RBC 4.39, Hgb 12.6, Hct 39.2, MCV 89.3, MCH 28.7, MCHC 32.1, RDW 14.2, Plt Count 267, MPV 9.6, Neut % (Auto) 83.2 H, Lymph % (Auto) 6.3 L, [place] % (Auto) 7.5, Eos % (Auto) 1.2, Baso % (Auto) 0.6, Neut # (Auto) 5.6, Lymph # (Auto) 0.4 L, [place] # (Auto) 0.5, Eos # (Auto) 0.1, Baso # (Auto) 0.0, Total Counted 100, Neutrophils % (Manual) 89 H, Lymphocytes % (Manual) 6 L, Monocytes % (Manual) 4, Eosinophils % (Manual) 1, Platelet Estimate Normal, RBC Morphology Normal, Sodium 130 L, Potassium 3.4 L, Chloride 96 L, Carbon Dioxide 31 H, Anion Gap 6.4, BUN 14, Creatinine 0.60 D, Estimated Creat Clear 60, Estimated GFR 98, Est GFR ( Amer) 119 D, Glucose 102 H D, Calcium 8.5, Magnesium 2.4 H D Medical History: Medical History (Updated 05/22/25 @ 07:14 by Kenny Velasquez MD) CVA (cerebral vascular accident) At risk for cardiac dysfunction during anesthesia Tobacco dependence Diverticulosis Osteoarthritis Abdominal wall hernia DJD (degenerative joint disease), lumbar Lumbar radiculopathy HTN (hypertension) Gastroesophageal reflux disease Anxiety CAD (coronary artery disease) Hyperlipidemia Depression Assessment and Plan Assessment and plan all Dx Assessment and Plan for all problems:: Pharmacokinetic dosing service Objective: Age: 74 yo Serum creatinine: 0.8 mg/dL Height: 61.8 Inches Weight (kg): 75.523 Diagnosis: CELLULITIS Assessment: IBW (kg): 49.64 Dosing wt(kg): 75.523 Estimated Creatinine clearance (ml/min): 49.1 CRCL method: Cockcroft and Gault using ibw(default). Drug selected: Vancomycin Vd (liters): 52.9 (factor used: 0.7 L/kg) [place] (hr-1): 0.045 Half life (hrs): 15.40 CLvanco=?? 2.381 L/hr Recommended dose: 1250 mg Interval: 24 hrs Infusion time (hrs): 2.0 Predicted peak (mcg/mL): 34.2 Predicted trough (mcg/mL): 12.71 Total body weight is being used for vancomycin dosing. Recommendations: Give Vancomycin 1250 mg q 24 hrs with an expected Cpeak of 34.2 mcg/ml and an expected Ctrough of 12.71 mcg/ml AUC 0-24 /RODOLFO Data: RODOLFO 0.5 mcg/mL:?? AUC/RODOLFO:? 1050.0 RODOLFO 1.0 mcg/mL:?? AUC/RODOLFO:? 525.0 --------- RODOLFO 1.5 mcg/mL:?? AUC/RODOLFO:? 350.0 RODOLFO 2.0 mcg/mL:?? AUC/RODOLFO:? 262.5 Thank you for the consult
--- NOTE | 2025-05-24 10:33 | PC.WOUNDNOTE ---
RUE with erythema and bruising
[2025-05-24 10:54] VITALS: BMI 30.6
[2025-05-24] MEDS: POLYETHYLENE GLYCOL 3350 17 GM PACKET PO (11:27)
[2025-05-24] MEDS: VANCOMYCIN/WATER FOR INJ (PEG) 1.25 GM/250 ML PIGGYBACK IV (11:55)
--- NOTE | 2025-05-24 12:22 | P.PN_ITS ---
Subjective *Date: 05/24/25 *Time: 13:44 Interval history: Patient overnight 200.8. Stable on room air. Denies increased cough or congestion. Denies nausea or vomiting. Has had some redness and swelling of her left arm over the past 12 to 24 hours. Began at site of left AC IV. No other focal source of infection. White count remains normal today. Seeing improvement in her electrolytes. Medical Exam Vital signs and Labs for Last 24 Hours: Vital Signs Temp Pulse Pulse Resp BP Pulse Ox O2 Del Method 05/24/25 11:00 Room Air 05/24/25 09:00 Room Air 05/24/25 08:00 Room Air 05/24/25 07:54 98.0 F 89 16 158/72 H 92 L Room Air 05/24/25 07:00 Room Air 05/24/25 05:00 Room Air 05/24/25 04:00 98 F 83 18 147/79 H 93 L Room Air 05/24/25 03:00 Nasal Cannula 05/24/25 01:00 Nasal Cannula 05/24/25 00:00 98.6 F 98 H 18 152/72 H 93 L Nasal Cannula 05/23/25 23:00 Nasal Cannula 05/23/25 22:50 98.3 F 05/23/25 22:00 100.7 F H 111 H 20 179/83 H 92 L Nasal Cannula 05/23/25 21:00 Nasal Cannula 05/23/25 20:00 110 H Room Air 05/23/25 19:57 99.8 F H 108 H 18 176/83 H 89 L Room Air 05/23/25 18:45 Room Air 05/23/25 18:33 99.4 F 05/23/25 17:00 Room Air 05/23/25 16:00 100.8 F H 92 H 18 166/75 H 93 L Room Air 05/23/25 15:00 Room Air 05/23/25 13:00 Room Air O2 Flow Rate 05/24/25 11:00 05/24/25 09:00 05/24/25 08:00 05/24/25 07:54 05/24/25 07:00 05/24/25 05:00 05/24/25 04:00 05/24/25 03:00 1 05/24/25 01:00 1 05/24/25 00:00 1 05/23/25 23:00 1 05/23/25 22:50 05/23/25 22:00 1 05/23/25 21:00 1 05/23/25 20:00 05/23/25 19:57 05/23/25 18:45 05/23/25 18:33 05/23/25 17:00 05/23/25 16:00 05/23/25 15:00 05/23/25 13:00 Intake and Output 05/23/25 05/24/25 05/24/25 23:59 07:59 15:59 Intake Total 720 / 2140 220 / 520 300 / 520 Output Total 250 / 250 Balance 470 / 1890 220 / 520 300 / 520 Intake: Intake, Oral Amount 520 / 1740 120 / 370 250 / 370 Intake, Total IV Amount 200 / 300 50 / 50 Ceftriaxone Sodium 1 gm In 0.9 50 / 50 % Sodium Chloride 50 ml @ 100 mls/hr IV Q24H [facility] Rx#:[id number] KCl 10mEq/100ml 100 ml @ 100 200 / 300 mls/hr IV Q1H [facility] Rx#:[id number] Infusion Intake 100 / 100 Magnesium Sulfate in Water 2 gm 100 / 100 In 50 ml @ 50 mls/hr IV Q1H [facility] Rx#:[id number] Output: Output, Urine Amount 250 / 250 Other: Number of Unmeasured Voids 1 Weight 75.523 kg 75.523 kg Patient Weight 05/24/25 23:59 Weight 75.523 kg Laboratory Results - last 24 hr 05/23/25 21:48: Sodium 131 L, Potassium 4.0 D, Chloride 99, Carbon Dioxide 30, Anion Gap 6.0, BUN 13, Creatinine 0.80 D, Estimated Creat Clear 58, Estimated GFR 70, Est GFR ( Amer) 85 D, Glucose 133 H D, Calcium 8.3 L 05/24/25 06:10: WBC 6.7, RBC 4.39, Hgb 12.6, Hct 39.2, MCV 89.3, MCH 28.7, MCHC 32.1, RDW 14.2, Plt Count 267, MPV 9.6, Neut % (Auto) 83.2 H, Lymph % (Auto) 6.3 L, Will % (Auto) 7.5, Eos % (Auto) 1.2, Baso % (Auto) 0.6, Neut # (Auto) 5.6, Lymph # (Auto) 0.4 L, Will # (Auto) 0.5, Eos # (Auto) 0.1, Baso # (Auto) 0.0, Total Counted 100, Neutrophils % (Manual) 89 H, Lymphocytes % (Manual) 6 L, Monocytes % (Manual) 4, Eosinophils % (Manual) 1, Platelet Estimate Normal, RBC Morphology Normal, Sodium 130 L, Potassium 3.4 L, Chloride 96 L, Carbon Dioxide 31 H, Anion Gap 6.4, BUN 14, Creatinine 0.60 D, Estimated Creat Clear 60, Estimated GFR 98, Est GFR ( Amer) 119 D, Glucose 102 H D, Calcium 8.5, Magnesium 2.4 H D I & O for Labs for Last 24 Hours: Intake & Output 05/21/25 05/22/25 05/23/25 05/24/25 23:59 23:59 23:59 23:59 Intake Total 1900 / 1900 2130 / 2230 1920 / 2140 520 / 520 Output Total 500 / 500 3375 / 3375 250 / 250 Balance 1400 / 1400 -1245 / -1145 1670 / 1890 520 / 520 Weight 67.132 kg 70.579 kg 73.119 kg 75.523 kg Constitutional: Present no acute distress, obese, chronically ill appearing and cooperative Head: Present atraumatic and normocephalic ENT: Present normal exam Respiratory: Present prolonged expiratory phase and normal respiratory effort; Absent rhonchi, wheezes or crackles Cardiac: Present Reg Rate and Rhythm GI: Present soft and normal bowel sounds; Absent distention or tenderness Extremities: Present full ROM and tenderness (Left arm overlying elbow and left AC. Palpable cord. Erythema and warmth) Skin: Present intact and erythema (Left arm around the elbow) Neuro: Present Grossly Intact, alert, awake, oriented x 3 and moves all extremities Assessment and Plan *Assessment and plan (1) Hypokalemia: Status: Acute Category: Medical Code(s): E87.6 - Hypokalemia (2) Cellulitis: Status: Acute Category: Medical Code(s): L03.90 - Cellulitis, unspecified (3) Superficial venous thrombosis of left upper extremity: Status: Acute Category: Medical Code(s): I82.612 - Acute embolism and thrombosis of superficial veins of left upper extremity (4) Nausea and vomiting: Status: Acute Category: Medical Code(s): R11.2 - Nausea with vomiting, unspecified (5) Hypomagnesemia: Status: Acute Category: Medical Code(s): E83.42 - Hypomagnesemia (6) Gastroesophageal reflux disease: Status: Chronic Category: Medical Code(s): K21.9 - Gastro-esophageal reflux disease without esophagitis (7) Anxiety: Status: Chronic Category: Medical Code(s): F41.9 - Anxiety disorder, unspecified (8) CAD (coronary artery disease): Status: Chronic Qualifiers: Associated angina: without angina Coronary Disease-Associated Artery/Lesion type: [place] artery [place] vs. transplanted heart: [place] heart Qualified Code(s): I25.10 - Atherosclerotic heart disease of [place] coronary artery without angina pectoris Category: Medical Code(s): I25.10 - Atherosclerotic heart disease of [place] coronary artery without angina pectoris (9) Hyperlipidemia: Status: Chronic Qualifiers: Hyperlipidemia type: unspecified Qualified Code(s): E78.5 - Hyperlipidemia, unspecified Category: Medical Code(s): E78.5 - Hyperlipidemia, unspecified (10) Depression: Status: Chronic Qualifiers: Active/Remission status: currently active Depression Type: major depressive disorder Major depression episode severity: mild Major depression recurrence: single episode Qualified Code(s): F32.0 - Major depressive disorder, single episode, mild Category: Medical Code(s): F32.A - Depression, unspecified Plan Patient is a 74-year-old female with past medical history of malignant hypertension hypothyroidism hypertension who presents to the hospital due to dizziness and syncopal event, she felt like room was spinning. Found to have hypokalemia. Replacing over the weekend, showing improvement. Potassium normalized today however found to have onset of fever last night and redness in her left arm. Appears to have some cellulitis of left arm and superficial venous thrombus that is acute. Will monitor for 24 more hours. Initiated on antibiotics, cultures obtained. Problems addressed as follows: Syncope Hypokalemia Hypocalcemia Hyponatremia - Continue electrolyte replacement per protocol. Potassium improved today at 3.4, magnesium 2.4, kidney function with BUN 14, creatinine 0.6. - Repeat CBC, CMP, magnesium ordered for the morning.- - Continue cardiac telemetry - Echo performed, formal read shows normal BiV systolic function. Mild RV dilation. EF 55% - Holding Lasix. Initiate spironolactone 50 mg daily. Hold home diuretics Cellulitis of left upper extremity Cephalic vein superficial thrombus left upper extremity, acute - Left upper extremity ultrasound shows cephalic vein thrombus at the site of palpable cord - Concern for cellulitis in left upper extremity. Initiated on vancomycin and ceftriaxone. Differential includes thrombophlebitis. Warm compress in place. Blood cultures obtained. Will monitor for 24 hours. Reevaluate antibiotic regimen tomorrow. Initiated on Lovenox 1 mg/kg twice daily. Reevaluate VTE treatment in the morning Chronic medical conditions Depression Hyperlipidemia CAD Anxiety GERD Hypertension Continue home amlodipine 10 mg daily and carvedilol 12.5 mg twice daily Continue aspirin 81 mg daily Continue Lipitor 80 mg nightly Continue BuSpar 20 mg 3 times a day for mood disorder Continue Lyrica 75 mg twice daily for neuropathy Constipation: No bowel movement since admission. Initiated on docusate senna nightly and MiraLAX 17 g daily Regular diet Therapeutic Lovenox DNR/DNI
--- NOTE | 2025-05-24 12:24 | PC.NURSE ---
patient stated she had a moderate BM last night and that her daughter assisted her to the bathroom.
--- NOTE | 2025-05-24 15:25 | EXP.CARD.CON ---
History of Present Illness History of Present Illness Consult date: 05/24/25 Requesting physician: Ulisses Harding Chief complaint: weakness, near syncope History of present illness: 74-year-old white female office patient with a history of CAD, CVA, tobacco use, hypertension, PAD. Last seen in our office in February and was stable at that visit. She is on good home medical therapy. Presented to the emergency room with complaints of dizziness and vertigo with near syncope while making biscuits for her grandson. He had to catch her and lowered her to the floor. EMS was called and she was transferred to the emergency room where workup revealed a potassium of 2.1 and sodium of 125. She has normal creatinine and denies any recent acute illness or reason for dehydration. EKG shows sinus rhythm with no ischemia or ectopy and appears essentially unchanged from 2023. Troponins are normal. She had CTA head and neck in April which was unremarkable. Lyte repletion in progress and she reports she is starting to feel better. She does note a left upper extremity which is swollen and erythematous. States this is where EMS attempted IV which was troublesome. [facility] Disclaimer: The information contained in this section may have been updated after the patient was seen, as this information can be updated by other users. Medical History CVA (cerebral vascular accident) At risk for cardiac dysfunction during anesthesia Tobacco dependence Diverticulosis Osteoarthritis Abdominal wall hernia DJD (degenerative joint disease), lumbar Lumbar radiculopathy HTN (hypertension) Gastroesophageal reflux disease Anxiety CAD (coronary artery disease) Hyperlipidemia Depression Surgical History H/O heart artery stent Hx of cardiac cath S/P peripheral artery angioplasty with stent placement Hx of cholecystectomy Family History Mother No significant family history Father Heart attack Social History Smoking Status: Current every day smoker tobacco type: cigarettes packs per day: 1 second hand exposure: No alcohol intake: never substance use type: denies use current occupational status: retired Travel in the last 8 weeks?: None household members: family housing: house marital status: current occupation: [employer] caffeine: Yes Have you lived/traveled outside [place] in past 30 days?: No Contact w/someone who lives/traveled outside US past 30 days?: No Exposure to someone with infectious disease in past 14 days?: No Do you have a fever (greater than 100.4 F or 38 C)?: No Have you tested positive for COVID-19?: No Exposed to someone with COVID-19 in past 14 days?: No Do you have a sore throat?: No Do you have a cough?: No Do you have any weakness?: No Do you have any diarrhea?: No Are you experiencing any unusual bleeding?: No Do you have any muscle aches/pain?: No Do you have any abdominal pain?: No Are you experiencing loss of taste or smell?: No Review of Systems Constitutional Constitutional: Denies fatigue and Reports weakness Eyes Eyes: Denies loss of vision ENT Ears, Nose, Mouth, and Throat: Denies hearing loss and Reports vertigo *Cardiovascular Cardiovascular: Denies chest pain, Denies dyspnea and Denies syncope *Respiratory Respiratory: Denies cough and Denies dyspnea *Gastrointestinal Gastrointestinal: Denies change in stool character, Denies nausea and Denies vomiting *Musculoskeletal Musculoskeletal: Denies muscle weakness Integumentary/Breasts Skin/Breast: Denies changing lesions *Neurologic Neurologic: Denies loss of vision, Denies syncope, Reports vertigo and Reports weakness Endocrine Endocrine: Denies fatigue Exam Data for Last 24 hours Vital signs and Labs for Last 24 Hours: Temp Pulse Resp BP Pulse Ox O2 Del Method O2 Flow Rate 98.0 F 89 16 158/72 H 92 L Room Air 1 05/24/25 07:54 05/24/25 07:54 05/24/25 07:54 05/24/25 07:54 05/24/25 07:54 05/24/25 11:00 05/24/25 03:00 Laboratory Results - last 24 hr 05/23/25 21:48: Sodium 131 L, Potassium 4.0 D, Chloride 99, Carbon Dioxide 30, Anion Gap 6.0, BUN 13, Creatinine 0.80 D, Estimated Creat Clear 58, Estimated GFR 70, Est GFR ( Amer) 85 D, Glucose 133 H D, Calcium 8.3 L 05/24/25 06:10: WBC 6.7, RBC 4.39, Hgb 12.6, Hct 39.2, MCV 89.3, MCH 28.7, MCHC 32.1, RDW 14.2, Plt Count 267, MPV 9.6, Neut % (Auto) 83.2 H, Lymph % (Auto) 6.3 L, [place] % (Auto) 7.5, Eos % (Auto) 1.2, Baso % (Auto) 0.6, Neut # (Auto) 5.6, Lymph # (Auto) 0.4 L, [place] # (Auto) 0.5, Eos # (Auto) 0.1, Baso # (Auto) 0.0, Total Counted 100, Neutrophils % (Manual) 89 H, Lymphocytes % (Manual) 6 L, Monocytes % (Manual) 4, Eosinophils % (Manual) 1, Platelet Estimate Normal, RBC Morphology Normal, Sodium 130 L, Potassium 3.4 L, Chloride 96 L, Carbon Dioxide 31 H, Anion Gap 6.4, BUN 14, Creatinine 0.60 D, Estimated Creat Clear 60, Estimated GFR 98, Est GFR ( Amer) 119 D, Glucose 102 H D, Calcium 8.5, Magnesium 2.4 H D I & O for Last 24 hours: Intake & Output 05/21/25 05/22/25 05/23/25 05/24/25 23:59 23:59 23:59 23:59 Intake Total 1900 / 1900 2130 / 2230 1920 / 2140 520 / 520 Output Total 500 / 500 3375 / 3375 250 / 250 Balance 1400 / 1400 -1245 / -1145 1670 / 1890 520 / 520 Weight 148 lb 155 lb 9.6 oz 161 lb 3.2 oz 166 lb 8 oz Constitutional Constitutional: no acute distress and cooperative *Routine HEENT Exam Eye: Present PERRL *Routine Respiratory Exam Respiratory: Present CTA bilaterally; Absent accessory muscle use, wheezes or crackles *Routine Cardiovascular Exam Cardiovascular: Present RRR, Normal S1 and Normal S2; Absent murmur, gallop or rubs *Routine Abdominal Exam Abdominal: Present soft; Absent tenderness *Routine Extremities Exam Extremities: Present pulses intact; Absent cyanosis or edema Comments: LUE antecubital region is large, erythematous and bruised. Swollen and very tender to palpation, warm. *Routine Skin Exam Skin: Present intact; Absent erythema or wounds *Routine Neurological Exam Neurological: Present alert and oriented X3 Routine Psychiatric Exam Psychiatric: Present cooperative Meds Home Medications and Allergies Home Medications ?Medication ?Instructions ?Recorded ?Confirmed ?Type amlodipine 10 mg tablet 10 mg PO DAILY 04/28/25 05/21/25 History aspirin 81 mg tablet,delayed 81 mg PO DAILY 04/28/25 05/21/25 History release atorvastatin 80 mg tablet 80 mg PO HS 04/28/25 05/21/25 History buspirone 10 mg tablet 20 mg PO TID 04/28/25 05/22/25 History clopidogrel 75 mg tablet 75 mg PO DAILY 04/28/25 05/21/25 History ergocalciferol (vitamin D2) 1,250 1,250 mcg PO WEEKLY 04/28/25 05/21/25 History mcg (50,000 unit) capsule pantoprazole 40 mg tablet,delayed 40 mg PO DAILY 04/28/25 05/21/25 History release pregabalin 75 mg capsule 75 mg PO BID 04/28/25 05/21/25 History cyclobenzaprine 10 mg tablet 10 mg PO BID 05/21/25 05/21/25 History furosemide 20 mg tablet 20 mg PO DAILYP PRN Leg swelling 05/21/25 05/21/25 History New Prescriptions to Start Prescriptions: Allergies Allergy/AdvReac Type Severity Reaction Status Date / Time Sulfa (Sulfonamide Allergy Nausea Verified 03/02/24 10:41 Antibiotics) Assessment and Plan *Assessment and plan (1) Near syncope: Status: Acute Category: Medical Code(s): R55 - Syncope and collapse (2) Superficial venous thrombosis of left upper extremity: Status: Acute Category: Medical Code(s): I82.612 - Acute embolism and thrombosis of superficial veins of left upper extremity (3) Cellulitis: Status: Acute Category: Medical Code(s): L03.90 - Cellulitis, unspecified (4) Hyponatremia: Status: Acute Category: Medical Code(s): E87.1 - Hypo-osmolality and hyponatremia (5) Hypokalemia: Status: Acute Category: Medical Code(s): E87.6 - Hypokalemia (6) CAD (coronary artery disease): Status: Chronic Qualifiers: Coronary Disease-Associated Artery/Lesion type: [place] artery [place] vs. transplanted heart: [place] heart Associated angina: without angina Qualified Code(s): I25.10 - Atherosclerotic heart disease of [place] coronary artery without angina pectoris Category: Medical Code(s): I25.10 - Atherosclerotic heart disease of [place] coronary artery without angina pectoris Plan Near Syncope - Appears to be secondary to severe hypokalemia and hyponatremia - Repletion and workup in progress by hospitalist Severe Hypokalemia/Hyponatremia - repletion in progress Left upper extremity cellulitis from IV placement with EMS - Venous duplex shows superficial thrombus - cont DAPT - add warm compress, elevation CAD - sp TAVO 2005, 2006 - CCS = 0 - EKG - SR no ischemia or ectopy - Trop nml - cont DAPT, Statin Hx of CVA - no acute neuro changes - cont DAPT, Statin - CTA Head and Neck in April unremarkable PAD - details unclear at this time - denies claudication - cont DAPT, statin CV stable/improving. Etiology for lyte disturbance? Further plans pending.
[2025-05-24 16:00] VITALS: BP 183/87; PULSE 85; RESP 16; O2SAT 94
--- NOTE | 2025-05-24 16:18 | CA_ITS ---
APPROVED REPORT EXAM: Comprehensive 2D, Doppler, and color-flow Echocardiogram [employer] Developer: Carol Leonard CRT Ht: 5 ft 1 in Wt: 161lbs BSA: 1.72 BP: 135/112 mmHg Indications: CVA/TIA, Hyperlipidemia, Hypertension/HDD, stent, smoker, syncope,dizziness 2D Dimensions LA Volume 37.60 mL LA Volume Index 21.40 mL/m2 (M/F) 16-34 M-Mode Dimensions RVDd 2.54 cm (0.9-2.6) LA Diam 3.43 cm (1.9-4.0) LVDd 4.72 cm (3.5-5.7) LVDs 3.76 cm (3.5-5.7) IVSd 1.07 cm (0.6-1.1) PWd 1.00 cm (0.6-1.1) EF (Teich) 41.60% FS 20.30% EDV (Teich) 103.40 mL TAPSE 1.83 (<1.7) ESV (Teich) 60.40 mL LV Diastology E Decel Time 150 (160-240 msec) E/A Ratio 0.75 MED A' 11.30 cm/s LAT A' 10.60 cm/s Aortic Valve PASHA Index 1.19 cm2/m2 AoV Peak Cisco. 175.0 (50-130 cm/s) AO Peak GR. 12.40 mmHg AO Mean GR. 7.50 (<5 mmHg) AO VTI 34.3 (18-25 cm) PASHA (VTI) 2.09 (2.5-4.5 cm2) Mitral Valve MV E Max Cisco. 95.0 (40-130 cm/s) MV A Velocity 126.0 (40-130 cm/s) E/A Ratio 0.75 MV PHT 44.0 ms Pulmonary Valve PV Peak Velocity 126.0 (50-150 cm/s) Tricuspid Valve TR P. Velocity 144.00 cm/s RAP Estimate 10.00 mmHg RVSP 18.30 mmHg Left Ventricle The left ventricle is normal size. Left ventricular systolic function is normal. The left ventricular ejection fraction is within the normal range. There is increased left ventricular wall thickness. There is normal LV segmental wall motion. Transmitral Doppler flow pattern suggests impaired LV relaxation. LVEF is 55% Right Ventricle The right ventricle is mildly dilated. The right ventricular systolic function is normal. Atria The left atrium size is normal. The right atrium size is normal. There is no color Doppler evidence of interatrial shunt. Aortic Valve The aortic valve is mildly thickened. There is no hemodynamically significant aortic valvular stenosis. No aortic regurgitation is present. Mitral Valve The mitral valve is mildly thickened. No evidence of mitral valve stenosis. Mild mitral regurgitation is present. Tricuspid Valve The tricuspid valve leaflets are thin and pliable. Trace tricuspid regurgitation. There is insufficient TR jet to estimate RVSP. Pulmonic Valve The pulmonary valve is grossly normal in structure. Trace pulmonic valve regurgitation is present. Great Vessels The aortic root is normal in size. IVC is normal in size and collapses >50% with inspiration. Pericardium There is no pericardial effusion. Other Information Study Quality: Fair Conclusion Normal biventricular systolic function. Mild RV dilation. Mild MR. Electronically signed by : Bhavana Pacheco MD 05/24/2025 16:40:09
--- NOTE | 2025-05-24 16:43 | PC.NURSE ---
patient is a/o x4 and remains on RA tolerating it well. she has c/o left arm pain with movement. upon observation left upper arm is swollen, red, warm to the touch with bruising noted. MD aware. instructed patient to keep arm elevated and treated per DEC. PO potassium administered per electrolyte protocol this shift. patient tolerating diet well. ambulated to the bathroom via stand by assist. patient has remained afebrile this shift. no c/o at this time, patient currently sitting on the side of the bed eating. call light within reach.
[2025-05-24 20:00] VITALS: BP 183/81; PULSE 78; RESP 20; TEMP 37.7; O2SAT 93
[2025-05-24 20:51] VITALS: BP 119/73
--- NOTE | 2025-05-24 20:51 | PC.NURSE ---
pt tech stated pt had a higher bp. Nurse went to reasses and retake bp. tech stated she had just got up to the bathroom so was most likely the cause of high bp. Pt's pt was 119/73 upon reassessment.
[2025-05-24] MEDS: SENNOSIDES 8.6MG/DOCUSATE 50MG TABLET 1 TAB PO (21:40)
[2025-05-24] MEDS: ATORVASTATIN 40MG TABLET 80 MG PO (21:41)
[2025-05-24] MEDS: PT OWN MED *PANTOPRAZOLE 40 MG TAB 1 EACH PO (21:41)
[2025-05-25] VITALS: BP 130/62; PULSE 82; RESP 16; TEMP 36.8; O2SAT 95
[2025-05-25 04:00] VITALS: BP 143/73; PULSE 78; RESP 16; TEMP 36.6; O2SAT 97; BMI 29.3
--- NOTE | 2025-05-25 06:30 | PC.NURSE ---
v/s, ox4, RA. Pain still c/o of soreness, to left ac area of arm. pt had swelling in area. Pt stated she's been having issues with the area since EMS placed the old IV that has been removed since yesterday. no acute events to report. Plan of care ongoing.
[2025-05-25 06:32] LABS: Hematocrit 33.1 % (37.0-47.0); Immature Granulocytes % 1.9 %; Mean Corpuscular HGB Conc 33.2 g/dL (31.8-35.4); Mean Corpuscular Hemoglobin 29.8 pg (27.0-31.2); Mean Corpuscular Volume 89.7 fl (81-99); Nucleated Red Blood Cells % 0 %; Platelet Count 246 K/mm3 (142-424); Red Blood Count 3.69 M/mm3 (4.20-5.40); Red Cell Distribution Width-SD 47.2 fL; White Blood Count 4.7 K/mm3 (4.8-10.8)
[2025-05-25 06:35] LABS: Albumin Level 2.4 g/dl (3.5-5.0); Chloride 102 mmol/L (98-107); Potassium 3.7 mmoL/L (3.5-5.1); Sodium 131 mmol/L (136-145)
[2025-05-25 06:37] LABS: Blood Urea Nitrogen 17 mg/dl (7-17); Creatinine Clearance Estimated 57 mL/min (50-200); Creatinine,Serum 0.60 mg/dl (0.52-1.04); Estimated Glomerular Filt Rate 98 ml/min (>60); GFR (African American) 119 ML/MIN (>60)
[2025-05-25 06:38] LABS: Alanine Aminotransferase 18 U/L (12-78); Albumin/Globulin Ratio 0.7 (1.1-1.8); Alkaline Phosphatase 122 U/L (38-126); Anion Gap 4.7 mEq/L (5-15); Aspartate Amino Transferase 31 U/L (14-36); Calcium 8.3 mg/dl (8.4-10.2); Carbon Dioxide 28 mmol/L (22.0-30.0); Globulin 3.4 g/dL (1.3-3.2); Glucose 112 mg/dl (74-100); Hemoglobin 10.8 g/dL (12.2-16.2); Magnesium 2.0 mg/dl (1.6-2.3); Total Protein,Serum 5.8 g/dl (6.3-8.2)
[2025-05-25 06:40] LABS: Bilirubin,Total < 0.1 mg/dl (0.2-1.3)
[2025-05-25 08:00] VITALS: BP 182/82; PULSE 84; RESP 16; TEMP 37.1; O2SAT 92
--- NOTE | 2025-05-25 08:40 | EXP.DC.SUM ---
General Admission date:: 05/21/25 Discharge date: 05/25/25 HPI HPI HPI: Patient is a 74-year-old female with past medical history of malignant hypertension hypothyroidism hypertension who presents to the hospital due to dizziness and syncopal event, she felt like room was spinning.. Patient was found to have hypokalemia and hypomagnesemia, patient denied chest pain shortness of breath nausea vomiting diarrhea constipation dysuria fevers and chills. On further evaluation. Hospital Course Hospital Course Hospital Course: Patient is a 74-year-old female with past medical history of malignant hypertension hypothyroidism hypertension who presents to the hospital due to dizziness and syncopal event, she felt like room was spinning. Found to have hypokalemia. Replacing over the weekend, showing improvement. Potassium normalized during admission however developed onset of fever and redness in her left arm. Appears to have some cellulitis of left arm and superficial venous thrombus that is acute. Monitor for 24 hours after initiating antibiotics. Seeing improvement in redness. No longer having fevers. Will continue antibiotics at discharge. No indication for anticoagulation as thrombus is superficial. Follow-up with cardiology in the next 1 to 2 weeks. Problems addressed as follows: Syncope, resolved Hypokalemia, resolved Hypocalcemia, resolved Hyponatremia, improved - Initiated on electrolyte replacement. Had gradual improvement in sodium and potassium. Transitioned to spironolactone to help with potassium wasting with her diuretic regimen. During admission was monitored on cardiac telemetry with no acute events. Echo was performed with formal read showing normal BiV systolic function with mild RV dilation and EF of 55%. Cardiology evaluated during admission. Will resume Lasix as needed and initiate spironolactone 50 mg daily. Cellulitis of left upper extremity Cephalic vein superficial thrombus left upper extremity, acute - Left upper extremity ultrasound shows cephalic vein thrombus at the site of palpable cord. Concern for cellulitis in left upper extremity. Initiated on vancomycin and ceftriaxone. Symptoms improving by morning. Will transition to oral Keflex to complete 7-day course. Cultures obtained that were negative at time of discharge. No indication for anticoagulation as she is on aspirin and Plavix and thrombosis superficial. Continue warm compress and elevation. Chronic medical conditions Depression Hyperlipidemia CAD Anxiety GERD Hypertension Continue home amlodipine 10 mg daily and carvedilol 12.5 mg twice daily Continue aspirin 81 mg daily Continue Lipitor 80 mg nightly Continue BuSpar 20 mg 3 times a day for mood disorder Continue Lyrica 75 mg twice daily for neuropathy Constipation: Went several days during admission without bowel movement. Initiated on stool softener regimen. Had bowel movement prior to discharge Total time spent on discharge 32 minutes in counseling, documentation, chart review, and direct care with patient. Exam Data for Last 24 hours Vital signs and Labs for Last 24 Hours: Temp Pulse Resp BP Pulse Ox O2 Del Method O2 Flow Rate 98.7 F 84 16 182/82 H 92 L Room Air 2 05/25/25 08:00 05/25/25 08:00 05/25/25 08:00 05/25/25 08:00 05/25/25 08:00 05/25/25 08:00 05/25/25 04:00 Laboratory Results - last 24 hr 05/25/25 05:50: WBC 4.7 L D, RBC 3.69 L, Hgb 10.8 L D, Hct 33.1 L, MCV 89.7, MCH 29.8, MCHC 33.2, RDW 14.5, Plt Count 246, MPV 9.7, Neut % (Auto) 67.5, Lymph % (Auto) 14.4, [place] % (Auto) 13.1 H, Eos % (Auto) 2.3, Baso % (Auto) 0.8, Neut # (Auto) 3.2, Lymph # (Auto) 0.7, [place] # (Auto) 0.6, Eos # (Auto) 0.1, Baso # (Auto) 0.0, Sodium 131 L, Potassium 3.7, Chloride 102, Carbon Dioxide 28, Anion Gap 4.7 L, BUN 17, Creatinine 0.60, Estimated Creat Clear 57, Estimated GFR 98, Est GFR ( Amer) 119, Glucose 112 H, Calcium 8.3 L, Magnesium 2.0 D, Total Bilirubin < 0.1 L, AST 31, ALT 18, Alkaline Phosphatase 122, Total Protein 5.8 L, Albumin 2.4 L, Globulin 3.4 H, Albumin/Globulin Ratio 0.7 L I & O for Last 24 hours: Intake & Output 05/22/25 05/23/25 05/24/25 05/25/25 23:59 23:59 23:59 23:59 Intake Total 2130 / 2230 1920 / 2140 1160 / 1520 360 / 360 Output Total 3375 / 3375 250 / 250 0 / 0 0 / 0 Balance -1245 / -1145 1670 / 1890 1160 / 1520 360 / 360 Weight 70.579 kg 73.119 kg 75.523 kg 72.348 kg Constitutional Constitutional: no acute distress, average body habitus, chronically ill appearing and cooperative *Routine HEENT Exam Head: Present normocephalic Eye: Present EOMI and PERRL ENT: Present mucous membranes moist *Routine Neck Exam Neck: Present supple; Absent lymphadenopathy *Routine Respiratory Exam Respiratory: Present prolonged expiratory phase and rhonchi; Absent accessory muscle use, wheezes or crackles *Routine Cardiovascular Exam Cardiovascular: Present RRR *Routine Abdominal Exam Abdominal: Present soft and normoactive bowel sounds; Absent tenderness *Routine Rectal Exam Patient deferred: visual exam *Routine Exam Patient deferred: external exam *Routine Extremities Exam Extremities: Present edema (Slight edema of left elbow, erythema improving. Palpable cord. Improved over exam from yesterday); Absent cyanosis or clubbing *Routine Skin Exam Skin: Present intact, erythema (Improving erythema of left elbow/forearm) and warm; Absent rash *Routine Neurological Exam Neurological: Present alert, oriented X3 and moving all extremities; Absent altered mental status Results Data Completed and Pending Labs on day of discharge: Labs from last 24 hours 05/25/25 05:50 WBC 4.7 L D RBC 3.69 L Hgb 10.8 L D Hct 33.1 L MCV 89.7 MCH 29.8 MCHC 33.2 RDW 14.5 Plt Count 246 MPV 9.7 Neut % (Auto) 67.5 Lymph % (Auto) 14.4 [place] % (Auto) 13.1 H Eos % (Auto) 2.3 Baso % (Auto) 0.8 Neut # (Auto) 3.2 Lymph # (Auto) 0.7 [place] # (Auto) 0.6 Eos # (Auto) 0.1 Baso # (Auto) 0.0 Sodium 131 L Potassium 3.7 Chloride 102 Carbon Dioxide 28 Anion Gap 4.7 L BUN 17 Creatinine 0.60 Estimated Creat Clear 57 Estimated GFR 98 Est GFR ( Amer) 119 Glucose 112 H Calcium 8.3 L Magnesium 2.0 D Total Bilirubin < 0.1 L AST 31 ALT 18 Alkaline Phosphatase 122 Total Protein 5.8 L Albumin 2.4 L Globulin 3.4 H Albumin/Globulin Ratio 0.7 L DS: Diagnosis Discharge Diagnosis (1) Near syncope: Status: Acute Code(s): R55 - Syncope and collapse (2) Superficial venous thrombosis of left upper extremity: Status: Acute Code(s): I82.612 - Acute embolism and thrombosis of superficial veins of left upper extremity (3) Cellulitis: Status: Acute Code(s): L03.90 - Cellulitis, unspecified (4) Hyponatremia: Status: Acute Code(s): E87.1 - Hypo-osmolality and hyponatremia (5) Hypokalemia: Status: Acute Code(s): E87.6 - Hypokalemia (6) CAD (coronary artery disease): Status: Chronic Code(s): I25.10 - Atherosclerotic heart disease of [place] coronary artery without angina pectoris Qualifiers: Associated angina: without angina Coronary Disease-Associated Artery/Lesion type: [place] artery [place] vs. transplanted heart: [place] heart Qualified Code(s): I25.10 - Atherosclerotic heart disease of [place] coronary artery without angina pectoris Meds Home Medications and Allergies Home Medications ?Medication ?Instructions ?Recorded ?Confirmed ?Type amlodipine 10 mg tablet 10 mg PO DAILY 04/28/25 05/21/25 History aspirin 81 mg tablet,delayed 81 mg PO DAILY 04/28/25 05/21/25 History release atorvastatin 80 mg tablet 80 mg PO HS 04/28/25 05/21/25 History buspirone 10 mg tablet 20 mg PO TID 04/28/25 05/22/25 History clopidogrel 75 mg tablet 75 mg PO DAILY 04/28/25 05/21/25 History ergocalciferol (vitamin D2) 1,250 1,250 mcg PO WEEKLY 04/28/25 05/21/25 History mcg (50,000 unit) capsule pantoprazole 40 mg tablet,delayed 40 mg PO DAILY 04/28/25 05/21/25 History release pregabalin 75 mg capsule 75 mg PO BID 04/28/25 05/21/25 History cyclobenzaprine 10 mg tablet 10 mg PO BID 05/21/25 05/21/25 History furosemide 20 mg tablet 20 mg PO DAILYP PRN Leg swelling 05/21/25 05/21/25 History carvedilol 12.5 mg tablet 12.5 mg PO BID 30 days #60 tabs 05/25/25 Rx cephalexin 500 mg capsule 500 mg PO TID 6 days #18 caps 05/25/25 Rx spironolactone 25 mg tablet 50 mg (2 x 25 mg) PO DAILY 30 days 05/25/25 Rx #60 tabs New Prescriptions to Start Prescriptions: carvedilol César Minor cephalexin César Minor spironolactone César Minor Allergies Allergy/AdvReac Type Severity Reaction Status Date / Time Sulfa (Sulfonamide Allergy Nausea Verified 03/02/24 10:41 Antibiotics) Discharge Plan Disposition Patient Disposition: Home, Self-Care Condition: Fair Discharge Order Discharge Orders: Discharge Order (Routine); Ordered 05/25/25 Ordered By: César Minor Follow up Plan Follow up with: Demarcus Rodney PA [Physician Call Center Operator, Cardiology] - 06/08/25 10:15 am Gricel Cornejo APRN [Referring, Medical] - 05/28/25 9:00 am Hector Sherman MD [Physician, Pulmonology] - 06/28/25 10:40 am Referral Note: Establish care for Emphysema Prescriptions/Medication Reconciliation: New carvedilol 12.5 mg Tablet 12.5 mg PO BID 30 Days Qty: 60 0RF spironolactone 25 mg Tablet 50 mg PO DAILY 30 Days Qty: 60 0RF cephalexin 500 mg Capsule 500 mg PO TID 6 Days Qty: 18 0RF Continued buspirone 10 mg tablet 20 mg PO TID Patient Comments: TAKE 1 TABLET BY MOUTH 3 TIMES A DAY atorvastatin 80 mg tablet 80 mg PO HS clopidogrel 75 mg tablet 75 mg PO DAILY aspirin 81 mg tablet,delayed release (DR/EC) 81 mg PO DAILY amlodipine 10 mg tablet 10 mg PO DAILY pantoprazole 40 mg tablet,delayed release (DR/EC) 40 mg PO DAILY ergocalciferol (vitamin D2) 1,250 mcg (50,000 unit) capsule 1,250 mcg PO WEEKLY pregabalin 75 mg capsule 75 mg PO BID cyclobenzaprine 10 mg tablet 10 mg PO BID Patient Comments: TAKE ONE TABLET BY MOUTH 2 TIMES A DAY furosemide 20 mg tablet 20 mg PO DAILYP PRN (Reason: Leg swelling) Problem Reconciliation Problems Reviewed?: Yes Patient Discharge Instructions ACTIVITY: Continue current activity DIET: continue same diet Patient Instructions: Superficial Thrombophlebitis, DI for Deep Vein Thrombosis, DI for Hypokalemia, Stop Light Infection Print Language: Vietnamese Providers Primary Care Provider: Provider,Referral Admit Provider: Ulisses Harding Attending Provider: Ulisses Harding
[2025-05-25] MEDS: CYCLOBENZAPRINE 10 MG 1 EACH PO (08:41)
[2025-05-25] MEDS: PREGABALIN 25MG CAPSULE 75 MG PO (08:41)
[2025-05-25] MEDS: AMLODIPINE 10MG TABLET 10 MG PO (08:41)
[2025-05-25] MEDS: PT OWN MED *CLOPIDOGREL 75 MG TAB 1 EACH PO (08:41)
[2025-05-25] MEDS: ASPIRIN EC 81MG TABLET 81 MG PO (08:41)
[2025-05-25] MEDS: CARVEDILOL 12.5MG TABLET 12.5 MG PO (08:41)
[2025-05-25] MEDS: BUSPIRONE HCL 10 MG TABLET 20 MG PO (08:41)
[2025-05-25] MEDS: SPIRONOLACTONE 25MG TABLET 50 MG PO (08:42)
--- NOTE | 2025-05-26 15:04 | SW/DCPLANNER ---
Spoke with patient on the phone. Patient stated that she is doing good. Patient stated that she is aware of her upcoming appointments. Patient stated that she was able to get her new medicine picked up from [email or web address]. Patient stated that she has no concerns or questions at this time. Eusebia Canela
== END 2025-05-25 11:32 | disposition home or self-care (01) | DRG 641 ==
LOC: ER 10:28 → ICU 13:27 → 2ND 05-22 20:09 → ICU 05-22 22:36
PROVIDERS: Internal Medicine Adolescent Medicine; Admitting Provider Internal Medicine; Emergency Provider Student in an Organized Health Care Education/Training Program; Visit Provider Internal Medicine
DX: E87.6 Hypokalemia (principal); F32.0 Major depressive disorder, single episode, mild; L03.114 Cellulitis of left upper limb; I82.612 Acute embolism and thrombosis of superficial veins of left upper extremity; J44.9 Chronic obstructive pulmonary disease, unspecified; E83.42 Hypomagnesemia; K21.9 Gastro-esophageal reflux disease without esophagitis; F41.9 Anxiety disorder, unspecified; I25.10 Atherosclerotic heart disease of native coronary artery without angina pectoris; E78.5 Hyperlipidemia, unspecified; E03.9 Hypothyroidism, unspecified; I10 Essential (primary) hypertension; I73.9 Peripheral vascular disease, unspecified; E83.51 Hypocalcemia; E87.1 Hypo-osmolality and hyponatremia; F17.210 Nicotine dependence, cigarettes, uncomplicated; K59.00 Constipation, unspecified; R55 Syncope and collapse; R11.2 Nausea with vomiting, unspecified; Z86.73 Personal history of transient ischemic attack (TIA), and cerebral infarction without residual deficits; Z79.82 Long term (current) use of aspirin; Z79.02 Long term (current) use of antithrombotics/antiplatelets; Z88.2 Allergy status to sulfonamides; Z79.899 Other long term (current) drug therapy
CPT/HCPCS: 36415; 71046; 76882; 80048; 80053; 81001; 83735; 83880; 84439; 84443; 84484; 84540; 85007; 85025; 87040; 93005; 93306; 93971; J0696; J1644; J1650; J3375; J3475; J3480; J7030

== ENCOUNTER 2025-06-08 10:46 | Outpatient (CLI) | payer MEDICARE, SELFPAY ==
--- OUTSIDE RECORDS SUMMARY | 2025-06-08 10:49 | XMS_ITS | Encounter Summary ---
Author Organization Healthcare Address [address] [place] [address] Care Team Providers Care Bulkhead Carpenter Name Role Phone Rex Souza MD Primary Care Provider + [phone] Encounter Details Date Type Department Care Team (Late st Contact Info) Description 05/06/2015 Orders Only External Location [address] [place] [address] Provider, External Social History Tobacco Use Types [...] on filedocumented in this encounter Care Teams Bulkhead Carpenter Relationship Specialty Start Date End Date Rex Souza MD [address] [place] [address] PCP - General 03/03/21 documented as of this encounter
--- OUTSIDE RECORDS SUMMARY | 2025-06-08 10:49 | XMS_ITS | Encounter Summary ---
Author Organization Healthcare Address [address] [place] [address] Care Team Providers Care Hospitalist Physician Name Role Phone Rex Souza MD Primary Care Provider + [phone] Encounter Details Date Type Department Care Team (Late st Contact Info) Description 07/17/2023 Orders Only External Location [address] [place] [address] Provider, External Social History Tobacco Use Types [...] on filedocumented in this encounter Care Teams Hospitalist Physician Relationship Specialty Start Date End Date Rex Souza MD [address] [place] [address] PCP - General 03/03/21 documented as of this encounter
--- OUTSIDE RECORDS SUMMARY | 2025-06-08 10:49 | XMS_ITS | Clinical Summary ---
Author Organization Healthcare Address [address] [place] [address] Care Team Providers Care Gun Stocker Name Role Phone Rex Souza MD Primary Care Provider + [phone] Allergies Active Allergy Reactions Criticality Noted Date [...] days 04/18/201 6 Active ergocalciferol 1.25 MG (40353 UT) capsule Take 1 capsule (50,000 Units) [...] (2 of 2 - PPSV23) 01/30/2018 12/05/2017 [id number] Vaccine (3 - 2023- season) 2024 08/30/2021, [...] this topic Medical Devices Implanted Type Area Circulation Clerk Device Identifier Shelf Expiration Date Model / Serial / Lot Stent Self-Expanding Innova 8mm X 20mm X 130cm - [id number] Implanted:Qty: 1 on 04/14/2024 by Reynaldo Sanchez MD at [facility] [id number] 08/04/2028 [id number] / / [id number] Stent Atrium Icast Covered 7mm X 22mm X 80cm - [id number] Implanted:Qty: 1 on 04/14/2024 by Reynaldo Sanchez MD at [facility] [id number] 09/04/2026 [id number] / [id number] / [id number] Closure Device Vip Angioseal 8 Fr - [id number] Implanted:Qty: 1 on 04/14/2024 by Reynaldo Sanchez MD at [facility] [id number] 11/12/2024 [id number] / / [id number] Stent Graft Iliac [id number] - [id number] - [id number] Implanted:Qty: 1 on 04/14/2024 by Reynaldo Sanchez MD at [facility] [employer]-[id number] 12/03/2026 [id number] / [id number] / Insurance [facility] MEDICARE Care Teams Gun Stocker Relationship Specialty Start Date End Date Rex Souza MD [address] [place] [address] PCP - General 03/03/21
--- OUTSIDE RECORDS SUMMARY | 2025-06-08 10:49 | XMS_ITS | Encounter Summary ---
Author Organization Healthcare Address [address] [place] [address] Care Team Providers Care Passenger Service Representative Name Role Phone Rex Souza MD Primary Care Provider + [phone] Encounter Details Date Type Department Care Team (Late st Contact Info) Description 08/22/2023 Orders Only External Location [address] [place] [address] Provider, External Social History Tobacco Use Types [...] documented as of this encounter Care Teams Passenger Service Representative Relationship Specialty Start Date End Date Rex Souza MD [address] [place] [id number] PCP - General 03/03/21 documented as of this encounter
--- OUTSIDE RECORDS SUMMARY | 2025-06-08 10:49 | XMS_ITS | Referral Summary ---
Author Organization [email or web address] ([place], [place], [place], [place]) Address [address] [place] [address] Care Team Providers Care Lithographic Press Feeder Name Role Phone Gabino Myrick MD Primary Care Provider [phone] Bruce Shepherd MD Unavailable [phone] Teresa Grigsby DO Unavailable Allergies Active Allergy [...] hyperlipidemia 09/19/2023 Coronary artery disease invo lving [place] coronary artery of [place] heart without angina pectoris 09/19/2023 Cigarette nicotine [...] Date Gordy rded Speak language other than Bahraini at home Not on file 11/01/2023 Want [...] Advance Directives For more information, please contact: [phone] * Full Code (Latest Code Status on File) Date Activated Date Inactivated Comments 09/02/2023 5:26 AM 09/03/2023 4:27 AM * Full Code Date Activated Date Inactivated Comments 08/21/2023 1:50 PM 08/23/2023 6:38 PM Care Teams Lithographic Press Feeder Relationship Specialty Start Date End Date Gabino Myrick MD [address] [place] [address] PCP - General Family Medicine 08/08/23 Bruce Shepherd MD [address] [facility] [address] [place] [address] Surgeon Cardiothoracic Surgery 08/21/23 Teresa Grigsby DO [address] [place] [address] Interventional Cardiology 02/05/24
--- OUTSIDE RECORDS SUMMARY | 2025-06-08 10:49 | XMS_ITS | Clinical Summary ---
Author Organization [employer] ([place], [place], [place], [place]) Address [address] [place] [address] Care Team Providers Care Stamping Bench Die Maker Name Role Phone Gabino Myrick MD Primary Care Provider [phone] Bruce Shepherd MD Unavailable [phone] Teresa Grigsby DO Unavailable Allergies Active Allergy [...] hyperlipidemia 09/19/2023 Coronary artery disease invo lving [place] coronary artery of [place] heart without angina pectoris 09/19/2023 Cigarette nicotine [...] Date Gordy rded Speak language other than Jamaican at home Not on file 11/01/2023 Want [...] Advance Directives For more information, please contact: [phone] * Full Code (Latest Code Status on File) Date Activated Date Inactivated Comments 09/02/2023 5:26 AM 09/03/2023 4:27 AM * Full Code Date Activated Date Inactivated Comments 08/21/2023 1:50 PM 08/23/2023 6:38 PM Care Teams Stamping Bench Die Maker Relationship Specialty Start Date End Date Gabino Myrick MD [address] [place] [address] PCP - General Family Medicine 08/08/23 Bruce Shepherd MD [address] [facility] [address] [place] [id number] Surgeon Cardiothoracic Surgery 08/21/23 Teresa Grigsby DO [address] [place] [id number] Interventional Cardiology 02/05/24
[2025-06-08 11:29] LABS: Hematocrit 40.5 % (37.0-47.0); Hemoglobin 13.4 g/dL (12.2-16.2); Immature Granulocytes % 0.6 %; Mean Corpuscular HGB Conc 33.1 g/dL (31.8-35.4); Mean Corpuscular Hemoglobin 29.3 pg (27.0-31.2); Mean Corpuscular Volume 88.4 fl (81-99); Nucleated Red Blood Cells % 0 %; Platelet Count 444 K/mm3 (142-424); Red Blood Count 4.58 M/mm3 (4.20-5.40); Red Cell Distribution Width-SD 45.9 fL; White Blood Count 6.5 K/mm3 (4.8-10.8)
[2025-06-08 12:01] LABS: Anion Gap 12.2 mEq/L (5-15); Blood Urea Nitrogen 18 mg/dl (7-17); Calcium 9.6 mg/dl (8.4-10.2); Carbon Dioxide 28 mmol/L (22.0-30.0); Chloride 99 mmol/L (98-107); Creatinine,Serum 1.10 mg/dl (0.52-1.04); Estimated Glomerular Filt Rate 49 ml/min (>60); GFR (African American) 59 ML/MIN (>60); Glucose 95 mg/dl (74-100); Potassium 4.2 mmoL/L (3.5-5.1); Sodium 135 mmol/L (136-145)
== END 2025-06-08 23:59 | disposition home or self-care (01) ==
LOC: LAB 10:46
PROVIDERS: PCP Nurse Practitioner; Visit Provider Physician Assistant
DX: I25.10 Atherosclerotic heart disease of native coronary artery without angina pectoris (principal); I10 Essential (primary) hypertension
CPT/HCPCS: 36415; 80048; 85025

== ENCOUNTER 2025-06-29 16:44 | Observation (INO) | payer MEDICARE, SELFPAY ==
[2025-06-29] VITALS (11 sets, daily range): BP systolic 131–177; BP diastolic 73–102; PULSE 81–118; RESP 16–21; TEMP 36.7–36.8; O2SAT 91–99; BMI 27.8; BMI 28.3
--- NOTE | 2025-06-29 16:58 | HMH.EDGENADL ---
Discharge Plan Disposition Patient Disposition: Admitted Condition: Good Clinical Impressions Clinical Impression: Bowel obstruction Discharge ED Provider: Paulette Akins General Adult HPI General Chief complaint: Abdominal Pain Stated complaint: Stomach pain,vomiting,pneumonia last week Time Seen by Provider: 06/29/25 16:52 History of Present Illness HPI narrative: Patient is a 75-year-old female with a past medical history of COPD, heart failure, multiple previous abdominal surgeries who presents to the emergency department with nausea abdominal pain and shortness of breath. Patient states that she has felt nauseous for the last couple days but has been unable to vomit. Patient has had a bowel movement. Patient states that her abdomen is tender in her mid abdomen and she has had a known umbilical hernia that seems to be more protruded than usual. Patient denies any chest pain but does report chronic shortness of breath that seems to be worse over the last week. Patient states that she has been getting more short of breath with ambulation. Patient states that she is currently being treated for pneumonia with amoxicillin but is unsure when she started it. Patient has had a cough with some white sputum production. Patient denies any true fevers at home. Patient denies any other upper respiratory symptoms. No one has been sick around her. States that she has urinary frequency secondary to Lasix use. Related Data Home Medications ?Medication ?Instructions ?Recorded ?Confirmed amlodipine 10 mg tablet 10 mg PO DAILY 04/28/25 06/29/25 aspirin 81 mg tablet,delayed 81 mg PO DAILY 04/28/25 06/29/25 release atorvastatin 80 mg tablet 80 mg PO HS 04/28/25 06/29/25 buspirone 10 mg tablet 20 mg PO TID 04/28/25 06/29/25 clopidogrel 75 mg tablet 75 mg PO DAILY 04/28/25 06/29/25 ergocalciferol (vitamin D2) 1,250 1,250 mcg PO WEEKLY 04/28/25 06/29/25 mcg (50,000 unit) capsule pantoprazole 40 mg tablet,delayed 40 mg PO DAILY 04/28/25 06/29/25 release cyclobenzaprine 10 mg tablet 10 mg PO BID 05/21/25 06/29/25 furosemide 20 mg tablet 20 mg PO DAILYP PRN Leg swelling 05/21/25 06/29/25 pregabalin 75 mg capsule 75 mg PO BID PRN nerve 06/08/25 06/29/25 amoxicillin 875 mg-potassium 1 tab PO BID 06/29/25 06/29/25 clavulanate 125 mg tablet benzonatate 200 mg capsule 200 mg PO TID PRN Cough 06/29/25 06/29/25 Previous Rx's ?Medication ?Instructions ?Recorded carvedilol 12.5 mg tablet 12.5 mg PO BID 30 days #60 tabs 05/25/25 spironolactone 25 mg tablet 50 mg (2 x 25 mg) PO DAILY 30 days 05/25/25 #60 tabs Allergies Allergy/AdvReac Type Severity Reaction Status Date / Time Sulfa (Sulfonamide Allergy Nausea Verified 06/08/25 10:14 Antibiotics) [facility] Disclaimer: The information contained in this section may have been updated after the patient was seen, as this information can be updated by other users. Medical History CVA (cerebral vascular accident) At risk for cardiac dysfunction during anesthesia Tobacco dependence Diverticulosis Osteoarthritis Abdominal wall hernia DJD (degenerative joint disease), lumbar Lumbar radiculopathy HTN (hypertension) Gastroesophageal reflux disease Anxiety CAD (coronary artery disease) Hyperlipidemia Depression Surgical History H/O heart artery stent Hx of cardiac cath S/P peripheral artery angioplasty with stent placement Hx of cholecystectomy Family History Mother No significant family history Father Heart attack Social History (Updated 06/29/25 @ 21:39 by Cinthya Muse RN) Smoking Status: Current every day smoker tobacco type: cigarettes packs per day: 1 second hand exposure: No alcohol intake: never substance use type: denies use current occupational status: retired Travel in the last 8 weeks?: None household members: family housing: house marital status: current occupation: [employer] caffeine: Yes Have you lived/traveled outside US in past 30 days?: No Contact w/someone who lives/traveled outside US past 30 days?: No Exposure to someone with infectious disease in past 14 days?: No Do you have a fever (greater than 100.4 F or 38 C)?: No Have you tested positive for COVID-19?: No Exposed to someone with COVID-19 in past 14 days?: No Do you have a sore throat?: No Do you have a cough?: No Do you have any weakness?: No Are you experiencing any nausea/vomitting?: No Do you have any diarrhea?: No Are you experiencing any unusual bleeding?: No Do you have any muscle aches/pain?: No Do you have any abdominal pain?: No Are you experiencing loss of taste or smell?: No Other Medical History Have you received the Flu Vaccine for this season: No Have you received the Pneumonia Vaccine: No ROS Obtained: Yes All systems reviewed & no additional complaints except as documented and Yes Systems reviewed as appropriate & no additional complaints except as documented Physical Exam General General appearance: alert and in no apparent distress Head Head exam: atraumatic, normocephalic and normal inspection Eye Eye exam: Present normal appearance, PERRL and EOMI; Absent scleral icterus ENT ENT exam: Present normal exam and normal external ear exam Neck Neck exam: Present normal inspection and full ROM Chest Chest inspection: Present normal inspection and symmetric chest wall rise Respiratory Respiratory exam: Present normal lung sounds bilaterally and wheezes (wheezing throughout); Absent respiratory distress Cardiovascular Cardiovascular exam: Present normal rhythm, tachycardia and normal heart sounds Abdominal Exam Abdominal exam: Present soft, distention and tenderness (diffuse abdominal tenderness, umbilical hernia present, multiple abdominal scars); Absent guarding or rebound Extremities Exam Extremities exam: Present normal inspection and full ROM Back Exam Back exam: Present normal inspection and full ROM Neurological Exam Neurological exam: Present alert and oriented X3 Psychiatric Psychiatric exam: Present normal affect and normal mood Skin Skin exam: Present warm and dry Medical Decision Making Medical Records Medical records reviewed: Yes I reviewed the patient's medical records. Screening: Per USPSTF and CDC recommendations, given the prevalence of disease in our region, it is our hospital?s policy to screen for HIV and viral Hepatitis for all patients aged 18 and over and those with ongoing risk factors. Pratik Inquiry Pt receiving controlled substance: No Vital Signs: 06/29/25 16:56 06/29/25 17:31 06/29/25 17:45 Temperature 98.2 F Temperature Source Oral Pulse Rate 100 H 85 Pulse Rate [Right Radial] 118 H Respiratory Rate 20 19 19 Blood Pressure 163/96 H Blood Pressure [Right Arm] 152/102 H Blood Pressure Mean [Right Arm] 118 Blood Pressure Source [Right Arm] Automatic Cuff Blood Pressure Position [Right Arm] Sitting 02 Sat by Pulse Oximetry 93 L 98 99 Oxygen Delivery Method Room Air 06/29/25 18:30 06/29/25 19:00 06/29/25 19:30 Temperature Temperature Source Pulse Rate 91 H 90 86 Pulse Rate [Right Radial] Respiratory Rate 21 19 18 Blood Pressure 132/73 157/75 H 177/81 H Blood Pressure [Right Arm] Blood Pressure Mean [Right Arm] Blood Pressure Source [Right Arm] Blood Pressure Position [Right Arm] 02 Sat by Pulse Oximetry 91 L 92 L 92 L Oxygen Delivery Method Room Air Room Air 06/29/25 19:34 06/29/25 20:00 Temperature 98.2 F Temperature Source Oral Pulse Rate 96 H Pulse Rate [Right Radial] 83 Respiratory Rate 16 20 Blood Pressure 153/83 H Blood Pressure [Right Arm] 177/81 H Blood Pressure Mean [Right Arm] 113 Blood Pressure Source [Right Arm] Manual Cuff/ Doppler Blood Pressure Position [Right Arm] Sitting 02 Sat by Pulse Oximetry 92 L 91 L Oxygen Delivery Method Room Air Room Air Lab Data Lab results reviewed: Yes I reviewed the patient's lab results. Lab Results 06/29/25 17:00: SARS-CoV-2 (PCR) Not detected, Influenza A Untype (PCR) Not detected, Influenza Type B (PCR) Not detected 06/29/25 17:02: WBC 22.1 H*, RBC 5.34, Hgb 15.6, Hct 45.5, MCV 85.2, MCH 29.2, MCHC 34.3, RDW 14.2, Plt Count 505 H, MPV 9.0, Neut % (Auto) 78.8, Lymph % (Auto) 7.9 L, [place] % (Auto) 10.1 H, Eos % (Auto) 0.1, Baso % (Auto) 0.4, Neut # (Auto) 17.4 H, Lymph # (Auto) 1.7, [place] # (Auto) 2.2 H, Eos # (Auto) 0.0, Baso # (Auto) 0.1, Total Counted 100, Neutrophils % (Manual) 82 H, Lymphocytes % (Manual) 17, Eosinophils % (Manual) 1, Platelet Estimate Slight increase, RBC Morphology Normal, PT 10.3, INR 0.92, Sodium 130 L, Potassium 5.2 H, Chloride 92 L, Carbon Dioxide 31 H, Anion Gap 12.2, BUN 28 H, Creatinine 0.80, Estimated Creat Clear 54, Estimated GFR 70, Est GFR ( Amer) 85, Glucose 116 H, Calcium 9.4, Phosphorus 4.2, Magnesium 1.8, Total Bilirubin 0.7, AST 31, ALT 21, Alkaline Phosphatase 76, Troponin I 0.01, NT-Pro-B Natriuret Pep 4320 H, Total Protein 6.3, Albumin 3.6, Globulin 2.7, Albumin/Globulin Ratio 1.3, Lipase 73, Procalcitonin 0.047 06/29/25 17:10: VBG pH 7.43 H, VBG pCO2 45.3, VBG pO2 37.7, VBG HCO3 29.2, VBG Total CO2 30.6 H, VBG O2 Saturation 69.3, VBG Base Excess 4.8 H, VBG Lactic Acid 2.7 H 06/29/25 19:20: Urine Color Yellow, Urine Appearance Slightly cloudy, Urine pH 6.5, Ur Specific [place] 1.015, Urine Protein 3+ A, Urine Glucose (UA) Negative, Urine Ketones Negative, Urine Blood Trace-i, Urine Nitrate Negative, Urine Bilirubin Negative, Urine Urobilinogen 0.2, Ur Leukocyte Esterase Negative, Urine RBC None, Urine WBC 3-5, Ur Squamous Epith Cells 10-20, Urine Bacteria 2+ 06/29/25 20:33: Troponin I < 0.01 06/29/25 17:02 06/29/25 17:02 Orders (Tests/Meds): ED MEDICATIONS Generic Name Dose Route Start Last Admin Trade Name Freq PRN Reason Stop Dose Admin Acetaminophen 650 mg 06/29/25 20:34 Acetaminophen 325mg Tab PO 07/29/25 20:33 Q4HP PRN Fever or Mild Pain (1-3) Hydrocodone Bitart/Acetaminophen 1 tab 06/29/25 20:34 Hydrocodone/Apap 5/325 Mg Tablet PO 07/29/25 20:33 Q4HP PRN Mild to Moderate Pain (1-6) Albuterol/Ipratropium 3 ml 06/29/25 20:34 Ipratropium/Albuterol 3 Ml Neb IH 07/29/25 20:33 Q6HP PRN Shortness Of Breath Enoxaparin Sodium 40 mg 06/30/25 09:00 Enoxaparin 40mg/0.4ml Syringe SUBCUT 07/30/25 08:59 DAILY JULIANO Piperacillin Sod/Tazobactam 100 mls @ 200 mls/hr 06/30/25 02:00 06/29/25 19:08 Sod 4.5 gm/ Sodium Chloride IV 06/30/25 02:29 Infused Q8H ONE Infusion Sodium Chloride 1,000 mls @ 75 mls/hr 06/29/25 20:45 06/29/25 21:46 Sod Chlor 0.9% 1000ml Bag IV 07/29/25 20:44 75 mls/hr .[id number] JULIANO Administration Morphine Sulfate 2 mg 06/29/25 20:34 Morphine 2mg/Ml Syringe IV 07/29/25 20:33 Q4HP PRN Severe Pain (7-10) Nicotine 21 mg 06/29/25 20:34 Nicotine 21mg/24hr Patch TD 07/29/25 20:33 DAILYP PRN Nicotine Cravings Ondansetron HCl 4 mg 06/29/25 20:34 Ondansetron 4mg/2ml Vial IV 07/29/25 20:33 Q8HP PRN Nausea Pantoprazole Sodium 40 mg 06/29/25 21:00 06/29/25 22:25 Pantoprazole 40mg Tablet PO 07/29/25 20:59 40 mg HS JULIANO Administration Sodium Chloride 10 ml 06/29/25 17:59 06/29/25 18:00 Sodium Chloride 0.9% 10ml Syr (Rad Only) IV 07/29/25 17:58 10 ml NEEDED PRN Administration Maintain IV Site Discontinued Medications Generic Name Dose Route Start Last Admin Trade Name Freq PRN Reason Stop Dose Admin Albuterol/Ipratropium 9 ml 06/29/25 17:12 06/29/25 17:22 Ipratropium/Albuterol 3 Ml Neb IH 06/29/25 17:13 9 ml ONCE ONE Administration Iopamidol 80 ml 06/29/25 17:59 06/29/25 18:00 Iopamidol-370 (76%);100ml Bottle IV 06/29/25 18:00 80 ml ONCE ONE Administration Morphine Sulfate 4 mg 06/29/25 17:10 06/29/25 17:22 Morphine 4mg/Ml Syringe IV 06/29/25 17:11 4 mg ONCE ONE Administration Ondansetron HCl 4 mg 06/29/25 17:10 06/29/25 17:22 Ondansetron 4mg/2ml Vial IV 06/29/25 17:11 4 mg ONCE ONE Administration Sodium Chloride 40 ml 06/29/25 17:59 06/29/25 18:00 0.9 % Sodium Chloride 50 Ml Vial IV 06/29/25 18:00 40 ml ONCE ONE Administration ORDERS Category Date Time Status CT abdomen pelvis w con Stat Cat Scan 06/29/25 17:[address] angio chest PE protocol Stat Cat Scan 06/29/25 17:10 Completed Consult to On-Call Gen'l Surgeon [CONS] Routine Cons 06/29/25 20:34 Ordered CXR --portable [XR chest portable] Stat Exams 06/29/25 17:43 Completed POCUS Point of Care (ER Only) Stat Exams 06/29/25 17:47 Completed BNP [NT Pro Brain Natriuretic Pep.] Stat Lab 06/29/25 17:02 Completed Basic Metabolic Panel AMLAB Lab 06/30/25 06:00 Ordered Basic Metabolic Panel AMLAB Lab 07/01/25 06:00 Ordered Basic Metabolic Panel AMLAB Lab 07/02/25 06:00 Ordered Basic Metabolic Panel AMLAB Lab 07/03/25 06:00 Ordered Basic Metabolic Panel AMLAB Lab 07/04/25 06:00 Ordered Basic Metabolic Panel AMLAB Lab 07/05/25 06:00 Ordered Basic Metabolic Panel AMLAB Lab 07/06/25 06:00 Ordered Basic Metabolic Panel AMLAB Lab 07/07/25 06:00 Ordered Basic Metabolic Panel AMLAB Lab 07/08/25 06:00 Ordered Basic Metabolic Panel AMLAB Lab 07/09/25 06:00 Ordered CBC w/Auto Diff [Complete Blood Count Auto Diff] Stat Lab 06/29/25 17:02 Completed CMP [Comprehensive Metabolic Panel] Stat Lab 06/29/25 17:02 Completed Complete Blood Count Auto Diff AMLAB Lab 06/30/25 06:00 Ordered Complete Blood Count Auto Diff AMLAB Lab 07/01/25 06:00 Ordered Complete Blood Count Auto Diff AMLAB Lab 07/02/25 06:00 Ordered Complete Blood Count Auto Diff AMLAB Lab 07/03/25 06:00 Ordered Complete Blood Count Auto Diff AMLAB Lab 07/04/25 06:00 Ordered Complete Blood Count Auto Diff AMLAB Lab 07/05/25 06:00 Ordered Complete Blood Count Auto Diff AMLAB Lab 07/06/25 06:00 Ordered Complete Blood Count Auto Diff AMLAB Lab 07/07/25 06:00 Ordered Complete Blood Count Auto Diff AMLAB Lab 07/08/25 06:00 Ordered Complete Blood Count Auto Diff AMLAB Lab 07/09/25 06:00 Ordered Full Resp Panel w/COVID ([facility]) Routine Lab 06/29/25 17:10 Ordered Lipase Stat Lab 06/29/25 17:02 Completed MAG [Magnesium] Stat Lab 06/29/25 17:02 Completed PHOS [Phosphorous] Stat Lab 06/29/25 17:02 Completed PT INR [Prothrombin Time INR] Stat Lab 06/29/25 17:02 Completed Procalcitonin Routine Lab 06/30/25 06:00 Ordered Procalcitonin Stat Lab 06/29/25 17:02 Completed Rapid PCR Covid and Flu A/B Stat Lab 06/29/25 17:00 Completed Trop T [Troponin I] Stat Lab 06/29/25 17:02 Completed Troponin I Q3H Lab 06/29/25 20:33 Completed UA [Urinalysis and Microscopic] Stat Lab 06/29/25 19:20 Completed Blood Culture Stat Micro 06/29/25 17:18 Received Urine Culture Stat Micro 06/29/25 19:20 Received VBG [Venous Blood Gas] Stat RT 06/29/25 17:10 Completed Medical Decision Narrative: Patient is a 75-year-old female with a past medical history of COPD, heart failure, multiple abdominal surgeries who presents to the emergency department with abdominal pain nausea and shortness of breath. On arrival, patient was tachycardic blood pressure was otherwise unremarkable. Patient's oxygen saturation was 93%. Patient was afebrile. On exam, patient had wheezing throughout her lungs. Patient had no acute other respiratory distress. Patient did have diffuse abdominal tenderness with a palpable umbilical hernia. Differential includes but not limited to: COPD exacerbation, heart failure exacerbation, ACS/MA, viral syndrome, strangulated versus incarcerated hernia, intra-abdominal process, bowel obstruction, pneumonia, pneumothorax, pleural effusion or other acute pathology. Patient's workup was reviewed and interpreted by myself: VBG showed normal pH of 7.43, no hypercapnia. Patient had a mildly elevated lactate at 2.7. CMP showed mild hyponatremia with a sodium of 130. Potassium mildly elevated at 5.2. Glucose normal. Lipase normal. CBC showed a leukocytosis of 22. INR 0.92. Troponin 0.01, second troponin less than 0.01. BNP 4320. UA showed no evidence of infection. Given patient's wheezing, patient was given 3 DuoNebs. Although patient was tachycardic, I held off on fluids at this time given patient's heart failure and that patient is currently on Lasix. EKG shows sinus tachycardia without acute ST or T wave changes concerning for ischemia. Patient CT PE was reviewed and interpreted by myself and showed concern for possible pneumonia given patient's leukocytosis patient was started on Zosyn. [facility] amox[facility] therefore patient's leukocytosis could be secondary to steroid use as well. Patient CT scan of her abdomen was reviewed and interpreted by myself and showed bowel obstruction secondary to likely umbilical hernia. Urology read of the CT PE showed no pulmonary embolism no acute pathology. However patient CT scan after read by radiology showed high-grade bowel obstruction with incarcerated umbilical hernia. I attempted reduction at bedside and I was unable to reduce the hernia. I discussed the case with Dr. Vyas with general surgery who saw the patient at bedside. Patient was able to be reduced at bedside however patient was admitted to obs for resolution of her bowel obstruction and further management. Critical Care Critical Care Time Critical Care Time: No
--- NOTE | 2025-06-29 16:59 | ECG_ITS ---
APPROVED REPORT Exam: Resting ECG HR:103 bpm ECG Measurements Heart Rate 103 AXES IL 134 P 13 QRSd 85 QRS 13 QT 352 T 56 QTc 412 Conclusion Sinus tachycardia without acute ST or T wave changes concerning for ischemia Electronically signed by : Paulette Akins, 06/30/2025 00:22:06
--- NOTE | 2025-06-29 17:00 | PC.NURSE ---
DR GTZ AT BEDSIDE
[2025-06-29 17:09] LABS: Coronavirus 19, PCR Not Detected (NotDetected); Influenza A, PCR Not Detected (NotDetected); Influenza B, PCR Not Detected (NotDetected)
--- OUTSIDE RECORDS SUMMARY | 2025-06-29 17:09 | XMS_ITS | Encounter Summary ---
Author Organization Healthcare Address [address] [place] [address] Care Team Providers Care Cloak Room Attendant Name Role Phone Rex Souza MD Primary Care Provider + [phone] Encounter Details Date Type Department Care Team (Late st Contact Info) Description 07/17/2023 Orders Only External Location [address] [place] [address] Provider, External Social History Tobacco Use Types [...] on filedocumented in this encounter Care Teams Cloak Room Attendant Relationship Specialty Start Date End Date Rex Souza MD [address] [place] [address] PCP - General 03/03/21 documented as of this encounter
--- OUTSIDE RECORDS SUMMARY | 2025-06-29 17:09 | XMS_ITS | Encounter Summary ---
Author Organization Healthcare Address [address] [place] [address] Care Team Providers Care Real Estate Transaction Coordinator Name Role Phone Rex Souza MD Primary Care Provider + [phone] Encounter Details Date Type Department Care Team (Late st Contact Info) Description 08/22/2023 Orders Only External Location [address] [place] [address] Provider, External Social History Tobacco Use Types [...] documented as of this encounter Care Teams Real Estate Transaction Coordinator Relationship Specialty Start Date End Date Rex Souza MD [address] [id number] PCP - General 03/03/21 documented as of this encounter
--- OUTSIDE RECORDS SUMMARY | 2025-06-29 17:09 | XMS_ITS | Clinical Summary ---
Author Organization Healthcare Address [address] [place] [address] Care Team Providers Care Supervisor Heavy Equipment Name Role Phone Rex Souza MD Primary Care Provider + [phone] Allergies Active Allergy Reactions Criticality Noted Date [...] days 04/18/201 6 Active ergocalciferol 1.25 MG (54535 UT) capsule Take 1 capsule (50,000 Units) [...] Cancer Screening 1996 [facility]-Breast Cancer Screening 2001 [facility]-Zoster Vaccines (1 of 2) 2001 [facility]-Pneumococcal Vaccine: 50 + Years (2 of 2 - PPSV23) 12/05/2018 12/05/2017 [facility]-Depression Screening 02/11/2025 02/12/2024 [facility]-AFLOX-16 Vaccine (3 - 2024- season) 2025 08/30/2021, 08/09/2021 [facility]-Influenza Vaccine (#1) 06/21/202508/13, 08/15/2020 [facility]-RSV Vaccine: [...] this topic Medical Devices Implanted Type Area Conveyor Belt Operator Device Identifier Shelf Expiration Date Model / Serial / Lot Stent Self-Expanding Innova 8mm X 20mm X 130cm - [id number] Implanted:Qty: 1 on 04/14/2024 by Reynaldo Sanchez MD at [facility] [id number] 08/04/2028 [id number] / / [id number] Stent Atrium Icast Covered 7mm X 22mm X 80cm - [id number] Implanted:Qty: 1 on 04/14/2024 by Reynaldo Sanchez MD at [facility] [id number] 09/04/2026 [id number] / [id number] Closure Device Vip Angioseal 8 Fr - [id number] Implanted:Qty: 1 on 04/14/2024 by Reynaldo Sanchez MD at [facility] [id number] 11/12/2024 [id number] / / [id number] Stent Graft Iliac [id number] - [id number] - [id number] Implanted:Qty: 1 on 04/14/2024 by Reynaldo Sanchez MD at [facility] [id number] 12/03/2026 [id number] / [id number] / Insurance [facility] MEDICARE Care Teams Supervisor Heavy Equipment Relationship Specialty Start Date End Date Rex Souza MD [address] [place] [address] PCP - General 03/03/21
--- OUTSIDE RECORDS SUMMARY | 2025-06-29 17:09 | XMS_ITS | Encounter Summary ---
Author Organization Healthcare Address [address] [place] [address] Care Team Providers Care Nozzle Worker Name Role Phone Rex Souza MD Primary Care Provider [phone] Encounter Details Date Type Department Care Team (Late st Contact Info) Description 05/06/2015 Orders Only External Location [address] [place] [address] Provider, External Social History Tobacco Use Types [...] on filedocumented in this encounter Care Teams Nozzle Worker Relationship Specialty Start Date End Date Rex Souza MD [address] [place] [address] PCP - General 03/03/21 documented as of this encounter
--- NOTE | 2025-06-29 17:10 | CT_ITS ---
PROCEDURE INFORMATION: Exam: CTA Chest With Contrast Exam date and time: 06/29/2025 6:01 PM Age: 75 years old Clinical indication: Shortness of breath; Additional info: Shortness of breath, hypoxia TECHNIQUE: Imaging protocol: Computed tomographic angiography of the chest with contrast. Exam focused on the arteries. 3D rendering (Not supervised by radiologist): MIP and/or 3D reconstructed images were created by the technologist. Radiation optimization: All CT scans at this facility use at least one of these dose optimization techniques: automated exposure control; mA and/or kV adjustment per patient size (includes targeted exams where dose is matched to clinical indication); or iterative reconstruction. Contrast material: ISOUVE 370; Contrast volume: 80 ml; Contrast route: INTRAVENOUS (IV); COMPARISON: CT ANGIO CHEST PE PROTOCOL 04/28/2025 12:21 PM FINDINGS: Pulmonary arteries: No CT evidence for pulmonary embolism. Great vessels off aortic arch: The mediastinal structures including the esophagus, trachea, great vessels, and heart show no evidence of injury or acute pathologic processes. Aorta: Severe atherosclerotic calcifications of the aorta. Lungs: No acute infiltrates. Minimal atelectasis within the middle lobe. Pleural spaces: Unremarkable. No pneumothorax. No pleural effusion. Heart: See Great vessels off aortic arch finding. Coronary arteries: Three-vessel coronary artery calcifications. Lymph nodes: Unremarkable. No enlarged lymph nodes. Intraperitoneal space: Partially visualized mild perisplenic ascites. Bones/joints: Unremarkable. No acute fracture. Soft tissues: Unremarkable. IMPRESSION: 1. No CT evidence for pulmonary embolism. 2. Partially visualized mild perisplenic ascites. 3. No acute infiltrates. Minimal atelectasis within the middle lobe.
--- NOTE | 2025-06-29 17:10 | CT_ITS ---
PROCEDURE INFORMATION: Exam: CT Abdomen And Pelvis With Contrast Exam date and time: 06/29/2025 6:01 PM Age: 75 years old Clinical indication: Other: Hernia, ; additional info: Hernia, eval for strangulation vs obstruction TECHNIQUE: Imaging protocol: Computed tomography of the abdomen and pelvis with contrast. 3D rendering (Not supervised by radiologist): MIP and/or 3D reconstructed images were created by the technologist. Radiation optimization: All CT scans at this facility use at least one of these dose optimization techniques: automated exposure control; mA and/or kV adjustment per patient size (includes targeted exams where dose is matched to clinical indication); or iterative reconstruction. Contrast material: ISOVUE; Contrast volume: 80 ml; Contrast route: IV; COMPARISON: CT ABDOMEN PELVIS W CON 04/28/2025 12:21 PM FINDINGS: Lungs: The visualized lung bases demonstrate no focal infiltrates or pleural effusions. Liver: The liver appears within normal limits. Gallbladder and biliary ducts: There has been a cholecystectomy. Pancreas: The pancreas is normal. Spleen: Normal. No splenomegaly. Adrenal glands: Normal. No mass. Kidneys and ureters: Mild atrophy of the right kidney. Stomach and bowel: High-grade small bowel obstruction due to incarcerated hernia containing loop of small bowel most likely at the level of the distal jejunum. No pneumatosis. Appendix: No evidence of appendicitis. Intraperitoneal space: Mild perisplenic ascites. Mild intrapelvic ascites. Vasculature: Severe atherosclerotic calcifications of the aorta. Focal aneurysmal dilation of the infrarenal abdominal aorta maximum transverse dimension 3.6 cm. Stent within the SMA and celiac trunk. Lymph nodes: Unremarkable. No enlarged lymph nodes. Urinary bladder: The bladder appears within normal limits. No wall thickening. Reproductive: The uterus and adnexal structures appear normal. Bones/joints: Unremarkable. No acute fracture. Soft tissues: The hernia sac measures 5.4 cm. Severely dilated loops enter and then decompressed loops exit the hernia sac. There is decreased enhancement suggesting early ischemia within the wall. This hernia is noted within the right anterior upper pelvic wall region. IMPRESSION: 1. High-grade small bowel obstruction due to incarcerated hernia containing loop of small bowel most likely at the level of the distal jejunum. The hernia sac measures 5.4 cm. Severely dilated loops enter and then decompressed loops exit the hernia sac. There is decreased enhancement suggesting early ischemia within the wall. No pneumatosis. 2. This hernia is noted within the right anterior upper pelvic wall region. 3. Focal aneurysmal dilation of the infrarenal abdominal aorta maximum transverse dimension 3.6 cm. 4. Mild intrapelvic ascites. 5. Mild atrophy of the right kidney. THIS REPORT CONTAINS FINDINGS THAT MAY BE CRITICAL TO PATIENT CARE. The findings were verbally communicated via telephone conference at 7:25 PM EDT on 06/29/2025 with Paulette Akins. The findings were acknowledged and understood.
[2025-06-29 17:16] LABS: Lactate Venous 2.7 mmol/L (0.4-2.0); VBG HCO3 29.2 mmol/L (23-30); VBG PCO2 45.3 mmol/L (35-51); VBG PH 7.43 mmol/L (7.31-7.41); VBG PO2 37.7 mmol/L (28-40)
[2025-06-29] MEDS: ONDANSETRON 4MG/2ML VIAL 4 MG IV (17:22)
[2025-06-29] MEDS: IPRATROPIUM/ALBUTEROL 3 ML NEB 9 ML IH (17:22)
[2025-06-29] MEDS: MORPHINE 4MG/ML SYRINGE 4 MG IV (17:22)
[2025-06-29 17:23] LABS: Albumin Level 3.6 g/dl (3.5-5.0); Chloride 92 mmol/L (98-107)
[2025-06-29 17:24] LABS: Potassium 5.2 mmoL/L (3.5-5.1); Sodium 130 mmol/L (136-145)
[2025-06-29 17:26] LABS: Alanine Aminotransferase 21 U/L (12-78); Aspartate Amino Transferase 31 U/L (14-36); Blood Urea Nitrogen 28 mg/dl (7-17); Creatinine Clearance Estimated 54 mL/min (50-200); Creatinine,Serum 0.80 mg/dl (0.52-1.04); Estimated Glomerular Filt Rate 70 ml/min (>60); GFR (African American) 85 ML/MIN (>60)
[2025-06-29 17:27] LABS: Albumin/Globulin Ratio 1.3 (1.1-1.8); Alkaline Phosphatase 76 U/L (38-126); Anion Gap 12.2 mEq/L (5-15); Bilirubin,Total 0.7 mg/dl (0.2-1.3); Calcium 9.4 mg/dl (8.4-10.2); Carbon Dioxide 31 mmol/L (22.0-30.0); Globulin 2.7 g/dL (1.3-3.2); Glucose 116 mg/dl (74-100); Lipase 73 U/L (23-300); Magnesium 1.8 mg/dl (1.6-2.3); Phosphorous 4.2 mg/dl (2.5-4.5); Total Protein,Serum 6.3 g/dl (6.3-8.2)
[2025-06-29 17:31] LABS: Hematocrit 45.5 % (37.0-47.0); Hemoglobin 15.6 g/dL (12.2-16.2); Immature Granulocytes % 2.7 %; Mean Corpuscular HGB Conc 34.3 g/dL (31.8-35.4); Mean Corpuscular Hemoglobin 29.2 pg (27.0-31.2); Mean Corpuscular Volume 85.2 fl (81-99); Nucleated Red Blood Cells % 0.1 %; Platelet Count 505 K/mm3 (142-424); Red Blood Count 5.34 M/mm3 (4.20-5.40); Red Cell Distribution Width-SD 44.1 fL; White Blood Count 22.1 K/mm3 (4.8-10.8)
[2025-06-29 17:36] LABS: NT Pro Brain Natriuretic Pep. 4320 pg/mL (0-125)
[2025-06-29 17:37] LABS: INR 0.92 (0.9-1.1); Prothrombin Time 10.3 seconds (10.1-12.5)
[2025-06-29 17:43] LABS: Troponin I 0.01 ng/ml (0.00-0.034)
--- NOTE | 2025-06-29 17:43 | XR_ITS ---
PROCEDURE INFORMATION: Exam: XR Chest Exam date and time: 06/29/2025 6:05 PM Age: 75 years old Clinical indication: Shortness of breath; Additional info: Eval for pna TECHNIQUE: Imaging protocol: Radiologic exam of the chest. Views: 1 view. COMPARISON: CT ANGIO CHEST PE PROTOCOL 06/29/2025 6:01 PM FINDINGS: Lungs: Unremarkable. No consolidation. Focal discoid atelectasis within the middle lobe. Pleural spaces: Unremarkable. No pleural effusion. No pneumothorax. Heart/Mediastinum: Unremarkable. No cardiomegaly. Bones/joints: Unremarkable. IMPRESSION: No acute findings.
--- NOTE | 2025-06-29 17:55 | PC.NURSE ---
PT TO CT
[2025-06-29] MEDS: 0.9 % SODIUM CHLORIDE 50 ML VIAL 40 ML IV (18:00)
[2025-06-29] MEDS: SODIUM CHLORIDE 0.9% 10ML SYR (RAD ONLY) 10 ML IV (18:00)
[2025-06-29] MEDS: IOPAMIDOL-370 (76%);100ML BOTTLE 80 ML IV (18:00)
--- NOTE | 2025-06-29 18:08 | PC.NURSE ---
PT RETURNED FROM CT
[2025-06-29] MEDS: PIPERACILLIN/TAZO 4.5 GM in 0.9 % SODIUM CHLORIDE 100 ML IV (18:38)
--- NOTE | 2025-06-29 18:41 | PC.NURSE ---
PT MEDICATED PER EMAR UPDATED ON POC. FAMILY AT BEDSIDE
[2025-06-29 19:00] LABS: Total Cells Counted 100
[2025-06-29 19:12] LABS: RBC Morphology Normal
[2025-06-29 19:25] LABS: Microscopic, Urine URINE MICROSCOPIC (MICROSCOPIC)
[2025-06-29 19:30] LABS: Bilirubin,Urine Negative (Negative); Color,Urine YELLOW (Yellow); Glucose,Urine (UA) Negative (Negative); Ketones,Urine Negative (Negative); Leukocyte Esterase,Urine Negative (Negative); PH,Urine 6.5 (5.0-8.5); Protein,Urine 3+ (Negative); Specific Gravity, Urine 1.015 (1.005-1.030); Urobilinogen,Urine 0.2 EU/dl (0.2)
--- NOTE | 2025-06-29 19:42 | PC.NURSE ---
patient placed in gown, all patient clothing placed in bag and given to family. no jewelry.dentures/hearing aids with patient today.
[2025-06-29 19:46] LABS: Bacteria,Urine 2+ /lpf
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
--- NOTE | 2025-06-29 20:39 | P.HP_ITS ---
History of Present Illness *Admission Date: 06/29/25 *Reason for visit:: Abdominal pain *History of present illness: This is a 75-year-old female who has a past medical history significant for CVA, current smoker, diverticulosis,Osteoarthritis, HFpEF, lumbar radiculopathy, degenerative joint disease, umbilical hernia, hypertension, GERD, anxiety, coronary disease, hyperlipidemia, and depression who presents with a chief complaint of abdominal pain. Due to patient's symptoms, she presented to the emergency room for evaluation. 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 ER provider attempted to reduce hernia without any success; as a result, general surgeon was consulted and was able to reduce patient's hernia while in the emergency room. Post reduction, patient felt better. General surgery recommended observation over the course of the night; as a result, hospital medicine was consulted for further management. During my evaluation of the patient, patient states she has been experiencing mid abdominal pain rated 10 out of 10 for the past 2 days that was coupled with some nausea and an inability to vomit. Patient states she did have a normal bowel movement today. She reports her abdominal tenderness has improved. Recently, patient was seen by her primary care physician and was prescribed steroids and amoxicillin for suspected pneumonia. She did present with an elevated white blood cell count without any specific infectious source. She is currently denying any bilious emesis, chest pain, lightheadedness, dizziness, fever, chills, rigors, shortness of breath, dyspnea, or diarrhea. Additional pertinent vitals obtained include a white blood cell count of 22.1, platelet count of 505, neutrophils 82%, blood gas of pH of 7.43, sodium 130, potassium of 5.2, chloride of 92, carbon oxide of 31, BUN of 28, blood glucose of 116, and BNP of [address] [facility] Disclaimer: The information contained in this section may have been updated after the patient was seen, as this information can be updated by other users. Medical History CVA (cerebral vascular accident) At risk for cardiac dysfunction during anesthesia Tobacco dependence Diverticulosis Osteoarthritis Abdominal wall hernia DJD (degenerative joint disease), lumbar Lumbar radiculopathy HTN (hypertension) Gastroesophageal reflux disease Anxiety CAD (coronary artery disease) Hyperlipidemia Depression Surgical History H/O heart artery stent Hx of cardiac cath S/P peripheral artery angioplasty with stent placement Hx of cholecystectomy Family History Mother No significant family history Father Heart attack Social History Smoking Status: Current every day smoker tobacco type: cigarettes packs per day: 1 second hand exposure: No alcohol intake: never substance use type: denies use current occupational status: retired Travel in the last 8 weeks?: None household members: family housing: house marital status: current occupation: [employer] caffeine: Yes Have you lived/traveled outside [place] in past 30 days?: No Contact w/someone who lives/traveled outside [place] past 30 days?: No Exposure to someone with infectious disease in past 14 days?: No Do you have a fever (greater than 100.4 F or 38 C)?: No Have you tested positive for COVID-19?: No Exposed to someone with COVID-19 in past 14 days?: No Do you have a sore throat?: No Do you have a cough?: No Do you have any weakness?: No Do you have any diarrhea?: No Are you experiencing any unusual bleeding?: No Do you have any muscle aches/pain?: No Do you have any abdominal pain?: No Are you experiencing loss of taste or smell?: No Other Medical History Have you received the Flu Vaccine for this season: No Have you received the Pneumonia Vaccine: No Review of Systems Review of Systems Review of systems:: pertinent systems reviewed and negative unless documented below Constitutional Constitutional: Reports system reviewed and no additional complaints, except as documented Eyes Eyes: Reports system reviewed and no additional complaints, except as documented ENT Ears, Nose, Mouth, and Throat: Reports system reviewed and no additional complaints, except as documented *Cardiovascular Cardiovascular: Reports system reviewed and no additional complaints, except as documented *Respiratory Respiratory: Reports system reviewed and no additional complaints, except as documented *Gastrointestinal Gastrointestinal: Reports abdominal pain and Reports nausea *Genitourinary Genitourinary: Reports system reviewed and no additional complaints, except as documented *Musculoskeletal Musculoskeletal: Reports system reviewed and no additional complaints, except as documented Integumentary/Breasts Skin/Breast: Reports system reviewed and no additional complaints, except as documented *Neurologic Neurologic: Reports system reviewed and no additional complaints, except as documented Psychiatric Psychiatric: Reports system reviewed and no additional complaints, except as documented Endocrine Endocrine: Reports system reviewed and no additional complaints, except as documented Hematologic/Lymphatic Hematologic/Lymphatic: Reports system reviewed and no additional complaints, except as documented Allergic/Immunologic Allergic/Immunologic: Reports system reviewed and no additional complaints, except as documented Meds Home Medications and Allergies Home Medications ?Medication ?Instructions ?Recorded ?Confirmed ?Type amlodipine 10 mg tablet 10 mg PO DAILY 04/28/2505/21 History aspirin 81 mg tablet,delayed 81 mg PO DAILY 04/28/25 0 06/08/25 History release atorvastatin 80 mg tablet 80 mg PO HS 04/28/25 5 History buspirone 10 mg tablet 20 mg PO TID 04/28/25 History clopidogrel 75 mg tablet 75 mg PO DAILY 04/28/2505/21 History ergocalciferol (vitamin D2) 1,250 1,250 mcg PO WEEKLY 04/28/25 06/08/25 History mcg (50,000 unit) capsule pantoprazole 40 mg tablet,delayed 40 mg PO DAILY 04/2806/08/25 History release cyclobenzaprine 10 mg tablet 10 mg PO BID 05/21/25 History furosemide 20 mg tablet 20 mg PO DAILYP PRN Leg swel ling 05/21/25 06/08/25 History carvedilol 12.5 mg tablet 12.5 mg PO BID 30 days #60 t abs 05/25/25 06/08/25 Rx spironolactone 25 mg tablet 50 mg (2 x 25 mg) PO DAILY 30 days 05/25/25 06/08/25 Rx #60 tabs pregabalin 75 mg capsule 75 mg PO BID PRN 06/08/25 History New Prescriptions to Start Prescriptions: Allergies Allergy/AdvReac Type Severity Reaction Status Date / Time Sulfa (Sulfonamide Allergy Nausea Verified 06/08/25 10:14 Antibiotics) Exam Data for Last 24 hours Vital signs and Labs for Last 24 Hours: Temp Pulse Resp BP Pulse Ox O2 Del Method 98.2 F 96 H 20 153/83 H 91 L Room Air 06/29/25 19:34 06/29/25 20:00 06/29/25 20:00 06/29/25 20:00 06/29/25 20:00 06/29/25 20:00 Laboratory Results - last 24 hr 06/29/25 17:00: SARS-CoV-2 (PCR) Not detected, Influenza A Untype (PCR) Not detected, Influenza Type B (PCR) Not detected 06/29/25 17:02: WBC 22.1 H*, RBC 5.34, Hgb 15.6, Hct 45.5, MCV 85.2, MCH 29.2, MCHC 34.3, RDW 14.2, Plt Count 505 H, MPV 9.0, Neut % (Auto) 78.8, Lymph % (Auto) 7.9 L, [place] % (Auto) 10.1 H, Eos % (Auto) 0.1, Baso % (Auto) 0.4, Neut # (Auto) 17.4 H, Lymph # (Auto) 1.7, [place] # (Auto) 2.2 H, Eos # (Auto) 0.0, Baso # (Auto) 0.1, Total Counted 100, Neutrophils % (Manual) 82 H, Lymphocytes % (Manual) 17, Eosinophils % (Manual) 1, Platelet Estimate Slight increase, RBC Morphology Normal, PT 10.3, INR 0.92, Sodium 130 L, Potassium 5.2 H, Chloride 92 L, Carbon Dioxide 31 H, Anion Gap 12.2, BUN 28 H, Creatinine 0.80, Estimated Creat Clear 54, Estimated GFR 70, Est GFR ( Amer) 85, Glucose 116 H, Calcium 9.4, Phosphorus 4.2, Magnesium 1.8, Total Bilirubin 0.7, AST 31, ALT 21, Alkaline Phosphatase 76, Troponin I 0.01, NT-Pro-B Natriuret Pep 4320 H, Total Protein 6.3, Albumin 3.6, Globulin 2.7, Albumin/Globulin Ratio 1.3, Lipase 73 06/29/25 17:10: VBG pH 7.43 H, VBG pCO2 45.3, VBG pO2 37.7, VBG HCO3 29.2, VBG Total CO2 30.6 H, VBG O2 Saturation 69.3, VBG Base Excess 4.8 H, VBG Lactic Acid 2.7 H 06/29/25 19:20: Urine Color Yellow, Urine Appearance Slightly cloudy, Urine pH 6.5, Ur Specific [place] 1.015, Urine Protein 3+ A, Urine Glucose (UA) Negative, Urine Ketones Negative, Urine Blood Trace-i, Urine Nitrate Negative, Urine Bilirubin Negative, Urine Urobilinogen 0.2, Ur Leukocyte Esterase Negative, Urine RBC None, Urine WBC 3-5, Ur Squamous Epith Cells 10-20, Urine Bacteria 2+ I & O for Last 24 hours: Intake & Output 06/26/25 06/27/25 06/28/25 06/29/25 23:59 23:59 23:59 23:59 Weight 68.946 kg Constitutional Constitutional: no acute distress and obese *Routine HEENT Exam Head: Present normocephalic and atraumatic Eye: Present EOMI and PERRL ENT: Present mucous membranes moist *Routine Neck Exam Neck: Present supple, full ROM and trachea midline *Routine Respiratory Exam Respiratory: Present wheezes, normal respiratory effort and able to speak in complete sentences *Routine Cardiovascular Exam Cardiovascular: Present RRR, Normal S1 and Normal S2 *Routine Abdominal Exam Abdominal: Present soft, normoactive bowel sounds, tenderness and obese *Routine Rectal Exam Rectal:: deferred *Routine Genitalia Exam Genitalia:: deferred *Routine Extremities Exam Extremities: Present pulses intact and normal capillary refill Routine Back/Spine/Pelvis Exam Back/Spine: Present full ROM *Routine Skin Exam Skin: Present intact, dry and warm *Routine Neurological Exam Neurological: Present alert, oriented X3, moving all extremities and normal speech Routine Psychiatric Exam Psychiatric: Present normal affect, normal thought process, cooperative, good insight and good judgment H&P: Result Impressions 75-year-old female who presents with abdominal pain and has a known umbilical hernia was successfully reduced by general surgery while in the emergency room. Post closed reduction, patient's symptomology has improved Assessment and Plan *Assessment and plan (1) Incarcerated hernia: Status: Acute Category: Medical Code(s): K46.0 - Unspecified abdominal hernia with obstruction, without gangrene (2) Small bowel obstruction: Status: Acute Category: Medical Code(s): K56.609 - Unspecified intestinal obstruction, unspecified as to partial versus complete obstruction (3) Leukocytosis: Status: Acute Qualifiers: Leukocytosis type: unspecified Qualified Code(s): D72.829 - Elevated white blood cell count, unspecified Category: Medical Code(s): D72.829 - Elevated white blood cell count, unspecified (4) Hyperkalemia: Status: Acute Category: Medical Code(s): E87.5 - Hyperkalemia (5) Ascites: Status: Acute Qualifiers: Ascites type: other type Qualified Code(s): R18.8 - Other ascites Category: Medical Code(s): R18.8 - Other ascites (6) Elevated brain natriuretic peptide (BNP) level: Status: Acute Category: Medical Code(s): R79.89 - Other specified abnormal findings of blood chemistry (7) Thrombocytosis: Status: Acute Category: Medical Code(s): D75.839 - Thrombocytosis, unspecified Plan Assessment: Evolving small bowel obstruction due to incarcerated hernia - Was successfully reduced by general surgery in emergency room who recommended clear liquid diet - Will follow recommendations of general surgery and place patient on clear liquid diet - Patient currently has a revised cardiac index of class IV which is a 10% risk of major cardiovascular event this is a severe risk to surgery; patient recently had a provocative workup in 2022 which showed poor METS of 1, shortness of air during the workup, and [id number] changes (depression). If patient has emergent colon resection due to reoccurrence symptoms, recommend close cardiovascular observation postoperatively. -Currently there are no modifiable risk factors from a cardiovascular standpoint that I can identify prior to surgery-will discuss with attending Leukocytosis left shift -May be multifactorial due to exogenous glucocorticoid steroid versus reactive from incarceration of hernia - Will obtain procalcitonin - Patient was prescribed amoxicillin for suspected pneumonia however there is no pneumonia seen on imaging-Will hold outpatient prescribed antibiotics - Patient was empirically treated with Zosyn 4.5 g in the emergency room we will continue every 8 hours-Will de-escalate antibiotics if procalcitonin is negative - Will obtain blood cultures x 2 - Will trend procalcitonin - Will consider peripheral smear Hyperkalemia -This is mild just slightly above normal - Patient is prescribed potassium sparing diuretics - Will hold while inpatient - Will trend patient's potassium recheck in the a.m.\ - If potassium continues to rise, will give patient Vinh cocktail for hyperkalemia reversal Ascites -This was seen on imaging -Will monitor Elevated BNP -Patient does have a history of HFpEF -She did present with an elevated platelet count I do suspect mild dehydration from decreased p.o. intake - Will give gentle IV hydration and monitor patient's platelet count Thrombocytosis -Will monitor - Highly suspicious for dehydration - Will give gentle IV hydration normal saline at 75 mL an hour over the course of the night Plan: Admit patient to the MedSurg unit Vital signs every 4 hours Consult general surgeon BMP/CBC daily 40 mg Lovenox subcu daily for DVT prophylaxis 2 mg morphine IV push every 4 hours as needed severe pain 21 mg nicotine patch daily 4 mg Zofran IV push every 8 hours pain nausea vomiting/40 mg Protonix p.o. daily 4.5 g of Zosyn IV every 8 hours Blood cultures x 2 Full code I will discuss this case with attending physician Dr. Suero and I look forward to more input
--- NOTE | 2025-06-29 20:49 | PC.NURSE ---
second attempt made to call report. no answer. will attempt again
--- NOTE | 2025-06-29 21:01 | PC.NURSE ---
report called to Imelda HUMPHREY
--- NOTE | 2025-06-29 21:15 | PC.NURSE ---
pt arrived to floor via wc from ed
[2025-06-29 21:17] LABS: Reflex Lactic Add Lactic Reflex
[2025-06-29 21:17] LABS: Procalcitonin 0.047 ng/mL (0.0-2.0)
[2025-06-29 21:35] LABS: Troponin I < 0.01 ng/ml (0.00-0.034)
[2025-06-29] MEDS: 0.9 % SODIUM CHLORIDE 1000ML 1,000 ML 75 ML IV (21:46)
[2025-06-29] MEDS: PANTOPRAZOLE 40MG TABLET 40 MG PO (22:25)
[2025-06-29 23:33] LABS: Lactic Acid Follow Up (RFLX 1) 1.3 mmol/L (0.7-2.1)
[2025-06-30] VITALS (9 sets, daily range): BP systolic 127–157; BP diastolic 71–95; PULSE 70–92; RESP 12–20; TEMP 36.4–36.8; O2SAT 91–98; BMI 28.7
[2025-06-30] MEDS: PIPERACILLIN/TAZO 4.5 GM in 0.9 % SODIUM CHLORIDE 100 ML IV (02:00)
[2025-06-30 05:57] LABS: Hematocrit 37.4 % (37.0-47.0); Immature Granulocytes % 3.3 %; Mean Corpuscular HGB Conc 33.2 g/dL (31.8-35.4); Mean Corpuscular Hemoglobin 28.8 pg (27.0-31.2); Mean Corpuscular Volume 86.8 fl (81-99); Nucleated Red Blood Cells % 0 %; Platelet Count 329 K/mm3 (142-424); Red Blood Count 4.31 M/mm3 (4.20-5.40); Red Cell Distribution Width-SD 45.1 fL; White Blood Count 10.9 K/mm3 (4.8-10.8)
[2025-06-30 06:01] LABS: Hemoglobin 12.3 g/dL (12.2-16.2)
[2025-06-30 06:03] LABS: Anion Gap 5.3 mEq/L (5-15); Blood Urea Nitrogen 23 mg/dl (7-17); Calcium 8.1 mg/dl (8.4-10.2); Carbon Dioxide 29 mmol/L (22.0-30.0); Chloride 99 mmol/L (98-107); Creatinine Clearance Estimated 55 mL/min (50-200); Creatinine,Serum 0.90 mg/dl (0.52-1.04); Estimated Glomerular Filt Rate 61 ml/min (>60); GFR (African American) 74 ML/MIN (>60); Glucose 95 mg/dl (74-100); Potassium 3.3 mmoL/L (3.5-5.1); Sodium 130 mmol/L (136-145)
[2025-06-30 06:17] LABS: Procalcitonin 0.052 ng/mL (0.0-2.0)
[2025-06-30 06:52] LABS: Adenovirus,PCR Not Detected (NotDetected); Chlamydophila Pneumoniae, PCR Not Detected (NotDetected); Coronavirus 19, PCR Not Detected (NotDetected); Coronovirus HKU1,PCR Not Detected (NotDetected); Influenza A, PCR Not Detected (NotDetected); Influenza AH1, 2009 Not Detected (NotDetected); Influenza AH1, PCR Not Detected (NotDetected); Influenza AH3,PCR Not Detected (NotDetected); Influenza B, PCR Not Detected (NotDetected); Mycoplasma Pneumoniae, PCR Not Detected (NotDetected); Parainfluenza 1, PCR Not Detected (NotDetected); Parainfluenza 2, PCR Not Detected (NotDetected); Parainfluenza 3, PCR Not Detected (NotDetected); Parainfluenza 4, PCR Not Detected (NotDetected)
--- NOTE | 2025-06-30 08:21 | HMH.PHAINT1 ---
Pharmacy Intervention Comments: verified home medication list using list from outpatient pharmacy and pt interview
--- NOTE | 2025-06-30 09:21 | EXP.SURG.PN ---
Subjective Narrative: Patient states that she feels much better than she did last night. Has had a bowel movement. Tolerating clear liquids. She does complain of her abdomen being sore . She wonders if this is from her coughing. Diagnosed with rhinovirus. Exam Data for Last 24 hours Vital signs and Labs for Last 24 Hours: Temp Pulse Resp BP Pulse Ox O2 Del Method O2 Flow Rate 97.9 F 84 16 141/95 H 98 Nasal Cannula 2 06/30/25 08:00 06/30/25 08:00 06/30/25 08:00 06/30/25 08:00 06/30/25 08:00 06/30/25 08:12 06/30/25 08:12 Laboratory Results - last 24 hr 06/29/25 17:00: Chlamy pneumoniae PCR Not detected, Adenovirus (PCR) Not detected, B. pertussis DNA (PCR) Not detected, Coronavirus OC43 (PCR) Not detected, Coronavirus HKU1 (PCR) Not detected, Coronavirus 229E (PCR) Not detected, SARS-CoV-2 (PCR) Not detected 06/29/25 17:00: SARS-CoV-2 (PCR) Not detected, Coronavirus NL63 (PCR) Not detected, Human Metapneumovir PCR Not detected, Influenza A (H1) PCR Not detected, Influ A (H1N1/09) PCR Not detected, Influenza A (H3) PCR Not detected, Influenza Type A (PCR) Not detected, Influenza A Untype (PCR) Not detected, Influenza Type B (PCR) Not detected 06/29/25 17:00: Influenza Type B (PCR) Not detected, M. pneumoniae (PCR) Not detected, Parainfluenza 1 (PCR) Not detected, Parainfluenza 2 (PCR) Not detected, Parainfluenza 3 (PCR) Not detected, Parainfluenza 4 (PCR) Not detected, RSV (PCR) Not detected, Entero/Rhino (PCR) Detected A 06/29/25 17:02: WBC 22.1 H*, RBC 5.34, Hgb 15.6, Hct 45.5, MCV 85.2, MCH 29.2, MCHC 34.3, RDW 14.2, Plt Count 505 H, MPV 9.0, Neut % (Auto) 78.8, Lymph % (Auto) 7.9 L, [place] % (Auto) 10.1 H, Eos % (Auto) 0.1, Baso % (Auto) 0.4, Neut # (Auto) 17.4 H, Lymph # (Auto) 1.7, [place] # (Auto) 2.2 H, Eos # (Auto) 0.0, Baso # (Auto) 0.1, Total Counted 100, Neutrophils % (Manual) 82 H, Lymphocytes % (Manual) 17, Eosinophils % (Manual) 1, Platelet Estimate Slight increase, RBC Morphology Normal, PT 10.3, INR 0.92, Sodium 130 L, Potassium 5.2 H, Chloride 92 L, Carbon Dioxide 31 H, Anion Gap 12.2, BUN 28 H, Creatinine 0.80, Estimated Creat Clear 54, Estimated GFR 70, Est GFR ( Amer) 85, Glucose 116 H, Calcium 9.4, Phosphorus 4.2, Magnesium 1.8, Total Bilirubin 0.7, AST 31, ALT 21, Alkaline Phosphatase 76, Troponin I 0.01, NT-Pro-B Natriuret Pep 4320 H, Total Protein 6.3, Albumin 3.6, Globulin 2.7, Albumin/Globulin Ratio 1.3, Lipase 73, Procalcitonin 0.047 06/29/25 17:10: VBG pH 7.43 H, VBG pCO2 45.3, VBG pO2 37.7, VBG HCO3 29.2, VBG Total CO2 30.6 H, VBG O2 Saturation 69.3, VBG Base Excess 4.8 H, VBG Lactic Acid 2.7 H 06/29/25 19:20: Urine Color Yellow, Urine Appearance Slightly cloudy, Urine pH 6.5, Ur Specific [place] 1.015, Urine Protein 3+ A, Urine Glucose (UA) Negative, Urine Ketones Negative, Urine Blood Trace-i, Urine Nitrate Negative, Urine Bilirubin Negative, Urine Urobilinogen 0.2, Ur Leukocyte Esterase Negative, Urine RBC None, Urine WBC 3-5, Ur Squamous Epith Cells 10-20, Urine Bacteria 2+ 06/29/25 20:33: Troponin I < 0.01 06/29/25 23:06: Lactate 1.3 06/30/25 05:21: WBC 10.9 H D, RBC 4.31, Hgb 12.3 D, Hct 37.4, MCV 86.8, MCH 28.8, MCHC 33.2, RDW 14.1, Plt Count 329 D, MPV 9.1, Neut % (Auto) 72.1, Lymph % (Auto) 12.5, [place] % (Auto) 10.7 H, Eos % (Auto) 0.9, Baso % (Auto) 0.5, Neut # (Auto) 7.9 H, Lymph # (Auto) 1.4, [place] # (Auto) 1.2 H, Eos # (Auto) 0.1, Baso # (Auto) 0.1, Sodium 130 L, Potassium 3.3 L D, Chloride 99, Carbon Dioxide 29, Anion Gap 5.3, BUN 23 H, Creatinine 0.90, Estimated Creat Clear 55, Estimated GFR 61, Est GFR ( Amer) 74, Glucose 95, Calcium 8.1 L, Procalcitonin 0.052 I & O for Last 24 hours: Intake & Output 06/27/25 06/28/25 06/29/25 06/30/25 11:59 11:59 11:59 11:59 Intake Total 460 / 460 Output Total 250 / 250 Balance 210 / 210 Weight 156 lb *Routine Abdominal Exam Abdominal: Present soft Comments: Hernia soft. She does have some diffuse mild tenderness without guarding or rebound. Progress Note: A&P Assessment and plan (1) Incarcerated hernia: Status: Acute (2) Small bowel obstruction: Status: Acute (3) Leukocytosis: Status: Acute (4) Hyperkalemia: Status: Acute (5) Ascites: Status: Acute (6) Elevated brain natriuretic peptide (BNP) level: Status: Acute (7) Thrombocytosis: Status: Acute Assessment and Plan Assessment and Plan for All Diagnoses:: Advance to full liquid diet at this time. Likely continued inpatient observation at least until tomorrow.
--- NOTE | 2025-06-30 09:31 | P.PN_ITS ---
Subjective *Date: 06/30/25 *Time: 12:45 Interval history: Patient doing well this morning, and states she feels well. Had a bowel movement last night, does complain of abdominal soreness. She states she has been coughing, + for rhinovirus. DuoNebs ordered, continue Zosyn 4.5 g every 8 hours. Medical Exam Vital signs and Labs for Last 24 Hours: Vital Signs Temp Pulse Pulse Resp BP BP Pulse Ox 06/30/25 08:12 06/30/25 08:00 97.9 F 84 16 141/95 H 98 06/30/25 08:00 06/30/25 06:07 06/30/25 05:00 06/30/25 04:00 97.6 F 89 20 150/77 H 94 L 06/30/25 03:00 06/30/25 01:00 06/30/25 00:00 98.2 F 88 16 139/73 93 L 06/29/25 23:00 06/29/25 21:57 82 16 06/29/25 21:55 06/29/25 21:46 98.0 F 81 16 164/79 H 91 L 06/29/25 21:22 98.3 F 87 20 131/82 06/29/25 20:00 96 H 20 153/83 H 91 L 06/29/25 19:34 98.2 F 83 16 177/81 H 92 L 06/29/25 19:30 86 18 177/81 H 92 L 06/29/25 19:00 90 19 157/75 H 92 L 06/29/25 18:30 91 H 21 132/73 91 L 06/29/25 17:45 85 19 99 06/29/25 17:31 100 H 19 163/96 H 98 06/29/25 16:56 98.2 F 118 H 20 152/102 H 93 L O2 Del Method O2 Flow Rate 06/30/25 08:12 Nasal Cannula 2 06/30/25 08:00 Nasal Cannula 06/30/25 08:00 Nasal Cannula 2 06/30/25 06:07 Nasal Cannula 2 06/30/25 05:00 Nasal Cannula 2 06/30/25 04:00 Nasal Cannula 2.5 06/30/25 03:00 Nasal Cannula 2 06/30/25 01:00 Nasal Cannula 2 06/30/25 00:00 Nasal Cannula 3 06/29/25 23:00 Room Air 06/29/25 21:57 Room Air 06/29/25 21:55 Room Air 06/29/25 21:46 Room Air 06/29/25 21:22 Room Air 06/29/25 20:00 Room Air 06/29/25 19:34 Room Air 06/29/25 19:30 Room Air 06/29/25 19:00 Room Air 06/29/25 18:30 06/29/25 17:45 06/29/25 17:31 06/29/25 16:56 Room Air Intake and Output 06/29/25 06/30/25 06/30/25 23:59 07:59 15:59 Intake Total 100 / 100 360 / 360 Output Total 0 / 0 250 / 250 0 / 250 Balance 100 / 100 -250 / 110 360 / 110 Intake: Intake, Oral Amount 360 / 360 Intake, Total IV Amount 100 / 100 Piperacillin/Tazo 4.5 gm In 0.9 100 / 100 % Sodium Chloride 100 ml @ 200 mls/hr IV Q8H ONE Rx#:[id number] Output: Output, Urine Amount 0 / 0 250 / 250 0 / 250 Other: Number of Unmeasured Voids 0 Weight 69.91 kg 70.76 kg Patient Weight 06/30/25 23:59 Weight 70.76 kg Laboratory Results - last 24 hr 06/29/25 17:00: Chlamy pneumoniae PCR Not detected, Adenovirus (PCR) Not detected, B. pertussis DNA (PCR) Not detected, Coronavirus OC43 (PCR) Not detected, Coronavirus HKU1 (PCR) Not detected, Coronavirus 229E (PCR) Not detected, SARS-CoV-2 (PCR) Not detected 06/29/25 17:00: SARS-CoV-2 (PCR) Not detected, Coronavirus NL63 (PCR) Not detected, Human Metapneumovir PCR Not detected, Influenza A (H1) PCR Not detected, Influ A (H1N1/09) PCR Not detected, Influenza A (H3) PCR Not detected, Influenza Type A (PCR) Not detected, Influenza A Untype (PCR) Not detected, Influenza Type B (PCR) Not detected 06/29/25 17:00: Influenza Type B (PCR) Not detected, M. pneumoniae (PCR) Not d etected, Parainfluenza 1 (PCR) Not detected, Parainfluenza 2 (PCR) Not detected, Parainfluenza 3 (PCR) Not detected, Parainfluenza 4 (PCR) Not detected, RSV (PCR) Not detected, Entero/Rhino (PCR) Detected A 06/29/25 17:02: WBC 22.1 H*, RBC 5.34, Hgb 15.6, Hct 45.5, MCV 85.2, MCH 29.2, MCHC 34.3, RDW 14.2, Plt Count 505 H, MPV 9.0, Neut % (Auto) 78.8, Lymph % (Auto) 7.9 L, [place] % (Auto) 10.1 H, Eos % (Auto) 0.1, Baso % (Auto) 0.4, Neut # (Auto) 17.4 H, Lymph # (Auto) 1.7, [place] # (Auto) 2.2 H, Eos # (Auto) 0.0, Baso # (Auto) 0.1, Total Counted 100, Neutrophils % (Manual) 82 H, Lymphocytes % (Manual) 17, Eosinophils % (Manual) 1, Platelet Estimate Slight increase, RBC Morphology Normal, PT 10.3, INR 0.92, Sodium 130 L, Potassium 5.2 H, Chloride 92 L, Carbon Dioxide 31 H, Anion Gap 12.2, BUN 28 H, Creatinine 0.80, Estimated Creat Clear 54, Estimated GFR 70, Est GFR ( Amer) 85, Glucose 116 H, Calcium 9.4, Phosphorus 4.2, Magnesium 1.8, Total Bilirubin 0.7, AST 31, ALT 21, Alkaline Phosphatase 76, Troponin I 0.01, NT-Pro-B Natriuret Pep 4320 H, Total Protein 6.3, Albumin 3.6, Globulin 2.7, Albumin/Globulin Ratio 1.3, Lipase 73, Procalcitonin 0.047 06/29/25 17:10: VBG pH 7.43 H, VBG pCO2 45.3, VBG pO2 37.7, VBG HCO3 29.2, VBG Total CO2 30.6 H, VBG O2 Saturation 69.3, VBG Base Excess 4.8 H, VBG Lactic Acid 2.7 H 06/29/25 19:20: Urine Color Yellow, Urine Appearance Slightly cloudy, Urine pH 6.5, Ur Specific [place] 1.015, Urine Protein 3+ A, Urine Glucose (UA) Negative, Urine Ketones Negative, Urine Blood Trace-i, Urine Nitrate Negative, Urine Bilirubin Negative, Urine Urobilinogen 0.2, Ur Leukocyte Esterase Negative, Urine RBC None, Urine WBC 3-5, Ur Squamous Epith Cells 10-20, Urine Bacteria 2+ 06/29/25 20:33: Troponin I < 0.01 06/29/25 23:06: Lactate 1.3 06/30/25 05:21: WBC 10.9 H D, RBC 4.31, Hgb 12.3 D, Hct 37.4, MCV 86.8, MCH 28.8, MCHC 33.2, RDW 14.1, Plt Count 329 D, MPV 9.1, Neut % (Auto) 72.1, Lymph % (Auto) 12.5, [place] % (Auto) 10.7 H, Eos % (Auto) 0.9, Baso % (Auto) 0.5, Neut # (Auto) 7.9 H, Lymph # (Auto) 1.4, [place] # (Auto) 1.2 H, Eos # (Auto) 0.1, Baso # (Auto) 0.1, Sodium 130 L, Potassium 3.3 L D, Chloride 99, Carbon Dioxide 29, Anion Gap 5.3, BUN 23 H, Creatinine 0.90, Estimated Creat Clear 55, Estimated GFR 61, Est GFR ( Amer) 74, Glucose 95, Calcium 8.1 L, Procalcitonin 0.052 I & O for Labs for Last 24 Hours: Intake & Output 06/27/25 06/28/25 06/29/25 06/30/25 23:59 23:59 23:59 23:59 Intake Total 100 / 100 360 / 360 Output Total 0 / 0 250 / 250 Balance 100 / 100 110 / 110 Weight 69.91 kg 70.76 kg Constitutional: Present no acute distress, chronically ill appearing and coop erative Head: Present atraumatic and normocephalic ENT: Present normal exam Neck: Present normal inspection Respiratory: Present prolonged expiratory phase, rhonchi (Expiratory), wheezes (Expiratory), normal respiratory effort, able to speak in complete sentences and symmetric chest movement; Absent crackles Cardiac: Present Reg Rate and Rhythm GI: Present soft, tenderness and hypoactive bowel sounds; Absent distention Rectal (female): Present deferred (female): Present deferred Extremities: Present normal inspection and full ROM; Absent edema Skin: Present intact and dry Neuro: Present Grossly Intact, alert, awake, oriented x 3 and moves all extremities Assessment and Plan *Assessment and plan (1) Rhinovirus: Status: Acute Category: Medical Code(s): B34.8 - Other viral infections of unspecified site (2) Leukocytosis: Status: Acute Qualifiers: Leukocytosis type: unspecified Qualified Code(s): D72.829 - Elevated white blood cell count, unspecified Category: Medical Code(s): D72.829 - Elevated white blood cell count, unspecified (3) Thrombocytosis: Status: Acute Category: Medical Code(s): D75.839 - Thrombocytosis, unspecified (4) Hyperkalemia: Status: Acute Category: Medical Code(s): E87.5 - Hyperkalemia (5) Elevated brain natriuretic peptide (BNP) level: Status: Acute Category: Medical Code(s): R79.89 - Other specified abnormal findings of blood chemistry (6) Ascites: Status: Acute Qualifiers: Ascites type: other type Qualified Code(s): R18.8 - Other ascites Category: Medical Code(s): R18.8 - Other ascites (7) Incisional hernia of anterior abdominal wall with obstruction: Status: Acute Category: Medical Code(s): K43.0 - Incisional hernia with obstruction, without gangrene Plan Ms. Tubbs is a 75-year-old female who presented yesterday to the emergency department with diffuse abdominal pain. She has a primary medical history of CVA, osteoarthritis, HFpEF, DJD, umbilical hernia, hypertension, GERD, anxiety, CAD, hyperlipidemia, depression, tobacco use disorder. CT obtained in the emergency department revealed high-grade small bowel obstruction due to incarcerated hernia containing small bowel loop. General surgery was consulted to the emergency department, Dr. Vyas was able to reduce hernia manually. Postreduction patient states she felt much better, does complain of some abdominal tenderness. Hospital medicine was consulted for admission to monitor overnight. Patient subsequently had a elevated WBC at 22.1, sodium 130, potassium 5.2, BNP 4320. She also complained of cough, congestion for few days prior to this event. She does deny chest pain, lightheadedness, dizziness, fever, chills, shortness of breath. Hospital medicine agreed to accept patient for monitoring and further management, plan of care as follows: #Evolving small bowel obstruction due to incarcerated hernia ? Patient feeling well this morning, had a bowel movement overnight. General surgery recommendation to continue to monitor for 1 more day. Bowel sounds are hypoactive. Patient does complain of abdominal tenderness to palpation and with coughing. Clear liquid diet tolerated, plans to advance to full liquid diet at lunch. ? Ascites seen on imaging. No notable fluid on palpation. Will continue to monitor. #Rhinovirus ? Respiratory swab positive for rhinovirus. Patient does endorse cough and congestion for few days prior to admission. Lungs positive for expiratory wheezing/rhonchi. DuoNebs ordered every 6 hours. Droplet precautions in place. ? Benzonatate 200 mg 3 times daily as needed for cough. #Leukocytosis, left shift ? Patient initial WBC 22.1, trending downward to 10.9 this morning. Patient receiving Zosyn 4.5 g every 8 hours. Blood cultures and urine culture pending. Chest x-ray was negative for pneumonia. ? Lung sounds on assessment positive for expiratory wheezing and rhonchi. Patient does complain of cough, nonproductive. DuoNebs ordered every 6 hours. Pulmonal O2 as needed, patient currently 98% on 2 L nasal cannula. ? CBC, CMP ordered for the a.m. #Hyperkalemia, resolved ? Patient initial potassium 5.2, trended downward to 3.3. Will replace per protocol. #Elevated BNP #Thrombocytosis ? Patient platelet count elevated on admission, 505 today. Possibly in the setting of dehydration. Received gentle IV resuscitation overnight, discontinue fluids today. ? Patient does have history of HFpEF, patient appears euvolemic this morning. No edema noted on assessment. Patient tolerating p.o. diet. #Hypertension: Continue amlodipine 10 mg, carvedilol 12.5 mg twice daily, spironolactone 50 mg daily, atorvastatin 80 mg at bedtime. #GERD: Continue pantoprazole 40 mg daily #Left upper arm DVT: Continue DAPT, Plavix 75 mg aspirin 81 mg daily. Full code Ambulate as tolerated VTE?Lovenox Advancing to full liquid diet
[2025-06-30] MEDS: IPRATROPIUM/ALBUTEROL 3 ML NEB IH ×3 (11:11→23:07)
[2025-06-30] MEDS: PAT OWN MED ***ASPIRIN EC 81MG 81 MG PO (11:25)
[2025-06-30] MEDS: PAT OWN MED ***SPIRONOLACTONE 25MG 50 MG PO (11:25)
[2025-06-30] MEDS: BUSPIRONE HCL 10 MG PO ×3 (11:26→20:10)
[2025-06-30] MEDS: AMLODIPINE 10 MG PO (11:26)
[2025-06-30] MEDS: CARVEDILOL 12.5MG TABLET 12.5 MG PO ×2 (11:29→20:10)
[2025-06-30] MEDS: CLOPIDOGREL 75MG TAB 75 MG PO (11:29)
[2025-06-30] MEDS: POTASSIUM CHLORIDE 20MEQ TAB 40 MEQ PO ×2 (15:29→19:48)
[2025-06-30] MEDS: PAT OWN MED ***PANTOPRAZOLE 40MG 40 MG PO (20:10)
[2025-06-30] MEDS: ATORVASTATIN 40MG TABLET 80 MG PO (20:10)
[2025-07-01] VITALS: BP 135/72; PULSE 84; RESP 16; TEMP 36.8; O2SAT 93
[2025-07-01 04:00] VITALS: BP 143/74; PULSE 89; RESP 16; TEMP 36.9; O2SAT 93; BMI 31.5
[2025-07-01 06:08] LABS: Hematocrit 35.1 % (37.0-47.0); Hemoglobin 11.7 g/dL (12.2-16.2); Immature Granulocytes % 2.3 %; Mean Corpuscular HGB Conc 33.3 g/dL (31.8-35.4); Mean Corpuscular Hemoglobin 29.0 pg (27.0-31.2); Mean Corpuscular Volume 86.9 fl (81-99); Nucleated Red Blood Cells % 0 %; Platelet Count 248 K/mm3 (142-424); Red Blood Count 4.04 M/mm3 (4.20-5.40); Red Cell Distribution Width-SD 45.8 fL; White Blood Count 10.9 K/mm3 (4.8-10.8)
[2025-07-01 06:11] LABS: Anion Gap 6.3 mEq/L (5-15); Blood Urea Nitrogen 16 mg/dl (7-17); Calcium 7.9 mg/dl (8.4-10.2); Carbon Dioxide 29 mmol/L (22.0-30.0); Chloride 99 mmol/L (98-107); Creatinine Clearance Estimated 55 mL/min (50-200); Creatinine,Serum 0.80 mg/dl (0.52-1.04); Estimated Glomerular Filt Rate 70 ml/min (>60); GFR (African American) 85 ML/MIN (>60); Glucose 101 mg/dl (74-100); Potassium 3.3 mmoL/L (3.5-5.1); Sodium 131 mmol/L (136-145)
[2025-07-01] MEDS: IPRATROPIUM/ALBUTEROL 3 ML NEB IH (06:15)
--- NOTE | 2025-07-01 07:40 | P.PN_ITS ---
Subjective Narrative: Patient doing well without any complaints. Tolerating regular diet without issue. Essentially asymptomatic. Exam Data for Last 24 hours Vital signs and Labs for Last 24 Hours: Temp Pulse Resp BP Pulse Ox O2 Del Method O2 Flow Rate 98.4 F 89 16 143/74 H 93 L Room Air 2 07/01/25 04:00 07/01/25 04:00 07/01/25 04:00 07/01/25 04:00 07/01/25 04:00 07/01/25 06:45 07/01/25 00:00 Laboratory Results - last 24 hr 06/29/25 17:00: Chlamy pneumoniae PCR Not detected, Adenovirus (PCR) Not detected, B. pertussis DNA (PCR) Not detected, Coronavirus OC43 (PCR) Not detected, Coronavirus HKU1 (PCR) Not detected, Coronavirus 229E (PCR) Not detected, SARS-CoV-2 (PCR) Not detected, Coronavirus NL63 (PCR) Not detected, Human Metapneumovir PCR Not detected, Influenza A (H1) PCR Not detected, Influ A (H1N1/09) PCR Not detected, Influenza A (H3) PCR Not detected, Influenza Type A (PCR) Not detected, Influenza Type B (PCR) Not detected, M. pneumoniae (PCR) Not detected, Parainfluenza 1 (PCR) Not detected, Parainfluenza 2 (PCR) Not detected, Parainfluenza 3 (PCR) Not detected, Parainfluenza 4 (PCR) Not detected, RSV (PCR) Not detected, Entero/Rhino (PCR) Detected A 07/01/25 05:55: WBC 10.9 H, RBC 4.04 L, Hgb 11.7 L, Hct 35.1 L, MCV 86.9, MCH 29.0, MCHC 33.3, RDW 14.2, Plt Count 248, MPV 9.1, Neut % (Auto) 75.0, Lymph % (Auto) 9.8 L, [place] % (Auto) 9.8 H, Eos % (Auto) 2.9, Baso % (Auto) 0.2, Neut # (Auto) 8.2 H, Lymph # (Auto) 1.1, [place] # (Auto) 1.1 H, Eos # (Auto) 0.3, Baso # (Auto) 0.0, Sodium 131 L, Potassium 3.3 L, Chloride 99, Carbon Dioxide 29, Anion Gap 6.3, BUN 16 D, Creatinine 0.80, Estimated Creat Clear 55, Estimated GFR 70, Est GFR ( Amer) 85, Glucose 101 H, Calcium 7.9 L I & O for Last 24 hours: Intake & Output 06/28/25 06/29/25 06/30/25 07/01/25 11:59 11:59 11:59 11:59 Intake Total 1415 / 1415 702 / 702 Output Total 750 / 750 650 / 650 Balance 665 / 665 52 / 52 Weight 156 lb 171 lb 7.609 oz Microbiology Reports for the Last 24 Hours: Microbiology 06/29/25 17:18 Blood Blood Culture - Preliminary NO GROWTH AFTER 24 HOURS 06/29/25 17:10 Blood Blood Culture - Preliminary NO GROWTH AFTER 24 HOURS *Routine Abdominal Exam Abdominal: Present soft Comments: Abdomen soft nontender nondistended. Hernia is palpable and when lying supinely it is able to be reduced. Progress Note: A&P Assessment and plan (1) Rhinovirus: Status: Acute (2) Leukocytosis: Status: Acute (3) Thrombocytosis: Status: Acute (4) Hyperkalemia: Status: Acute (5) Elevated brain natriuretic peptide (BNP) level: Status: Acute (6) Ascites: Status: Acute (7) Incisional hernia of anterior abdominal wall with obstruction: Status: Acute Assessment and plan: Okay from surgical standpoint for discharge with outpatient follow-up for possible elective hernia repair.
[2025-07-01 07:55] VITALS: BP 167/73; PULSE 88; RESP 18; TEMP 36.6; O2SAT 92
[2025-07-01 08:15] VITALS: O2SAT 92
[2025-07-01] MEDS: POTASSIUM CHLORIDE 20MEQ TAB 40 MEQ PO (08:53)
[2025-07-01] MEDS: PAT OWN MED ***ASPIRIN EC 81MG 81 MG PO (08:53)
[2025-07-01] MEDS: AMLODIPINE 10 MG PO (08:53)
[2025-07-01] MEDS: CARVEDILOL 12.5MG TABLET 12.5 MG PO (08:54)
[2025-07-01] MEDS: PAT OWN MED ***SPIRONOLACTONE 25MG 50 MG PO (08:54)
[2025-07-01] MEDS: CLOPIDOGREL 75MG TAB 75 MG PO (08:54)
[2025-07-01] MEDS: BUSPIRONE HCL 10 MG PO (08:54)
--- NOTE | 2025-07-01 09:01 | P.DS_ITS ---
<Statement entered by Raymond Suero MD - 07/05/25 12:08> Personally evaluated patient and agree with the plan of care as outlined by the TRACK SUBWAY REPAIR SUPERVISOR. General Admission date:: 06/29/25 Discharge date: 07/01/25 HPI HPI HPI: This is a 75-year-old female who has a past medical history significant for CVA, current smoker, diverticulosis,Osteoarthritis, HFpEF, lumbar radiculopathy, degenerative joint disease, umbilical hernia, hypertension, GERD, anxiety, coronary disease, hyperlipidemia, and depression who presents with a chief complaint of abdominal pain. Due to patient's symp toms, she presented to the emergency room for evaluation. 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 ER provider attempted to reduce hernia without any success; as a result, general surgeon was consulted and was able to reduce patient's hernia while in the emergency room. Post reduction, patient felt better. General surgery recommended observation over the course of the night; as a result, hospital medicine was consulted for further management. During my evaluation of the patient, patient states she has been experiencing mid abdominal pain rated 10 out of 10 for the past 2 days that was coupled with some nausea and an inability to vomit. Patient states she did have a normal bowel movement today. She reports her abdominal tenderness has improved. Recently, patient was seen by her primary care physician and was prescribed steroids and amoxicillin for suspected pneumonia. She did present with an elevated white blood cell count without any specific infectious source. She is currently denying any bilious emesis, chest pain, lightheadedness, dizziness, fever, chills, rigors, shortness of breath, dyspnea, or diarrhea. Additional pertinent vitals obtained include a white blood cell count of 22.1, platelet count of 505, neutrophils 82%, blood gas of pH of 7.43, sodium 130, potassium of 5.2, chloride of 92, carbon oxide of 31, BUN of 28, blood glucose of 116, and BNP of 4320 Hospital Course Hospital Course Hospital Course: Ms. Tubbs is a 75-year-old female who presented to the emergency department with diffuse abdominal pain. She has a primary medical history of CVA, osteoarthritis, HFpEF, DJD, umbilical hernia, hypertension, GERD, anxiety, CAD, hyperlipidemia, depression, tobacco use disorder. CT obtained in the emergency department revealed high-grade small bowel obstruction due to incarcerated hernia containing small bowel loop. General surgery was consulted to the emergency department, Dr. Vyas was able to reduce hernia manually. Postreduction patient states she felt much better, does complain of some abdominal tenderness. Hospital medicine was consulted for admission to monitor overnight. Patient subsequently had a elevated WBC at 22.1, sodium 130, potassium 5.2, BNP 4320. She also complained of cough, congestion for few days prior to this event. She does deny chest pain, lightheadedness, dizziness, fever, chills, shortness of breath. Hospital medicine agreed to accept patient for monitoring and further management, plan of care was as follows: #Evolving small bowel obstruction due to incarcerated hernia ? Patient feeling well this morning, had multiple bowel movements yesterday. General surgery consulted. Bowel sounds are normoactive. Patient does complain of abdominal tenderness to palpation and with coughing. PT. tolerating regular diet without issues. ? Ascites seen on imaging. No notable fluid on palpation. #Rhinovirus ? Respiratory swab positive for rhinovirus. Patient does endorse cough and congestion for few days prior to admission. Lungs CTA. Continue benzonatate 200 mg 3 times daily as needed for cough. #Leukocytosis, left shift ? Patient initial WBC 22.1, trending downward to 10.9 this morning. Patient receiving Zosyn 4.5 g every 8 hours. Blood cultures show no growth over 24 hours, urine culture peding. Chest x-ray was negative for pneumonia. ? Lung sounds on assessment CTA day of discharge. Patient does complain of cough, nonproductive. #Hyperkalemia, resolved ? Patient initial potassium 5.2, trended downward to 3.3. Repleated per protocol. #Elevated BNP #Thrombocytosis ? Patient platelet count elevated on admission, 248 today. Thrombocytosis likely in the setting of dehydration, now resolved. ? Patient does have history of HFpEF, patient appears euvolemic this morning. No edema noted on assessment. Patient tolerating p.o. diet. #Hypertension: Continue amlodipine 10 mg, carvedilol 12.5 mg twice daily, spironolactone 50 mg daily, atorvastatin 80 mg at bedtime. #GERD: Continue pantoprazole 40 mg daily #Left upper arm DVT: Continue DAPT, Plavix 75 mg aspirin 81 mg daily. Total time spent on discharge 32 minutes in counseling, documentation, chart review, and direct care with patient. Exam Data for Last 24 hours Vital signs and Labs for Last 24 Hours: Temp Pulse Resp BP Pulse Ox O2 Del Method O2 Flow Rate 97.9 F 88 18 167/73 H 92 L Room Air 2 07/01/25 07:55 07/01/25 07:55 07/01/25 07:55 07/01/25 07:55 07/01/25 07:55 07/01/25 07:55 07/01/25 00:00 Laboratory Results - last 24 hr 07/01/25 05:55: WBC 10.9 H, RBC 4.04 L, Hgb 11.7 L, Hct 35.1 L, MCV 86.9, MCH 29.0, MCHC 33.3, RDW 14.2, Plt Count 248, MPV 9.1, Neut % (Auto) 75.0, Lymph % (Auto) 9.8 L, [place] % (Auto) 9.8 H, Eos % (Auto) 2.9, Baso % (Auto) 0.2, Neut # (Auto) 8.2 H, Lymph # (Auto) 1.1, [place] # (Auto) 1.1 H, Eos # (Auto) 0.3, Baso # (Auto) 0.0, Sodium 131 L, Potassium 3.3 L, Chloride 99, Carbon Dioxide 29, Anion Gap 6.3, BUN 16 D, Creatinine 0.80, Estimated Creat Clear 55, Estimated GFR 70, Est GFR ( Amer) 85, Glucose 101 H, Calcium 7.9 L I & O for Last 24 hours: Intake & Output 06/28/25 06/29/25 06/30/25 07/01/25 23:59 23:59 23:59 23:59 Intake Total 100 / 100 1674 822 / 822 Output Total 0 / 0 1100 / 1200 300 / 300 Balance 100 / 100 575 / 817 522 / 522 Weight 69.91 kg 70.76 kg 77.78 kg Microbiology Reports for the Last 24 Hours: Microbiology 06/29/25 17:18 Blood Blood Culture - Preliminary NO GROWTH AFTER 24 HOURS 06/29/25 17:10 Blood Blood Culture - Preliminary NO GROWTH AFTER 24 HOURS Constitutional Constitutional: no acute distress, chronically ill appearing and cooperative *Routine HEENT Exam Head: Present normocephalic ENT: Present mucous membranes moist *Routine Neck Exam Neck: Present supple and full ROM *Routine Respiratory Exam Respiratory: Present CTA bilaterally, normal respiratory effort, able to speak in complete sentences and symmetric chest movement; Absent wheezes or crackles *Routine Cardiovascular Exam Cardiovascular: Present RRR, Normal S1 and Normal S2; Absent murmur *Routine Abdominal Exam Abdominal: Present soft, normoactive bowel sounds and tenderness; Absent distended *Routine Extremities Exam Extremities: Present full ROM, pulses intact and normal capillary refill; Absent edema *Routine Skin Exam Skin: Present intact and dry; Absent erythema or rash *Routine Neurological Exam Neurological: Present alert, oriented X3, vision grossly intact, hearing grossly intact and normal speech Routine Psychiatric Exam Psychiatric: Present normal affect Results Data Completed and Pending Labs on day of discharge: Labs from last 24 hours 07/01/25 05:55 WBC 10.9 H RBC 4.04 L Hgb 11.7 L Hct 35.1 L MCV 86.9 MCH 29.0 MCHC 33.3 RDW 14.2 Plt Count 248 MPV 9.1 Neut % (Auto) 75.0 Lymph % (Auto) 9.8 L [place] % (Auto) 9.8 H Eos % (Auto) 2.9 Baso % (Auto) 0.2 Neut # (Auto) 8.2 H Lymph # (Auto) 1.1 [place] # (Auto) 1.1 H Eos # (Auto) 0.3 Baso # (Auto) 0.0 Sodium 131 L Potassium 3.3 L Chloride 99 Carbon Dioxide 29 Anion Gap 6.3 BUN 16 D Creatinine 0.80 Estimated Creat Clear 55 Estimated GFR 70 Est GFR ( Amer) 85 Glucose 101 H Calcium 7.9 L Preliminary micro results at discharge 06/29/25 17:18 Blood Culture - Preliminary Blood NO GROWTH AFTER 24 HOURS 06/29/25 17:10 Blood Culture - Preliminary Blood NO GROWTH AFTER 24 HOURS DS: Diagnosis Discharge Diagnosis (1) Rhinovirus: Status: Acute Code(s): B34.8 - Other viral infections of unspecified site (2) Leukocytosis: Status: Acute Code(s): D72.829 - Elevated white blood cell count, unspecified Qualifiers: Leukocytosis type: unspecified Qualified Code(s): D72.829 - Elevated white blood cell count, unspecified (3) Thrombocytosis: Status: Acute Code(s): D75.839 - Thrombocytosis, unspecified (4) Hyperkalemia: Status: Acute Code(s): E87.5 - Hyperkalemia (5) Elevated brain natriuretic peptide (BNP) level: Status: Acute Code(s): R79.89 - Other specified abnormal findings of blood chemistry (6) Ascites: Status: Acute Code(s): R18.8 - Other ascites Qualifiers: Ascites type: other type Qualified Code(s): R18.8 - Other ascites (7) Incisional hernia of anterior abdominal wall with obstruction: Status: Acute Code(s): K43.0 - Incisional hernia with obstruction, without gangrene Meds Home Medications and Allergies Home Medications ?Medication ?Instructions ?Recorded ?Confirmed ?Type amlodipine 10 mg tablet 10 mg PO DAILY 04/28/2507/15 History aspirin 81 mg tablet,delayed 81 mg PO DAILY 04/28/25 0 06/29/25 History release atorvastatin 80 mg tablet 80 mg PO HS 04/28/25 5 History buspirone 10 mg tablet 10 mg PO TID 04/28/25 History clopidogrel 75 mg tablet 75 mg PO DAILY 04/28/2507/15 History ergocalciferol (vitamin D2) 1,250 1,250 mcg PO WEEKLY 04/28/25 06/29/25 History mcg (50,000 unit) capsule pantoprazole 40 mg tablet,delayed 40 mg PO DAILY 04/2806/29/25 History release cyclobenzaprine 10 mg tablet 10 mg PO BID 05/21/2507/15 History furosemide 20 mg tablet 20 mg PO DAILYP PRN Leg swel ling 05/21/25 06/29/25 History carvedilol 12.5 mg tablet 12.5 mg PO BID 30 days #60 t abs 05/25/25 06/29/25 Rx spironolactone 25 mg tablet 50 mg (2 x 25 mg) PO DAILY 30 days 05/25/25 06/29/25 Rx #60 tabs pregabalin 75 mg capsule 75 mg PO BID PRN nerve pain 06/08/25 06/29/25 History benzonatate 200 mg capsule 200 mg PO TID PRN Cough 07/1506/29/25 History amoxicillin 875 mg-potassium 1 tab PO BID #10 tabs 09/14 Rx clavulanate 125 mg tablet ipratropium 0.5 mg-albuterol 3 mg 3 ml inhalation Q6H PRN wheezing 07/01/25 Rx (2.5 mg base)/3 mL nebulization #90 mL soln New Prescriptions to Start Prescriptions: amoxicillin-pot clavulanate Sanam Gonsalez ipratropium-albuterol Sanam Gonsalez Allergies Allergy/AdvReac Type Severity Reaction Status Date / Time Sulfa (Sulfonamide Allergy Nausea Verified 06/08/25 10:14 Antibiotics) Discharge Plan Disposition Patient Disposition: Home, Self-Care Condition: Good Follow up Plan Follow up with: Misael Vyas MD [Staff Physician, General Surgery] - 07/15/25 9:00 am Gricel Cornejo APRN [Primary Care Provider, Medical] - 07/07/25 10:00 am Prescriptions/Medication Reconciliation: New amoxicillin-pot clavulanate 875-125 mg tablet 1 tab PO BID Qty: 10 0RF ipratropium-albuterol 0.5 mg-3 mg(2.5 mg base)/3 mL solution for nebulization 3 ml inhalation Q6H PRN (Reason: wheezing) Qty: 90 0RF Continued buspirone 10 mg tablet 10 mg PO TID Patient Comments: TAKE 1 TABLET BY MOUTH 3 TIMES A DAY atorvastatin 80 mg tablet 80 mg PO HS clopidogrel 75 mg tablet 75 mg PO DAILY aspirin 81 mg tablet,delayed release (DR/EC) 81 mg PO DAILY amlodipine 10 mg tablet 10 mg PO DAILY pantoprazole 40 mg tablet,delayed release (DR/EC) 40 mg PO DAILY ergocalciferol (vitamin D2) 1,250 mcg (50,000 unit) capsule 1,250 mcg PO WEEKLY pregabalin 75 mg capsule 75 mg PO BID PRN (Reason: nerve pain) benzonatate 200 mg capsule 200 mg PO TID PRN (Reason: Cough) Patient Comments: TAKE 1 CAPSULE BY MOUTH 3 TIMES A DAY NEEDED cyclobenzaprine 10 mg tablet 10 mg PO BID Patient Comments: TAKE ONE TABLET BY MOUTH 2 TIMES A DAY furosemide 20 mg tablet 20 mg PO DAILYP PRN (Reason: Leg swelling) carvedilol 12.5 mg Tablet 12.5 mg PO BID 30 Days Qty: 60 0RF spironolactone 25 mg Tablet 50 mg PO DAILY 30 Days Qty: 60 0RF Other Ambulatory Orders: Home Medical Equipment (Routine) Location: None Selected Ordered By: Sanam Gonsalez Problem Reconciliation Problems Reviewed?: Yes Patient Discharge Instructions ACTIVITY: Continue current activity DIET: continue same diet Patient Instructions: Small Bowel Obstruction, DI for Small Bowel Obstruction Print Language: Nepali Providers Primary Care Provider: Gricel Cornejo Provider: Raymond Suero Attending Provider: Raymond Suero
--- NOTE | 2025-07-02 10:19 | SW/DCPLANNER ---
Spoke with patient on the phone. Patient on the phone. Patient stated that she is doing good. Patient stated that she is aware of her upcoming appointments. Patient stated that she was able to get her new medicine picked up from [facility]. Patent stated that she has no concerns or questions at this time. Eusebia Canela
--- NOTE | 2025-07-02 11:09 | PC.NURSE ---
final urine culture results forwarded to the hospitalist as she was admitted.
--- NOTE | 2025-07-04 08:35 | PC.NURSE ---
final urine culture forwarded to the hospitalist as she was admitted.
== END 2025-07-01 11:22 | disposition home or self-care (01) ==
LOC: ER 20:41 → 2ND 21:19
PROVIDERS: Nurse Practitioner Family; Admitting Provider Student in an Organized Health Care Education/Training Program; Emergency Provider Student in an Organized Health Care Education/Training Program; PCP Nurse Practitioner; Visit Provider Student in an Organized Health Care Education/Training Program
DX: K56.609 Unspecified intestinal obstruction, unspecified as to partial versus complete obstruction (principal); K43.0 Incisional hernia with obstruction, without gangrene; D72.829 Elevated white blood cell count, unspecified; E87.5 Hyperkalemia; D75.839 Thrombocytosis, unspecified; B34.8 Other viral infections of unspecified site; I11.0 Hypertensive heart disease with heart failure; I50.30 Unspecified diastolic (congestive) heart failure; K21.9 Gastro-esophageal reflux disease without esophagitis; I82.622 Acute embolism and thrombosis of deep veins of left upper extremity; F41.9 Anxiety disorder, unspecified; F32.A Depression, unspecified; E78.5 Hyperlipidemia, unspecified; R00.0 Tachycardia, unspecified; I71.43 Infrarenal abdominal aortic aneurysm, without rupture; R18.8 Other ascites; R79.89 Other specified abnormal findings of blood chemistry; J44.9 Chronic obstructive pulmonary disease, unspecified; E87.1 Hypo-osmolality and hyponatremia; I25.10 Atherosclerotic heart disease of native coronary artery without angina pectoris; F17.210 Nicotine dependence, cigarettes, uncomplicated; Z86.73 Personal history of transient ischemic attack (TIA), and cerebral infarction without residual deficits; Z95.5 Presence of coronary angioplasty implant and graft; Z88.2 Allergy status to sulfonamides; Z79.02 Long term (current) use of antithrombotics/antiplatelets; Z79.82 Long term (current) use of aspirin; Z79.899 Other long term (current) drug therapy
CPT/HCPCS: 0223U; 36415; 71045; 71275; 74177; 80048; 80053; 81001; 82803; 83605; 83690; 83735; 83880; 84100; 84145; 84484; 85007; 85025; 85027; 85610; 87040; 87086; 87088; 87186; 87636; 93005; 94640; 96365; 96372; 96375; 96376; 99285; G0378; J1650; J2270; J2405; J2543; J7030; Q9967

== ENCOUNTER 2025-08-03 10:46 | Outpatient (CLI) | payer MEDICARE, SELFPAY ==
[2025-08-03 09:04] VITALS: BMI 28.3
--- OUTSIDE RECORDS SUMMARY | 2025-08-03 10:50 | XMS_ITS | Referral Summary ---
Author Organization [facility] ([place], [place], [place]) Address [address] [place] [address] Care Team Providers Care Hereditary Cancer Program Coordinator Name Role Phone Gabino Myrick MD Primary Care Provider [phone] Bruce Shepherd MD Unavailable [phone] Teresa Grigsby DO Unavailable Allergies Active Allergy [...] hyperlipidemia 09/19/2023 Coronary artery disease invo lving wainwright coronary artery of wainwright heart without angina pectoris 09/19/2023 Cigarette nicotine [...] Date Gordy rded Speak language other than Cuban at home Not on file 11/01/2023 Want [...] Advance Directives For more information, please contact: [phone] * Full Code (Latest Code Status on File) Date Activated Date Inactivated Comments 09/02/2023 5:26 AM 09/03/2023 4:27 AM * Full Code Date Activated Date Inactivated Comments 08/21/2023 1:50 PM 08/23/2023 6:38 PM Care Teams Hereditary Cancer Program Coordinator Relationship Specialty Start Date End Date Gabino Myrick MD [address] [place] [address] PCP - General Family Medicine 08/08/23 Bruce Shepherd MD [address] [facility] [address] [place], [place] [id number] Surgeon Cardiothoracic Surgery 08/21/23 Teresa Grigsby DO [address] [facility] [address] [place] [id number] Interventional Cardiology 02/05/24
--- OUTSIDE RECORDS SUMMARY | 2025-08-03 10:50 | XMS_ITS | Clinical Summary ---
Author Organization Healthcare Address [address] [place] [address] Care Team Providers Care International Marketing Executive Name Role Phone Rex Souza MD Primary Care Provider + [phone] Allergies Active Allergy Reactions Criticality Noted Date [...] days 04/18/201 6 Active ergocalciferol 1.25 MG (30676 UT) capsule Take 1 capsule (50,000 Units) [...] 50 + Years (2 of 2 - PCV20 or PCV21) 12/05/2018 12/05/2017 [facility]-Depression Screening 02/11/2025 02/12/2024 [id number] Vaccine (3 - 2024- season) 2025 08/30/2021, [...] this topic Medical Devices Implanted Type Area Scuba Dive Training Instructor Device Identifier Shelf Expiration Date Model / Serial / Lot Stent Self-Expanding Innova 8mm X 20mm X 130cm - [id number] Implanted:Qty: 1 on 04/14/2024 by Reynaldo Sanchez MD at [facility] [id number] 08/04/2028 [id number] / / [id number] Stent Atrium Icast Covered 7mm X 22mm X 80cm - [id number] Implanted:Qty: 1 on 04/14/2024 by Reynaldo Sanchez MD at [facility] [id number] 09/04/2026 [id number] / [id number] / [id number] Closure Device Vip Angioseal 8 Fr - [id number] Implanted:Qty: 1 on 04/14/2024 by Renyaldo Sanchez MD at [facility] [id number] 11/12/2024 [id number] / / [id number] Stent Graft Iliac [id number] - [id number] - [id number] Implanted:Qty: 1 on 04/14/2024 by Reynaldo Sanchez MD at [facility] [id number] 12/03/2026 [id number] / [id number] / Insurance [facility] MEDICARE Care Teams International Marketing Executive Relationship Specialty Start Date End Date Rex Souza MD [address] [place] [address] PCP - General 03/03/21
--- OUTSIDE RECORDS SUMMARY | 2025-08-03 10:50 | XMS_ITS | Clinical Summary ---
Author Organization [facility] ([place], [place], [place], [place]) Address [address] [place] [address] Care Team Providers Care Digital Librarian Name Role Phone Gabino Myrick MD Primary Care Provider [phone] Bruce Shepherd MD Unavailable [phone] Teresa Grigsby DO Unavailable Allergies Active Allergy [...] hyperlipidemia 09/19/2023 Coronary artery disease invo lving benton coronary artery of benton heart without angina pectoris 09/19/2023 Cigarette nicotine [...] Date Gordy rded Speak language other than Ivorian at home Not on file 11/01/2023 Want [...] Pneumococcal 50+ years (2 of 2 - PPSV23, PCV20, or PCV21) 01/30/2018 12/05/2017 Medicare Initial AWV [id number] 12/21/2023 Tobacco Cessation Counseling and Screening (12+) 09/19/2024 09/19/2023 Falls Risk Screening 10/21/2024 COVID-19 VACCINE (3 - 2024- season) 06/21/202507/2021, 08/09/2021 Influenza Vaccine (#1) 2025 08/15/2020 Insurance [facility] MEDICARE HMO Advance Directives For more information, please contact: [phone] * Full Code (Latest Code Status on File) Date Activated Date Inactivated Comments 09/02/2023 5:26 AM 09/03/2023 4:27 AM * Full Code Date Activated Date Inactivated Comments 08/21/2023 1:50 PM 08/23/2023 6:38 PM Care Teams Digital Librarian Relationship Specialty Start Date End Date Gabino Myrick MD [address] [facility] [place] [address] PCP - General Family Medicine 08/08/23 Bruce Shepherd MD [address] [facility] [address] [place] [id number] Surgeon Cardiothoracic Surgery 08/21/23 Teresa Grigsby DO [address] [facility] [address] [place] [id number] Interventional Cardiology 02/05/24
--- OUTSIDE RECORDS SUMMARY | 2025-08-03 10:50 | XMS_ITS | Encounter Summary ---
Author Organization Healthcare Address [address] [place] [address] Care Team Providers Care Jewel Corner Brushing Machine Operator Name Role Phone Rex Souza MD Primary Care Provider + [phone] Encounter Details Date Type Department Care Team (Late st Contact Info) Description 05/06/2015 Orders Only External Location [address] [place] [address] Provider, External Social History Tobacco Use Types [...] on filedocumented in this encounter Care Teams Jewel Corner Brushing Machine Operator Relationship Specialty Start Date End Date Rex Souza MD [address] [place] [address] PCP - General 03/03/21 documented as of this encounter
--- OUTSIDE RECORDS SUMMARY | 2025-08-03 10:50 | XMS_ITS | Encounter Summary ---
Author Organization Healthcare Address [address] [place] [address] Care Team Providers Care Laboratory Tech Name Role Phone Rex Souza MD Primary Care Provider + [phone] Encounter Details Date Type Department Care Team (Late st Contact Info) Description 07/17/2023 Orders Only External Location [address] [place] [address] Provider, External Social History Tobacco Use Types [...] on filedocumented in this encounter Care Teams Laboratory Tech Relationship Specialty Start Date End Date Rex Souza MD [address] [place] [address] PCP - General 03/03/21 documented as of this encounter
--- OUTSIDE RECORDS SUMMARY | 2025-08-03 10:51 | XMS_ITS | Encounter Summary ---
Author Organization Healthcare Address [address] [place] [address] Care Team Providers Care Rectifier Operator Name Role Phone Rex Souza MD Primary Care Provider + [phone] Encounter Details Date Type Department Care Team (Late st Contact Info) Description 08/22/2023 Orders Only External Location [address] [place] [address] Provider, External Social History Tobacco Use Types [...] documented as of this encounter Care Teams Rectifier Operator Relationship Specialty Start Date End Date Rex Souza MD [address] [id number] PCP - General 03/03/21 documented as of this encounter
[2025-08-03 11:53] LABS: Chloride 98 mmol/L (98-107); Sodium 137 mmol/L (136-145)
[2025-08-03 11:54] LABS: Hematocrit 34.2 % (37.0-47.0); Hemoglobin 11.3 g/dL (12.2-16.2); Immature Granulocytes % 0.5 %; Mean Corpuscular HGB Conc 33.0 g/dL (31.8-35.4); Mean Corpuscular Hemoglobin 28.0 pg (27.0-31.2); Mean Corpuscular Volume 84.9 fl (81-99); Nucleated Red Blood Cells % 0 %; Platelet Count 320 K/mm3 (142-424); Potassium 3.2 mmoL/L (3.5-5.1); Red Blood Count 4.03 M/mm3 (4.20-5.40); Red Cell Distribution Width-SD 47.1 fL; White Blood Count 7.3 K/mm3 (4.8-10.8)
[2025-08-03 11:56] LABS: Blood Urea Nitrogen 16 mg/dl (7-17); Creatinine Clearance Estimated 55 mL/min (50-200); Creatinine,Serum 0.80 mg/dl (0.52-1.04); Estimated Glomerular Filt Rate 70 ml/min (>60); GFR (African American) 85 ML/MIN (>60)
[2025-08-03 11:57] LABS: Anion Gap 14.2 mEq/L (5-15); Calcium 8.6 mg/dl (8.4-10.2); Carbon Dioxide 28 mmol/L (22.0-30.0); Glucose 105 mg/dl (74-100)
== END 2025-08-03 23:59 | disposition home or self-care (01) ==
LOC: PREOP 10:48
PROVIDERS: PCP Nurse Practitioner; Visit Provider Surgery
DX: Z01.812 Encounter for preprocedural laboratory examination (principal)
CPT/HCPCS: 80048; 85025

== ENCOUNTER 2025-08-09 14:19 | Observation (INO) | payer MEDICARE, SELFPAY ==
[2025-08-03 12:17] VITALS: BMI 28.3
[2025-08-09] VITALS (24 sets, daily range): BP systolic 136–179; BP diastolic 50–126; PULSE 66–94; RESP 12–20; TEMP 36.2–38; O2SAT 89–100
[2025-08-09] MEDS: LACTATED RINGERS 1000ML 1,000 ML 25 ML IV (08:52)
--- NOTE | 2025-08-09 09:10 | P.PNANES_ITS ---
[facility] Disclaimer: The information contained in this section may have been updated after the patient was seen, as this information can be updated by other users. 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 Small bowel obstruction Near syncope Superficial venous thrombosis of left upper extremity Cellulitis Hyponatremia Hypokalemia Nausea and vomiting Malignant hypertension Elevated brain natriuretic peptide (BNP) level Hypomagnesemia Acute hypokalemia Acute hyponatremia Acute encephalopathy History of nicotine dependence Epigastric pain Low back pain of over 3 months duration Hypertension CVA (cerebral vascular accident) At risk for cardiac dysfunction during anesthesia Tobacco dependence Diverticulosis Osteoarthritis Abdominal wall hernia DJD (degenerative joint disease), lumbar Lumbar radiculopathy HTN (hypertension) Gastroesophageal reflux disease Anxiety CAD (coronary artery disease) Hyperlipidemia Depression Surgical History H/O heart artery stent Hx of cardiac cath S/P peripheral artery angioplasty with stent placement Hx of cholecystectomy Family History Mother No significant family history Father Heart attack Other Family history of lung disease Social History (Updated 08/09/25 @ 08:29 by Maribell Corey RN) Smoking Status: Current every day smoker tobacco type: cigarettes packs per day: 1 second hand exposure: No alcohol intake: never substance use type: denies use current occupational status: retired Travel in the last 8 weeks?: None household members: family housing: house marital status: current occupation: [employer] caffeine: Yes Have you lived/traveled outside US in past 30 days?: No Contact w/someone who lives/traveled outside US past 30 days?: No Exposure to someone with infectious disease in past 14 days?: No Do you have a fever (greater than 100.4 F or 38 C)?: No Have you tested positive for COVID-19?: No Exposed to someone with COVID-19 in past 14 days?: No Do you have a sore throat?: No Do you have a cough?: No Do you have any weakness?: No Are you experiencing any nausea/vomitting?: No Do you have any diarrhea?: No Are you experiencing any unusual bleeding?: No Do you have any muscle aches/pain?: No Do you have any abdominal pain?: No Are you experiencing loss of taste or smell?: No [facility] Anesthesia Checklist Patient Identification Patient Identification: Arm Band Structural Data Admitted From: Home Planned Operative Procedure/s: Laparoscopic Ventral Hernia Repair Consent for Planned Operative Procedure(s) Verified: Yes Verified Documents: Surgical Consent and History and Physical NPO Status Verified Time NPO: 00:00 Additional verifications Anesthesia Reactions: No Hx Blood Transfusions: No Blood Transfusion Reaction: No Airway Assessment Mallampati Score:: Class II C-Spine Mobility Assessed: Yes TMJ Mobility Assessed: Yes Dentition: Edentulous Neurological Assessment Level of Consciousness: Awake, Alert and Appropriate Anesthesia Plan Anesthesia Risk discussed: Yes Anesthesia Plan: Verified ASA Class: III Anesthesia Type: General
[2025-08-09] MEDS: LIDOCAINE 1% 20ML MDV 20 ML (11:22)
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
--- NOTE | 2025-08-09 13:03 | P.PNANES_ITS ---
[facility] Anesthesia Record Part I Anesthesia Record I Intake, IV Amount: 950 Hydration: Adequate Estimated blood loss (mL): 15 Urine output (mL): 300 Blood Products used (#): none Blood Pressure: 165/74 SaO2: 94 Pulse Rate: 94 Airway Patency: Patent Respiratory Rate: 12 Temperature: 97.4 F Patient is:: Drowsy and Stable Stable to PACU at:: 12:53
[2025-08-09] MEDS: MORPHINE 2MG/ML SYRINGE 1 MG IV ×2 (13:12→13:20)
[2025-08-09] MEDS: MEPERIDINE 25MG/ML 1ML SYRINGE 12.5 MG IV (13:45)
[2025-08-09 14:12] LABS: Microscopic,Cath URINE MICROSCOPIC (MICROSCOPIC)
--- NOTE | 2025-08-09 14:14 | SUR.PHASEI ---
1356- Respiratory at bedside to give breathing treatment.
[2025-08-09] MEDS: IPRATROPIUM/ALBUTEROL 3 ML NEB IH (14:25)
--- NOTE | 2025-08-09 14:26 | SUR.PHASEI ---
1420- Patient's family at bedside in PACU. Patient stable at this time. Waiting for room on second floor.
--- NOTE | 2025-08-09 14:38 | PC.NURSE ---
arrived by stretcher from surgery
--- NOTE | 2025-08-09 14:49 | SUR.PHASEI ---
1440- Patient VSS and no C/O pain at this time. Patient sitting up with family at bedside,eating ice. Detailed report called to KAM Joshua. 1441- Patient transferred to 2nd floor via stretcher. RN at bedside.
--- NOTE | 2025-08-09 15:17 | EXP.HP ---
History of Present Illness *Admission Date: 08/09/25 *Reason for visit:: Postoperative pain *History of present illness: Ms. Tubbs is a 75-year-old female with complex ventral hernia and recent admission for recurring hernia with incarceration. She presented today for elective laparoscopic repair of her hernia as an outpatient. Procedure was well-tolerated with no complications. After procedure however in the PACU, patient had difficulty weaning off oxygen. Had pain requiring significant pain control. Concerned about safety discharging patient home given her pain control needs and oxygen requirement. Feels she would benefit from oxygen at home but does not have it at this time. History significant for GERD, CAD, hypothyroid, hypertension tobacco use disorder. On evaluation after arriving to the floor, she is alert and oriented x 4. Stable on 2 L oxygen with sats in the mid to high 90s. Afebrile. No nausea or vomiting. Complaining of some abdominal pain but better controlled at this time. Vitals unremarkable. [facility] Disclaimer: The information contained in this section may have been updated after the patient was seen, as this information can be updated by other users. 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 Small bowel obstruction Near syncope Superficial venous thrombosis of left upper extremity Cellulitis Hyponatremia Hypokalemia Nausea and vomiting Malignant hypertension Elevated brain natriuretic peptide (BNP) level Hypomagnesemia Acute hypokalemia Acute hyponatremia Acute encephalopathy History of nicotine dependence Epigastric pain Low back pain of over 3 months duration Hypertension CVA (cerebral vascular accident) At risk for cardiac dysfunction during anesthesia Tobacco dependence Diverticulosis Osteoarthritis Abdominal wall hernia DJD (degenerative joint disease), lumbar Lumbar radiculopathy HTN (hypertension) Gastroesophageal reflux disease Anxiety CAD (coronary artery disease) Hyperlipidemia Depression Surgical History H/O heart artery stent Hx of cardiac cath S/P peripheral artery angioplasty with stent placement Hx of cholecystectomy Family History Mother No significant family history Father Heart attack Other Family history of lung disease Social History Smoking Status: Current every day smoker tobacco type: cigarettes packs per day: 1 second hand exposure: No alcohol intake: never substance use type: denies use current occupational status: retired Travel in the last 8 weeks?: None household members: family housing: house marital status: current occupation: [employer] caffeine: Yes Have you lived/traveled outside [place] in past 30 days?: No Contact w/someone who lives/traveled outside US past 30 days?: No Exposure to someone with infectious disease in past 14 days?: No Do you have a fever (greater than 100.4 F or 38 C)?: No Have you tested positive for COVID-19?: No Exposed to someone with COVID-19 in past 14 days?: No Do you have a sore throat?: No Do you have a cough?: No Do you have any weakness?: No Are you experiencing any nausea/vomitting?: No Do you have any diarrhea?: No Are you experiencing any unusual bleeding?: No Do you have any muscle aches/pain?: No Do you have any abdominal pain?: No Are you experiencing loss of taste or smell?: No Other Medical History Have you received the Flu Vaccine for this season: No Have you received the Pneumonia Vaccine: No Review of Systems Review of Systems Review of systems (narrative): 14 point review of systems performed, pertinent positives and negatives as per HPI Meds Home Medications and Allergies Home Medications ?Medication ?Instructions ?Recorded ?Confirmed ?Type amlodipine 10 mg tablet 10 mg PO DAILY 04/28/25 08/09/25 History aspirin 81 mg tablet,delayed 81 mg PO DAILY 04/28/25 08/09/25 History release atorvastatin 80 mg tablet 80 mg PO HS 04/28/25 08/09/25 History buspirone 10 mg tablet 10 mg PO TID 04/28/25 08/09/25 History clopidogrel 75 mg tablet 75 mg PO DAILY 04/28/25 08/09/25 History ergocalciferol (vitamin D2) 1,250 1,250 mcg PO WEEKLY 04/28/25 08/09/25 History mcg (50,000 unit) capsule pantoprazole 40 mg tablet,delayed 40 mg PO DAILY 04/28/25 08/09/25 History release cyclobenzaprine 10 mg tablet 10 mg PO BID 05/21/25 08/09/25 History furosemide 20 mg tablet 20 mg PO DAILYP PRN Leg swelling 05/21/25 08/09/25 History carvedilol 12.5 mg tablet 12.5 mg PO BID 30 days #60 tabs 05/25/25 08/09/25 Rx spironolactone 25 mg tablet 50 mg (2 x 25 mg) PO DAILY 30 days 05/25/25 08/09/25 Rx #60 tabs pregabalin 75 mg capsule 75 mg PO BID PRN nerve pain 06/08/25 08/09/25 History albuterol 90 mcg/actuation aerosol 90 mcg inhalation Q4H PRN sob 08/03/25 08/09/25 History inhaler hydrocodone 5 mg-acetaminophen 325 1 tab PO Q4H PRN Pain #17 tabs 08/09/25 Rx mg tablet ropinirole 1 mg tablet 1 mg PO HS 08/09/25 08/09/25 History New Prescriptions to Start Prescriptions: hydrocodone-acetaminophen Misael Vyas Allergies Allergy/AdvReac Type Severity Reaction Status Date / Time Sulfa (Sulfonamide Allergy Nausea Verified 08/09/25 08:22 Antibiotics) Exam Data for Last 24 hours Vital signs and Labs for Last 24 Hours: Temp Pulse Resp BP Pulse Ox O2 Del Method O2 Flow Rate 97.4 F L 66 12 136/88 93 L Nasal Cannula 3 08/09/25 14:23 08/09/25 14:23 08/09/25 13:06 08/09/25 14:23 08/09/25 14:23 08/09/25 15:00 08/09/25 15:00 I & O for Last 24 hours: Intake & Output 08/06/25 08/07/25 08/08/25 08/09/25 23:59 23:59 23:59 23:59 Intake Total 1000 / 1000 Balance 1000 / 1000 Constitutional Constitutional: no acute distress and obese *Routine HEENT Exam Head: Present normocephalic and atraumatic Eye: Present EOMI and PERRL ENT: Present mucous membranes moist *Routine Neck Exam Neck: Present supple, full ROM and trachea midline *Routine Respiratory Exam Respiratory: Present prolonged expiratory phase, wheezes, normal respiratory effort and able to speak in complete sentences; Absent accessory muscle use *Routine Cardiovascular Exam Cardiovascular: Present RRR, Normal S1 and Normal S2 *Routine Abdominal Exam Abdominal: Present soft, normoactive bowel sounds, tenderness (Diffuse, worse over incision mid abdomen) and obese *Routine Rectal Exam Rectal:: deferred *Routine Genitalia Exam Genitalia:: deferred *Routine Extremities Exam Extremities: Present pulses intact and normal capillary refill Routine Back/Spine/Pelvis Exam Back/Spine: Present full ROM *Routine Skin Exam Skin: Present intact, dry and warm *Routine Neurological Exam Neurological: Present alert, oriented X3, moving all extremities and normal speech Routine Psychiatric Exam Psychiatric: Present normal affect, normal thought process, cooperative, good insight and good judgment Assessment and Plan *Assessment and plan (1) Incisional hernia of anterior abdominal wall with obstruction: Status: Inactive Category: Medical Code(s): K43.0 - Incisional hernia with obstruction, without gangrene (2) Incisional hernia: Status: Acute Category: Medical Code(s): K43.2 - Incisional hernia without obstruction or gangrene (3) Chronic GERD: Status: Acute Category: Medical Code(s): K21.9 - Gastro-esophageal reflux disease without esophagitis (4) Hypothyroidism: Status: Chronic Qualifiers: Hypothyroidism type: unspecified Qualified Code(s): E03.9 - Hypothyroidism, unspecified Category: Medical Code(s): E03.9 - Hypothyroidism, unspecified (5) Tobacco dependence: Status: Acute Category: Medical Code(s): F17.200 - Nicotine dependence, unspecified, uncomplicated (6) HTN (hypertension): Status: Chronic Category: Medical Code(s): I10 - Essential (primary) hypertension (7) Anxiety: Status: Chronic Category: Medical Code(s): F41.9 - Anxiety disorder, unspecified (8) CAD (coronary artery disease): Status: Chronic Qualifiers: Associated angina: without angina Coronary Disease-Associated Artery/Lesion type: [place] artery [place] vs. transplanted heart: [place] heart Qualified Code(s): I25.10 - Atherosclerotic heart disease of [place] coronary artery without angina pectoris Category: Medical Code(s): I25.10 - Atherosclerotic heart disease of [place] coronary artery without angina pectoris (9) Hyperlipidemia: Status: Chronic Qualifiers: Hyperlipidemia type: unspecified Qualified Code(s): E78.5 - Hyperlipidemia, unspecified Category: Medical Code(s): E78.5 - Hyperlipidemia, unspecified (10) Postoperative pain: Status: Acute Category: Medical Code(s): G89.18 - Other acute postprocedural pain Plan Ms. Tubbs is a 75-year-old female who presented yesterday to the emergency department with diffuse abdominal pain. She has a primary medical history of CVA, osteoarthritis, HFpEF, DJD, umbilical hernia, hypertension, GERD, anxiety, CAD, hyperlipidemia, depression, tobacco use disorder. She was seen for elective ventral hernia repair today via laparoscopic method. After surgery, having significant pain and hypertension along with increased oxygen requirement. Due to concern for pain control and ability to safely discharge home, had interactive discussion with surgeon who requested admission for further management and pain control. I decided to admit for further treatment. Problems addressed as follows: # Previously Incarcerated hernia # Status post laparoscopic ventral hernia repair - Surgery consulted to assist with management daily. - Having pain. Continue Tylenol for mild pain, hydrocodone 5/325 as needed every 4 hours for moderate to severe pain. Dilaudid 1 mg IV every 4 hours as needed for severe pain. Monitor for toxicity - Preop labs obtained 6 days ago relatively normal with hemoglobin 11.3, white count 7.3. Kidney function normal with BUN 16, creatinine 0.8. Potassium low at 3.2. - Repeat CBC, CMP, magnesium ordered for the morning Condition: GERD: Continue pantoprazole 40 mg daily CAD: Continue DAPT, Plavix 75 mg aspirin 81 mg daily. Hypertension: Resume amlodipine 10 mg daily, carvedilol 12.5 mg twice daily for hypertension Hyperlipidemia: Lipitor 80 mg nightly for hyperlipidemia - Albuterol inhaler as needed every 4 hours for COPD - Goal sats greater 90%, wean oxygen as tolerated - Lyrica 75 mg twice daily as needed for neuropathy - Ropinirole 1 mg nightly for restless leg - Spironolactone 50 mg daily Full code Ambulate as tolerated VTE?Lovenox Advancing to full liquid diet
--- NOTE | 2025-08-09 15:31 | P.PNANES_ITS ---
[facility] Anesthesia Record Part II Anesthesia Record Part II Discharge Time: 14:23 Destination: Medical Surgical Department PACU nurse assessment reviewed?: Yes Patient Condition:: Good Anesthesia Complications:: None Swallowing reflex intact?: Yes Airway Patency: Patent Cyanosis?: No Blood Pressure: 136/88 SaO2: 93 Respiratory Rate: 14 Pulse Rate: 66 Temperature: 97.4 F Mental Status: Alert & Oriented Pain level:: 0 Nausea and/or vomitting:: None Intake, IV Amount: 0 Hydration: Adequate
[2025-08-09 16:10] LABS: Appearance,Urine/Cath CLEAR (Clear); Bilirubin,Cath Negative (Negative); Blood, Urine/Cath TRACE-L (Negative); Color,Urine/Cath YELLOW (Yellow); Glucose,Urine/Cath (UA) Negative (Negative); Ketones,Urine/Cath Negative (Negative); Leukocyte Esterase,Cath Negative (Negative); Nitrate,Cath Negative (Negative); PH,Urine/Cath 6.5 (5.0-8.5); Protein,Urine/Cath 3+ (Negative); Specific Gravity, Urine/Cath 1.010 (1.005-1.030); Urobilinogen,Cath 0.2 EU/dl (0.2)
[2025-08-09] MEDS: HYDROCODONE/APAP 5/325 MG TABLET 1 TAB PO ×2 (16:10→20:23)
[2025-08-09 16:29] LABS: WBC,Urine/Cath Occasional #/hpf (0-3)
[2025-08-09 16:30] LABS: Bacteria,Urine/Cath TRACE /lpf
--- NOTE | 2025-08-09 16:52 | PC.NURSE ---
pt post op hernia repair. vss. tolerating RA with sats >90%. ambulated to BR with standby assistance. medicated for pain per dec. 3 incision sites, c/d/i. no needs at this time. call light within reach.
[2025-08-09] MEDS: CARVEDILOL 12.5MG TABLET 12.5 MG PO (20:23)
[2025-08-09] MEDS: ROPINIROLE 1MG TABLET 1 MG PO (20:23)
[2025-08-09] MEDS: ATORVASTATIN 40MG TABLET 80 MG PO (20:23)
[2025-08-09] MEDS: PANTOPRAZOLE 40MG TABLET 40 MG PO (20:23)
[2025-08-09] MEDS: BUSPIRONE HCL 10 MG TABLET PO (20:23)
[2025-08-10] VITALS: BP 149/90; PULSE 77; RESP 12; TEMP 36.5; O2SAT 100
[2025-08-10 04:00] VITALS: BP 179/81; PULSE 77; RESP 14; TEMP 36.6; O2SAT 90; BMI 28.5
[2025-08-10] MEDS: HYDROCODONE/APAP 5/325 MG TABLET 1 TAB PO (04:36)
[2025-08-10 05:39] LABS: Hematocrit 34.4 % (37.0-47.0); Hemoglobin 11.4 g/dL (12.2-16.2); Immature Granulocytes % 0.5 %; Mean Corpuscular HGB Conc 33.1 g/dL (31.8-35.4); Mean Corpuscular Hemoglobin 27.6 pg (27.0-31.2); Mean Corpuscular Volume 83.3 fl (81-99); Nucleated Red Blood Cells % 0 %; Platelet Count 336 K/mm3 (142-424); Red Blood Count 4.13 M/mm3 (4.20-5.40); Red Cell Distribution Width-SD 45.9 fL; White Blood Count 7.6 K/mm3 (4.8-10.8)
[2025-08-10 05:51] LABS: Alanine Aminotransferase 17 U/L (12-78); Albumin Level 3.6 g/dl (3.5-5.0); Albumin/Globulin Ratio 1.2 (1.1-1.8); Alkaline Phosphatase 146 U/L (38-126); Anion Gap 12.7 mEq/L (5-15); Aspartate Amino Transferase 21 U/L (14-36); Bilirubin,Total 0.4 mg/dl (0.2-1.3); Blood Urea Nitrogen 15 mg/dl (7-17); Calcium 8.7 mg/dl (8.4-10.2); Carbon Dioxide 29 mmol/L (22.0-30.0); Chloride 95 mmol/L (98-107); Creatinine Clearance Estimated 55 mL/min (50-200); Creatinine,Serum 0.90 mg/dl (0.52-1.04); Estimated Glomerular Filt Rate 61 ml/min (>60); GFR (African American) 74 ML/MIN (>60); Globulin 3.0 g/dL (1.3-3.2); Glucose 134 mg/dl (74-100); Magnesium 1.7 mg/dl (1.6-2.3); Potassium 3.7 mmoL/L (3.5-5.1); Sodium 133 mmol/L (136-145); Total Protein,Serum 6.6 g/dl (6.3-8.2)
[2025-08-10 08:00] VITALS: BP 157/84; PULSE 85; RESP 19; TEMP 37.2; O2SAT 92
--- NOTE | 2025-08-10 08:09 | P.PN_ITS ---
Subjective Patient reports: no new complaints Narrative: Patient feels well with no complaints. Exam Data for Last 24 hours Vital signs and Labs for Last 24 Hours: Temp Pulse Resp BP Pulse Ox O2 Del Method O2 Flow Rate 97.9 F 77 14 179/81 H 90 L Room Air 2 08/10/25 04:00 08/10/25 04:00 08/10/25 04:00 08/10/25 04:00 08/10/25 04:00 08/10/25 06:50 08/10/25 00:00 Laboratory Results - last 24 hr 08/09/25 11:00: Urine Color Yellow, Urine Appearance Clear, Urine pH 6.5, Ur Specific [place] 1.010, Urine Protein 3+, Urine Glucose (UA) Negative, Urine Ketones Negative, Urine Blood Trace-l, Urine Nitrate Negative, Urine Bilirubin Negative, Urine Urobilinogen 0.2, Ur Leukocyte Esterase Negative, Urine RBC None, Urine WBC Occasional, Ur Squamous Epith Cells None, Urine Bacteria Trace 08/10/25 04:46: WBC 7.6, RBC 4.13 L, Hgb 11.4 L, Hct 34.4 L, MCV 83.3, MCH 27.6, MCHC 33.1, RDW 15.1, Plt Count 336, MPV 9.7, Neut % (Auto) 83.2 H, Lymph % (Auto) 10.3, [place] % (Auto) 5.8, Eos % (Auto) 0.1, Baso % (Auto) 0.1, Neut # (Auto) 6.3, Lymph # (Auto) 0.8, [place] # (Auto) 0.4, Eos # (Auto) 0.0, Baso # (Auto) 0.0, Sodium 133 L, Potassium 3.7, Chloride 95 L, Carbon Dioxide 29, Anion Gap 12.7, BUN 15, Creatinine 0.90, Estimated Creat Clear 55, Estimated GFR 61, Est GFR ( Amer) 74, Glucose 134 H, Calcium 8.7, Magnesium 1.7, Total Bilirubin 0.4, AST 21, ALT 17, Alkaline Phosphatase 146 H, Total Protein 6.6, Albumin 3.6, Globulin 3.0, Albumin/Globulin Ratio 1.2 I & O for Last 24 hours: Intake & Output 08/07/25 08/08/25 08/09/25 08/10/25 11:59 11:59 11:59 11:59 Intake Total 50 1645 / 1645 Output Total 700 / 700 Balance 50 50 945 / 945 Weight 155 lb 0.006 oz *Routine Abdominal Exam Abdominal: Present soft Comments: Some minor bruising as expected at the hernia site. Palpable seroma. No hernia recurrence Progress Note: A&P Assessment and plan (1) Incisional hernia of anterior abdominal wall with obstruction: Status: Inactive (2) Incisional hernia: Status: Acute Assessment and plan: Okay for discharge (3) Chronic GERD: Status: Acute (4) Hypothyroidism: Status: Chronic (5) Tobacco dependence: Status: Acute (6) HTN (hypertension): Status: Chronic (7) Anxiety: Status: Chronic (8) CAD (coronary artery disease): Status: Chronic (9) Hyperlipidemia: Status: Chronic (10) Postoperative pain: Status: Acute
[2025-08-10] MEDS: CARVEDILOL 12.5MG TABLET 12.5 MG PO (08:27)
[2025-08-10] MEDS: AMLODIPINE 10MG TABLET 10 MG PO (08:27)
[2025-08-10] MEDS: BUSPIRONE HCL 10 MG TABLET PO ×2 (08:27→12:19)
[2025-08-10] MEDS: CLOPIDOGREL 75MG TAB 75 MG PO (08:28)
[2025-08-10] MEDS: ASPIRIN EC 81MG TABLET 81 MG PO (08:28)
[2025-08-10] MEDS: SPIRONOLACTONE 25MG TABLET 50 MG PO (08:28)
--- NOTE | 2025-08-10 08:39 | HMH.PHAINT1 ---
Pharmacy Intervention Comments: HOME MEDICATION LIST VERIFIED USING LIST FROM OUTPATIENT PHARMACY
--- NOTE | 2025-08-10 09:18 | XR_ITS ---
FINAL REPORT CLINICAL HISTORY: hypoxia COMPARISON: 06/29/2025 FINDINGS: A single frontal view of the chest was obtained. There is mild atelectasis or scar in the right lung base. The left lung is clear. There is no evidence of effusion or pneumothorax. Mediastinum is unremarkable. Heart size is normal. IMPRESSION: Mild increased markings right lung base, probably atelectasis or scarring. Reviewed, Interpreted and Dictated by Enzo Perkins MD Transcribed by Laurie Rodriguez Authenticated and [facility]
--- NOTE | 2025-08-10 09:29 | PC.NURSE ---
Laboratory Results - last 24 hr 08/09/25 11:00: Urine Color Yellow, Urine Appearance Clear, Urine pH 6.5, Ur Specific [place] 1.010, Urine Protein 3+, Urine Glucose (UA) Negative, Urine Ketones Negative, Urine Blood Trace-l, Urine Nitrate Negative, Urine Bilirubin Negative, Urine Urobilinogen 0.2, Ur Leukocyte Esterase Negative, Urine RBC None, Urine WBC Occasional, Ur Squamous Epith Cells None, Urine Bacteria Trace 08/10/25 04:46: WBC 7.6, RBC 4.13 L, Hgb 11.4 L, Hct 34.4 L, MCV 83.3, MCH 27.6, MCHC 33.1, RDW 15.1, Plt Count 336, MPV 9.7, Neut % (Auto) 83.2 H, Lymph % (Auto) 10.3, [place] % (Auto) 5.8, Eos % (Auto) 0.1, Baso % (Auto) 0.1, Neut # (Auto) 6.3, Lymph # (Auto) 0.8, [place] # (Auto) 0.4, Eos # (Auto) 0.0, Baso # (Auto) 0.0, Sodium 133 L, Potassium 3.7, Chloride 95 L, Carbon Dioxide 29, Anion Gap 12.7, BUN 15, Creatinine 0.90, Estimated Creat Clear 55, Estimated GFR 61, Est GFR ( Amer) 74, Glucose 134 H, Calcium 8.7, Magnesium 1.7, Total Bilirubin 0.4, AST 21, ALT 17, Alkaline Phosphatase 146 H, Total Protein 6.6, Albumin 3.6, Globulin 3.0, Albumin/Globulin Ratio 1.2 Vital Signs Temp Pulse Pulse Resp BP BP Pulse Ox 08/10/25 09:00 08/10/25 08:00 99 F 85 19 157/84 H 92 L 08/10/25 08:00 08/10/25 06:50 08/10/25 05:00 08/10/25 04:00 97.9 F 77 14 179/81 H 90 L 08/10/25 03:00 08/10/25 01:00 08/10/25 00:00 97.7 F 77 12 149/90 H 100 08/09/25 23:00 08/09/25 21:00 08/09/25 20:00 08/09/25 20:00 97.8 F 68 12 179/80 H 100 08/09/25 18:39 08/09/25 17:35 85 20 149/93 H 96 08/09/25 17:05 85 20 148/82 H 96 08/09/25 17:00 08/09/25 16:35 75 15 174/92 H 99 08/09/25 16:05 72 12 154/80 H 94 L 08/09/25 15:35 67 16 162/90 H 98 08/09/25 15:31 14 08/09/25 15:20 68 16 152/76 H 97 08/09/25 15:05 77 20 163/126 H 96 08/09/25 15:00 08/09/25 14:50 98.1 F 68 16 165/92 H 90 L 08/09/25 14:23 97.4 F L 66 136/88 93 L 08/09/25 14:22 90 L 08/09/25 14:13 97.4 F L 72 150/91 H 96 08/09/25 14:03 97.4 F L 75 164/83 H 98 08/09/25 13:53 97.4 F L 73 172/95 H 89 L 08/09/25 13:43 97.4 F L 71 151/87 H 90 L 08/09/25 13:33 97.4 F L 71 165/102 H 93 L 08/09/25 13:23 97.4 F L 69 165/102 H 90 L 08/09/25 13:13 97.4 F L 78 179/90 H 94 L 08/09/25 13:06 97.4 F L 94 H 12 165/74 H 08/09/25 13:03 97.4 F L 72 152/50 H 94 L 08/09/25 12:53 97.4 F L 77 162/91 H 94 L O2 Del Method O2 Flow Rate 08/10/25 09:00 Room Air 08/10/25 08:00 Room Air 08/10/25 08:00 Room Air 08/10/25 06:50 Room Air 08/10/25 05:00 Room Air 08/10/25 04:00 Room Air 08/10/25 03:00 Room Air 08/10/25 01:00 Room Air 08/10/25 00:00 Nasal Cannula 2 08/09/25 23:00 Room Air 08/09/25 21:00 Room Air 08/09/25 20:00 Nasal Cannula 3 08/09/25 20:00 Room Air 08/09/25 18:39 Room Air 08/09/25 17:35 Room Air 08/09/25 17:05 Room Air 08/09/25 17:00 Room Air 08/09/25 16:35 Nasal Cannula 1 08/09/25 16:05 Nasal Cannula 1.5 08/09/25 15:35 Nasal Cannula 2 08/09/25 15:31 08/09/25 15:20 Nasal Cannula 2 08/09/25 15:05 Nasal Cannula 2 08/09/25 15:00 Nasal Cannula 3 08/09/25 14:50 Nasal Cannula 3 08/09/25 14:23 Nasal Cannula 2 08/09/25 14:22 Nasal Cannula 3 08/09/25 14:13 Nasal Cannula 2 08/09/25 14:03 Vapotherm 15 08/09/25 13:53 Nasal Cannula 4 08/09/25 13:43 Nasal Cannula 4 08/09/25 13:33 Nasal Cannula 4 08/09/25 13:23 Nasal Cannula 4 08/09/25 13:13 Nasal Cannula 4 08/09/25 13:06 08/09/25 13:03 Nasal Cannula 4 08/09/25 12:53 Nasal Cannula 4
--- NOTE | 2025-08-10 09:49 | P.DS_ITS ---
<Statement entered by Raymond Suero MD - 08/13/25 12:58> Agree with plan of care as outlined by the PRODUCER DIRECTOR. General Admission date:: 08/09/25 Discharge date: 08/10/25 HPI HPI HPI: Ms. Tubbs is a 75-year-old female with complex ventral hernia and recent admission for recurring hernia with incarceration. She presented today for elective laparoscopic repair of her hernia as an outpatient. Procedure was well-tolerated with no complications. After procedure however in the PACU, patient had difficulty weaning off oxygen. Had pain requiring significant pain control. Concerned about safety discharging patient home given her pain control needs and oxygen requirement. Feels she would benefit from oxygen at home but does not have it at this time. History significant for GERD, CAD, hypothyroid, hypertension tobacco use disorder. On evaluation after arriving to the floor, she is alert and oriented x 4. Stable on 2 L oxygen with sats in the mid to high 90s. Afebrile. No nausea or vomiting. Complaining of some abdominal pain but better controlled at this time. Vitals unremarkable. Hospital Course Hospital Course Hospital Course: Ms. Tubbs is a 75-year-old female who had an elective outpatient ventral hernia repair today. She has a primary medical history of CVA, osteoarthritis, HFpEF, DJD, umbilical hernia, hypertension, GERD, anxiety, CAD, hyperlipidemia, depression, tobacco use disorder. After surgery, having significant pain and hypertension along with increased oxygen requirement. Due to concern for pain control and ability to safely discharge home, had interactive discussion with surgeon who requested admission for further management and pain control. I decided to admit for further treatment. Problems addressed as follows: # Previously Incarcerated hernia # Status post laparoscopic ventral hernia repair - Surgery consulted to assist with management daily. Patient did very well overnight, tolerating pain with oral pain medication, denies nausea/vomiting. Patient will be discharged home with [place] 5/325 every 4 hours for moderate to severe pain as needed. - Lab work stable hemoglobin 11.4, at baseline. Kidney function within normal limits, electrolytes unremarkable. - Patient oxygen saturation greater than 90% on room air. Tolerating p.o. diet without issues. #GERD: Continue pantoprazole 40 mg daily at discharge. #CAD: Continue DAPT, Plavix 75 mg aspirin 81 mg daily. #Hypertension: Resume amlodipine 10 mg daily, carvedilol 12.5 mg twice daily, and spironolactone 50 mg daily for hypertension. Patient's blood pressures have been slightly elevated during admission, will need followed by PCP at discharge. #Hyperlipidemia: Continue Lipitor 80 mg nightly for hyperlipidemia. #CHF: Patient has a history of CHF exacerbation, BNP checked due to initial hypoxia, BNP 1200-appears to be close to patient baseline. Chest x-ray obtained shows no acute findings. #COPD: Continue albuterol inhaler every 4 hours as needed. #Restless leg syndrome: Continue Lyrica 75 mg twice daily for neuropathy and Requip 1 mg nightly for restless leg. Total time spent on discharge 34 minutes in counseling, documentation, chart review, and direct care with patient. Exam Data for Last 24 hours Vital signs and Labs for Last 24 Hours: Temp Pulse Resp BP Pulse Ox O2 Del Method O2 Flow Rate 99 F 85 19 157/84 H 92 L Room Air 2 08/10/25 08:00 08/10/25 08:00 08/10/25 08:00 08/10/25 08:00 08/10/25 08:00 08/10/25 09:00 08/10/25 00:00 Laboratory Results - last 24 hr 08/09/25 11:00: Urine Color Yellow, Urine Appearance Clear, Urine pH 6.5, Ur Specific [place] 1.010, Urine Protein 3+, Urine Glucose (UA) Negative, Urine Ketones Negative, Urine Blood Trace-l, Urine Nitrate Negative, Urine Bilirubin Negative, Urine Urobilinogen 0.2, Ur Leukocyte Esterase Negative, Urine RBC None, Urine WBC Occasional, Ur Squamous Epith Cells None, Urine Bacteria Trace 08/10/25 04:46: WBC 7.6, RBC 4.13 L, Hgb 11.4 L, Hct 34.4 L, MCV 83.3, MCH 27.6, MCHC 33.1, RDW 15.1, Plt Count 336, MPV 9.7, Neut % (Auto) 83.2 H, Lymph % (Auto) 10.3, [place] % (Auto) 5.8, Eos % (Auto) 0.1, Baso % (Auto) 0.1, Neut # (Auto) 6.3, Lymph # (Auto) 0.8, [place] # (Auto) 0.4, Eos # (Auto) 0.0, Baso # (Auto) 0.0, Sodium 133 L, Potassium 3.7, Chloride 95 L, Carbon Dioxide 29, Anion Gap 12.7, BUN 15, Creatinine 0.90, Estimated Creat Clear 55, Estimated GFR 61, Est GFR ( Amer) 74, Glucose 134 H, Calcium 8.7, Magnesium 1.7, Total Bilirubin 0.4, AST 21, ALT 17, Alkaline Phosphatase 146 H, Total Protein 6.6, Albumin 3.6, Globulin 3.0, Albumin/Globulin Ratio 1.2 I & O for Last 24 hours: Intake & Output 08/07/25 08/08/25 08/09/25 08/10/25 23:59 23:59 23:59 23:59 Intake Total 1455 / 1695 980 / 980 Output Total 200 / 200 500 / 500 Balance 1255 / 1495 480 / 480 Weight 70.307 kg Constitutional Constitutional: no acute distress, average body habitus, chronically ill appearing and cooperative *Routine HEENT Exam Head: Present normocephalic ENT: Present mucous membranes moist *Routine Neck Exam Neck: Present supple and full ROM *Routine Respiratory Exam Respiratory: Present CTA bilaterally, normal respiratory effort, able to speak in complete sentences and symmetric chest movement; Absent wheezes or crackles *Routine Cardiovascular Exam Cardiovascular: Present RRR, Normal S1 and Normal S2; Absent murmur *Routine Abdominal Exam Abdominal: Present soft, normoactive bowel sounds, tenderness and wound (3 times surgical site from laparoscopic hernia repair, dressings clean dry and intact); Absent distended *Routine Rectal Exam Patient deferred: visual exam *Routine Exam Patient deferred: external exam *Routine Extremities Exam Extremities: Present full ROM, pulses intact and normal capillary refill; Absent edema *Routine Skin Exam Skin: Present intact and dry; Absent erythema or rash *Routine Neurological Exam Neurological: Present alert, oriented X3, vision grossly intact, hearing grossly intact and normal speech Routine Psychiatric Exam Psychiatric: Present normal affect Results Data Completed and Pending Labs on day of discharge: Labs from last 24 hours 08/10/25 08/09/25 04:46 11:00 WBC 7.6 RBC 4.13 L Hgb 11.4 L Hct 34.4 L MCV 83.3 MCH 27.6 MCHC 33.1 RDW 15.1 Plt Count 336 MPV 9.7 Neut % (Auto) 83.2 H Lymph % (Auto) 10.3 [place] % (Auto) 5.8 Eos % (Auto) 0.1 Baso % (Auto) 0.1 Neut # (Auto) 6.3 Lymph # (Auto) 0.8 [place] # (Auto) 0.4 Eos # (Auto) 0.0 Baso # (Auto) 0.0 Sodium 133 L Potassium 3.7 Chloride 95 L Carbon Dioxide 29 Anion Gap 12.7 BUN 15 Creatinine 0.90 Estimated Creat Clear 55 Estimated GFR 61 Est GFR ( Amer) 74 Glucose 134 H Calcium 8.7 Magnesium 1.7 Total Bilirubin 0.4 AST 21 ALT 17 Alkaline Phosphatase 146 H Total Protein 6.6 Albumin 3.6 Globulin 3.0 Albumin/Globulin Ratio 1.2 Urine Color Yellow Urine Appearance Clear Urine pH 6.5 Ur Specific [place] 1.010 Urine Protein 3+ Urine Glucose (UA) Negative Urine Ketones Negative Urine Blood Trace-l Urine Nitrate Negative Urine Bilirubin Negative Urine Urobilinogen 0.2 Ur Leukocyte Esterase Negative Urine RBC None Urine WBC Occasional Ur Squamous Epith Cells None Urine Bacteria Trace DS: Diagnosis Discharge Diagnosis (1) Incisional hernia of anterior abdominal wall with obstruction: Status: Inactive Code(s): K43.0 - Incisional hernia with obstruction, without gangrene (2) Incisional hernia: Status: Acute Code(s): K43.2 - Incisional hernia without obstruction or gangrene (3) Chronic GERD: Status: Acute Code(s): K21.9 - Gastro-esophageal reflux disease without esophagitis (4) Hypothyroidism: Status: Chronic Code(s): E03.9 - Hypothyroidism, unspecified Qualifiers: Hypothyroidism type: unspecified Qualified Code(s): E03.9 - Hypothyroidism, unspecified (5) Tobacco dependence: Status: Acute Code(s): F17.200 - Nicotine dependence, unspecified, uncomplicated (6) HTN (hypertension): Status: Chronic Code(s): I10 - Essential (primary) hypertension (7) Anxiety: Status: Chronic Code(s): F41.9 - Anxiety disorder, unspecified (8) CAD (coronary artery disease): Status: Chronic Code(s): I25.10 - Atherosclerotic heart disease of [place] coronary artery without angina pectoris Qualifiers: Associated angina: without angina Coronary Disease-Associated Artery/Lesion type: [place] artery [place] vs. transplanted heart: [place] heart Qualified Code(s): I25.10 - Atherosclerotic heart disease of [place] coronary artery without angina pectoris (9) Hyperlipidemia: Status: Chronic Code(s): E78.5 - Hyperlipidemia, unspecified Qualifiers: Hyperlipidemia type: unspecified Qualified Code(s): E78.5 - Hyperlipidemia, unspecified (10) Postoperative pain: Status: Acute Code(s): G89.18 - Other acute postprocedural pain Meds Home Medications and Allergies Home Medications ?Medication ?Instructions ?Recorded ?Confirmed ?Type amlodipine 10 mg tablet 10 mg PO DAILY 04/28/2507/22 History aspirin 81 mg tablet,delayed 81 mg PO DAILY 04/28/25 1 History release atorvastatin 80 mg tablet 80 mg PO HS 04/28/25 5 History buspirone 10 mg tablet 10 mg PO TID 04/28/25 History clopidogrel 75 mg tablet 75 mg PO DAILY 04/28/2507/22 History ergocalciferol (vitamin D2) 1,250 1,250 mcg PO WEEKLY 04/28/25 08/09/25 History mcg (50,000 unit) capsule pantoprazole 40 mg tablet,delayed 40 mg PO DAILY 04/2808/09/25 History release cyclobenzaprine 10 mg tablet 10 mg PO BID 05/21/25 History furosemide 20 mg tablet 20 mg PO DAILYP PRN Leg swel ling 05/21/25 08/09/25 Hi story carvedilol 12.5 mg tablet 12.5 mg PO BID 30 days #60 t abs 05/25/25 08/09/25 Rx spironolactone 25 mg tablet 50 mg (2 x 25 mg) PO DAILY 30 days 05/25/25 08/09/25 Rx #60 tabs pregabalin 75 mg capsule 75 mg PO BID PRN nerve pain 06/08/25 08/09/25 History albuterol 90 mcg/actuation aerosol 90 mcg inhalation Q 4H PRN sob 08/03/25 08/09/25 History inhaler hydrocodone 5 mg-acetaminophen 325 1 tab PO Q4H PRN Pa in #17 tabs 08/09/25 Rx mg tablet ropinirole 1 mg tablet 1 mg PO HS 08/09/25 08/09/25 History New Prescriptions to Start Prescriptions: hydrocodone-acetaminophen Misael Vyas Allergies Allergy/AdvReac Type Severity Reaction Status Date / Time Sulfa (Sulfonamide Allergy Nausea Verified 08/09/25 08:22 Antibiotics) Discharge Plan Disposition Patient Disposition: Home, Self-Care Condition: Good Follow up Plan Follow up with: Misael Vyas MD [Staff Physician, General Surgery] - 08/31/25 9:15 am Gricel Cornejo APRN [Primary Care Provider, Medical] - 08/18/25 10:00 am Prescriptions/Medication Reconciliation: New hydrocodone-acetaminophen 5-325 mg Tablet 1 tab PO Q4H PRN (Reason: Pain) Qty: 17 0RF Continued buspirone 10 mg tablet 10 mg PO TID Patient Comments: TAKE 1 TABLET BY MOUTH 3 TIMES A DAY atorvastatin 80 mg tablet 80 mg PO HS clopidogrel 75 mg tablet 75 mg PO DAILY aspirin 81 mg tablet,delayed release (DR/EC) 81 mg PO DAILY amlodipine 10 mg tablet 10 mg PO DAILY pantoprazole 40 mg tablet,delayed release (DR/EC) 40 mg PO DAILY ergocalciferol (vitamin D2) 1,250 mcg (50,000 unit) capsule 1,250 mcg PO WEEKLY pregabalin 75 mg capsule 75 mg PO BID PRN (Reason: nerve pain) ropinirole 1 mg tablet 1 mg PO HS Patient Comments: TAKE 1 TABLET BY MOUTH 1 TO 3 hours BEFORE bedtime albuterol 90 mcg/actuation Aerosol 90 mcg INHALATION Q4H PRN (Reason: sob) cyclobenzaprine 10 mg tablet 10 mg PO BID Patient Comments: TAKE ONE TABLET BY MOUTH 2 TIMES A DAY furosemide 20 mg tablet 20 mg PO DAILYP PRN (Reason: Leg swelling) carvedilol 12.5 mg Tablet 12.5 mg PO BID 30 Days Qty: 60 0RF spironolactone 25 mg Tablet 50 mg PO DAILY 30 Days Qty: 60 0RF Problem Reconciliation Problems Reviewed?: Yes Patient Discharge Instructions ACTIVITY: Ambulate as tolerated, No heavy lifting and Up with assistance DIET: advance to your usual diet Patient Instructions: How to Care for a Surgical Wound, Surgical Site Infection, DI for Ventral Hernia Print Language: Urdu Providers Primary Care Provider: Gricel Cornejo Admit Provider: Misael Vyas Attending Provider: César Minor
[2025-08-10 10:42] LABS: NT Pro Brain Natriuretic Pep. 1200 pg/mL (0-125)
[2025-08-10 12:00] VITALS: BP 154/96; PULSE 78; RESP 16; TEMP 36.9; O2SAT 92
--- NOTE | 2025-08-11 10:21 | SW/DCPLANNER ---
Spoke with patient on the phone. Patient stated that she is doing good just sore. Patient stated that she was able to get her medicine picked up. Patient stated that she is aware of her upcoming appointments. Patient stated that she has no concerns or questions at this time. Eusebia Canela
== END 2025-08-10 13:50 | disposition home or self-care (01) ==
LOC: 2ND 14:20
PROVIDERS: Admitting Provider Surgery; PCP Nurse Practitioner; Visit Provider Internal Medicine Adolescent Medicine
PROC: 0WQF4ZZ Repair Abdominal Wall, Percutaneous Endoscopic Approach (ICD-10-PCS; principal; 2025-08-09 09:40)
DX: G89.18 Other acute postprocedural pain (principal); K43.9 Ventral hernia without obstruction or gangrene; K43.0 Incisional hernia with obstruction, without gangrene; K21.9 Gastro-esophageal reflux disease without esophagitis; I11.0 Hypertensive heart disease with heart failure; I50.30 Unspecified diastolic (congestive) heart failure; I25.10 Atherosclerotic heart disease of native coronary artery without angina pectoris; F41.9 Anxiety disorder, unspecified; E78.5 Hyperlipidemia, unspecified; G62.9 Polyneuropathy, unspecified; F32.A Depression, unspecified; J44.9 Chronic obstructive pulmonary disease, unspecified; F17.210 Nicotine dependence, cigarettes, uncomplicated; G25.81 Restless legs syndrome; Z88.2 Allergy status to sulfonamides; Z98.890 Other specified postprocedural states; Z86.73 Personal history of transient ischemic attack (TIA), and cerebral infarction without residual deficits; Z86.718 Personal history of other venous thrombosis and embolism; Z95.5 Presence of coronary angioplasty implant and graft; Z90.49 Acquired absence of other specified parts of digestive tract; Z79.82 Long term (current) use of aspirin; Z79.02 Long term (current) use of antithrombotics/antiplatelets; Z79.899 Other long term (current) drug therapy
CPT/HCPCS: 49591; 36415; 71045; 80053; 81001; 83735; 83880; 85025; 96360; 96361; 96374; C1781; G0378; J1100; J1650; J2003; J2175; J2270; J2405; J2704; J2795; J3010; J7120

== ENCOUNTER 2025-08-13 14:45 | Emergency (ER) | payer MEDICARE, SELFPAY ==
[2025-08-13] VITALS (9 sets, daily range): BP systolic 129–184; BP diastolic 75–113; PULSE 69–90; RESP 16–17; TEMP 36.7; O2SAT 93–98; BMI 24.7
--- NOTE | 2025-08-13 14:48 | ECG_ITS ---
APPROVED REPORT Exam: Resting ECG HR:70 bpm ECG Measurements Heart Rate 70 AXES QRSd 102 QRS 31 QT 407 T 93 QTc 428 Conclusion SINUS RHYTHM WITH HIGH GRADE AV BLOCK NONSPECIFIC ST & T-WAVE ABNORMALITY CRITICAL TEST RESULT No STEMI Electronically signed by : YESICA DE LEON, 08/17/2025 07:14:51
--- NOTE | 2025-08-13 14:55 | XR_ITS ---
FINAL REPORT CLINICAL HISTORY: dizziness, soa, cough COMPARISON: 08/10/2025 FINDINGS: There is emphysema and chronic lung changes. There is no evidence of effusion or pneumothorax. Mediastinum is unremarkable. Heart size is normal. IMPRESSION: No acute abnormality. Reviewed, Interpreted and Dictated by Enzo Perkins MD Transcribed by Thalia Stanford Authenticated and [facility]
[2025-08-13 14:59] LABS: Hematocrit 34.9 % (37.0-47.0); Hemoglobin 11.4 g/dL (12.2-16.2); Immature Granulocytes % 0.4 %; Mean Corpuscular HGB Conc 32.7 g/dL (31.8-35.4); Mean Corpuscular Hemoglobin 27.3 pg (27.0-31.2); Mean Corpuscular Volume 83.5 fl (81-99); Nucleated Red Blood Cells % 0 %; Platelet Count 432 K/mm3 (142-424); Red Blood Count 4.18 M/mm3 (4.20-5.40); Red Cell Distribution Width-SD 46.8 fL; White Blood Count 13.5 K/mm3 (4.8-10.8)
--- OUTSIDE RECORDS SUMMARY | 2025-08-13 15:06 | XMS_ITS | Clinical Summary ---
Author Organization Healthcare Address [address] [place] [address] Care Team Providers Care Produce Runner Name Role Phone Rex Souza MD Primary Care Provider + [phone] Allergies Active Allergy Reactions Criticality Noted Date [...] days 04/18/201 6 Active ergocalciferol 1.25 MG (80417 UT) capsule Take 1 capsule (50,000 Units) [...] PCV21) 12/05/2018 12/05/2017 [facility]-Depression Screening 02/11/2025 02/12/2024 [id number] Vaccine (3 - 2024- season) 2025 08/30/2021, [...] this topic Medical Devices Implanted Type Area Farmworker Livestock Device Identifier Shelf Expiration Date Model / Serial / Lot Stent Self-Expanding Innova 8mm X 20mm X 130cm - [id number] Implanted:Qty: 1 on 04/14/2024 by Reynaldo Sanchez MD at [facility] [id number] 08/04/2028 [id number] / / [id number] Stent Atrium Icast Covered 7mm X 22mm X 80cm - [id number] Implanted:Qty: 1 on 04/14/2024 by Reynaldo Sanchez MD at [facility] [id number] 09/04/2026 [id number] / [id number] / [id number] Closure Device Vip Angioseal 8 Fr - [id number] Implanted:Qty: 1 on 04/14/2024 by Reynaldo Sanchez MD at [facility] [id number] 11/12/2024 [id number] / / [id number] Stent Graft Iliac [id number] Viabahnbx - [id number] - [id number] Implanted:Qty: 1 on 04/14/2024 by Reynaldo Sanchez MD at [facility] [employer]-[id number] 12/03/2026 [id number] / [id number] / Insurance [facility] MEDICARE Care Teams Produce Runner Relationship Specialty Start Date End Date Rex Souza MD [address] [place] [address] PCP - General 03/03/21
--- OUTSIDE RECORDS SUMMARY | 2025-08-13 15:07 | XMS_ITS | Clinical Summary ---
Author Organization [facility] ([place], [place], [place], [place]) Address [address] [place] [address] Care Team Providers Care Summer Sessions Director Name Role Phone Gabino Myrick MD Primary Care Provider [phone] Bruce Shepherd MD Unavailable [phone] Teresa Grigsby DO Unavailable Allergies Active Allergy [...] hyperlipidemia 09/19/2023 Coronary artery disease invo lving [place] coronary artery of [place] heart without angina pectoris 09/19/2023 Cigarette nicotine [...] 08/09/2021 Influenza Vaccine (#1) 2025 08/15/2020 Insurance [facility] MEDICARE HMO Advance Directives For more information, please contact: [phone] * Full Code (Latest Code Status on File) Date Activated Date Inactivated Comments 09/02/2023 5:26 AM 09/03/2023 4:27 AM * Full Code Date Activated Date Inactivated Comments 08/21/2023 1:50 PM 08/23/2023 6:38 PM Care Teams Summer Sessions Director Relationship Specialty Start Date End Date Gabino Myrick MD [address] [place] [address] PCP - General Family Medicine 08/08/23 Bruce Shepherd MD [address] [facility] [address] [place] [address] [id number] Surgeon Cardiothoracic Surgery 08/21/23 Teresa Grigsby DO [address] [facility] [address] [place] [id number] Interventional Cardiology 02/05/24
--- OUTSIDE RECORDS SUMMARY | 2025-08-13 15:07 | XMS_ITS | Encounter Summary ---
Author Organization Healthcare Address [address] [place] [address] Care Team Providers Care Motor Operator Name Role Phone Rex Souza MD Primary Care Provider + [phone] Encounter Details Date Type Department Care Team (Late st Contact Info) Description 07/17/2023 Orders Only External Location [address] [place] [address] Provider, External Social History Tobacco Use Types [...] on filedocumented in this encounter Care Teams Motor Operator Relationship Specialty Start Date End Date Rex Souza MD [address] [place] [address] PCP - General 03/03/21 documented as of this encounter
--- OUTSIDE RECORDS SUMMARY | 2025-08-13 15:07 | XMS_ITS | Referral Summary ---
Author Organization [facility] ([place], [place], [place], [place]) Address [address] [place] [address] Care Team Providers Care Ship Scaler Name Role Phone Gabino Myrick MD Primary Care Provider [phone] Bruce Shepherd MD Unavailable [phone] Teresa Grigsby DO Unavailable Allergies Active Allergy [...] hyperlipidemia 09/19/2023 Coronary artery disease invo lving [place] coronary artery of [place] heart without angina pectoris 09/19/2023 Cigarette nicotine [...] Date Gordy rded Speak language other than [place] at home Not on file 11/01/2023 Want [...] Advance Directives For more information, please contact: [phone] * Full Code (Latest Code Status on File) Date Activated Date Inactivated Comments 09/02/2023 5:26 AM 09/03/2023 4:27 AM * Full Code Date Activated Date Inactivated Comments 08/21/2023 1:50 PM 08/23/2023 6:38 PM Care Teams Ship Scaler Relationship Specialty Start Date End Date Gabino Myrick MD [address] [place] [address] PCP - General Family Medicine 08/08/23 Bruce Shepherd MD [address] [facility] [address] [place], [place] [id number] Surgeon Cardiothoracic Surgery 08/21/23 Teresa Grigsby DO [address] [facility] [address] [place] [id number] Interventional Cardiology 02/05/24
--- OUTSIDE RECORDS SUMMARY | 2025-08-13 15:07 | XMS_ITS | Encounter Summary ---
Author Organization Healthcare Address [address] [place] [address] Care Team Providers Care Floral Designer Salesperson Name Role Phone Rex Souza MD Primary Care Provider + [phone] Encounter Details Date Type Department Care Team (Late st Contact Info) Description 08/22/2023 Orders Only External Location [address] [place] [address] Provider, External Social History Tobacco Use Types [...] documented as of this encounter Care Teams Floral Designer Salesperson Relationship Specialty Start Date End Date Rex Souza MD [address] [place] [id number] PCP - General 03/03/21 documented as of this encounter
--- OUTSIDE RECORDS SUMMARY | 2025-08-13 15:07 | XMS_ITS | Encounter Summary ---
Author Organization Healthcare Address [address] [place] [address] Care Team Providers Care Government Affairs Specialist Name Role Phone Rex Souza MD Primary Care Provider + [phone] Encounter Details Date Type Department Care Team (Late st Contact Info) Description 05/06/2015 Orders Only External Location [address] [place] [address] Provider, External Social History Tobacco Use Types [...] on filedocumented in this encounter Care Teams Government Affairs Specialist Relationship Specialty Start Date End Date Rex Souza MD [address] [place] [address] PCP - General 03/03/21 documented as of this encounter
--- NOTE | 2025-08-13 15:09 | HMH.EDGENADL ---
Discharge Plan Disposition Chief Complaint: Dizziness Prescriptions Prescriptions: No Action buspirone 10 mg tablet 10 mg PO TID Patient Comments: TAKE 1 TABLET BY MOUTH 3 TIMES A DAY atorvastatin 80 mg tablet 80 mg PO HS clopidogrel 75 mg tablet 75 mg PO DAILY aspirin 81 mg tablet,delayed release (DR/EC) 81 mg PO DAILY amlodipine 10 mg tablet 10 mg PO DAILY pantoprazole 40 mg tablet,delayed release (DR/EC) 40 mg PO DAILY ergocalciferol (vitamin D2) 1,250 mcg (50,000 unit) capsule 1,250 mcg PO WEEKLY pregabalin 75 mg capsule 75 mg PO BID PRN (Reason: nerve pain) ropinirole 1 mg tablet 1 mg PO HS Patient Comments: TAKE 1 TABLET BY MOUTH 1 TO 3 hours BEFORE bedtime hydrocodone-acetaminophen 5-325 mg tablet 1 tab PO Q4H PRN (Reason: pain) Qty: 17 0RF albuterol 90 mcg/actuation Aerosol 90 mcg INHALATION Q4H PRN (Reason: sob) cyclobenzaprine 10 mg tablet 10 mg PO BID Patient Comments: TAKE ONE TABLET BY MOUTH 2 TIMES A DAY furosemide 20 mg tablet 20 mg PO DAILYP PRN (Reason: Leg swelling) carvedilol 12.5 mg Tablet 12.5 mg PO BID 30 Days Qty: 60 0RF spironolactone 25 mg Tablet 50 mg PO DAILY 30 Days Qty: 60 0RF Referrals Follow up/Referrals: Provider,Referral, MD [Primary Care Provider, Medical] - See instructions Print Language Print Language: Kyrgyz Discharge ED Provider: Francisco Kim General Adult HPI General Chief complaint: Dizziness Stated complaint: Weakness, Pre syncope Time Seen by Provider: 08/13/25 15:09 Mode of Arrival: EMS Source of Information: Patient and EMS Description of Symptoms (Recalled from ER Triage Doc. by RN): pt to the ED after becoming dizzy while baking cookies. pt reported she assisted into a chair and her dizziness resolved. pt had a laproscopic hernia repair recently. surgery site dressing are intact with a scant amount of bleeding. Related Data Home Medications ?Medication ?Instructions ?Recorded ?Confirmed amlodipine 10 mg tablet 10 mg PO DAILY 04/28/25 08/09/25 aspirin 81 mg tablet,delayed 81 mg PO DAILY 04/28/25 08/09/25 release atorvastatin 80 mg tablet 80 mg PO HS 04/28/25 08/09/25 buspirone 10 mg tablet 10 mg PO TID 04/28/25 08/09/25 clopidogrel 75 mg tablet 75 mg PO DAILY 04/28/25 08/09/25 ergocalciferol (vitamin D2) 1,250 1,250 mcg PO WEEKLY 04/28/25 08/09/25 mcg (50,000 unit) capsule pantoprazole 40 mg tablet,delayed 40 mg PO DAILY 04/28/25 08/09/25 release cyclobenzaprine 10 mg tablet 10 mg PO BID 05/21/25 08/09/25 furosemide 20 mg tablet 20 mg PO DAILYP PRN Leg swelling 05/21/25 08/09/25 pregabalin 75 mg capsule 75 mg PO BID PRN nerve pain 06/08/25 08/09/25 albuterol 90 mcg/actuation aerosol 90 mcg inhalation Q4H PRN sob 08/03/25 08/09/25 inhaler ropinirole 1 mg tablet 1 mg PO HS 08/09/25 08/09/25 Previous Rx's ?Medication ?Instructions ?Recorded carvedilol 12.5 mg tablet 12.5 mg PO BID 30 days #60 tabs 05/25/25 spironolactone 25 mg tablet 50 mg (2 x 25 mg) PO DAILY 30 days 05/25/25 #60 tabs hydrocodone 5 mg-acetaminophen 325 1 tab PO Q4H PRN pain #17 tabs 08/10/25 mg tablet Allergies Allergy/AdvReac Type Severity Reaction Status Date / Time Sulfa (Sulfonamide Allergy Nausea Verified 08/09/25 08:22 Antibiotics) [facility] Disclaimer: The information contained in this section may have been updated after the patient was seen, as this information can be updated by other users. 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 Small bowel obstruction Near syncope Superficial venous thrombosis of left upper extremity Cellulitis Hyponatremia Hypokalemia Nausea and vomiting Malignant hypertension Elevated brain natriuretic peptide (BNP) level Hypomagnesemia Acute hypokalemia Acute hyponatremia Acute encephalopathy History of nicotine dependence Epigastric pain Low back pain of over 3 months duration Hypertension CVA (cerebral vascular accident) At risk for cardiac dysfunction during anesthesia Tobacco dependence Diverticulosis Osteoarthritis Abdominal wall hernia DJD (degenerative joint disease), lumbar Lumbar radiculopathy HTN (hypertension) Gastroesophageal reflux disease Anxiety CAD (coronary artery disease) Hyperlipidemia Depression Surgical History H/O heart artery stent Hx of cardiac cath S/P peripheral artery angioplasty with stent placement Hx of cholecystectomy Family History Mother No significant family history Father Heart attack Other Family history of lung disease Social History Smoking Status: Current every day smoker tobacco type: cigarettes packs per day: 1 second hand exposure: No alcohol intake: never substance use type: denies use current occupational status: retired Travel in the last 8 weeks?: None household members: family housing: house marital status: current occupation: [employer] caffeine: Yes Have you lived/traveled outside US in past 30 days?: No Contact w/someone who lives/traveled outside US past 30 days?: No Exposure to someone with infectious disease in past 14 days?: No Do you have a fever (greater than 100.4 F or 38 C)?: No Have you tested positive for COVID-19?: No Exposed to someone with COVID-19 in past 14 days?: No Do you have a sore throat?: No Do you have a cough?: No Do you have any weakness?: No Do you have any diarrhea?: No Are you experiencing any unusual bleeding?: No Do you have any muscle aches/pain?: No Do you have any abdominal pain?: No Are you experiencing loss of taste or smell?: No Other Medical History Have you received the Flu Vaccine for this season: No Have you received the Pneumonia Vaccine: No Physical Exam General General appearance: alert and in no apparent distress Head Head exam: atraumatic, normocephalic and normal inspection Eye Eye exam: Present normal appearance, PERRL and EOMI; Absent scleral icterus ENT ENT exam: Present normal exam and normal external ear exam Neck Neck exam: Present normal inspection and full ROM Chest Chest inspection: Present normal inspection and symmetric chest wall rise Respiratory Respiratory exam: Present normal lung sounds bilaterally; Absent respiratory distress or wheezes Cardiovascular Cardiovascular exam: Present regular rate, normal rhythm and normal heart sounds Abdominal Exam Abdominal exam: Present soft and distention; Absent tenderness, guarding or rebound Extremities Exam Extremities exam: Present normal inspection and full ROM Back Exam Back exam: Present normal inspection and full ROM Neurological Exam Neurological exam: Present alert and oriented X3 Psychiatric Psychiatric exam: Present normal affect and normal mood Skin Skin exam: Present warm and dry Medical Decision Making Medical Records Screening: Per USPSTF and CDC recommendations, given the prevalence of disease in our region, it is our hospital?s policy to screen for HIV and viral Hepatitis for all patients aged 18 and over and those with ongoing risk factors. Vital Signs: 08/13/25 14:27 08/13/25 14:30 Temperature 98.0 F Temperature Source Oral Pulse Rate 73 Pulse Rate [Left Radial] 90 Respiratory Rate 17 Blood Pressure 184/83 H Blood Pressure [Right Arm] 184/83 H Blood Pressure Mean [Right Arm] 116 Blood Pressure Source [Right Arm] Automatic Cuff Blood Pressure Position [Right Arm] Sitting 02 Sat by Pulse Oximetry 94 L 94 L Oxygen Delivery Method Room Air Room Air Orders (Tests/Meds): ORDERS Category Date Time Status XR chest portable Stat Exams 08/13/25 14:55 Ordered Complete Blood Count Auto Diff Stat Lab 08/13/25 14:22 Received Comprehensive Metabolic Panel Stat Lab 08/13/25 14:55 Ordered Magnesium Stat Lab 08/13/25 14:55 Ordered T4 (Thyroxine) Stat Lab 08/13/25 14:55 Ordered Thyroid Stimulating Hormone Stat Lab 08/13/25 14:55 Ordered Troponin I Q3H Lab 08/13/25 18:00 Ordered Troponin I Q3H Lab 08/13/25 21:00 Ordered Troponin I Stat Lab 08/13/25 14:55 Ordered
--- NOTE | 2025-08-13 15:27 | CT_ITS ---
FINAL REPORT TECHNIQUE: Axial images through the chest was performed by computed tomography. This study was performed with techniques to keep radiation doses as low as reasonably achievable, (ALARA). Individualized dose reduction techniques using automated exposure control or adjustment of mA and/or kV according to the patient''s size were employed. CLINICAL HISTORY: syncope, headache COMPARISON: 08/11/2021 FINDINGS: Mild atrophy and moderate chronic ischemic white matter changes are noted. There is a small chronic lacunar infarct in the right basal ganglia, new since prior exam. No cortical edema is present. There is no mass or hemorrhage. Ventricles are normal. Bone windows show no skull fracture or obvious obstructive lesion. IMPRESSION: 1. Chronic appearing changes without acute intracranial abnormality. Reviewed, Interpreted and Dictated by Enzo Perkins MD Transcribed by Thalia Stanford Authenticated and [facility]
[2025-08-13 15:28] LABS: Albumin Level 3.4 g/dl (3.5-5.0); Chloride 95 mmol/L (98-107); Sodium 128 mmol/L (136-145)
[2025-08-13 15:30] LABS: Alanine Aminotransferase 15 U/L (12-78); Anion Gap 6.8 mEq/L (5-15); Aspartate Amino Transferase 27 U/L (14-36); Blood Urea Nitrogen 15 mg/dl (7-17); Carbon Dioxide 29 mmol/L (22.0-30.0); Creatinine Clearance Estimated 54 mL/min (50-200); Creatinine,Serum 0.90 mg/dl (0.52-1.04); Estimated Glomerular Filt Rate 61 ml/min (>60); GFR (African American) 74 ML/MIN (>60)
[2025-08-13 15:31] LABS: Albumin/Globulin Ratio 1.1 (1.1-1.8); Alkaline Phosphatase 115 U/L (38-126); Bilirubin,Total 0.3 mg/dl (0.2-1.3); Calcium 8.3 mg/dl (8.4-10.2); Globulin 3.0 g/dL (1.3-3.2); Glucose 105 mg/dl (74-100); Lipase 24 U/L (23-300); Magnesium 1.8 mg/dl (1.6-2.3); Total Protein,Serum 6.4 g/dl (6.3-8.2)
[2025-08-13 15:35] LABS: Potassium 2.8 mmoL/L (3.5-5.1)
[2025-08-13] MEDS: ACETAMINOPHEN 500MG TAB 1000 MG PO (15:39)
[2025-08-13 15:42] LABS: NT Pro Brain Natriuretic Pep. 1520 pg/mL (0-125)
[2025-08-13 15:44] LABS: Troponin I < 0.01 ng/ml (0.00-0.034)
[2025-08-13 15:45] LABS: Troponin I < 0.01 ng/ml (0.00-0.034)
[2025-08-13] MEDS: POTASSIUM CHLORIDE 20MEQ TAB 80 MEQ PO (15:45)
[2025-08-13 15:48] LABS: T4 (Thyroxine) 10.9 ug/dl (5.53-11.0)
[2025-08-13 16:02] LABS: Thyroid Stimulating Hormone 2.50 uIU/mL (0.465-4.68)
[2025-08-13 18:54] LABS: Troponin I < 0.01 ng/ml (0.00-0.034)
--- NOTE | 2025-09-29 01:56 | HMH.EDGENADL ---
Discharge Plan Disposition Patient Disposition: Home, Self-Care Condition: Good Prescriptions Prescriptions: No Action bumetanide 1 mg tablet 1 mg PO nitroglycerin 0.4 mg tablet, sublingual 0.4 mg sublingual Q5M Qty: 20 2RF Rx Instructions: do not exceed 3 doses per episode amlodipine 5 mg tablet 5 mg PO DAILY Qty: 30 2RF losartan 25 mg tablet 25 mg PO DAILY Qty: 30 2RF buspirone 10 mg tablet 10 mg PO TID Patient Comments: TAKE 1 TABLET BY MOUTH 3 TIMES A DAY atorvastatin 80 mg tablet 80 mg PO HS clopidogrel 75 mg tablet 75 mg PO DAILY aspirin 81 mg tablet,delayed release (DR/EC) 81 mg PO DAILY pantoprazole 40 mg tablet,delayed release (DR/EC) 40 mg PO DAILY ergocalciferol (vitamin D2) 1,250 mcg (50,000 unit) capsule 1,250 mcg PO WEEKLY pregabalin 75 mg capsule 75 mg PO BID PRN (Reason: nerve pain) ropinirole 1 mg tablet 1 mg PO HS Patient Comments: TAKE 1 TABLET BY MOUTH 1 TO 3 hours BEFORE bedtime hydrocodone-acetaminophen 5-325 mg tablet 1 tab PO Q4H PRN (Reason: pain) Qty: 17 0RF albuterol 90 mcg/actuation Aerosol 90 mcg INHALATION Q4H PRN (Reason: sob) cyclobenzaprine 10 mg tablet 10 mg PO BID Patient Comments: TAKE ONE TABLET BY MOUTH 2 TIMES A DAY furosemide 20 mg tablet 20 mg PO DAILYP PRN (Reason: Leg swelling) carvedilol 12.5 mg Tablet 12.5 mg PO BID 30 Days Qty: 60 0RF spironolactone 25 mg Tablet 50 mg PO DAILY 30 Days Qty: 60 0RF Referrals Follow up/Referrals: Provider,Referral, MD [Referring, Medical] - See instructions Activity Restrictions/Add. Instructions Additional Instructions/Restrictions: Up with your primary care provider to get your potassium rechecked return to the emergency department for any acute or worsening symptoms. Clinical Impressions Clinical Impression: Acute hypokalemia, Light-headedness Print Language Print Language: Turkish Discharge ED Provider: Paulette Akins Adult HPI General Chief complaint: Dizziness Stated complaint: Weakness, Pre syncope Time Seen by Provider: 08/13/25 15:09 Mode of Arrival: EMS Source of Information: Patient and EMS Description of Symptoms (Recalled from ER Triage Doc. by RN): pt to the ED after becoming dizzy while baking cookies. pt reported she assisted into a chair and her dizziness resolved. pt had a laproscopic hernia repair recently. surgery site dressing are intact with a scant amount of bleeding. History of Present Illness HPI narrative: Patient is a 75-year-old female who presented to the emergency department with lightheadedness while baking cookies. Patient denies any dizziness or room spinning sensation. Patient denies any recent fevers. Patient denies a headache chest pain shortness of breath. States that she has been eating and drinking appropriately. Patient did have a recent laparoscopic hernia repair had no syncope. Related Data Home Medications ?Medication ?Instructions ?Recorded ?Confirmed aspirin 81 mg tablet,delayed 81 mg PO DAILY 04/28/25 09/08/25 release atorvastatin 80 mg tablet 80 mg PO HS 04/28/25 09/08/25 buspirone 10 mg tablet 10 mg PO TID 04/28/25 09/08/25 clopidogrel 75 mg tablet 75 mg PO DAILY 04/28/25 09/08/25 ergocalciferol (vitamin D2) 1,250 1,250 mcg PO WEEKLY 04/28/25 09/08/25 mcg (50,000 unit) capsule pantoprazole 40 mg tablet,delayed 40 mg PO DAILY 04/28/25 09/08/25 release cyclobenzaprine 10 mg tablet 10 mg PO BID 05/21/25 09/08/25 furosemide 20 mg tablet 20 mg PO DAILYP PRN Leg swelling 05/21/25 09/08/25 pregabalin 75 mg capsule 75 mg PO BID PRN nerve pain 06/08/25 09/08/25 albuterol 90 mcg/actuation aerosol 90 mcg inhalation Q4H PRN sob 08/03/25 09/08/25 inhaler ropinirole 1 mg tablet 1 mg PO HS 08/09/25 09/08/25 bumetanide 1 mg tablet 1 mg PO 08/31/25 09/08/25 Previous Rx's ?Medication ?Instructions ?Recorded carvedilol 12.5 mg tablet 12.5 mg PO BID 30 days #60 tabs 05/25/25 spironolactone 25 mg tablet 50 mg (2 x 25 mg) PO DAILY 30 days 05/25/25 #60 tabs hydrocodone 5 mg-acetaminophen 325 1 tab PO Q4H PRN pain #17 tabs 08/10/25 mg tablet amlodipine 5 mg tablet 5 mg PO DAILY #30 tabs 09/08/25 losartan 25 mg tablet 25 mg PO DAILY #30 tabs 09/08/25 nitroglycerin 0.4 mg sublingual 0.4 mg sublingual Q5M #20 tabs 09/08/25 tablet Allergies Allergy/AdvReac Type Severity Reaction Status Date / Time Sulfa (Sulfonamide Allergy Nausea Verified 09/08/25 10:07 Antibiotics) [facility] Disclaimer: The information contained in this section may have been updated after the patient was seen, as this information can be updated by other users. Medical History Rhinovirus Ascites Incarcerated hernia Bowel obstruction Incisional hernia of anterior abdominal wall with obstruction Small bowel obstruction Near syncope Superficial venous thrombosis of left upper extremity Cellulitis Hyponatremia Hypokalemia Nausea and vomiting Malignant hypertension Elevated brain natriuretic peptide (BNP) level Hypomagnesemia Acute hypokalemia Acute hyponatremia Acute encephalopathy History of nicotine dependence Epigastric pain Low back pain of over 3 months duration Hypertension CVA (cerebral vascular accident) At risk for cardiac dysfunction during anesthesia Tobacco dependence Diverticulosis Osteoarthritis Abdominal wall hernia DJD (degenerative joint disease), lumbar Lumbar radiculopathy HTN (hypertension) Gastroesophageal reflux disease Anxiety CAD (coronary artery disease) Hyperlipidemia Depression Surgical History History of hernia repair H/O heart artery stent Hx of cardiac cath S/P peripheral artery angioplasty with stent placement Hx of cholecystectomy Family History Mother No significant family history Father Heart attack Other Family history of lung disease Social History Smoking Status: Current every day smoker tobacco type: cigarettes packs per day: 1 second hand exposure: No alcohol intake: never substance use type: denies use current occupational status: retired Travel in the last 8 weeks?: None household members: family housing: house marital status: current occupation: [employer] caffeine: Yes Other Medical History Have you received the Flu Vaccine for this season: No Have you received the Pneumonia Vaccine: No ROS Obtained: Yes All systems reviewed & no additional complaints except as documented and Yes Systems reviewed as appropriate & no additional complaints except as documented Physical Exam General General appearance: alert and in no apparent distress Head Head exam: atraumatic, normocephalic and normal inspection Eye Eye exam: Present normal appearance, PERRL and EOMI; Absent scleral icterus ENT ENT exam: Present normal exam and normal external ear exam Neck Neck exam: Present normal inspection and full ROM Chest Chest inspection: Present normal inspection and symmetric chest wall rise Respiratory Respiratory exam: Present normal lung sounds bilaterally; Absent respiratory distress or wheezes Cardiovascular Cardiovascular exam: Present regular rate, normal rhythm and normal heart sounds Abdominal Exam Abdominal exam: Present soft and distention; Absent tenderness, guarding or rebound Extremities Exam Extremities exam: Present normal inspection and full ROM Back Exam Back exam: Present normal inspection and full ROM Neurological Exam Neurological exam: Present alert, oriented X3, CN II-XII intact, normal gait and reflexes normal; Absent motor sensory deficit Psychiatric Psychiatric exam: Present normal affect and normal mood Skin Skin exam: Present warm and dry Medical Decision Making Medical Records Medical records reviewed: Yes I reviewed the patient's medical records. Screening: Per USPSTF and CDC recommendations, given the prevalence of disease in our region, it is our hospital?s policy to screen for HIV and viral Hepatitis for all patients aged 18 and over and those with ongoing risk factors. Pratik Inquiry Pt receiving controlled substance: No Vital Signs: 08/13/25 14:27 08/13/25 14:30 08/13/25 14:31 Temperature 98.0 F Temperature Source Oral Pulse Rate 73 79 Pulse Rate [Left Radial] 90 Respiratory Rate 17 Blood Pressure 184/83 H 159/75 H Blood Pressure [Right Arm] 184/83 H Blood Pressure Mean Blood Pressure Mean [Right Arm] 116 Blood Pressure Source Blood Pressure Source [Right Arm] Automatic Cuff Blood Pressure Position Blood Pressure Position [Right Arm] Sitting 02 Sat by Pulse Oximetry 94 L 94 L 95 Oxygen Delivery Method Room Air Room Air Room Air 08/13/25 15:30 08/13/25 16:00 08/13/25 16:30 Temperature Temperature Source Pulse Rate 74 84 69 Pulse Rate [Left Radial] Respiratory Rate Blood Pressure 165/81 H 129/113 H 149/80 H Blood Pressure [Right Arm] Blood Pressure Mean 127 Blood Pressure Mean [Right Arm] Blood Pressure Source Blood Pressure Source [Right Arm] Blood Pressure Position Blood Pressure Position [Right Arm] 02 Sat by Pulse Oximetry 94 L 98 93 L Oxygen Delivery Method Room Air Room Air Room Air 08/13/25 17:01 08/13/25 19:12 08/13/25 19:25 Temperature 98.1 F Temperature Source Pulse Rate 72 71 Pulse Rate [Left Radial] Respiratory Rate 16 Blood Pressure 155/78 H 151/79 H Blood Pressure [Right Arm] Blood Pressure Mean Blood Pressure Mean [Right Arm] Blood Pressure Source Blood Pressure Source [Right Arm] Blood Pressure Position Sitting Blood Pressure Position [Right Arm] 02 Sat by Pulse Oximetry 94 L 95 Oxygen Delivery Method Room Air Room Air Room Air 08/13/25 19:25 Temperature 98.0 F Temperature Source Oral Pulse Rate 72 Pulse Rate [Left Radial] Respiratory Rate 17 Blood Pressure 151/79 H Blood Pressure [Right Arm] Blood Pressure Mean Blood Pressure Mean [Right Arm] Blood Pressure Source Automatic Cuff Blood Pressure Source [Right Arm] Blood Pressure Position Sitting Blood Pressure Position [Right Arm] 02 Sat by Pulse Oximetry Oxygen Delivery Method Room Air Lab Data Lab results reviewed: Yes I reviewed the patient's lab results. Lab Results 08/13/25 14:22: WBC 13.5 H, RBC 4.18 L, Hgb 11.4 L, Hct 34.9 L, MCV 83.5, MCH 27.3, MCHC 32.7, RDW 15.4, Plt Count 432 H D, MPV 9.5, Neut % (Auto) 81.0 H, Lymph % (Auto) 9.5 L, [place] % (Auto) 6.9, Eos % (Auto) 1.8, Baso % (Auto) 0.4, Neut # (Auto) 11.0 H, Lymph # (Auto) 1.3, [place] # (Auto) 0.9, Eos # (Auto) 0.3, Baso # (Auto) 0.1 08/13/25 15:13: Sodium 128 L, Potassium 2.8 L*, Chloride 95 L, Carbon Dioxide 29, Anion Gap 6.8, BUN 15, Creatinine 0.90, Estimated Creat Clear 54, Estimated GFR 61, Est GFR ( Amer) 74, Glucose 105 H, Calcium 8.3 L, Magnesium 1.8 08/13/25 15:13: Magnesium 1.8, Total Bilirubin 0.3, AST 27, ALT 15, Alkaline Phosphatase 115, Troponin I < 0.01 08/13/25 15:13: Troponin I < 0.01, NT-Pro-B Natriuret Pep 1520 H, Total Protein 6.4, Albumin 3.4 L, Globulin 3.0, Albumin/Globulin Ratio 1.1, Lipase 24, TSH 2.50, Thyroxine (T4) 10.9 08/13/25 18:17: Troponin I < 0.01 08/13/25 14:22 08/13/25 15:13 Orders (Tests/Meds): ED MEDICATIONS Discontinued Medications Generic Name Dose Route Start Last Admin Trade Name Freq PRN Reason Stop Dose Admin Acetaminophen 1,000 mg 08/13/25 15:27 08/13/25 15:39 Acetaminophen 500mg Tab PO 08/13/25 15:28 1,000 mg ONCE ONE Administration Potassium Chloride 80 meq 08/13/25 15:35 08/13/25 15:45 Potassium Chloride 20meq Tab PO 08/13/25 15:36 80 meq ONCE ONE Administration ORDERS Category Date Time Status CT head/brain wo con Stat Cat Scan 08/13/25 15:27 Completed XR chest portable Stat Exams 08/13/25 14:55 Completed BNP [NT Pro Brain Natriuretic Pep.] Stat Lab 08/13/25 15:13 Completed Complete Blood Count Auto Diff Stat Lab 08/13/25 14:22 Completed Comprehensive Metabolic Panel Stat Lab 08/13/25 15:13 Completed Lipase Stat Lab 08/13/25 15:13 Completed Magnesium Stat Lab 08/13/25 15:13 Completed Magnesium Stat Lab 08/13/25 15:13 Completed T4 (Thyroxine) Stat Lab 08/13/25 15:13 Completed Thyroid Stimulating Hormone Stat Lab 08/13/25 15:13 Completed Trop I [Troponin I] Stat Lab 08/13/25 15:13 Completed Troponin I Q3H Lab 08/13/25 18:17 Completed Troponin I Stat Lab 08/13/25 15:13 Completed Medical Decision Narrative: Patient is a 75-year-old female who presented to the emergency department with lightheadedness. On arrival, patient was hemodynamically stable with unremarkable vital signs. Differential includes but not limited to: Electrolyte abnormalities, ACS/LA, arrhythmia, pneumonia, amongst others. Labs were reviewed and interpreted by myself: CBC showed no leukocytosis, hemoglobin was stable. VBG was unremarkable. CMP was unremarkable. Troponin was less than 0.01. X-ray was obtained which was reviewed and interpreted by myself and showed no acute focal consolidation, pneumothorax, pleural effusion or other acute cardiopulmonary process. EKG showed normal sinus rhythm without acute ST or T wave changes concerning for ischemia. At this time, patient was discharged home in stable condition given that patient symptoms resolved in the emergency department. Patient was able to ambulate without difficulties. Return precautions were discussed. Critical Care Critical Care Time Critical Care Time: No
== END 2025-08-13 19:15 | disposition home or self-care (01) ==
PROVIDERS: Student in an Organized Health Care Education/Training Program; Emergency Provider Student in an Organized Health Care Education/Training Program; PCP Nurse Practitioner
DX: E87.6 Hypokalemia (principal); E87.1 Hypo-osmolality and hyponatremia; R42 Dizziness and giddiness; F17.210 Nicotine dependence, cigarettes, uncomplicated; I10 Essential (primary) hypertension; E78.5 Hyperlipidemia, unspecified; Z86.79 Personal history of other diseases of the circulatory system; Z95.5 Presence of coronary angioplasty implant and graft
CPT/HCPCS: 70450; 71045; 80053; 83690; 83735; 83880; 84436; 84443; 84484; 85025; 93005; 99284; 99285

== ENCOUNTER 2025-08-17 08:25 | Emergency (ER) | payer MEDICARE, SELFPAY ==
[2025-08-17 08:32] VITALS: BP 163/90; PULSE 89; RESP 18; TEMP 36.9; O2SAT 98; BMI 28.3
--- NOTE | 2025-08-17 08:40 | PC.NURSE ---
0840 nose clamp applied
--- OUTSIDE RECORDS SUMMARY | 2025-08-17 08:40 | XMS_ITS | Encounter Summary ---
Author Organization Healthcare Address [address] [place] [address] Care Team Providers Care Auditing Coder Name Role Phone Rex Souza MD Primary Care Provider + [phone] Encounter Details Date Type Department Care Team (Late st Contact Info) Description 05/06/2015 Orders Only External Location [address] [place] [address] Provider, External Social History Tobacco Use Types [...] on filedocumented in this encounter Care Teams Auditing Coder Relationship Specialty Start Date End Date Rex Souza MD [address] [place] [address] PCP - General 03/03/21 documented as of this encounter
--- OUTSIDE RECORDS SUMMARY | 2025-08-17 08:40 | XMS_ITS | Clinical Summary ---
Author Organization Healthcare Address [address] [place] [address] Care Team Providers Care Community Relations Representative Name Role Phone Rex Souza MD Primary Care Provider + [phone] Allergies Active Allergy Reactions Criticality Noted Date [...] days 04/18/201 6 Active ergocalciferol 1.25 MG (40597 UT) capsule Take 1 capsule (50,000 Units) [...] PCV21) 12/05/2018 12/05/2017 [facility]-Depression Screening 02/11/2025 02/12/2024 [id number] Vaccine (3 - 2024- season) 2025 08/30/2021, [...] this topic Medical Devices Implanted Type Area Maple Syrup Maker Device Identifier Shelf Expiration Date Model / Serial / Lot Stent Self-Expanding Innova 8mm X 20mm X 130cm - [id number] Implanted:Qty: 1 on 04/14/2024 by Reynaldo Sanchez MD at [facility] [id number] 08/04/2028 [id number] / / [id number] Stent Atrium Icast Covered 7mm X 22mm X 80cm - [id number] Implanted:Qty: 1 on 04/14/2024 by Reynaldo Sanchez MD at [facility] [id number] 09/04/2026 [id number] / [id number] / [id number] Closure Device Vip Angioseal 8 Fr - [id number] Implanted:Qty: 1 on 04/14/2024 by Reynaldo Sanchez MD at [facility] [id number] 11/12/2024 [id number] / / [id number] Stent Graft Iliac [id number] - [id number] - [id number] Implanted:Qty: 1 on 04/14/2024 by Reynaldo Sanchez MD at [facility] [id number] 12/03/2026 [id number] / [id number] / Insurance [facility] MEDICARE Care Teams Community Relations Representative Relationship Specialty Start Date End Date Rex Souza MD [address] [place] [address] PCP - General 03/03/21
--- OUTSIDE RECORDS SUMMARY | 2025-08-17 08:41 | XMS_ITS | Encounter Summary ---
Author Organization Healthcare Address [address] [place] [address] Care Team Providers Care Web Site Designer Name Role Phone Rex Souza MD Primary Care Provider + [phone] Encounter Details Date Type Department Care Team (Late st Contact Info) Description 08/22/2023 Orders Only External Location [address] [place] [address] Provider, External Social History Tobacco Use Types [...] documented as of this encounter Care Teams Web Site Designer Relationship Specialty Start Date End Date Rex Souza MD [address] [id number] PCP - General 03/03/21 documented as of this encounter
--- OUTSIDE RECORDS SUMMARY | 2025-08-17 08:41 | XMS_ITS | Encounter Summary ---
Author Organization Healthcare Address [address] [place] [address] Care Team Providers Care Pc Support Specialist Name Role Phone Rex Souza MD Primary Care Provider + [phone] Encounter Details Date Type Department Care Team (Late st Contact Info) Description 07/17/2023 Orders Only External Location [address] [place] [address] Provider, External Social History Tobacco Use Types [...] on filedocumented in this encounter Care Teams Pc Support Specialist Relationship Specialty Start Date End Date Rex Souaz MD [address] [place] [address] PCP - General 03/03/21 documented as of this encounter
[2025-08-17] MEDS: OXYMETAZOLINE NASAL SPRAY 0.05% 15ML NS (08:42)
--- NOTE | 2025-08-17 08:52 | HMH.EDGENADL ---
Discharge Plan Disposition Patient Disposition: Home, Self-Care Prescriptions Prescriptions: No Action buspirone 10 mg tablet 10 mg PO TID Patient Comments: TAKE 1 TABLET BY MOUTH 3 TIMES A DAY atorvastatin 80 mg tablet 80 mg PO HS clopidogrel 75 mg tablet 75 mg PO DAILY aspirin 81 mg tablet,delayed release (DR/EC) 81 mg PO DAILY amlodipine 10 mg tablet 10 mg PO DAILY pantoprazole 40 mg tablet,delayed release (DR/EC) 40 mg PO DAILY ergocalciferol (vitamin D2) 1,250 mcg (50,000 unit) capsule 1,250 mcg PO WEEKLY pregabalin 75 mg capsule 75 mg PO BID PRN (Reason: nerve pain) ropinirole 1 mg tablet 1 mg PO HS Patient Comments: TAKE 1 TABLET BY MOUTH 1 TO 3 hours BEFORE bedtime hydrocodone-acetaminophen 5-325 mg tablet 1 tab PO Q4H PRN (Reason: pain) Qty: 17 0RF albuterol 90 mcg/actuation Aerosol 90 mcg INHALATION Q4H PRN (Reason: sob) cyclobenzaprine 10 mg tablet 10 mg PO BID Patient Comments: TAKE ONE TABLET BY MOUTH 2 TIMES A DAY furosemide 20 mg tablet 20 mg PO DAILYP PRN (Reason: Leg swelling) carvedilol 12.5 mg Tablet 12.5 mg PO BID 30 Days Qty: 60 0RF spironolactone 25 mg Tablet 50 mg PO DAILY 30 Days Qty: 60 0RF Referrals Follow up/Referrals: Gricel Cornejo APRN [Primary Care Provider, Medical] - See instructions Activity Restrictions/Add. Instructions Additional Instructions/Restrictions: At this time it was felt you are safe to be discharged home. If new or worsening symptoms please do not hesitate to return the emergency department. Please use the nose spray (oxymetazoline) that was provided to you 3 times a day for the next 3 days. Do not blow your nose unless your nose starts bleeding so the clot can stay in place. If your nose starts bleeding again please blow your nose to get all the clots out of your nose apply the nose spray and then apply the clamp that was provided to you leaning forward for 30 minutes then remove the clamp if the bleeding is controlled then there is nothing else to do however if it persist then come see me for continued evaluation. Clinical Impressions Clinical Impression: Epistaxis Instructions Patient Instructions: DI for Nosebleed Print Language Print Language: Chinese Discharge ED Provider: William Casas General Adult HPI General Chief complaint: Epistaxis Stated complaint: bloody nose no accident Time Seen by Provider: 08/17/25 08:32 Mode of Arrival: Ambulatory Source of Information: Patient Description of Symptoms (Recalled from ER Triage Doc. by RN): pts nose started bleeding @0630. denies any trauma or falls, on plavix History of Present Illness HPI narrative: Patient is 75-year-old female on antiplatelet therapy who presents Emergency Department for evaluation of epistaxis. Patient has had epistaxis before occurring subacutely roughly every 2 or so weeks. At approximately 630 this morning she had bleeding out of left nare. No trauma. Due to persistent symptoms she presents here for continued evaluation. No other acute complaints at this time. Please note that above description of symptoms, in this electronic medical record under categorization of recalled from ER triage doctor by RN are reflective of an initial nursing assessment, however, is not reflective of my full history and physical exam that was personally taken and clarified. Consequentially, this preceding description of symptoms, which may include the patient's categorized chief complaint in the EMR, do not reflect my personal clinical impression, and the ultimate description of history of present illness and patient stated complaints should be deferred to this section of the note. Unless stated otherwise or congruent with this section of the note, additional signs, symptoms, or incongruence should be interpreted as inaccurate with my clinical impression. Related Data Home Medications ?Medication ?Instructions ?Recorded ?Confirmed amlodipine 10 mg tablet 10 mg PO DAILY 04/28/25 08/09/25 aspirin 81 mg tablet,delayed 81 mg PO DAILY 04/28/25 08/09/25 release atorvastatin 80 mg tablet 80 mg PO HS 04/28/25 08/09/25 buspirone 10 mg tablet 10 mg PO TID 04/28/25 08/09/25 clopidogrel 75 mg tablet 75 mg PO DAILY 04/28/25 08/09/25 ergocalciferol (vitamin D2) 1,250 1,250 mcg PO WEEKLY 04/28/25 08/09/25 mcg (50,000 unit) capsule pantoprazole 40 mg tablet,delayed 40 mg PO DAILY 04/28/25 08/09/25 release cyclobenzaprine 10 mg tablet 10 mg PO BID 05/21/25 08/09/25 furosemide 20 mg tablet 20 mg PO DAILYP PRN Leg swelling 05/21/25 08/09/25 pregabalin 75 mg capsule 75 mg PO BID PRN nerve pain 06/08/25 08/09/25 albuterol 90 mcg/actuation aerosol 90 mcg inhalation Q4H PRN sob 08/03/25 08/09/25 inhaler ropinirole 1 mg tablet 1 mg PO HS 08/09/25 08/09/25 Previous Rx's ?Medication ?Instructions ?Recorded carvedilol 12.5 mg tablet 12.5 mg PO BID 30 days #60 tabs 05/25/25 spironolactone 25 mg tablet 50 mg (2 x 25 mg) PO DAILY 30 days 05/25/25 #60 tabs hydrocodone 5 mg-acetaminophen 325 1 tab PO Q4H PRN pain #17 tabs 08/10/25 mg tablet Allergies Allergy/AdvReac Type Severity Reaction Status Date / Time Sulfa (Sulfonamide Allergy Nausea Verified 08/09/25 08:22 Antibiotics) [facility] Disclaimer: The information contained in this section may have been updated after the patient was seen, as this information can be updated by other users. 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 Small bowel obstruction Near syncope Superficial venous thrombosis of left upper extremity Cellulitis Hyponatremia Hypokalemia Nausea and vomiting Malignant hypertension Elevated brain natriuretic peptide (BNP) level Hypomagnesemia Acute hypokalemia Acute hyponatremia Acute encephalopathy History of nicotine dependence Epigastric pain Low back pain of over 3 months duration Hypertension CVA (cerebral vascular accident) At risk for cardiac dysfunction during anesthesia Tobacco dependence Diverticulosis Osteoarthritis Abdominal wall hernia DJD (degenerative joint disease), lumbar Lumbar radiculopathy HTN (hypertension) Gastroesophageal reflux disease Anxiety CAD (coronary artery disease) Hyperlipidemia Depression Surgical History H/O heart artery stent Hx of cardiac cath S/P peripheral artery angioplasty with stent placement Hx of cholecystectomy Family History Mother No significant family history Father Heart attack Other Family history of lung disease Social History Smoking Status: Current every day smoker tobacco type: cigarettes packs per day: 1 second hand exposure: No alcohol intake: never substance use type: denies use current occupational status: retired Travel in the last 8 weeks?: None household members: family housing: house marital status: current occupation: [employer] caffeine: Yes Have you lived/traveled outside US in past 30 days?: No Contact w/someone who lives/traveled outside US past 30 days?: No Exposure to someone with infectious disease in past 14 days?: No Do you have a fever (greater than 100.4 F or 38 C)?: No Have you tested positive for COVID-19?: No Exposed to someone with COVID-19 in past 14 days?: No Do you have a sore throat?: No Do you have a cough?: No Do you have any weakness?: No Do you have any diarrhea?: No Are you experiencing any unusual bleeding?: Yes Do you have any muscle aches/pain?: No Do you have any abdominal pain?: No Are you experiencing loss of taste or smell?: No Other Medical History Have you received the Flu Vaccine for this season: No Have you received the Pneumonia Vaccine: No ROS Obtained: Yes Systems reviewed as appropriate & no additional complaints except as documented Physical Exam General General appearance: alert and in no apparent distress Head Head exam: atraumatic and normocephalic Eye Eye exam: Present PERRL and EOMI ENT ENT exam: Present mucous membranes moist and other (Blood oozing out of the left nare, no nasal septal hematoma, no posterior hemorrhage in the oropharynx) Neck Neck exam: Present normal inspection Chest Chest inspection: Present normal inspection and symmetric chest wall rise Respiratory Respiratory exam: Absent respiratory distress Cardiovascular Cardiovascular exam: Present regular rate and normal rhythm Extremities Exam Extremities exam: Present normal inspection Neurological Exam Neurological exam: Present alert and CN II-XII intact Psychiatric Psychiatric exam: Present normal affect Skin Skin exam: Present warm and dry Medical Decision Making Medical Records Screening: Per USPSTF and CDC recommendations, given the prevalence of disease in our region, it is our hospital?s policy to screen for HIV and viral Hepatitis for all patients aged 18 and over and those with ongoing risk factors. Pratik Inquiry Pt receiving controlled substance: No Vital Signs: 08/17/25 08:32 08/17/25 09:17 08/17/25 09:30 Temperature 98.4 F Temperature Source Oral Pulse Rate 83 76 Pulse Rate [Right] 89 Respiratory Rate 18 Blood Pressure 173/87 H 194/94 H Blood Pressure [Right Arm] 163/90 H Blood Pressure Mean [Right Arm] 114 02 Sat by Pulse Oximetry 98 97 96 Oxygen Delivery Method Room Air Room Air Room Air Orders (Tests/Meds): ED MEDICATIONS Discontinued Medications Generic Name Dose Route Start Last Admin Trade Name Freq PRN Reason Stop Dose Admin Bacitracin 1 each 08/17/25 09:37 Bacitracin Oint 0.9gm Udp TP 08/17/25 09:38 ONCE ONE Oxymetazoline HCl 1 ml 08/17/25 08:38 08/17/25 08:42 Oxymetazoline Nasal [place] 0.05% 15ml NS 08/17/25 08:39 1 ml ONCE ONE Administration Medical Decision Narrative: In summary patient is 75-year-old female past medical history described above presents emerged part for evaluation of spontaneous epistaxis. Patient is hemodynamically stable nontoxic-appearing upon arrival, afebrile with blood oozing out of her left nare. No concern for posterior epistaxis based on physical exam. Clots were expelled from the nose, oxymetazoline intranasally was applied and clamp was applied. Upon repeat check there was oozing at the left nare clamp was applied for an additional 15 minutes upon repeat evaluation hemostasis was achieved. Given this patient is appropriate for outpatient management at this time was given return precautions and verbalized understanding. Engine Monitor disclaimer Much of this encounter note is an electronic manager tax spoken language to printed text. Electronic manager tax of the spoken language may permit errors. Although I have reviewed the note, some errors may still exist. Critical Care Critical Care Time Critical Care Time: No
--- NOTE | 2025-08-17 09:16 | PC.NURSE ---
nose clamp removed
[2025-08-17 09:17] VITALS: BP 173/87; PULSE 83; O2SAT 97
[2025-08-17 09:30] VITALS: BP 194/94; PULSE 76; O2SAT 96
[2025-08-17 10:13] VITALS: BP 190/87; PULSE 83; RESP 18; TEMP 36.9; O2SAT 96
== END 2025-08-17 10:17 | disposition home or self-care (01) ==
PROVIDERS: Emergency Provider Emergency Medicine; PCP Nurse Practitioner
DX: R04.0 Epistaxis (principal); F17.210 Nicotine dependence, cigarettes, uncomplicated; Z79.01 Long term (current) use of anticoagulants; Z86.73 Personal history of transient ischemic attack (TIA), and cerebral infarction without residual deficits
CPT/HCPCS: 99283

== ENCOUNTER 2025-09-08 10:36 | Outpatient (CLI) | payer MEDICARE, SELFPAY ==
--- OUTSIDE RECORDS SUMMARY | 2025-09-08 11:52 | XMS_ITS | Referral Summary ---
Author Organization [employer] ([place], [place], [place], [place], [place]) Address [address] [place] [address] Care Team Providers Care Outside Machinist Name Role Phone Gabino Myrick MD Primary Care Provider [phone] Bruce Shepherd MD Unavailable [phone] Teresa Grigsby DO Unavailable Allergies Active Allergy [...] hyperlipidemia 09/19/2023 Coronary artery disease invo lving [place] coronary artery of [place] heart without angina pectoris 09/19/2023 Cigarette nicotine [...] Date Gordy rded Speak language other than Citizen Of [place] at home Not on file 11/01/2023 Want [...] Advance Directives For more information, please contact: [phone] * Full Code (Latest Code Status on File) Date Activated Date Inactivated Comments 09/02/2023 5:26 AM 09/03/2023 4:27 AM * Full Code Date Activated Date Inactivated Comments 08/21/2023 1:50 PM 08/23/2023 6:38 PM Care Teams Outside Machinist Relationship Specialty Start Date End Date Gabino Myrick MD [address] [place] [address] PCP - General Family Medicine 08/08/23 Bruce Shepherd MD [address] [facility] [address] [id number] Surgeon Cardiothoracic Surgery 08/21/23 Teresa Grigsby DO [address] [facility] [address] [address] Interventional Cardiology 02/05/24
--- OUTSIDE RECORDS SUMMARY | 2025-09-08 11:52 | XMS_ITS | Clinical Summary ---
Author Organization [employer] ([place], [place], [place], [place], [place]) Address [address] [place] [address] Care Team Providers Care Electron Beam Welding Machine Operator Name Role Phone Gabino Myrick MD Primary Care Provider [phone] Bruce Shepherd MD Unavailable [phone] Teresa Grigsby DO Unavailable Allergies Active Allergy [...] hyperlipidemia 09/19/2023 Coronary artery disease invo lving [place] coronary artery of [place] heart without angina pectoris 09/19/2023 Cigarette nicotine [...] Date Gordy rded Speak language other than [place]ese at home Not on file 11/01/2023 Want [...] 08/09/2021 Influenza Vaccine (#1) 2025 08/15/2020 Insurance [facility] MEDICARE HMO Advance Directives For more information, please contact: [phone] * Full Code (Latest Code Status on File) Date Activated Date Inactivated Comments 09/02/2023 5:26 AM 09/03/2023 4:27 AM * Full Code Date Activated Date Inactivated Comments 08/21/2023 1:50 PM 08/23/2023 6:38 PM Care Teams Electron Beam Welding Machine Operator Relationship Specialty Start Date End Date Gabino Myrick MD [address] [facility] [place] [address] PCP - General Family Medicine 08/08/23 Bruce Shepherd MD [address] [facility] [address] [place] [id number] Surgeon Cardiothoracic Surgery 08/21/23 Teresa Grigsby DO [address] [facility] [address] [place] [address] Interventional Cardiology 02/05/24
[2025-09-08 12:02] LABS: Anion Gap 8.5 mEq/L (5-15); Blood Urea Nitrogen 18 mg/dl (7-17); Calcium 8.8 mg/dl (8.4-10.2); Carbon Dioxide 28 mmol/L (22.0-30.0); Chloride 97 mmol/L (98-107); Creatinine,Serum 0.90 mg/dl (0.52-1.04); Estimated Glomerular Filt Rate 61 ml/min (>60); GFR (African American) 74 ML/MIN (>60); Glucose 85 mg/dl (74-100); Potassium 3.5 mmoL/L (3.5-5.1); Sodium 130 mmol/L (136-145)
== END 2025-09-08 23:59 | disposition home or self-care (01) ==
LOC: LAB 10:37
PROVIDERS: PCP Nurse Practitioner; Visit Provider Physician Assistant
DX: I25.10 Atherosclerotic heart disease of native coronary artery without angina pectoris (principal)
CPT/HCPCS: 36415; 80048

== ENCOUNTER 2025-09-13 20:34 | Emergency (ER) | payer MEDICARE, SELFPAY ==
[2025-09-13] VITALS (10 sets, daily range): BP systolic 145–181; BP diastolic 52–110; PULSE 82–95; RESP 16–28; TEMP 36.6–36.8; O2SAT 86–97; BMI 30.5
--- OUTSIDE RECORDS SUMMARY | 2025-09-13 20:42 | XMS_ITS | Clinical Summary ---
Author Organization Healthcare Address [address] [place] [address] Care Team Providers Care Graphics Intern Name Role Phone Rex Souza MD Primary Care Provider + [phone] Allergies Active Allergy Reactions Criticality Noted Date [...] days 04/18/201 6 Active ergocalciferol 1.25 MG (07655 UT) capsule Take 1 capsule (50,000 Units) [...] PCV21) 12/05/2018 12/05/2017 [facility]-Depression Screening 02/11/2025 02/12/2024 [id number]-30 Vaccine (3 - 2024- season) 2025 08/30/2021, [...] this topic Medical Devices Implanted Type Area Transit Bus Driver Device Identifier Shelf Expiration Date Model / Serial / Lot Stent Self-Expanding Innova 8mm X 20mm X 130cm - [id number] Implanted:Qty: 1 on 04/14/2024 by Reynaldo Sanchez MD at [facility] [id number] 08/04/2028 [id number] / / [id number] Stent Atrium Icast Covered 7mm X 22mm X 80cm - [id number] Implanted:Qty: 1 on 04/14/2024 by Reynaldo Sanchez MD at [facility] [id number] 09/04/2026 [id number] / [id number] / [id number] Closure Device Vip Angioseal 8 Fr - [id number] Implanted:Qty: 1 on 04/14/2024 by Reynaldo Sanchez MD at [facility] [employer]-[id number] 11/12/2024 [id number] / / [id number] Stent Graft Iliac [id number] - [id number] - [id number] Implanted:Qty: 1 on 04/14/2024 by Reynaldo Sanchez MD at [facility] [employer]-[id number] 12/03/2026 [id number] / [id number] / Insurance [facility] MEDICARE Care Teams Graphics Intern Relationship Specialty Start Date End Date Rex Souza MD [address] [place] [address] PCP - General 03/03/21
--- OUTSIDE RECORDS SUMMARY | 2025-09-13 20:42 | XMS_ITS | Encounter Summary ---
Author Organization Healthcare Address [address] [place] [address] Care Team Providers Care Cleaning Manager Name Role Phone Rex Souza MD Primary Care Provider + [phone] Encounter Details Date Type Department Care Team (Late st Contact Info) Description 05/06/2015 Orders Only External Location [address] [place] [address] Provider, External Social History Tobacco Use Types [...] on filedocumented in this encounter Care Teams Cleaning Manager Relationship Specialty Start Date End Date Rex Souza MD [address] [place] [address] PCP - General 03/03/21 documented as of this encounter
--- OUTSIDE RECORDS SUMMARY | 2025-09-13 20:42 | XMS_ITS | Referral Summary ---
Author Organization [employer] ([place], [place], [place], [place], [place]) Address [address] [place] [address] Care Team Providers Care Paper Novelty Maker Name Role Phone Gabino Myrick MD Primary Care Provider [phone] Bruce Shepherd MD Unavailable [phone] Teresa Grigsby DO Unavailable Allergies Active Allergy [...] hyperlipidemia 09/19/2023 Coronary artery disease invo lving [place] coronary artery of [place] heart without angina pectoris 09/19/2023 Cigarette nicotine [...] Date Gordy rded Speak language other than [place] at home Not on file 11/01/2023 Want [...] Advance Directives For more information, please contact: [phone] * Full Code (Latest Code Status on File) Date Activated Date Inactivated Comments 09/02/2023 5:26 AM 09/03/2023 4:27 AM * Full Code Date Activated Date Inactivated Comments 08/21/2023 1:50 PM 08/23/2023 6:38 PM Care Teams Paper Novelty Maker Relationship Specialty Start Date End Date Gabino Myrick MD [address] [place] [address] PCP - General Family Medicine 08/08/23 Bruce Shepherd MD [address] [facility] [address] [phone] Surgeon Cardiothoracic Surgery 08/21/23 Teresa Grigsby DO [address] [facility] [address] [address] Interventional Cardiology 02/05/24
--- OUTSIDE RECORDS SUMMARY | 2025-09-13 20:42 | XMS_ITS | Clinical Summary ---
Author Organization [employer] ([place], [place], [place], [place], [place]) Address [address] [place] [address] Care Team Providers Care Hookman Name Role Phone Gabino Myrick MD Primary Care Provider [phone] Bruce Shepherd MD Unavailable [phone] Teresa Grigsby DO Unavailable Allergies Active Allergy [...] hyperlipidemia 09/19/2023 Coronary artery disease invo lving [place] coronary artery of [place] heart without angina pectoris 09/19/2023 Cigarette nicotine [...] rded Speak language other than Citizen Of [place] at home Not on file 11/01/2023 Want [...] 08/09/2021 Influenza Vaccine (#1) 2025 08/15/2020 Insurance [facility] MEDICARE HMO Advance Directives For more information, please contact: [phone] * Full Code (Latest Code Status on File) Date Activated Date Inactivated Comments 09/02/2023 5:26 AM 09/03/2023 4:27 AM * Full Code Date Activated Date Inactivated Comments 08/21/2023 1:50 PM 08/23/2023 6:38 PM Care Teams Hookman Relationship Specialty Start Date End Date Gabino Myrick MD [address] [facility] [place] [address] PCP - General Family Medicine 08/08/23 Bruce Shepherd MD [address] [facility] [address] [place] [phone] Surgeon Cardiothoracic Surgery 08/21/23 Teresa Grigsby DO [address] [facility] [address] [place] [address] Interventional Cardiology 02/05/24
--- OUTSIDE RECORDS SUMMARY | 2025-09-13 20:42 | XMS_ITS | Encounter Summary ---
Author Organization Healthcare Address [address] [place] [address] Care Team Providers Care Pastoral Worker Name Role Phone Rex Souza MD Primary Care Provider + [phone] Encounter Details Date Type Department Care Team (Late st Contact Info) Description 08/22/2023 Orders Only External Location [address] [place] [address] Provider, External Social History Tobacco Use Types [...] documented as of this encounter Care Teams Pastoral Worker Relationship Specialty Start Date End Date Rex Souza MD [address] [place] [id number] PCP - General 03/03/21 documented as of this encounter
--- OUTSIDE RECORDS SUMMARY | 2025-09-13 20:42 | XMS_ITS | Encounter Summary ---
Author Organization Healthcare Address [address] [place] [address] Care Team Providers Care Airline Dispatcher Name Role Phone Rex Souza MD Primary Care Provider + [phone] Encounter Details Date Type Department Care Team (Late st Contact Info) Description 07/17/2023 Orders Only External Location [address] [place] [address] Provider, External Social History Tobacco Use Types [...] on filedocumented in this encounter Care Teams Airline Dispatcher Relationship Specialty Start Date End Date Rex Souza MD [address] [place] [address] PCP - General 03/03/21 documented as of this encounter
--- NOTE | 2025-09-13 20:46 | ECG_ITS ---
APPROVED REPORT Exam: Resting ECG HR:83 bpm ECG Measurements Heart Rate 83 AXES FL 168 P 13 QRSd 91 QRS 25 QT 389 T 68 QTc 429 Conclusion SINUS RHYTHM NONSPECIFIC ST & T-WAVE ABNORMALITY BORDERLINE ECG INTERPRETATION BASED ON A DEFAULT AGE OF 41 YEARS Electronically signed by : YESICA DE LEON, 09/16/2025 14:12:49
--- NOTE | 2025-09-13 20:54 | XR_ITS ---
PROCEDURE INFORMATION: Exam: XR Chest Exam date and time: 09/13/2025 8:59 PM Age: 75 years old Clinical indication: Shortness of breath TECHNIQUE: Imaging protocol: Radiologic exam of the chest. Views: 1 view. COMPARISON: CR XR CHEST PORTABLE 08/13/2025 3:11 PM FINDINGS: Lungs: Lungs are hyperexpanded, compatible with chronic obstructive pulmonary physiologic changes. No focal consolidation or pulmonary edema. Pleural spaces: No pneumothorax. Minimal blunting of the right costophrenic angle, possibly small right pleural effusion versus pleural thickening. Heart/Mediastinum: Normal. Vasculature: Atherosclerotic vascular disease. Bones/joints: Multilevel thoracic spine degenerative disc space narrowing and osteophyte formation. IMPRESSION: No acute cardiopulmonary abnormality.
--- NOTE | 2025-09-13 20:56 | [facility].EDCP ---
Discharge Plan Disposition Patient Disposition: Home, Self-Care Prescriptions Prescriptions: No Action bumetanide 1 mg tablet 1 mg PO nitroglycerin 0.4 mg tablet, sublingual 0.4 mg sublingual Q5M Qty: 20 2RF Rx Instructions: do not exceed 3 doses per episode amlodipine 5 mg tablet 5 mg PO DAILY Qty: 30 2RF losartan 25 mg tablet 25 mg PO DAILY Qty: 30 2RF buspirone 10 mg tablet 10 mg PO TID Patient Comments: TAKE 1 TABLET BY MOUTH 3 TIMES A DAY atorvastatin 80 mg tablet 80 mg PO HS clopidogrel 75 mg tablet 75 mg PO DAILY aspirin 81 mg tablet,delayed release (DR/EC) 81 mg PO DAILY pantoprazole 40 mg tablet,delayed release (DR/EC) 40 mg PO DAILY ergocalciferol (vitamin D2) 1,250 mcg (50,000 unit) capsule 1,250 mcg PO WEEKLY pregabalin 75 mg capsule 75 mg PO BID PRN (Reason: nerve pain) ropinirole 1 mg tablet 1 mg PO HS Patient Comments: TAKE 1 TABLET BY MOUTH 1 TO 3 hours BEFORE bedtime hydrocodone-acetaminophen 5-325 mg tablet 1 tab PO Q4H PRN (Reason: pain) Qty: 17 0RF albuterol 90 mcg/actuation Aerosol 90 mcg INHALATION Q4H PRN (Reason: sob) cyclobenzaprine 10 mg tablet 10 mg PO BID Patient Comments: TAKE ONE TABLET BY MOUTH 2 TIMES A DAY furosemide 20 mg tablet 20 mg PO DAILYP PRN (Reason: Leg swelling) carvedilol 12.5 mg Tablet 12.5 mg PO BID 30 Days Qty: 60 0RF spironolactone 25 mg Tablet 50 mg PO DAILY 30 Days Qty: 60 0RF Referrals Follow up/Referrals: Gricel Cornejo APRN [Primary Care Provider, Medical] - See instructions Activity Restrictions/Add. Instructions Additional Instructions/Restrictions: Follow-up with your primary care doctor tomorrow if able. If you develop any new or worsening symptoms, or if you become concerned for your help for any reason, return to the emergency department for evaluation. Clinical Impressions Clinical Impression: Shortness of breath, Localized swelling of both lower legs Print Language Print Language: Yakut Discharge ED Provider: Kenny Velasquez General Chief Complaint: Shortness of Breath/Dyspnea Stated Complaint: Swelling in both legs & SOA Time Seen by Provider: 09/13/25 20:39 Mode of Arrival: Ambulatory Source of Information: Patient and Relative Description of Symptoms (Recalled from ER Triage Doc. by RN): patient states she is feeling short of breath and increased swelling over the last 3 weeks. worsening today. History of Present Illness HPI narrative: Pricilla Tubbs is a 75y female with a history of coronary artery disease, hyperlipidemia, hypertension, current tobacco use, COPD on 2 L nasal cannula as needed who presents to the emergency department for complaints of shortness of breath and leg swelling. Patient states that over the last 3 weeks, she has had swelling in both of her legs. She was put on Bumex and was told to take this as well spironolactone. She did take both of these today. She states that she is still urinating but feels like the swelling in her legs has not improved. She reports worsening shortness of breath with exertion over the last 3 weeks. She has tried at home inhalers without relief. She reports a mildly productive cough but no fever. She denies any chest pain Related Data Home Medications ?Medication ?Instructions ?Recorded ?Confirmed aspirin 81 mg tablet,delayed 81 mg PO DAILY 04/28/25 09/08/25 release atorvastatin 80 mg tablet 80 mg PO HS 04/28/25 09/08/25 buspirone 10 mg tablet 10 mg PO TID 04/28/25 09/08/25 clopidogrel 75 mg tablet 75 mg PO DAILY 04/28/25 09/08/25 ergocalciferol (vitamin D2) 1,250 1,250 mcg PO WEEKLY 04/28/25 09/08/25 mcg (50,000 unit) capsule pantoprazole 40 mg tablet,delayed 40 mg PO DAILY 04/28/25 09/08/25 release cyclobenzaprine 10 mg tablet 10 mg PO BID 05/21/25 09/08/25 furosemide 20 mg tablet 20 mg PO DAILYP PRN Leg swelling 05/21/25 09/08/25 pregabalin 75 mg capsule 75 mg PO BID PRN nerve pain 06/08/25 09/08/25 albuterol 90 mcg/actuation aerosol 90 mcg inhalation Q4H PRN sob 08/03/25 09/08/25 inhaler ropinirole 1 mg tablet 1 mg PO HS 08/09/25 09/08/25 bumetanide 1 mg tablet 1 mg PO 08/31/25 09/08/25 Previous Rx's ?Medication ?Instructions ?Recorded carvedilol 12.5 mg tablet 12.5 mg PO BID 30 days #60 tabs 05/25/25 spironolactone 25 mg tablet 50 mg (2 x 25 mg) PO DAILY 30 days 05/25/25 #60 tabs hydrocodone 5 mg-acetaminophen 325 1 tab PO Q4H PRN pain #17 tabs 08/10/25 mg tablet amlodipine 5 mg tablet 5 mg PO DAILY #30 tabs 09/08/25 losartan 25 mg tablet 25 mg PO DAILY #30 tabs 09/08/25 nitroglycerin 0.4 mg sublingual 0.4 mg sublingual Q5M #20 tabs 09/08/25 tablet Allergies Allergy/AdvReac Type Severity Reaction Status Date / Time Sulfa (Sulfonamide Allergy Nausea Verified 09/08/25 10:07 Antibiotics) [facility] Disclaimer: The information contained in this section may have been updated after the patient was seen, as this information can be updated by other users. Medical History Rhinovirus Ascites Incarcerated hernia Bowel obstruction Incisional hernia of anterior abdominal wall with obstruction Small bowel obstruction Near syncope Superficial venous thrombosis of left upper extremity Cellulitis Hyponatremia Hypokalemia Nausea and vomiting Malignant hypertension Elevated brain natriuretic peptide (BNP) level Hypomagnesemia Acute hypokalemia Acute hyponatremia Acute encephalopathy History of nicotine dependence Epigastric pain Low back pain of over 3 months duration Hypertension CVA (cerebral vascular accident) At risk for cardiac dysfunction during anesthesia Tobacco dependence Diverticulosis Osteoarthritis Abdominal wall hernia DJD (degenerative joint disease), lumbar Lumbar radiculopathy HTN (hypertension) Gastroesophageal reflux disease Anxiety CAD (coronary artery disease) Hyperlipidemia Depression Surgical History History of hernia repair H/O heart artery stent Hx of cardiac cath S/P peripheral artery angioplasty with stent placement Hx of cholecystectomy Family History Mother No significant family history Father Heart attack Other Family history of lung disease Social History Smoking Status: Current every day smoker tobacco type: cigarettes packs per day: 1 second hand exposure: No alcohol intake: never substance use type: denies use current occupational status: retired Travel in the last 8 weeks?: None household members: family housing: house marital status: current occupation: [employer] caffeine: Yes Have you lived/traveled outside [place] in past 30 days?: No Contact w/someone who lives/traveled outside [place] past 30 days?: No Exposure to someone with infectious disease in past 14 days?: No Do you have a fever (greater than 100.4 F or 38 C)?: No Have you tested positive for COVID-19?: No Exposed to someone with COVID-19 in past 14 days?: No Do you have a sore throat?: No Do you have a cough?: No Do you have any weakness?: No Do you have any diarrhea?: No Are you experiencing any unusual bleeding?: No Do you have any muscle aches/pain?: No Do you have any abdominal pain?: No Are you experiencing loss of taste or smell?: No Other Medical History Have you received the Flu Vaccine for this season: No Have you received the Pneumonia Vaccine: No ROS Obtained: Yes Systems reviewed as appropriate & no additional complaints except as documented Physical Exam General General appearance: alert Comment: Mild increased work with breathing, speaking in full sentences Head Head exam: atraumatic Eye Eye exam: Present normal appearance ENT ENT exam: Present normal external ear exam Neck Neck exam: Present full ROM Chest Chest inspection: Present symmetric chest wall rise Respiratory Respiratory exam: Present respiratory distress (mild increased work with breathing, speaking in full stentences) and wheezes (end expiratory); Absent normal lung sounds bilaterally Cardiovascular Cardiovascular exam: Present regular rate and normal rhythm Abdominal Exam Abdominal exam: Present soft; Absent distention, tenderness or guarding Extremities Exam Extremities exam: Present normal inspection and edema (2+ pitting edema to distal bilateral lower extremities) Back Exam Back exam: Present normal inspection Neurological Exam Neurological exam: Present alert and oriented X3 Psychiatric Psychiatric exam: Present normal affect Skin Skin exam: Present warm and dry HEART Score HEART Score HEART Score assessment performed?: Yes History (anamnesis): Slightly suspicious ECG: Normal Age: >65 years Risk factors: Atherosclerosis history Troponin: </= normal limit HEART Score: 4 Procedures Limited Ultrasound Indication:: Limited cardiac ultrasound Indication: Shortness of breath, lower extremity swelling Identified cardiac views: -Cardiac parasternal long axis -Cardiac parasternal short axis -Cardiac apical four-chamber -Cardiac subxiphoid Findings: -Cardiac activity present -Wall motion grossly normal -Pericardial effusion absent -Right heart strain absent Impression: - From above Images were saved to permanent archive The study was technically adequate CPT: 28015 This study was performed by Kenny goins MD and I personally interpreted all images/videos. Based on my clinical judgement, these images were adequate and did not necessitate further imaging. Limited lung ultrasound A focused ultrasound exam of the pleural spaces was performed to evaluate for pneumothorax, pulmonary edema, pleural effusion and/or consolidation. The ultrasound was performed with the following indications, as noted in the H&P: Dyspnea, hypoxia Identified structures: RIGHT and/or LEFT thoracic cavities were examined. Findings: Lung sliding: - Left present - Right present B-lines: - Left absent - Right absent Pleural effusion: - Left absent - Right absent Consolidation: - Left absent - Right absent Impression: - Pneumothorax absent - Pleural effusion absent - B-lines absent - Consolidation absent Images were saved to permanent archive The study was technically adequate CPT 03719-94 This study was performed by Kenny goins MD, and I personally interpreted all images/videos. Based on my clinical judgement, these images were adequate and did not necessitate further imaging. Critical Care Critical Care Time Critical Care Time: No Medical Decision Making Pratik Inquiry Pt receiving controlled substance: No Vital Signs Vital Signs: 09/13/25 20:46 09/13/25 20:56 09/13/25 21:01 Temperature 98.2 F Temperature Source Oral Pulse Rate 82 Pulse Rate [Left] 95 H Respiratory Rate 22 16 Blood Pressure 145/110 H Blood Pressure [Right Arm] 177/99 H Blood Pressure Mean [Right Arm] 125 Blood Pressure Source Blood Pressure Source [Right Arm] Automatic Cuff Blood Pressure Position Blood Pressure Position [Right Arm] Sitting 02 Sat by Pulse Oximetry 86 L 86 L 97 Oxygen Delivery Method Room Air Room Air Oxygen Flow Rate (LPM) 3 Fraction of Inspired Oxygen 09/13/25 21:30 09/13/25 22:00 09/13/25 22:01 Temperature Temperature Source Pulse Rate 93 H 85 Pulse Rate [Left] Respiratory Rate 26 H 19 Blood Pressure 150/58 H 165/52 H Blood Pressure [Right Arm] Blood Pressure Mean [Right Arm] Blood Pressure Source Blood Pressure Source [Right Arm] Blood Pressure Position Blood Pressure Position [Right Arm] 02 Sat by Pulse Oximetry 96 Oxygen Delivery Method Oxygen Flow Rate (LPM) Fraction of Inspired Oxygen 09/13/25 22:30 09/13/25 22:50 09/13/25 22:50 Temperature Temperature Source Pulse Rate 87 Pulse Rate [Left] Respiratory Rate 28 H Blood Pressure 181/72 H Blood Pressure [Right Arm] Blood Pressure Mean [Right Arm] Blood Pressure Source Blood Pressure Source [Right Arm] Blood Pressure Position Blood Pressure Position [Right Arm] 02 Sat by Pulse Oximetry 96 97 Oxygen Delivery Method CPAP Oxygen Flow Rate (LPM) Fraction of Inspired Oxygen 25 25 09/13/25 23:00 09/13/25 23:32 Temperature 98 F Temperature Source Oral Pulse Rate 82 89 Pulse Rate [Left] Respiratory Rate 21 18 Blood Pressure 171/70 H 181/77 H Blood Pressure [Right Arm] Blood Pressure Mean [Right Arm] Blood Pressure Source Automatic Cuff Blood Pressure Source [Right Arm] Blood Pressure Position Sitting Blood Pressure Position [Right Arm] 02 Sat by Pulse Oximetry 97 Oxygen Delivery Method Room Air Oxygen Flow Rate (LPM) Fraction of Inspired Oxygen Lab Data Labs: Lab Results 09/13/25 20:45: WBC 6.9, RBC 3.72 L, Hgb 9.8 L, Hct 30.8 L, MCV 82.8, MCH 26.3 L, MCHC 31.8, RDW 16.4, Plt Count 397, MPV 9.9, Neut % (Auto) 64.1, Lymph % (Auto) 20.9, [place] % (Auto) 10.4 H, Eos % (Auto) 3.6, Baso % (Auto) 0.6, Neut # (Auto) 4.4, Lymph # (Auto) 1.5, [place] # (Auto) 0.7, Eos # (Auto) 0.3, Baso # (Auto) 0.0, VBG pH 7.40, VBG pCO2 45.5, VBG pO2 42.4 H, VBG HCO3 27.5, VBG Total CO2 28.9 H, VBG O2 Saturation 76.0 H, VBG Base Excess 2.7 H, VBG Lactic Acid 1.3, Sodium 137, Potassium 3.6, Chloride 98, Carbon Dioxide 29, Anion Gap 13.6, BUN 20 H, Creatinine 0.90, Estimated Creat Clear 59, Estimated GFR 61, Est GFR ( Amer) 74, Glucose 116 H, Calcium 9.0, Total Bilirubin 0.3, AST 29, ALT 17, Alkaline Phosphatase 134 H, Troponin I < 0.01, NT-Pro-B Natriuret Pep 871 H, Total Protein 7.6, Albumin 4.0, Globulin 3.6 H, Albumin/Globulin Ratio 1.1 09/13/25 22:19: SARS-CoV-2 (PCR) Not detected, Influenza A Untype (PCR) Not detected, Influenza Type B (PCR) Not detected 09/13/25 20:45 09/13/25 20:45 Response Orders (Tests/Meds): ED MEDICATIONS Discontinued Medications Generic Name Dose Route Start Last Admin Trade Name Freq PRN Reason Stop Dose Admin Albuterol/Ipratropium 9 ml 09/13/25 20:54 09/13/25 21:25 Ipratropium/Albuterol 3 Ml Neb IH 09/13/25 20:55 9 ml ONCE ONE Administration Bumetanide 1 mg 09/13/25 20:54 09/13/25 21:05 Bumetanide 1mg/4ml Vial IV 09/13/25 20:55 1 mg ONCE ONE Administration ORDERS Category Date Time Status CXR --portable [XR chest portable] Stat Exams 09/13/25 20:54 Completed POCUS Point of Care (ER Only) Stat Exams 09/13/25 20:44 Completed BNP [NT Pro Brain Natriuretic Pep.] Stat Lab 09/13/25 20:45 Completed CBC w/Auto Diff [Complete Blood Count Auto Diff] Stat Lab 09/13/25 20:45 Completed CMP [Comprehensive Metabolic Panel] Stat Lab 09/13/25 20:45 Completed Rapid PCR Covid and Flu A/B Stat Lab 09/13/25 22:19 Completed Troponin I Stat Lab 09/13/25 20:45 Completed VBG [Venous Blood Gas] Stat RT 09/13/25 20:45 Completed ECG Data Tracing #1: Attestation: I reviewed this ECG and interpreted as documented below: ECG Narrative: Normal sinus rhythm. No ST elevation or depression. QTc normal at 429. MDM Narrative Medical Decision Narrative: Pricilla Tubbs is a 75y female with a history of coronary artery disease, hyperlipidemia, hypertension, current tobacco use, COPD on 2 L nasal cannula as needed who presents to the emergency department for complaints of shortness of breath and leg swelling. Patient states that over the last 3 weeks, she has had swelling in both of her legs. She was put on Bumex and was told to take this as well spironolactone. She did take both of these today. She states that she is still urinating but feels like the swelling in her legs has not improved. She reports worsening shortness of breath with exertion over the last 3 weeks. She has tried at home inhalers without relief. She reports a mildly productive cough but no fever. She denies any chest pain on arrival, patient is initially hypertensive with blood pressure 177/99 but improved to 145/110 without intervention. Initial heart rate 95 and then 83 without intervention. Initial oxygen saturation 86% on room air and was on 2 L nasal cannula and improved to 96% SpO2. Afebrile. Physical exam, stated above, revealed nontoxic-appearing female who is in mild respiratory distress. She speaking in full sentences. She has end expiratory wheezing bilaterally but breath sounds present on both sides without crackles, cardiac murmur or rub. Abdomen is soft, nontender nondistended. She has 2+ pitting edema to the distal bilateral lower extremities. Differential diagnosis includes, but is not limited to: COPD exacerbation, CHF exacerbation, pneumonia, bronchitis, pericarditis, myocarditis, pneumothorax, pleural effusion, among others. The most morbid conditions were considered and workup was based on these. Workup in the Emergency Department included: VBG with lactate, CBC, CMP, troponin, BNP, EKG, chest x-ray, bedside cardiac ultrasound, rapid COVID and flu test. Patient was also started on a continuous DuoNeb treatment for possible COPD exacerbation. Bedside cardiac and lung ultrasound showed no pericardial effusion, no significant hypokinesis. No B-lines in bilateral lung bolaños or consolidation. See procedure note for details. Patient was administered 1 mg of Bumex IV. She takes 1 mg orally per her chart. EKG without evidence of ischemia. See interpretation above. Per chart review, patient was seen by cardiology on 09/08/2025 and was having similar symptoms. Plan was to perform BP log and to decrease amlodipine to 5 mg with plan to follow-up in 1 month. Labs show no leukocytosis, hemoglobin slightly below baseline at 9.8 (baseline appears to be around 11), hematocrit 30.8, platelets normal at 397. VBG without acidosis or alkalosis with pH of 7.40, pCO2 normal at 45.5. Bicarb normal at 27.5. Lactate normal at 1.3. Electrolytes within normal limits. No MAURISIO. Initial troponin less than 0.01. NT proBNP is elevated 871, however this is improved from previous levels (most recently 1520 in July). CXR interpreted by me personally and shows hyperexpanded lungs consistent with COPD. No pneumothorax. No focal consolidation. Possibly small right pleural effusion. See final radiology report for details. On reassessment, patient subjectively states that she feels less short of breath and has much improved. Her wheezing has resolved, however objectively, she still has tachypnea and increased work of breathing. I discussed a trial of CPAP for patient and her work of breathing and she is agreeable with this plan. Patient remained on CPAP for approximately 30 minutes and wanted it taken off. After taking it off, she states that she feels well and was able to sit up in bed without difficulty. She is wondering why the fluid in her legs has not completely resolved. I did explain that she would likely have days where of the fluid in her legs is worse than others and will likely never completely resolve, even if she is on diuretics. I do feel that she is appropriate for discharge at this time with follow-up with her PCP, which she plans to do tomorrow. Return precautions were given. All questions were answered. She demonstrated understanding and was in agreement this plan. She was then discharged from the emergency department in stable condition.
[2025-09-13 20:57] LABS: Lactate Venous 1.3 mmol/L (0.4-2.0); VBG HCO3 27.5 mmol/L (23-30); VBG PCO2 45.5 mmol/L (35-51); VBG PH 7.40 mmol/L (7.31-7.41); VBG PO2 42.4 mmol/L (28-40)
[2025-09-13 21:02] LABS: Hematocrit 30.8 % (37.0-47.0); Hemoglobin 9.8 g/dL (12.2-16.2); Immature Granulocytes % 0.4 %; Mean Corpuscular HGB Conc 31.8 g/dL (31.8-35.4); Mean Corpuscular Hemoglobin 26.3 pg (27.0-31.2); Mean Corpuscular Volume 82.8 fl (81-99); Nucleated Red Blood Cells % 0 %; Platelet Count 397 K/mm3 (142-424); Red Blood Count 3.72 M/mm3 (4.20-5.40); Red Cell Distribution Width-SD 49.1 fL; White Blood Count 6.9 K/mm3 (4.8-10.8)
[2025-09-13 21:04] LABS: Albumin Level 4.0 g/dl (3.5-5.0); Chloride 98 mmol/L (98-107); Potassium 3.6 mmoL/L (3.5-5.1); Sodium 137 mmol/L (136-145)
[2025-09-13] MEDS: BUMETANIDE 1MG/4ML VIAL 1 MG IV (21:05)
[2025-09-13 21:07] LABS: Alanine Aminotransferase 17 U/L (12-78); Albumin/Globulin Ratio 1.1 (1.1-1.8); Alkaline Phosphatase 134 U/L (38-126); Anion Gap 13.6 mEq/L (5-15); Aspartate Amino Transferase 29 U/L (14-36); Bilirubin,Total 0.3 mg/dl (0.2-1.3); Blood Urea Nitrogen 20 mg/dl (7-17); Calcium 9.0 mg/dl (8.4-10.2); Carbon Dioxide 29 mmol/L (22.0-30.0); Creatinine Clearance Estimated 59 mL/min (50-200); Creatinine,Serum 0.90 mg/dl (0.52-1.04); Estimated Glomerular Filt Rate 61 ml/min (>60); GFR (African American) 74 ML/MIN (>60); Globulin 3.6 g/dL (1.3-3.2); Glucose 116 mg/dl (74-100); Total Protein,Serum 7.6 g/dl (6.3-8.2)
[2025-09-13 21:17] LABS: NT Pro Brain Natriuretic Pep. 871 pg/mL (0-125)
[2025-09-13 21:21] LABS: Troponin I < 0.01 ng/ml (0.00-0.034)
[2025-09-13] MEDS: IPRATROPIUM/ALBUTEROL 3 ML NEB 9 ML IH (21:25)
[2025-09-13 22:23] LABS: Coronavirus 19, PCR Not Detected (NotDetected); Influenza A, PCR Not Detected (NotDetected); Influenza B, PCR Not Detected (NotDetected)
--- NOTE | 2025-09-13 23:34 | PC.NURSE ---
IV discontinued. Catheter tip intact. Bleeding controlled.
== END 2025-09-13 23:36 | disposition home or self-care (01) ==
PROVIDERS: Emergency Provider Student in an Organized Health Care Education/Training Program; PCP Nurse Practitioner
DX: R06.02 Shortness of breath (principal); R06.2 Wheezing; R22.43 Localized swelling, mass and lump, lower limb, bilateral; I10 Essential (primary) hypertension; E78.5 Hyperlipidemia, unspecified; F17.210 Nicotine dependence, cigarettes, uncomplicated; Z86.79 Personal history of other diseases of the circulatory system; Z95.5 Presence of coronary angioplasty implant and graft
CPT/HCPCS: 71045; 80053; 82803; 83880; 84484; 85025; 87636; 93005; 96374; 99285; J1939